=== PATIENT | female | born 1945 | race Caucasian/White ===

== ENCOUNTER 2016-10-16 10:03 | Inpatient (IN) | payer MEDICARE ==
[~2016-10-16 10:03] MED LIST: BUME1TAB PO; GLUC1000 PO; GLUCTAB PO; GLYB1TAB51 PO; K-TA10TA5 PO; LORT5TAB PO; SIMV20TA PO; SULF1TAB47 PO
[2016-10-16 10:12] VITALS: BP 187/83; PULSE 106; RESP 32; TEMP 100.8; O2SAT 100
[2016-10-16] MEDS ORDERED: cefTRIAXone INJ 2,000 MG in SODIUM CHLORIDE 0.9% INJ 100 ML IV STA (10:25)
[2016-10-16] MEDS ORDERED: AZITHROMYCIN INJ 500 MG in SODIUM CHLOR 0.9% 250 ML INJ 250 ML IV STA (10:25)
[2016-10-16] MEDS ORDERED: SODIUM CHLOR 0.9% 1000 ML INJ 1,000 ML IV ONE (10:30)
--- NOTE | 2016-10-16 10:35 | PD ---
HPI Chief Complaint: fall Time Seen by Provider: 10:25 Travel History International Travel<30 days: No Contact w/Intl Traveler<30days: No Traveled to known affect area: No History of Present Illness HPI 71-year-old female with history of diabetes, hypertension, presents to the ER today brought in by EMS after she apparently fell at home, she apparently has not been feeling well for several days, running fevers, coughing, having some shortness of breath here in the ER. She denies any chest pains, abdominal pains , nausea, vomiting, or other symptoms. She reports that she lost balance and fell. She denies any head injury or loss of consciousness. She apparently yelled for neighbors to come help her. According to EMS, she was laying in her own filth, house was fairly unkempt with lots of cats, and appears to be according situation. They are concerned that that the patient is not able to take care of herself. They have suggested that we call DCF. I have relayed this issue to embedded case manager Chelsea Ahumada for the ER. Patient apparently was not able to get herself back up off the floor after she lost balance and fell. Modifying Factors: None Associated Signs & Symptoms: Fall, fevers, coughing and shortness of breath, apparently unable to take care of self at home Risk Factors: Elderly PFSH Past Medical History Cancer: No High Cholesterol: Yes Diabetes: Yes Diminished Hearing: No Glaucoma: No Hepatitis: No Hiatal Hernia: No Hypertension: Yes Respiratory: Yes (HX BRONCHITIS, HX PLEURISY) Thyroid Disease: No Menopausal: Yes Past Surgical History Abdominal Surgery: Yes (1986 CHOLECYSTECTOMY) Cardiac Surgery: No Cholecystectomy: Yes (11/13/1986) Ear Surgery: No Endocrine Surgery: No Eye Surgery: Yes (BILATERAL EYE CATARACT SURGERY WITH IMPLANT) Genitourinary Surgery: No Gynecologic Surgery: Yes (D & C, 10/19/01) Hysterectomy: Yes (04-11-02) Neurologic Surgery: Yes (CERVICAL FUSION 2002) Oral Surgery: No Pacemaker: No Thoracic Surgery: Yes (RIGHT BREAST LUMPECTOMY) Other Surgery: Yes (2005 RIGHT SHOULDER ROTATOR CUFF SURGERY) Social History Alcohol Use: No Tobacco Use: No Substance Use: No Allergies-Medications (Allergen,Severity, Reaction): Coded Allergies: Oxycontin (Verified Allergy, Severe, ITCHING, 05/31/11) Adhesives (Verified Allergy, Mild, Blisters the skin, 05/31/11) Codeine (Verified Allergy, Mild, NAUSEA, 05/31/11) Reported Meds & Prescriptions Reported Meds & Active Scripts Active Review of Systems Except as stated in HPI: all other systems reviewed are Neg Physical Exam Narrative GENERAL: Well-developed elderly white female patient in moderate distress. She appears to covered in defecation, disheveled. Tremulous. SKIN: Focused skin assessment warm/dry. Chronic venous stasis parking of both legs. She has notable erythematous rash below both breasts and the genital area indicative of [place] infection. HEAD: Atraumatic. Normocephalic. EYES: Pupils equal and round. No scleral icterus. No injection or drainage. ENT: No nasal bleeding or discharge. Mucous membranes pink and moist. NECK: Trachea midline. No JVD. CARDIOVASCULAR: Regular rate and rhythm. No murmur appreciated. RESPIRATORY: Mild accessory muscle use. Decreased breath sounds at the bases bilaterally. Breath sounds equal bilaterally. GASTROINTESTINAL: Abdomen soft, non-tender, nondistended. Hepatic and splenic margins not palpable. MUSCULOSKELETAL: No obvious deformities. No clubbing. No cyanosis. Lower leg edema with chronic venous stasis markings. NEUROLOGICAL: Awake and alert. No obvious cranial nerve deficits. Motor grossly within normal limits. Normal speech. PSYCHIATRIC: Appropriate mood and affect; insight and judgment poor. Data Data Last Documented VS Vital Signs Date Time Temp Pulse Resp B/P Pulse Ox O2 Delivery O2 Flow Rate FiO2 10/16/16 10:47 100 Room Air 10/16/16 10:12 100.8 106 32 187/83 Orders Complete Blood Count With Diff (10/16/16 10:08) Comprehensive Metabolic Panel (10/16/16 10:08) Lactic Acid Sepsis Protocol (10/16/16 10:08) Urinalysis - C+S If Indicated (10/16/16 10:08) Blood Culture (10/16/16 10:08) Chest, Single Ap (10/16/16 10:08) Blood Glucose (10/16/16 10:08) Ecg Monitoring (10/16/16 10:08) Iv Access Insert/Monitor (10/16/16 10:08) Oximetry (10/16/16 10:08) Oxygen Administration (10/16/16 10:08) Ceftriaxone Inj (Rocephin Inj) (10/16/16 10:25) Azithromycin Inj (Zithromax Inj) (10/16/16 10:25) Sodium Chlor 0.9% 1000 Ml Inj (Ns 1000 M (10/16/16 10:30) Humerus (Min 2vws) (10/16/16 10:25) Shoulder, Complete (>2vws) (10/16/16 10:25) Urine Culture (10/16/16 10:40) Admit Order (Ed Use Only) (10/16/16 11:54) Labs Laboratory Tests Test 10/16/16 10/16/16 10/16/16 10:20 10:35 10:40 White Blood Count 17.4 TH/MM3 Red Blood Count 4.77 MIL/MM3 Hemoglobin 13.5 GM/DL Hematocrit 40.5 % Mean Corpuscular Volume 85.0 FL Mean Corpuscular Hemoglobin 28.3 PG Mean Corpuscular Hemoglobin 33.3 % Concent Red Cell Distribution Width 13.6 % Platelet Count 214 TH/MM3 Mean Platelet Volume 6.9 FL Neutrophils (%) (Auto) 93.7 % Lymphocytes (%) (Auto) 2.5 % Monocytes (%) (Auto) 3.5 % Eosinophils (%) (Auto) 0.0 % Basophils (%) (Auto) 0.3 % Neutrophils # (Auto) 16.3 TH/MM3 Lymphocytes # (Auto) 0.4 TH/MM3 Monocytes # (Auto) 0.6 TH/MM3 Eosinophils # (Auto) 0.0 TH/MM3 Basophils # (Auto) 0.1 TH/MM3 CBC Comment DIFF FINAL Differential Comment Sodium Level 136 MEQ/L Potassium Level 3.2 MEQ/L Chloride Level 103 MEQ/L Carbon Dioxide Level 22.2 MEQ/L Anion Gap 11 MEQ/L Blood Urea Nitrogen 14 MG/DL Creatinine 1.09 MG/DL Estimat Glomerular Filtration 50 ML/MIN Rate Random Glucose 238 MG/DL Calcium Level 8.6 MG/DL Total Bilirubin 2.1 MG/DL Aspartate Amino Transf 30 U/L (AST/SGOT) Alanine Aminotransferase 17 U/L (ALT/SGPT) Alkaline Phosphatase 92 U/L Total Protein 7.3 GM/DL Albumin 3.5 GM/DL Lactic Acid Level 4.1 mmol/L Urine Color YELLOW Urine Turbidity HAZY Urine pH 5.5 Urine Specific [place] 1.016 Urine Protein 30 mg/dL Urine Glucose (UA) 300 mg/dL Urine Ketones 10 mg/dL Urine Occult Blood MOD Urine Nitrite NEG Urine Bilirubin NEG Urine Urobilinogen LESS THAN 2.0 MG/DL Urine Leukocyte Esterase MOD Urine RBC 5 /hpf Urine WBC 17 /hpf Urine WBC Clumps FEW Urine Squamous Epithelial 3 /hpf Cells Urine Amorphous Sediment OCC Urine Bacteria OCC /hpf Urine Hyaline Casts 2 /lpf Urine Mucus FEW /lpf Microscopic Urinalysis Comment CATH-CULTURE IND MDM Medical Decision Making Medical Screen Exam Complete: Yes Emergency Medical Condition: Yes Medical Record Reviewed: Yes Interpretation(s) Laboratory Tests Test 10/16/16 10/16/16 10/16/16 10:20 10:35 10:40 White Blood Count 17.4 TH/MM3 (4.0-11.0) Mean Platelet Volume 6.9 FL (7.0-11.0) Neutrophils (%) (Auto) 93.7 % (16.0-70.0) Lymphocytes (%) (Auto) 2.5 % (9.0-44.0) Neutrophils # (Auto) 16.3 TH/MM3 (1.8-7.7) Lymphocytes # (Auto) 0.4 TH/MM3 (1.0-4.8) Potassium Level 3.2 MEQ/L (3.5-5.1) Creatinine 1.09 MG/DL (0.50-1.00) Estimat Glomerular Filtration 50 ML/MIN (>89) Rate Random Glucose 238 MG/DL (74-106) Total Bilirubin 2.1 MG/DL (0.2-1.0) Lactic Acid Level 4.1 mmol/L (0.4-2.0) Urine Turbidity HAZY (CLEAR) Urine Protein 30 mg/dL (NEG-TRACE) Urine Glucose (UA) 300 mg/dL (NEG) Urine Ketones 10 mg/dL (NEG) Urine Occult Blood MOD (NEG) Urine Leukocyte Esterase MOD (NEG) Urine RBC 5 /hpf (0-3) Urine WBC 17 /hpf (0-5) Urine WBC Clumps FEW (NONE) Urine Bacteria OCC /hpf (NONE) Urine Mucus FEW /lpf (OCC) Last 24 hours Impressions Shoulder X-Ray 10/16/16 1025 Signed Impressions: Service Date/Time: Sunday, October 16, 2016 11:14 - CONCLUSION: No acute disease. Small exostosis off the coracoid process. Yao Guillen MD Humerus X-Ray 10/16/16 1025 Signed Impressions: Service Date/Time: Sunday, October 16, 2016 11:10 - CONCLUSION: 1. No evidence of acute process. 2. Small calcific density adjacent to the greater tuberosity characteristic of calcific tendinitis or bursitis. Yao Guillen MD Chest X-Ray 10/16/16 1008 Signed Impressions: Service Date/Time: Sunday, October 16, 2016 11:04 - CONCLUSION: Mild perihilar infiltrate. Gm Perez MD Differential Diagnosis Sepsis versus pneumonia versus dehydration versus metabolic issues Narrative Course Lab work shows significant leukocytosis and UA shows UTI. She may have some underlying pneumonia as well since infiltrates were seen on chest x-ray. IV antibiotics were initiated after cultures were done. Case management is aware of patient's living circumstances and will contact DCFS, Chelsea Ahumada on the case. My plan would be to admit the patient for further treatment. Case is discussed with Dr. Appiah for admission. Diagnosis Primary Impression: Severe sepsis Additional Impression: UTI (urinary tract infection) Admitting Information Admitting Physician Requests: Admit Rubi Banuelos MD Oct 16, 2016 10:35
[2016-10-16 10:47] VITALS: O2SAT 100
[2016-10-16 10:56] LABS: AUTOMATED NEUTROPHIL # 16.3 TH/MM3 (1.8-7.7); BASOPHIL # 0.1 TH/MM3 (0-0.2); BASOPHIL % 0.3 % (0.0-2.0); HEMATOCRIT 40.5 % (35.0-46.0); HEMO FLAGS DIFF FINAL; LYMPH % 2.5 % (9.0-44.0); LYMPHOCYTE # 0.4 TH/MM3 (1.0-4.8); MEAN CORPUSCULAR HEMOGLOBIN 28.3 PG (27.0-34.0); MEAN CORPUSCULAR HGB CONC 33.3 % (32.0-36.0); MONO % 3.5 % (0.0-8.0); NEUT % 93.7 % (16.0-70.0); PLATELET COUNT 214 TH/MM3 (150-450); RED BLOOD COUNT 4.77 MIL/MM3 (4.00-5.30); RED CELL DISTRIBUTION WIDTH 13.6 % (11.6-17.2); WHITE BLOOD COUNT 17.4 TH/MM3 (4.0-11.0)
[2016-10-16 11:07] LABS: BACTERIA, URINE OCC /hpf; BLOOD, URINE MOD (NEG); COMMENT (UR) CATH-CULTURE IND; CULTURE IF INDICATED CATH CULTURE IND; GLUCOSE,URINE 300 mg/dL (NEG); HYALINE CAST, URINE 2 /lpf (RARE); KETONE, URINE 10 mg/dL (NEG); MUCUS URINE FEW /lpf (OCC); NITRITE,URINE NEG (NEG); PH, URINE 5.5 (5.0-8.5); SQUAMOUS EPITHELIAL CELL URINE 3 /hpf (0-5); URINE COLOR YELLOW (YELLW/STRAW)
[2016-10-16 11:21] LABS: ALT (GPT) 17 U/L (10-53); ANION GAP 11 MEQ/L (5-15); AST (GOT) 30 U/L (15-37); BICARBONATE 22.2 MEQ/L (21.0-32.0); BLOOD UREA NITROGEN 14 MG/DL (7-18); CHLORIDE 103 MEQ/L (98-107); GLOMERULAR FILTRATION RATE 50 ML/MIN (>89); POTASSIUM 3.2 MEQ/L (3.5-5.1); SODIUM (NA) 136 MEQ/L (136-145)
[2016-10-16 11:23] LABS: ALKALINE PHOSPHATASE 92 U/L (45-117); TOTAL BILIRUBIN ADULT 2.1 MG/DL (0.2-1.0)
--- NOTE | 2016-10-16 11:30 | RADRPT ---
EXAM DATE/TIME: 10/16/2016 11:10 [facility] COMPARISON: No previous studies available for comparison. INDICATIONS : Fall, complains of left upper arm pain. MEDICAL HISTORY : None. SURGICAL HISTORY : Fusion, cervical. ENCOUNTER: Initial ACUITY: 1 day PAIN SCORE: 7/10 LOCATION: Left humerus FINDINGS: Two view examination of the left humerus demonstrates no evidence of fracture or dislocation. Bony m ineralization is normal. The soft tissue structures are intact. Small calcific density is noted adjacent to the greater tuberosity. CONCLUSION: 1. No evidence of acute process. 2. Small calcific density adjacent to the greater tuberosity characteristic of calcific tendinitis or bursitis. Yao Guillen MD on October 16, 2016 at 11:28 Board Certified Radiologist. This report was verified electronically.
--- NOTE | 2016-10-16 11:31 | RADRPT ---
EXAM DATE/TIME: 10/16/2016 11:04 [facility] COMPARISON: No previous studies available for comparison. INDICATIONS : Fever. MEDICAL HISTORY : None. SURGICAL HISTORY : None. ENCOUNTER: Initial ACUITY: 1 day PAIN SCORE: 0/10 LOCATION: Bilateral chest FINDINGS: There is mild perihilar infiltrate, primarily on the right. No evidence of effusion. Cardiac contours are satisfactory. CONCLUSION: Mild perihilar infiltrate. Gm Perez MD on October 16, 2016 at 11:29 Board Certified Radiologist. This report was verified electronically.
--- NOTE | 2016-10-16 11:33 | RADRPT ---
EXAM DATE/TIME: 10/16/2016 11:14 [facility] COMPARISON: No previous studies available for comparison. INDICATIONS : Fall, complains of right shoulder pain. MEDICAL HISTORY : None. SURGICAL HISTORY : Fusion, cervical. ENCOUNTER: Initial ACUITY: 1 day PAIN SCORE: 7/10 LOCATION: Right shoulder FINDINGS: Multiple view examination of the right shoulder demonstrates no evidence of fracture or dislocation. The glenohumeral and acromioclavicular joints are maintained. Focal exostosis is seen off the coraco id process. There is normal range of motion between internal and external rotation. Bony mineralizat ion is normal. CONCLUSION: No acute disease. Small exostosis off the coracoid process. Yao Guillen MD on October 16, 2016 at 11:29 Board Certified Radiologist. This report was verified electronically.
[2016-10-16] MEDS ORDERED: AMLO10TA2 PO (12:06)
[2016-10-16] MEDS ORDERED: ERGO1CAP30 PO (12:06)
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
[2016-10-16 12:50] LABS: LACTIC ACID GHOST NOT REPORTABLE
[2016-10-16 13:00] VITALS: BP 164/79; PULSE 83; RESP 22; TEMP 100.7; O2SAT 100
[2016-10-16] MEDS ORDERED: POTASSIUM CHLORIDE 20 MEQ CONTROLLED RELEASE TAB PO ONE (13:00)
[2016-10-16] MEDS ORDERED: ONDANSETRON HCL 4 MG/2 ML VIAL IV PRN (13:00)
[2016-10-16] MEDS ORDERED: cloNIDine HCL 0.1 MG TAB PO PRN (13:30)
[2016-10-16] MEDS: PIPERACIL-TAZO 3.375 GM PREMIX 50 ML IV SCH ×2 (14:23→22:32)
[2016-10-16] MEDS: ACETAMINOPHEN 325 MG TAB PO PRN ×2 (14:23→22:38)
[2016-10-16] MEDS: ENOXAPARIN SODIUM 30 MG/0.3 ML SYRINGE SQ SCH (14:23)
[2016-10-16] MEDS: NYSTATIN 100,000 U/GM PWD 15 GM BTL TOPICAL SCH ×2 (15:30→22:32)
[2016-10-16 16:00] VITALS: BP 117/59; PULSE 79; RESP 16; TEMP 99; O2SAT 94
[2016-10-16] MEDS: INSULIN ASPART SUPPLEMENTAL SCALE SQ SCH ×2 (16:00→21:00)
[2016-10-16 20:00] VITALS: BP 120/68; PULSE 67; RESP 18; TEMP 98.1; O2SAT 94
[2016-10-17] VITALS: BP 133/70; PULSE 70; RESP 16; TEMP 98.9; O2SAT 95
[2016-10-17] MEDS: PIPERACIL-TAZO 3.375 GM PREMIX 50 ML IV SCH ×4 (01:48→22:15)
[2016-10-17] MEDS: NYSTATIN 100,000 U/GM PWD 15 GM BTL TOPICAL SCH ×3 (05:39→22:16)
[2016-10-17] MEDS: ACETAMINOPHEN 325 MG TAB PO PRN (05:47)
[2016-10-17] MEDS: INSULIN ASPART SUPPLEMENTAL SCALE SQ SCH ×4 (05:47→21:00)
[2016-10-17 07:37] LABS: BICARBONATE 28.4 MEQ/L (21.0-32.0); MAGNESIUM 2.2 MG/DL (1.5-2.5); POTASSIUM 3.4 MEQ/L (3.5-5.1)
[2016-10-17 07:43] LABS: AUTOMATED NEUTROPHIL # 6.7 TH/MM3 (1.8-7.7); BASOPHIL % 0.3 % (0.0-2.0); EOSINOPHIL # 0.1 TH/MM3 (0-0.4); EOSINOPHIL % 0.9 % (0.0-4.0); HEMATOCRIT 35.5 % (35.0-46.0); HEMO FLAGS DIFF FINAL; LYMPHOCYTE # 1.8 TH/MM3 (1.0-4.8); MEAN CELL VOLUME 84.6 FL (80.0-100.0); MEAN CORPUSCULAR HEMOGLOBIN 29.5 PG (27.0-34.0); MEAN CORPUSCULAR HGB CONC 34.9 % (32.0-36.0); MONO % 7.7 % (0.0-8.0); NEUT % 72.1 % (16.0-70.0); PLATELET COUNT 188 TH/MM3 (150-450); RED CELL DISTRIBUTION WIDTH 13.9 % (11.6-17.2); WHITE BLOOD COUNT 9.2 TH/MM3 (4.0-11.0)
[2016-10-17 08:00] VITALS: BP 142/67; PULSE 65; RESP 16; TEMP 97.4; O2SAT 96
[2016-10-17 12:00] VITALS: BP 136/65; PULSE 72; RESP 16; TEMP 98.8; O2SAT 94
[2016-10-17] MEDS: IBUPROFEN 400 MG TAB PO PRN ×2 (13:32→22:17)
[2016-10-17] MEDS: ENOXAPARIN SODIUM 30 MG/0.3 ML SYRINGE SQ SCH (13:32)
[2016-10-17] MEDS ORDERED: POTASSIUM CHLORIDE 20 MEQ CONTROLLED RELEASE TAB PO ONE (15:15)
[2016-10-17 16:00] VITALS: BP 131/65; PULSE 76; RESP 16; TEMP 98.1; O2SAT 96
[2016-10-17 20:00] VITALS: BP 125/72; PULSE 73; RESP 18; TEMP 98.8; O2SAT 96
--- NOTE | 2016-10-17 21:22 | HHI.PR ---
Subjective Remarks doing better. ambulating back from bathroom and doing well with walker. left knee better. Objective Vitals ambulating heart reg lung cta abd s/nt ext chronic lower ext stasis. woody edema/hyperkeratotic plaue areas of redness/fould odor onychomycosis mo under breast/skin folds/inguinal area Vital Signs Date Time Temp Pulse Resp B/P Pulse Ox O2 Delivery O2 Flow Rate FiO2 10/17/16 16:00 98.1 76 16 131/65 96 10/17/16 14:32 18 10/17/16 12:00 98.8 72 16 136/65 94 10/17/16 08:00 97.4 65 16 142/67 96 10/17/16 06:47 18 10/17/16 00:00 98.9 70 16 133/70 95 10/16/16 10/16/16 10/17/16 15:00 23:00 07:00 Intake Total 50 ml 290 ml Balance 50 ml 290 ml Intake Oral 240 ml IV Total 50 ml 50 ml # Voids 2 2 # Bowel Movements 0 1 Result Diagram: 10/17/16 0611 10/17/16 0611 Imaging Last Impressions Shoulder X-Ray 10/16/16 1025 Signed Impressions: Service Date/Time: Sunday, October 16, 2016 11:14 - CONCLUSION: No acute disease. Small exostosis off the coracoid process. Yao Guillen MD Humerus X-Ray 10/16/16 1025 Signed Impressions: Service Date/Time: Sunday, October 16, 2016 11:10 - CONCLUSION: 1. No evidence of acute process. 2. Small calcific density adjacent to the greater tuberosity characteristic of calcific tendinitis or bursitis. Yao Guillen MD Chest X-Ray 10/16/16 1008 Signed Impressions: Service Date/Time: Sunday, October 16, 2016 11:04 - CONCLUSION: Mild perihilar infiltrate. Gm Perez MD A/P Problem List: (1) Fever Status: Acute Plan: - Pt is a 71 y/o female with HTN, diabetes, hx of breast cancer who presented after a trip and fall at home and was unable to get up. - Upon initial evaluation pt is quite unkempt and is reportedly her home was quite filthy per the ED staff as per [facility] account. - She had a noted fever and elevated WBC - Severe yeast infection of skin under breast/abdomen/inguinal folds - UTI..gnr cx pending -Lower ext chronic lymphedema changes and probably component of cellulitis. Pt was picking off hyperkeratotic lesions PT eval. plan for snf and medical management for a few days CM consulted Shower daily Wound care consult for LE'S topical nystatin cont zosyn and f/u pending cx's dvt prophylaxis. (2) UTI (urinary tract infection) Status: Acute Plan: - See above. (3) HTN (hypertension) Status: Chronic Plan: - Home meds resumed - Clonidine PRN (4) Diabetes Status: Chronic Plan: - Pt is not on any medications or insulin at home - Check Hgb A1C - NovoLog SSI - Accu check Problem Qualifiers (1) Diabetes: Selwyn Appiah MD Oct 17, 2016 21:21
[2016-10-18] VITALS: BP 141/67; PULSE 67; RESP 18; TEMP 98.4; O2SAT 96
[2016-10-18] MEDS: PIPERACIL-TAZO 3.375 GM PREMIX 50 ML IV SCH ×4 (01:27→20:05)
[2016-10-18] MEDS: INSULIN ASPART SUPPLEMENTAL SCALE SQ SCH ×4 (05:19→20:05)
[2016-10-18] MEDS: NYSTATIN 100,000 U/GM PWD 15 GM BTL TOPICAL SCH ×2 (05:20→14:11)
[2016-10-18] MEDS: IBUPROFEN 400 MG TAB PO PRN ×2 (05:27→13:05)
[2016-10-18 08:00] VITALS: BP 157/75; PULSE 72; RESP 26; TEMP 97.5; O2SAT 97
--- NOTE | 2016-10-18 11:22 | HHI.PR ---
Subjective Remarks legs look and feel better took another shower Objective Vitals heart reg lung cta abd s/nt ext lower ext chronic lymphedema change/woody edema/hyperkeratotic lesions all better. 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 Vital Signs Date Time Temp Pulse Resp B/P Pulse Ox O2 Delivery O2 Flow Rate FiO2 10/18/16 00:00 98.4 67 18 141/67 96 10/17/16 20:00 98.8 73 18 125/72 96 10/17/16 16:00 98.1 76 16 131/65 96 10/17/16 14:32 18 10/17/16 12:00 98.8 72 16 136/65 94 10/17/16 10/17/16 10/18/16 15:00 23:00 07:00 Intake Total 400 ml Balance 400 ml Intake Oral 400 ml # Voids 3 1 # Bowel Movements 1 Result Diagram: 10/17/16 0611 10/17/16 0611 Imaging Last Impressions Shoulder X-Ray 10/16/16 1025 Signed Impressions: Service Date/Time: Sunday, October 16, 2016 11:14 - CONCLUSION: No acute disease. Small exostosis off the coracoid process. Yao Guillen MD Humerus X-Ray 10/16/16 1025 Signed Impressions: Service Date/Time: Sunday, October 16, 2016 11:10 - CONCLUSION: 1. No evidence of acute process. 2. Small calcific density adjacent to the greater tuberosity characteristic of calcific tendinitis or bursitis. Yao Guillen MD Chest X-Ray 10/16/16 1008 Signed Impressions: Service Date/Time: Sunday, October 16, 2016 11:04 - CONCLUSION: Mild perihilar infiltrate. Gm Perez MD A/P Problem List: (1) Fever Status: Acute Plan: - Pt is a 71 y/o female with HTN, diabetes, hx of breast cancer who presented after a trip and fall at home and was unable to get up. - Upon initial evaluation pt is quite unkempt and is reportedly her home was quite filthy per the ED staff as per [facility] account. - She had a noted fever and elevated WBC - Severe yeast infection of skin under breast/abdomen/inguinal folds - UTI..gnr cx pending -Lower ext chronic lymphedema changes and probably component of cellulitis. Pt was picking off hyperkeratotic lesions overall pt actually looking better. would probably benefit from short term snf..but now will refuse so will plan home with hhc/pt and ask for any social service support in next 1-2 days CM consulted Shower daily Wound care consult for LE'S topical nystatin cont zosyn and convert to po abx tomorrow. dvt prophylaxis. (2) UTI (urinary tract infection) Status: Acute Plan: - See above. (3) HTN (hypertension) Status: Chronic Plan: - Home meds resumed - Clonidine PRN (4) Diabetes Status: Chronic Plan: - Pt is not on any medications or insulin at home - Check Hgb A1C - NovoLog SSI - Accu check Problem Qualifiers (1) Diabetes: Selwyn Appiah MD Oct 18, 2016 11:22
[2016-10-18 12:00] VITALS: BP 136/70; PULSE 68; RESP 24; TEMP 97.9; O2SAT 96
[2016-10-18] MEDS: ENOXAPARIN SODIUM 30 MG/0.3 ML SYRINGE SQ SCH (14:12)
[2016-10-18 16:00] VITALS: BP 136/73; PULSE 73; RESP 24; TEMP 98.1; O2SAT 94
[2016-10-18 20:00] VITALS: BP 148/70; PULSE 79; RESP 17; TEMP 98.9; O2SAT 94
[2016-10-19] VITALS: BP 166/76; PULSE 72; RESP 17; TEMP 97.8; O2SAT 97
[2016-10-19] MEDS: IBUPROFEN 400 MG TAB PO PRN ×3 (00:59→23:27)
[2016-10-19] MEDS: PIPERACIL-TAZO 3.375 GM PREMIX 50 ML IV SCH ×2 (01:00→09:11)
[2016-10-19] MEDS: NYSTATIN 100,000 U/GM PWD 15 GM BTL TOPICAL SCH ×4 (01:01→22:00)
[2016-10-19] MEDS: INSULIN ASPART SUPPLEMENTAL SCALE SQ SCH ×4 (04:39→21:00)
[2016-10-19 08:00] VITALS: BP 168/79; PULSE 73; RESP 16; TEMP 97; O2SAT 96
[2016-10-19 12:00] VITALS: BP 138/65; PULSE 71; RESP 18; TEMP 97.6; O2SAT 93
--- NOTE | 2016-10-19 12:35 | HHI.PR ---
Subjective Remarks Pts IV infiltrated this morning and wasn't able to be replaced No specific complaints today other than venting frustration over IV site issues. Pt refuses SNF and does not want HHC/PT coming into her home. She would be willing to go to a physical therapy facility Objective Vitals Vital Signs Date Time Temp Pulse Resp B/P Pulse Ox O2 Delivery O2 Flow Rate FiO2 10/19/16 08:00 97.0 73 16 168/79 96 10/19/16 00:00 97.8 72 17 166/76 97 10/18/16 20:00 98.9 79 17 148/70 94 10/18/16 16:00 98.1 73 24 136/73 94 10/18/16 14:05 18 10/18/16 10/18/16 10/19/16 15:00 23:00 07:00 Intake Total 480 ml 240 ml 290 ml Balance 480 ml 240 ml 290 ml Intake Oral 480 ml 240 ml 240 ml IV Total 50 ml # Voids 5 2 2 # Bowel Movements 2 2 Result Diagram: 10/17/16 0611 10/17/16 0611 Imaging Last Impressions Shoulder X-Ray 10/16/16 1025 Signed Impressions: Service Date/Time: Sunday, October 16, 2016 11:14 - CONCLUSION: No acute disease. Small exostosis off the coracoid process. Yao Guillen MD Humerus X-Ray 10/16/16 1025 Signed Impressions: Service Date/Time: Sunday, October 16, 2016 11:10 - CONCLUSION: 1. No evidence of acute process. 2. Small calcific density adjacent to the greater tuberosity characteristic of calcific tendinitis or bursitis. Yao Guillen MD Chest X-Ray 10/16/16 1008 Signed Impressions: Service Date/Time: Sunday, October 16, 2016 11:04 - CONCLUSION: Mild perihilar infiltrate. Gm Perez MD Objective Remarks General: NAD, AAOx3 Chest: CTA Cardiac: Regular Abd: +BS, soft obese, ND/NT Ext: Bilateral LE chronic lymphedema skin changes with hyperkeratotic lesions better. Erythema improving A/P Problem List: (1) Fever Status: Acute Plan: - Pt is a 71 y/o female with HTN, diabetes, hx of breast cancer who presented after a trip and fall at home and was unable to get up. - Upon initial evaluation pt is quite unkempt and is reportedly her home was quite filthy per the ED staff as per [facility] account. - She had a noted fever and elevated WBC - Severe yeast infection of skin under breast/abdomen/inguinal folds - UTI with culture growing Klebsiella pneumoniae, hogan sensitive. - Lower ext chronic lymphedema changes and probably component of cellulitis. Pt was picking off hyperkeratotic lesions - Pt is overall pt actually looking better. - Pt would probably benefit from short term SNF but pt is refusing. We discussed a plan for home with hhc/PT but pt does not want any one coming into her home. - CM consulted. Anticipate discharge home tomorrow - Shower daily - Wound care consult for LE'S - Cont. topical nystatin - Pt lost IV access. Change Zosyn to po Cipro today - DVT prophylaxis. (2) UTI (urinary tract infection) Status: Acute Plan: - See above. (3) HTN (hypertension) Status: Chronic Plan: - Home meds resumed - Clonidine PRN (4) Diabetes Status: Chronic Plan: - Pt is not on any medications or insulin at home - NovoLog SSI - Accu check Assessment and Plan Patient examined. Assessment and plan formulated with Danuta Nguyen PA-C. I agree with the above. Problem Qualifiers (1) Diabetes: Danuta Nguyen Oct 19, 2016 12:35 Joseph Jacome DO Oct 20, 2016 12:25
[2016-10-19] MEDS: ENOXAPARIN SODIUM 30 MG/0.3 ML SYRINGE SQ SCH (15:03)
[2016-10-19] MEDS: CIPROFLOXACIN 500 MG TAB PO SCH ×2 (15:03→23:26)
[2016-10-19 16:00] VITALS: BP 180/79; PULSE 74; RESP 17; TEMP 98.5; O2SAT 95
[2016-10-19 20:00] VITALS: BP 133/67; PULSE 78; RESP 24; TEMP 97.9; O2SAT 95
[2016-10-20] VITALS: BP 158/72; PULSE 70; RESP 22; TEMP 97.6; O2SAT 96
[2016-10-20] MEDS: NYSTATIN 100,000 U/GM PWD 15 GM BTL TOPICAL SCH ×2 (06:00→12:47)
[2016-10-20] MEDS: INSULIN ASPART SUPPLEMENTAL SCALE SQ SCH ×2 (06:07→11:00)
[2016-10-20] MEDS: IBUPROFEN 400 MG TAB PO PRN (06:10)
[2016-10-20 08:00] VITALS: BP 139/73; PULSE 64; RESP 18; TEMP 96.9; O2SAT 94
[2016-10-20] MEDS ORDERED: CIPR-9 PO (10:23)
[2016-10-20] MEDS ORDERED: NYST10007 TOPICAL (10:23)
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
--- NOTE | 2016-10-20 12:30 | HHI.DCPOC ---
Discharge Care Plan Diagnosis: (1) Fever (2) Diabetes (3) UTI (urinary tract infection) (4) HTN (hypertension) Goals to Promote Your Health * To prevent worsening of your condition and complications * To maintain your health at the optimal level Directions to Meet Your Goals Take your medications as prescribed Follow your dietary instruction Follow activity as directed Keep your appointments as scheduled Take your immunizations and boosters as scheduled If your symptoms worsen call your PCP, if no PCP go to Urgent Care Center or Emergency Room Smoking is Dangerous to Your Health. Avoid second hand smoke Call the 24-hour hour crisis hotline for domestic abuse at Joseph Jacome DO Oct 20, 2016 12:30
[2016-10-20] MEDS: CIPROFLOXACIN 500 MG TAB PO SCH (12:48)
[2016-10-20] MEDS: ENOXAPARIN SODIUM 30 MG/0.3 ML SYRINGE SQ SCH (12:48)
--- NOTE | 2016-10-20 12:56 | HHI.FF ---
Face to Face Verification Diagnosis: (1) UTI (urinary tract infection) (2) HTN (hypertension) (3) Generalized weakness (4) Lichenification (5) Diabetes Physical Therapy Order: Evaluate and Treat, Improve ambulation, Strength and gait training Home Health Nursing Order: Medical education Signs/symptoms of disease process Diabetic education Medication education-adverse effect Wound care and dressing changes Nursing assessment with vital signs Home Health Aide Order: To Assist In: Bathing and personal care, caustic strength inspector and meal prep Automatic Folder Seamer Order: To Evaluate: Living conditions/environment, Support services Order: To Provide: Long range planning, Community services I have seen patient Merna Valadez on 10/20/16. My clinical findings support the need for the requested home health care services because: Ltd mobility - disease progression Deconditioned w/ increased weakness Med compliance is questionable Limited ability to care for self Need for psychosocial assistance Impaired cognition/judgement I certify that my clinical findings support that this patient is homebound because: Impaired cognitive ability/safety Unsafe to leave home unassisted Need for psychosocial assistance Unable to use public transportation Joseph Jacome DO Oct 20, 2016 12:56
--- NOTE | 2016-10-20 14:55 | PD.WCN.NOT ---
Wound Consult Description: BLE scattered areas of partial thickness skin loss Communicated with: RN Conchis carlos and Doctor Ayaz Recommendation: Please cleanse wound with normal saline and apply single layer Xeroform gauze dressing just over scattered areas of partial thickness skin loss cover with dry 4x4 gauze dressing secure with rolled gauze and tape change every other day or PRN if saturated or dislodged Keep BLE elevated when sitting in chair or in bed Additional Information: Patient seen on for evaluation of wound management of BLE. Patient has history of chronic lymphedema. BLE noted with with hard non pitting edema with erythema. Thickened dry scaly yellow colored skin is also noted with scattered areas of partial thickness skin loss. Small areas of partial thickness skin loss present with 100% pink tissue and dry wound beds. Wounds have no active drainage or odor. Cleansed wounds with normal saline and applied Xeroform gauze in single layer just over wound bed and cover with dry 4x4 gauze pads. Secured dressings with rolled gauze and tape. Patient is to be discharged today and will be having home health care for dressing changes. Patient will be keeping legs elevated at home and per patient will follow up with spa therapist out patient for continued treatment of BLE. [facility] Oct 20, 2016 14:55
[2016-10-20 16:00] VITALS: BP 149/74; PULSE 81; RESP 17; TEMP 96.1; O2SAT 98
== END 2016-10-20 17:07 | disposition home or self-care (01) | DRG 872 ==
LOC: NEPC 10:03 → NEDA 11:56 → N07A 15:28
PROVIDERS: ADMIT Hospitalist; ATTEND Hospitalist
DX: A41.9 Sepsis, unspecified organism (principal); E11.40 Type 2 diabetes mellitus with diabetic neuropathy, unspecified; I27.2 Other secondary pulmonary hypertension; L03.90 Cellulitis, unspecified; B37.2 Candidiasis of skin and nail; N39.0 Urinary tract infection, site not specified; I10 Essential (primary) hypertension; M25.70 Osteophyte, unspecified joint; B96.1 Klebsiella pneumoniae [K. pneumoniae] as the cause of diseases classified elsewhere; E78.5 Hyperlipidemia, unspecified; G47.33 Obstructive sleep apnea (adult) (pediatric); I89.0 Lymphedema, not elsewhere classified; K58.9 Irritable bowel syndrome, unspecified; L28.0 Lichen simplex chronicus; M65.20 Calcific tendinitis, unspecified site; W01.0XXA Fall on same level from slipping, tripping and stumbling without subsequent striking against object, initial encounter; Y92.009 Unspecified place in unspecified non-institutional (private) residence as the place of occurrence of the external cause; Z85.3 Personal history of malignant neoplasm of breast; Z96.652 Presence of left artificial knee joint
CPT/HCPCS: 71010; 73030; 73060; 80048; 80053; 81001; 82948; 83605; 83735; 85025; 87040; 87077; 87086; 87186; J0456; J0696; J1650; J1815; J2543; J7030; J7050

== ENCOUNTER 2017-02-23 19:30 | Inpatient (IN) | payer MEDICARE ==
[~2017-02-23 19:30] MED LIST changes: +AMLO10TA2 PO; -BUME1TAB PO; +CIPR-9 PO; -GLUC1000 PO; -GLUCTAB PO; -GLYB1TAB51 PO; -K-TA10TA5 PO; -LORT5TAB PO; +NYST10007 TOPICAL; -SIMV20TA PO; -SULF1TAB47 PO; +VITA500012 PO
--- NOTE | 2017-02-23 19:54 | PD ---
HPI Chief Complaint: generalized weakness Time Seen by Provider: 19:51 Travel History International Travel<30 days: No Contact w/Intl Traveler<30days: No History of Present Illness HPI The patient is a 71 year old female who presents to the [facility] emergency department with a history of reportedly not feeling well over the last week. The patient reports that she initially started to have cough, congestion, nasal discharge week ago, however this improved. On Wednesday she then developed right arm pain. She reports that the arm pain radiates from the right hand all the way up into the right shoulder. She reports having pain with any attempts at lifting her right arm. She reports that she's had difficulty caring for herself related to the right arm pain. A neighbor has been coming in to give her groceries. She reports that over the last week she has additionally had diarrhea 1-2 times per day. She reports that it is explosive. She denies having any blood in her stool or black or tarry stools. She denies having any known fevers. She reports that she has had lower extremity edema and redness to her legs. The patient on arrival by ambulance services is incontinent of stool and is covered in feces. On review of systems otherwise, the patient denies having any recent fall or trauma, neck pain, chest pain, shortness of breath, abdominal pain, vomiting, urinary symptoms, or other neurologic symptoms. [facility] Past Medical History Narrative Medical The patient's past medical history according to the record consists of diabetes mellitus, diabetic neuropathy, hypertension, hyperlipidemia, history of breast cancer status post lumpectomy and radiation therapy, irritable bowel syndrome, pulmonary hypertension, obstructive sleep apnea, vitamin D deficiency, vitamin B12 deficiency. The patient is followed by a [facility] primary care physician. Cancer: Yes (PRECANCER IN BREAST , HX OF RADIATION TREATMENT ) High Cholesterol: Yes Diabetes: Yes Diminished Hearing: No Endocrine: Yes Glaucoma: No Hepatitis: No Hiatal Hernia: No Hypertension: Yes Psychiatric: No Respiratory: Yes (HX BRONCHITIS, HX PLEURISY) Radiation Therapy: Yes Sleep Apnea: Yes (HAD A SURGERY PERFORMED TO CORRECT ) Thyroid Disease: No Menopausal: Yes Dilation and Curettage (D&C): Yes Past Surgical History Narrative Surgical The patient's past surgical history is significant for total knee replacement on the left, arthroscopy of both knees, cholecystectomy, cataract surgery, rotator cuff repair on the right shoulder, bilateral foot surgery, hysterectomy , D&C. Abdominal Surgery: Yes (GALLBLADDER SURGERY ) Cardiac Surgery: No Cholecystectomy: Yes (11/13/1986) Ear Surgery: No Endocrine Surgery: No Eye Surgery: Yes (BILATERAL CATERAX) Genitourinary Surgery: No Gynecologic Surgery: Yes (DN COMPLETE HYSTORETOMY ) Hysterectomy: Yes (04-11-02) Neurologic Surgery: Yes (CERVICAL FUSION 2002) Oral Surgery: No Pacemaker: No Thoracic Surgery: Yes (RIGHT BREAST LUMPECTOMY) Other Surgery: Yes (2005 RIGHT SHOULDER ROTATOR CUFF SURGERY) Social History Alcohol Use: No Tobacco Use: No Substance Use: No Allergies-Medications (Allergen,Severity, Reaction): Coded Allergies: oxycodone (Verified Allergy, Severe, ITCHING, 02/23/17) adhesive (Verified Allergy, Mild, Blisters the skin, 02/23/17) codeine (Verified Allergy, Mild, NAUSEA, 02/23/17) Reported Meds & Prescriptions Reported Meds & Active Scripts Active Nystop Topical (Nystatin Topical) 100,000 Unit/Gm Powd 1 Applic TOPICAL Q8HR Apply under both breasts, the groin area and under the arms Cipro (Ciprofloxacin HCl) 500 Mg Tab 500 Mg PO Q12H Reported Ergocalciferol 50,000 Unit Cap 50,000 Units PO Q7D Amlodipine (Amlodipine Besylate) 10 Mg Tab 10 Mg PO DAILY Review of Systems Except as stated in HPI: all other systems reviewed are Neg General / Constitutional: No: Fever Eyes: No: Visual changes HENT: Positive: Rhinorrhea, Congestion, No: Headaches Cardiovascular: Positive: Edema, No: Chest Pain or Discomfort Respiratory: Positive: Cough, No: Shortness of Breath Gastrointestinal: Positive: Diarrhea, Changes in Bowel Habits, No: Nausea, Vomiting, Abdominal Pain, Hematochezia, Indigestion, Loss of Appetite Genitourinary: No: Dysuria Musculoskeletal: Positive: Myalgias, Arthralgias, Limited ROM, Pain Skin: Positive Rash (red and swollen bilateral lower extremities.) Neurologic: Positive: Weakness (generalized weakness), No: Focal Abnormalities , Change in Mentation, Slurred Speech, Sensory Disturbance Psychiatric: No: Depression Endocrine: No: Polydipsia Hematologic/Lymphatic: No: Easy Bruising Physical Exam Narrative General: The patient is a well-developed well-nourished female in addition appearing on examination, covered in feces, otherwise in no acute medical distress. Head and Neck exam: Head is normocephalic atraumatic. Eyes: EOMI, pupils are equal round and reactive to light. Nose: Midline septum with pink mucous membranes Mouth: Dentition unremarkable. Moist mucus membranes. Posterior oropharynx is not erythematous. No tonsillar hypertrophy. Uvula midline. Airway patent. Neck: No palpable lymphadenopathy. No nuchal rigidity. No thyromegaly. Cardiovascular: Regular rate and rhythm without murmurs, gallops, or rubs. Lungs: Clear to auscultation bilaterally. No wheezes, rhonchi, or rales. Abdomen: Soft, without tenderness to palpation in all 4 quadrants of the abdomen. No guarding, rebound, or rigidity. Normal bowel sounds are audible. No tenderness on palpation of McBurney's point. Extremities: No clubbing or cyanosis. The patient has 1-2+ pitting edema bilateral lower extremities with erythema of bilateral lower extremities below the knee. The patient has dried stool present on both legs and feet. 2+ pulses in all 4 extremities. On examination of the area of interest, the right shoulder and arm the patient has no swelling noted. No bruising noted. The patient reports pain with attempts at flexion of her shoulder and lifting her arm above her head. She is however able to do this. The patient has no notable deformity. No crepitus. No tenderness on palpation of her hand, wrist, or elbow. No other loss of range of motion of the wrist or elbow. Back: No spinous process tenderness to palpation. No costovertebral angle tenderness to palpation. Neurologic Exam: Cranial nerves 2-12 were intact on exam. Strength is 5/5 in all 4 extremities. No sensory deficits noted. Skin Exam: Skin is warm and dry. Data Data Last Documented VS Vital Signs Date Time Temp Pulse Resp B/P (MAP) Pulse Ox O2 Delivery O2 Flow Rate FiO2 02/23/17 21:28 84 16 109/72 (84) 99 Room Air 02/23/17 20:03 97.9 Orders Orders Electrocardiogram (02/23/17 20:11) Complete Blood Count With Diff (02/23/17 20:11) Comprehensive Metabolic Panel (02/23/17 20:11) Creatine Kinase (Cpk) (02/23/17 20:11) Ckmb (Isoenzyme) Profile (02/23/17 20:11) Troponin I (02/23/17 20:11) B-Type Natriuretic Peptide (02/23/17 20:11) Prothrombin Time / Inr (Pt) (02/23/17 20:11) Act Partial Throm Time (Ptt) (02/23/17 20:11) Blood Culture (02/23/17 20:11) C-Reactive Protein (Crp) (02/23/17 20:11) Lipase (02/23/17 20:11) Urinalysis - C+S If Indicated (02/23/17 20:11) Magnesium (Mg) (02/23/17 20:11) Beta Hydroxybutyrate (Acetone) (02/23/17 20:11) Chest, Single Ap (02/23/17 20:11) Ct Brain W/O Iv Contrast(Rout) (02/23/17 20:11) Iv Access Insert/Monitor (02/23/17 20:11) Ecg Monitoring (02/23/17 20:11) Oximetry (02/23/17 20:11) Lactic Acid Sepsis Protocol (02/23/17 20:11) Ct Cerv Spine W/O Contrast (02/23/17 20:11) Shoulder, Complete (>2vws) (02/23/17 20:11) Sodium Chlor 0.9% 1000 Ml Inj (Ns 1000 M (02/23/17 20:15) Ceftriaxone Inj (Rocephin Inj) (02/23/17 21:45) Azithromycin Inj (Zithromax Inj) (02/23/17 21:45) Sodium Chlor 0.9% 1000 Ml Inj (Ns 1000 M (02/23/17 22:12) Sodium Chlor 0.9% 1000 Ml Inj (Ns 1000 M (02/23/17 22:12) Admit Order (Ed Use Only) (02/23/17 22:19) Potassium Chloride Eff (K-Lyte Cl Eff) (02/23/17 22:30) CKMB (02/23/17 21:20) CKMB% (02/23/17 21:20) Labs Laboratory Tests Test 02/23/17 21:20 White Blood Count 16.6 TH/MM3 Red Blood Count 4.42 MIL/MM3 Hemoglobin 12.9 GM/DL Hematocrit 38.0 % Mean Corpuscular Volume 86.1 FL Mean Corpuscular Hemoglobin 29.2 PG Mean Corpuscular Hemoglobin Concent 33.9 % Red Cell Distribution Width 13.9 % Platelet Count 209 TH/MM3 Mean Platelet Volume 7.2 FL Neutrophils (%) (Auto) 86.2 % Lymphocytes (%) (Auto) 6.7 % Monocytes (%) (Auto) 6.9 % Eosinophils (%) (Auto) 0.1 % Basophils (%) (Auto) 0.1 % Neutrophils # (Auto) 14.3 TH/MM3 Lymphocytes # (Auto) 1.1 TH/MM3 Monocytes # (Auto) 1.1 TH/MM3 Eosinophils # (Auto) 0.0 TH/MM3 Basophils # (Auto) 0.0 TH/MM3 CBC Comment AUTO DIFF Differential Total Cells Counted 100 Neutrophils % (Manual) 75 % Band Neutrophils % 8 % Lymphocytes % 8 % Monocytes % 9 % Neutrophils # (Manual) 13.8 TH/MM3 Differential Comment FINAL DIFF MANUAL Toxic Vacuolation PRESENT Platelet Estimate NORMAL Platelet Morphology Comment NORMAL Prothrombin Time 12.0 SEC Prothromb Time International Ratio 1.2 RATIO Activated Partial Thromboplast Time 21.7 SEC Blood Urea Nitrogen 50 MG/DL Creatinine 2.27 MG/DL Random Glucose 157 MG/DL Total Protein 6.4 GM/DL Albumin 2.9 GM/DL Calcium Level 8.7 MG/DL Magnesium Level 1.9 MG/DL Alkaline Phosphatase 76 U/L Aspartate Amino Transf (AST/SGOT) 73 U/L Alanine Aminotransferase (ALT/SGPT) 48 U/L Total Bilirubin 1.0 MG/DL Sodium Level 138 MEQ/L Potassium Level 3.0 MEQ/L Chloride Level 104 MEQ/L Carbon Dioxide Level 20.2 MEQ/L Anion Gap 14 MEQ/L Estimat Glomerular Filtration Rate 21 ML/MIN Lactic Acid Level 4.6 mmol/L Total Creatine Kinase 1646 U/L Creatine Kinase MB 26.8 NG/ML Creatine Kinase MB % 1.6 % Troponin I 0.17 NG/ML C-Reactive Protein 11.00 MG/DL B-Type Natriuretic Peptide 138 PG/ML Lipase 170 U/L B-Hydroxybutyrate 0.07 MMOL/L MDM Medical Decision Making Medical Screen Exam Complete: Yes Emergency Medical Condition: Yes Medical Record Reviewed: Yes Differential Diagnosis Intracranial hemorrhage, versus ischemic stroke, versus cervical radiculopathy, versus right shoulder dislocation, versus right shoulder fracture, versus rotator cuff injury, versus frozen shoulder, versus pneumonia, versus UTI, versus cellulitis Narrative Course During the course of the patients emergency department visit, the patients history, examination, and differential diagnosis were reviewed with the patient. The patient was placed on a athletic monitor with oximetry and frequent blood pressure monitoring. The patient had IV access obtained and blood work sent for analysis. Blood cultures 2 were sent for analysis, lactic acid was sent for analysis. The patient was initially provided normal saline 1 L IV fluid bolus which was increased to a 30 mL per KG IV fluid bolus when her lactic acid came back at 4.6. The patients laboratory studies were reviewed and remarkable for a CMP is otherwise remarkable for potassium 3.0 which was supplemented orally, CO2 20.2, BUNs 50, creatinine 2.27 and patient according to the record the had normal kidney function previously, AST 73, BNP is 138, albumin 2.9, lipase 17, PT 12, PTT 21.7, CBC remarkable for a white count of 16.6, neutrophils 75, bands 8, beta hydroxybutyrate 0.07. CPK is elevated at 1646 with a normal MB percent consistent with rhabdomyolysis, troponin I is 0.17 likely related to the patient 's acute renal failure, however this will be trended while she is in the hospital. The patient will be given aspirin 3 and 24 mg by mouth 1, nitroglycerin 1/2 inch to the chest wall. Radiology studies were reviewed and remarkable for a chest x-ray that shows patchy nonconsolidated infiltrates in the upper right and middle right lobe of the lung. CT scan of the brain shows old areas of infarct, no acute abnormality. Right shoulder x-ray reveals calcific tendinosis and osteoarthritis, no other acute abnormality. CT scan of the C-spine shows no acute fracture or spondylolisthesis, prior fusion noted. The patients results were discussed with the patient, including the plan of care. I explained that further testing and/ or monitoring is indicated based on the patients history, examination, and/ or laboratory findings. Therefore, I recommended admission for additional evaluation. The patient expressed understanding and was agreeable with this plan. The patient was admitted to the hospital in guarded condition and [facility] Physician Communication Physician Communication The patient's case including history, pertinent physical examination findings, and laboratory studies were discussed with Dr. Nikolas Klein. It was agreed that the [facility] Diagnosis Primary Impression: Pneumonia Qualified Codes: J18.9 - Pneumonia, unspecified organism Additional Impressions: Acute renal failure Qualified Codes: N17.9 - Acute kidney failure, unspecified Dehydration Cellulitis Qualified Codes: L03.119 - Cellulitis of unspecified part of limb Admitting Information Admitting Physician Requests: it Sarah Lopez MD Feb 23, 2017 19:54
[2017-02-23 20:03] VITALS: BP 106/65; PULSE 83; RESP 20; TEMP 97.9; O2SAT 99
[2017-02-23] MEDS ORDERED: SODIUM CHLOR 0.9% 1000 ML INJ 1,000 ML IV ONE ×2 (20:15→22:12)
[2017-02-23 21:00] VITALS: BP 109/72; PULSE 79; RESP 16; O2SAT 99
--- NOTE | 2017-02-23 21:08 | RADRPT ---
EXAM DATE/TIME: 02/23/2017 20:41 [facility] COMPARISON: CHEST SINGLE AP, October 16, 2016, 11:04. INDICATIONS : Cough. Bilateral lower leg pain MEDICAL HISTORY : Hypertension. Diabetes mellitus type II. SURGICAL HISTORY : Right rotator cuff repair. ENCOUNTER: Initial ACUITY: 2 months PAIN SCORE: 0/10 LOCATION: Bilateral chest FINDINGS: Moderate patient rotation towards the right. Patchy areas of opacity in the upper and mid right lung suggest non-consolidative infiltrates. The left lung is clear. The heart is normal in size. Moder ate degenerative changes in the thoracic spine. CONCLUSION: Findings suggest patchy non-consolidative infiltrates in the right mid and upper lung. Avila Arzate MD on February 23, 2017 at 21:05 Board Certified Radiologist. This report was verified electronically.
--- NOTE | 2017-02-23 21:16 | RADRPT ---
EXAM DATE/TIME: 02/23/2017 20:42 [facility] COMPARISON: SHOULDER RIGHT COMPLETE (>2VWS), October 16, 2016, 11:14. INDICATIONS : Right shoulder pain, no trauma. MEDICAL HISTORY : Hypertension. Diabetes mellitus type II. SURGICAL HISTORY : Right rotator cuff repair. ENCOUNTER: Initial ACUITY: 2 months PAIN SCORE: 10/10 LOCATION: Right posterior humerus. FINDINGS: Moderate severity is let us of the a.c. joint with maintenance of alignment. Normal range of motion between internal and external rotation of the glenohumeral joint. Transscapular Y-view is caudally a ngled and no anterior or posterior displacement is seen. The visualized ribs are intact. Multiple o ssification adjacent to the greater tuberosity measures 8 mm suggesting calcific tendinosis. CONCLUSION: 1. No evidence of fracture. 2. Probable calcific tendinosis adjacent to the greater tuberosity. 3. Moderate severity a.c. joint arthritis, similar to prior. Avila Arzate MD on February 23, 2017 at 21:11 Board Certified Radiologist. This report was verified electronically.
--- NOTE | 2017-02-23 21:17 | RADRPT ---
EXAM DATE/TIME: 02/23/2017 20:50 [facility] COMPARISON: No previous studies available for comparison. INDICATIONS : Trauma; fall. RADIATION DOSE: 56.35 CTDIvol (mGy) MEDICAL HISTORY : Hypertension. Carcinoma, breast. SURGICAL HISTORY : Hysterectomy. Cholecystectomy. ENCOUNTER: Initial ACUITY: 1 day PAIN SCALE: 5/10 LOCATION: cranial TECHNIQUE: Multiple contiguous axial images were obtained of the head. Using automated exposure control and adj ustment of the mA and/or kV according to patient size, radiation dose was kept as low as reasonably a chievable to obtain optimal diagnostic quality images. DICOM format image data is available electro nically for review and comparison. FINDINGS: CEREBRUM: The ventricles are normal for age. Focal area of encephalomalacia in the medial right occipital mid convexity and oval area of hypodensity in the left thalamus measuring 7 mm suggesting prior infarctio ns. No evidence of acute blood products. No midline shift. There is good dent-white matter differe ntiation. No extra-axial fluid or blood. POSTERIOR FOSSA: The cerebellum and brainstem are intact. The 4th ventricle is midline. The cerebellopontine angle i s unremarkable. EXTRACRANIAL: The visualized portion of the orbits is intact. SKULL: The calvaria is intact. No evidence of skull fracture. CONCLUSION: 1. No acute findings in the brain. 2. 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 Avila Arzate MD on February 23, 2017 at 21:13 Board Certified Radiologist. This report was verified electronically.
--- NOTE | 2017-02-23 21:20 | RADRPT ---
EXAM DATE/TIME: 02/23/2017 20:52 [facility] COMPARISON: No previous studies available for comparison. INDICATIONS : Trauma; fall. RADIATION DOSE: 28.45 CTDIvol (mGy) MEDICAL HISTORY : Hypertension. Carcinoma, breast. SURGICAL HISTORY : Fusion, cervical. Hysterectomy.Cholecystectomy. ENCOUNTER: Initial ACUITY: 1 day PAIN SCALE: 5/10 LOCATION: Bilateral neck TECHNIQUE: Volumetric scanning of the cervical spine was performed. Multiplanar reconstructions in the sagittal, coronal and oblique axial planes were performed. Using automated exposure control and adjustment o f the mA and/or kV according to patient size, radiation dose was kept as low as reasonably achievable to obtain optimal diagnostic quality images. DICOM format image data is available electronically f or review and comparison. FINDINGS: There is normal alignment of the vertebral bodies of the cervical spine. Anterior cervical plate at C5-6 with incorporated interspace bone plug. The posterior elements are in normal alignment without evidence of locked or perched facets. Prominent heterotopic ossification in the soft tissues superfi cial to the 3rd and 4th spinous processes. Atlantoaxial articulation is intact. Goiter with scatter ed calcifications in the right lobe. C2-C3: No fracture seen. The bony neural foramina are patent. C3-C4: No fracture seen. The bony neural foramina are patent. C4-C5: No fracture seen. The bony neural foramina are patent. C5-C6: No fracture seen. The bony neural foramina are patent. C6-C7: No fracture seen. The bony neural foramina are patent. C7-T1: No fracture seen. The bony neural foramina are patent. CONCLUSION: 1. No evidence of fracture or spondylolisthesis. 2. Intact anterior cervical plate at C5-6. Avila Arzate MD on February 23, 2017 at 21:15 Board Certified Radiologist. This report was verified electronically.
[2017-02-23 21:28] VITALS: BP 109/72; PULSE 84; RESP 16; O2SAT 99
[2017-02-23] MEDS ORDERED: AZITHROMYCIN INJ 500 MG in SODIUM CHLOR 0.9% 250 ML INJ 250 ML IV ONE (21:45)
[2017-02-23] MEDS ORDERED: cefTRIAXone INJ 1,000 MG in SODIUM CHLORIDE 0.9% INJ 100 ML IV ONE (21:45)
[2017-02-23 21:49] LABS: AUTOMATED NEUTROPHIL # 14.3 TH/MM3 (1.8-7.7); BASOPHIL % 0.1 % (0.0-2.0); EOSINOPHIL % 0.1 % (0.0-4.0); LYMPH % 6.7 % (9.0-44.0); LYMPHOCYTE # 1.1 TH/MM3 (1.0-4.8); MEAN CELL VOLUME 86.1 FL (80.0-100.0); MEAN CORPUSCULAR HEMOGLOBIN 29.2 PG (27.0-34.0); MEAN CORPUSCULAR HGB CONC 33.9 % (32.0-36.0); MONO % 6.9 % (0.0-8.0); NEUT % 86.2 % (16.0-70.0); PLATELET COUNT 209 TH/MM3 (150-450); RED BLOOD COUNT 4.42 MIL/MM3 (4.00-5.30); RED CELL DISTRIBUTION WIDTH 13.9 % (11.6-17.2); WHITE BLOOD COUNT 16.6 TH/MM3 (4.0-11.0)
[2017-02-23 22:01] LABS: APTT (PATIENT) 21.7 SEC (24.3-30.1); INTERNATIONAL NORMALIZED RATIO 1.2 RATIO
[2017-02-23] MEDS ORDERED: SODIUM CHLOR 0.9% 1000 ML INJ 800 ML IV ONE (22:12)
[2017-02-23 22:13] LABS: ANION GAP 14 MEQ/L (5-15); AST (GOT) 73 U/L (15-37); BICARBONATE 20.2 MEQ/L (21.0-32.0); BLOOD UREA NITROGEN 50 MG/DL (7-18); CHLORIDE 104 MEQ/L (98-107); GLOMERULAR FILTRATION RATE 21 ML/MIN (>89); MAGNESIUM 1.9 MG/DL (1.5-2.5); SODIUM (NA) 138 MEQ/L (136-145)
[2017-02-23 22:14] LABS: ALT (GPT) 48 U/L (10-53)
[2017-02-23 22:28] LABS: ALKALINE PHOSPHATASE 76 U/L (45-117); BETA-HYDROXYBUTYRATE 0.07 MMOL/L (0.00-0.39); CREATINE KINASE 1646 U/L (26-192)
[2017-02-23] MEDS ORDERED: POTASSIUM CHLORIDE 25 MEQ EFFERVESCENT TAB PO ONE (22:30)
[2017-02-23 22:40] LABS: CKMB 26.8 NG/ML (0.5-3.6)
[2017-02-23 22:41] LABS: HEMO FLAGS AUTO DIFF
[2017-02-23 22:45] LABS: BANDS 8 % (0-6); NEUTROPHIL # MANUAL DIFF 13.8 TH/MM3 (1.8-7.7); POLYS (SEG NEUTROPHILS) 75 % (16-70); WBC DIFF SAMPLE 100
[2017-02-23 22:46] LABS: PLATELET ESTIMATE SMEAR NORMAL (NORMAL); PLATELET MORPHOLOGY NORMAL (NORMAL); SCAN/DIFF FINAL DIFF MANUAL; TOXIC VACUOLATION PRESENT (NONE SEEN)
[2017-02-23] MEDS ORDERED: SODIUM CHLOR 0.9% 1000 ML INJ 1,000 ML IV SCH (23:00)
[2017-02-23 23:37] LABS: LACTIC ACID GHOST NOT REPORTABLE
[2017-02-24] VITALS (11 sets, daily range): BP systolic 104–134; BP diastolic 51–76; PULSE 60–93; RESP 16–18; TEMP 97.6–98.9; O2SAT 93–100
[2017-02-24] MEDS ORDERED: ASPIRIN 81 MG CHEW TAB CHEW ONE (00:15)
[2017-02-24] MEDS ORDERED: NITROGLYCERIN 2% OINT 1 GM PACKET TOPICAL ONE (00:15)
[2017-02-24] MEDS: HEPARIN SODIUM - SQ 10,000 UNITS/ML VIAL SQ SCH ×3 (00:36→23:00)
[2017-02-24 01:16] LABS: C. DIFF EPI 027 PRESUMPTIVE NEGATIVE (NEGATIVE)
[2017-02-24] MEDS ORDERED: metroNIDAZOLE 500 MG INJ 100 ML IV ONE (01:45)
[2017-02-24 07:44] LABS: BASOPHIL # 0.1 TH/MM3 (0-0.2); BASOPHIL % 0.4 % (0.0-2.0); EOSINOPHIL # 0.1 TH/MM3 (0-0.4); EOSINOPHIL % 0.5 % (0.0-4.0); HEMATOCRIT 32.6 % (35.0-46.0); HEMO FLAGS DIFF FINAL; LYMPH % 11.8 % (9.0-44.0); LYMPHOCYTE # 1.5 TH/MM3 (1.0-4.8); MEAN CELL VOLUME 86.6 FL (80.0-100.0); MEAN CORPUSCULAR HEMOGLOBIN 28.9 PG (27.0-34.0); MEAN CORPUSCULAR HGB CONC 33.4 % (32.0-36.0); MONO % 6.7 % (0.0-8.0); NEUT % 80.6 % (16.0-70.0); PLATELET COUNT 161 TH/MM3 (150-450); RED BLOOD COUNT 3.77 MIL/MM3 (4.00-5.30); RED CELL DISTRIBUTION WIDTH 13.7 % (11.6-17.2); WHITE BLOOD COUNT 12.4 TH/MM3 (4.0-11.0)
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
[2017-02-24 08:24] LABS: BICARBONATE 22.7 MEQ/L (21.0-32.0)
[2017-02-24 08:40] LABS: POTASSIUM 2.7 MEQ/L (3.5-5.1)
--- NOTE | 2017-02-24 08:58 | EKG ---
Date Performed: 02/23/2017 Time Performed: 21:20:32 PTAGE: 71 years EKG: Baseline artifact present Sinus rhythm NONSPECIFIC T-WAVE ABNORMALITY BORDERLINE ECG No significant change from prior electrocardiogram. PREVIOUS TRACING : 02/20/2008 22.07 DOCTOR: Martín James Interpretating Date/Time 02/24/2017 08:57:25
[2017-02-24] MEDS: POTASSIUM CHLORIDE 20 MEQ CONTROLLED RELEASE TAB PO SCH ×3 (10:26→20:45)
[2017-02-24] MEDS: metroNIDAZOLE 500 MG TAB PO SCH ×2 (10:26→16:24)
[2017-02-24] MEDS: 1/2 NS + KCL 20 MEQ INJ 1,000 ML IV SCH ×2 (11:26→20:44)
--- NOTE | 2017-02-24 11:36 | RADRPT ---
EXAM DATE/TIME: 02/24/2017 10:23 [facility] COMPARISON: No previous studies available for comparison. INDICATIONS : Right hand pain. No known injury. MEDICAL HISTORY : Hypertension. Carcinoma, breast. SURGICAL HISTORY : Hysterectomy. Cholecystectomy. ENCOUNTER: Initial ACUITY: 1 week PAIN SCORE: 10/10 LOCATION: Right Hand. FINDINGS: Three view examination of the right hand demonstrates no soft tissue swelling, dislocation, or fractu re. The carpal bones appear intact. The interphalangeal and metacarpophalangeal joints are intact. Bony mineralization is normal. CONCLUSION: IV dorsum of hand otherwise negative. Chris Banks MD FACR on February 24, 2017 at 11:33 Board Certified Radiologist. This report was verified electronically.
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
[2017-02-24] MEDS ORDERED: AZITHROMYCIN INJ 500 MG in SODIUM CHLOR 0.9% 250 ML INJ 250 ML IV SCH (22:00)
[2017-02-24] MEDS ORDERED: cefTRIAXone INJ 1,000 MG in SODIUM CHLORIDE 0.9% INJ 100 ML IV SCH (22:00)
[2017-02-25] VITALS (10 sets, daily range): BP systolic 125–143; BP diastolic 59–72; PULSE 64–81; RESP 18–20; TEMP 97.1–98.9; O2SAT 95–99
[2017-02-25] MEDS: metroNIDAZOLE 500 MG TAB PO SCH ×3 (02:30→18:00)
[2017-02-25] MEDS ORDERED: ACETAMINOPHEN/HYDROcodone 325 MG/5 MG TAB PO ONE (08:00)
[2017-02-25 09:36] LABS: HEMATOCRIT 33.1 % (35.0-46.0); MEAN CELL VOLUME 85.8 FL (80.0-100.0); MEAN CORPUSCULAR HEMOGLOBIN 29.2 PG (27.0-34.0); PLATELET COUNT 184 TH/MM3 (150-450); RED BLOOD COUNT 3.86 MIL/MM3 (4.00-5.30); RED CELL DISTRIBUTION WIDTH 13.8 % (11.6-17.2); REVIEW FLAG FINAL; WHITE BLOOD COUNT 13.5 TH/MM3 (4.0-11.0)
[2017-02-25] MEDS ORDERED: INFLUENZA VIRUS VACCINE (QUADRIVALENT) 0.5 ML SYR IM ONE (10:00)
[2017-02-25 10:11] LABS: BICARBONATE 20.4 MEQ/L (21.0-32.0); MAGNESIUM 1.5 MG/DL (1.5-2.5); POTASSIUM 4.3 MEQ/L (3.5-5.1)
[2017-02-25] MEDS: HEPARIN SODIUM - SQ 10,000 UNITS/ML VIAL SQ SCH ×2 (10:34→23:20)
--- NOTE | 2017-02-25 12:29 | HHI.PR ---
Subjective Remarks Patient reports feeling better today continues to have frequent loose BM- four in the past 24 hours Objective Vitals Vital Signs Date Time Temp Pulse Resp B/P (MAP) Pulse Ox O2 Delivery O2 Flow Rate FiO2 02/25/17 08:00 98.2 75 18 125/72 (89) 96 02/25/17 07:54 Room Air 02/25/17 04:00 98.9 74 20 139/65 (89) 97 02/25/17 04:00 Room Air 02/25/17 03:45 64 02/25/17 00:00 97.1 71 18 133/59 (83) 97 02/25/17 00:00 Room Air 02/25/17 00:00 66 02/24/17 20:43 75 02/24/17 20:00 Room Air 02/24/17 20:00 97.7 93 18 134/76 (95) 93 02/24/17 16:12 98.9 84 18 127/67 (87) 98 Result Diagram: 02/25/17 0914 02/25/17 0914 Other Results Laboratory Tests Test 02/23/17 21:20 02/23/17 23:40 02/24/17 00:10 02/24/17 07:31 White Blood Count 16.6 TH/MM3 12.4 TH/MM3 Red Blood Count 4.42 MIL/MM3 3.77 MIL/MM3 Hemoglobin 12.9 GM/DL 10.9 GM/DL Hematocrit 38.0 % 32.6 % Mean Corpuscular Volume 86.1 FL 86.6 FL Mean Corpuscular Hemoglobin 29.2 PG 28.9 PG Mean Corpuscular Hemoglobin Concent 33.9 % 33.4 % Red Cell Distribution Width 13.9 % 13.7 % Platelet Count 209 TH/MM3 161 TH/MM3 Mean Platelet Volume 7.2 FL 7.0 FL Neutrophils (%) (Auto) 86.2 % 80.6 % Lymphocytes (%) (Auto) 6.7 % 11.8 % Monocytes (%) (Auto) 6.9 % 6.7 % Eosinophils (%) (Auto) 0.1 % 0.5 % Basophils (%) (Auto) 0.1 % 0.4 % Neutrophils # (Auto) 14.3 TH/MM3 10.0 TH/MM3 Lymphocytes # (Auto) 1.1 TH/MM3 1.5 TH/MM3 Monocytes # (Auto) 1.1 TH/MM3 0.8 TH/MM3 Eosinophils # (Auto) 0.0 TH/MM3 0.1 TH/MM3 Basophils # (Auto) 0.0 TH/MM3 0.1 TH/MM3 CBC Comment AUTO DIFF DIFF FINAL Differential Total Cells Counted 100 Neutrophils % (Manual) 75 % Band Neutrophils % 8 % Lymphocytes % 8 % Monocytes % 9 % Neutrophils # (Manual) 13.8 TH/MM3 Differential Comment FINAL DIFF MANUAL Toxic Vacuolation PRESENT Platelet Estimate NORMAL Platelet Morphology Comment NORMAL Prothrombin Time 12.0 SEC Prothromb Time International Ratio 1.2 RATIO Activated Partial Thromboplast Time 21.7 SEC Blood Urea Nitrogen 50 MG/DL 41 MG/DL Creatinine 2.27 MG/DL 1.40 MG/DL Random Glucose 157 MG/DL 136 MG/DL Total Protein 6.4 GM/DL Albumin 2.9 GM/DL Calcium Level 8.7 MG/DL 7.9 MG/DL Magnesium Level 1.9 MG/DL Alkaline Phosphatase 76 U/L Aspartate Amino Transf (AST/SGOT) 73 U/L Alanine Aminotransferase (ALT/SGPT) 48 U/L Total Bilirubin 1.0 MG/DL Sodium Level 138 MEQ/L 144 MEQ/L Potassium Level 3.0 MEQ/L 2.7 MEQ/L Chloride Level 104 MEQ/L 112 MEQ/L Carbon Dioxide Level 20.2 MEQ/L 22.7 MEQ/L Anion Gap 14 MEQ/L 9 MEQ/L Estimat Glomerular Filtration Rate 21 ML/MIN 37 ML/MIN Lactic Acid Level 4.6 mmol/L 3.1 mmol/L Total Creatine Kinase 1646 U/L Creatine Kinase MB 26.8 NG/ML Creatine Kinase MB % 1.6 % Troponin I 0.17 NG/ML C-Reactive Protein 11.00 MG/DL B-Type Natriuretic Peptide 138 PG/ML Lipase 170 U/L B-Hydroxybutyrate 0.07 MMOL/L Stool C. difficile Toxin (PCR) POSITIVE Stl C. difficile Toxin Epiderm 027 PRESUMPTIVE NEGATIVE Test 02/24/17 07:32 02/25/17 09:14 Lactic Acid Level 1.8 mmol/L White Blood Count 13.5 TH/MM3 Red Blood Count 3.86 MIL/MM3 Hemoglobin 11.3 GM/DL Hematocrit 33.1 % Mean Corpuscular Volume 85.8 FL Mean Corpuscular Hemoglobin 29.2 PG Mean Corpuscular Hemoglobin Concent 34.0 % Red Cell Distribution Width 13.8 % Platelet Count 184 TH/MM3 Mean Platelet Volume 7.1 FL Blood Urea Nitrogen 23 MG/DL Creatinine 0.97 MG/DL Random Glucose 102 MG/DL Calcium Level 7.9 MG/DL Magnesium Level 1.5 MG/DL Sodium Level 140 MEQ/L Potassium Level 4.3 MEQ/L Chloride Level 112 MEQ/L Carbon Dioxide Level 20.4 MEQ/L Anion Gap 8 MEQ/L Estimat Glomerular Filtration Rate 57 ML/MIN Imaging Last Impressions Shoulder X-Ray 02/23/172010 Signed Impressions: Service Date/Time: Thursday, February 23, 2017 20:42 - CONCLUSION: 1. No evidence of fracture. 2. Probable calcific tendinosis adjacent to the greater tuberosity. 3. Moderate severity a.c. joint arthritis, similar to prior. Avila Arzate MD Head CT 02/23/172010 Signed Impressions: Service Date/Time: Thursday, February 23, 2017 20:50 - CONCLUSION: 1. No acute findings in the brain. 2. 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 Avila Arzate MD Chest X-Ray 02/23/172010 Signed Impressions: Service Date/Time: Thursday, February 23, 2017 20:41 - CONCLUSION: Findings suggest patchy non-consolidative infiltrates in the right mid and upper lung. Avila Arzate MD Cervical Spine CT 02/23/172010 Signed Impressions: Service Date/Time: Thursday, February 23, 2017 20:52 - CONCLUSION: 1. No evidence of fracture or spondylolisthesis. 2. Intact anterior cervical plate at C5-6. Avila Arzate MD Objective Remarks GENERAL: This is an elderly 71 year old female patient unkempt in appearance, in no apparent distress. SKIN: callus between right great and second toe CARDIOVASCULAR: Regular rate and rhythm RESPIRATORY: clear through out GASTROINTESTINAL: Abdomen soft, non-tender, nondistended. MUSCULOSKELETAL: Extremities without clubbing, cyanosis, or edema. No joint tenderness, effusion, or edema noted. No calf tenderness. Negative Homans sign bilaterally. NEUROLOGICAL: Awake and alert. No focal deficits appreciated. Motor and sensory grossly within normal limits. 4-5 out of 5 muscle strength in all muscle groups. Normal speech. A/P Problem List: (1) PNA (pneumonia) ICD Codes: J18.9 - Pneumonia, unspecified organism Plan: CXR reviewed and reveals: patchy nonconsolidated infiltrates in the upper right and middle right lobe of the lung. Patient started on Ceftriaxone, azithromycin and metronidazole in the ER Patient no longer having cough or congestion and lungs clear, will stop abx and monitor leucocytosis likely related to C diff will start PO Flagyl DVT prophylaxis with Heparin SQ DISCHARGE PLANNING - 2D echocardiogram ordered 02/24 pending - Anticipate discharge tomorrow recommending SNF patient unsure regarding SNF will think about it overnight - Plan to DC Home tomorrow with [facility] vs SNF - Patient also with C diff will need to complete a 14 days coarse of PO Flagyl (2) C. difficile diarrhea ICD Codes: A04.72 - Enterocolitis due to Clostridium difficile, not specified as recurrent Plan: Patient reports diarrhea is improving. stool are more firm stool positive for C diff continue PO Flagyl (3) Dehydration ICD Codes: E86.0 - Dehydration Plan: Patient with poor PO intake and diarrhea BUN 50 Creatinine 2.27 on admission 02/25 creatinine 0.97 stool studies revealed C Diff stop IV hydration encourage PO fluid intake (4) PAULINO (acute kidney injury) ICD Codes: N17.9 - Acute kidney failure, unspecified Plan: BUN 50 Creatinine 2.27 -> improved with IV hydration likely related to poor PO intake and diarrhea will stop IV hydration encourage PO hydration (5) Right arm pain ICD Codes: M79.601 - Pain in right arm Plan: Right shoulder x-ray reveals calcific tendinosis and osteoarthritis, no other acute abnormality. CT scan of the C-spine shows no acute fracture or spondylolisthesis, prior fusion noted. PT consulted to eval and treat Now complaining more of right hand pain worse when she tries to use the hand X ray right hand reviewed and reveals: No soft tissue swelling, dislocation or fracture In further reviewed of outpatient records patient has bilateral hand pain dating back to 2016 has had outpatient work up including EMG and was referred to hand surgery, but did not go to see hand surgery no further work up at this time recommend patient follow up with hand surgery Dr. Milligan after DC (6) Hypokalemia ICD Codes: E87.6 - Hypokalemia Plan: Potassium 3.0 upon arrival to the ER was replaced in ER recheck BMP reveals potassium 2.7 replaced 02/24 02/25 potassium 4.3 Magnesium 1.5, will supplement given that patient continues to have frequent loose stools (7) Murmur, cardiac ICD Codes: R01.1 - Cardiac murmur, unspecified Plan: Patient unaware of previous murmur 2D echocardiogram ordered and pending (8) Self neglect ICD Codes: R46.89 - Other symptoms and signs involving appearance and behavior Plan: Will consult psych for evaluation and assistance- evaluated patient no further recommendations (9) Diabetes ICD Codes: E11.9 - Type 2 diabetes mellitus without complications Status: Chronic Plan: renal function has improved will resume home metformin 500 mg per day outpatient HA1c 6.2% 12/27/16 accuchecks ACHS with SSI Assessment and Plan Patient examined. Assessment and plan formulated with Princess Mitchell PA-C. I agree with the above. Princess Mitchell Feb 25, 2017 12:29 Joseph Jacome DO Feb 26, 2017 14:12
[2017-02-25] MEDS ORDERED: METF500T PO (15:35)
[2017-02-25] MEDS ORDERED: METR-1 PO (15:42)
[2017-02-25] MEDS ORDERED: DEXTROSE 50% IN WATER 50 ML VIAL(D50) IV PUSH PRN (15:45)
[2017-02-25] MEDS ORDERED: GLUCAGON 1 MG/ML VIAL OTHER PRN (15:45)
[2017-02-25] MEDS: INSULIN ASPART SUPPLEMENTAL SCALE SQ SCH ×2 (17:00→21:00)
[2017-02-25] MEDS: metFORMIN HCL 500 MG TAB PO SCH (18:00)
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
--- NOTE | 2017-02-25 18:28 | HHI.FF ---
Face to Face Verification Diagnosis: (1) C. difficile diarrhea (2) Murmur, cardiac (3) Self neglect (4) Diabetes (5) Right arm pain (6) Generalized weakness Physical Therapy Order: Evaluate and Treat, Strength and gait training Occupational Therapy Order: Evaluate and Treat, Fine motor coordination Home Health Nursing Order: Medical education Signs/symptoms of disease process Medication education-adverse effect Nursing assessment with vital signs Joint Setter Order: To Evaluate: Living conditions/environment, Support services Order: To Provide: Long range planning, Community services I have seen patient Merna Valadez on 02/25/17. My clinical findings support the need for the requested home health care services because: Limited ability to care for self High risk of falls I certify that my clinical findings support that this patient is homebound because: Unsteady gait/balance Need for psychosocial assistance Princess Mitchell Feb 25, 2017 18:27
[2017-02-25] MEDS: ACETAMINOPHEN/HYDROcodone 325 MG/5 MG TAB PO PRN (23:20)
[2017-02-26] VITALS (7 sets, daily range): BP systolic 134–151; BP diastolic 63–70; PULSE 66–82; RESP 18–20; TEMP 97.3–98.5; O2SAT 93–99
[2017-02-26] MEDS: metroNIDAZOLE 500 MG TAB PO SCH ×3 (02:00→18:21)
[2017-02-26] MEDS: ACETAMINOPHEN/HYDROcodone 325 MG/5 MG TAB PO PRN ×4 (04:15→20:41)
--- NOTE | 2017-02-26 07:59 | ECHRPT ---
Indication: MURMUR CONCLUSIONS Normal left ventricular size. Wall thickness is normal. No regional wall motion abnormalities are present. The left ventricular systolic function is normal with an estimated ejection fraction in the range of 60-65%. Moderate thickening of the aortic valve leaflets. Mild aortic valve stenosis. Aortic valve area is 1.3 cm. Aortic valve meangradient is 22.5 mmHg. There is mild tricuspid valve regurgitation. The estimated pulmonary arterial pressure is 65.1 mmHg. The inferior vena cava was not well visualized. BP: 133 / 69 HR: 60 Rhythm: Sinus MEASUREMENTS (Male / Female) Normal Values Technical Quality:Fair 2D ECHO LV Diastolic Diameter PLAX 4.3 cm 4.2 - 5.9 / 3.9 - 5.3 cm LV Systolic Diameter PLAX 2.8 cm IVS Diastolic Thickness 1.1 cm 0.6 - 1.0 / 0.6 - 0.9 cm LVPW Diastolic Thickness 1.1 cm 0.6 - 1.0 / 0.6 - 0.9 cm LV Relative Wall Thickness 0.5 RV Internal Dim ED PLAX 2.3 cm LVOT Diameter 2.0 cm LA Systolic Diameter LX 3.1 cm 3.0 - 4.0 / 2.7 - 3.8 cm M-MODE Aortic Root Diameter MM 2.5 cm AV Cusp Separation MM 1.3 cm DOPPLER AV Peak Velocity 324.5 cm/s AV Peak Gradient 42.1 mmHg AV Mean Gradient 22.5 mmHg AV Velocity Time Integral 61.9 cm LVOT Peak Velocity 132.0 cm/s LVOT Peak Gradient 7.0 mmHg LVOT Velocity Time Integral 25.8 cm LVOT Cardiac Index 2643.0 cm/minm AV Area Cont Eq vti 1.3 cm AV Area Cont Eq pk 1.3 cm MV Area PHT 3.4 cm Mitral E Point Velocity 63.2 cm/s Mitral A Point Velocity 81.4 cm/s Mitral E to A Ratio 0.8 LV E' Lateral Velocity 13.6 cm/s Mitral E to LV E' Lateral Ratio 4.6 LV E' Septal Velocity 9.9 cm/s Mitral E to LV E' Septal Ratio 6.4 TR Peak Velocity 371.0 cm/s TR Peak Gradient 55.1 mmHg Right Atrial Pressure 10.0 mmHg Pulmonary Artery Systolic Pressu 65.1 mmHg Right Ventricular Systolic Press 65.1 mmHg PV Peak Velocity 130.0 cm/s PV Peak Gradient 6.8 mmHg FINDINGS LEFT VENTRICLE The left ventricular systolic function is normal with an estimated ejection fraction in the range of 60-65%. Normal left ventricular size. Wall thickness is normal. No regional wall motion abnormalities are present. Doppler parameters are consistent with impaired left ventricular relaxtion (grade 1 diastolic dysfun ction). RIGHT VENTRICLE Normal right ventricular size and systolic function. LEFT ATRIUM The left atrial size is normal. RIGHT ATRIUM The right atrial size is normal. ATRIAL SEPTUM Normal atrial septal thickness without atrial level shunting by limited color doppler interrogation. AORTA The aortic root and proximal ascending aorta are normal in size on limited imaging. MITRAL VALVE Structurally normal mitral valve. No mitral valve stenosis or regurgitation. AORTIC VALVE Trileaflet aortic valve. Moderate thickening of the aortic valve leaflets. Mild aortic valve stenosis. Aortic valve area is 1.3 cm. Aortic valve mean gradient is 22.5 mmHg. TRICUSPID VALVE Structurally normal tricuspid valve. There is mild tricuspid valve regurgitation. The estimated pulmonary arterial pressure is 65.1 mmHg. PULMONARY VALVE No pulmonary valve regurgitation or stenosis. VESSELS The inferior vena cava was not well visualized. PERICARDIUM No pericardial effusion. Bulmaro Cartagena MD (Electronically Signed) Final Date:26 February 2017 07:58
[2017-02-26] MEDS: INSULIN ASPART SUPPLEMENTAL SCALE SQ SCH ×4 (08:00→20:19)
[2017-02-26] MEDS: metFORMIN HCL 500 MG TAB PO SCH ×2 (09:40→18:21)
[2017-02-26] MEDS: HEPARIN SODIUM - SQ 10,000 UNITS/ML VIAL SQ SCH ×2 (13:18→20:41)
--- NOTE | 2017-02-26 13:56 | HHI.PR ---
Subjective Remarks only 2 stools today. More formed. Pt denies abdominal pain. Pt denies fever or chills. Objective Vitals Vital Signs Date Time Temp Pulse Resp B/P (MAP) Pulse Ox O2 Delivery O2 Flow Rate FiO2 02/26/17 10:30 18 02/26/17 08:00 97.3 73 18 151/69 (96) 97 02/26/17 08:00 Room Air 02/26/17 05:43 98.0 82 20 134/63 (86) 97 02/26/17 03:46 66 02/26/17 00:50 Room Air 02/26/17 00:50 97.8 74 20 137/64 (88) 93 02/25/17 23:44 74 02/25/17 20:00 98.2 72 20 130/63 (85) 97 02/25/17 20:00 Room Air 02/25/17 19:41 72 02/25/17 16:00 98.4 81 18 129/61 (83) 95 02/25/17 14:31 69 Result Diagram: 02/25/1714 02/25/1714 Imaging Last Impressions Shoulder X-Ray 02/23/172010 Signed Impressions: Service Date/Time: Thursday, February 23, 2017 20:42 - CONCLUSION: 1. No evidence of fracture. 2. Probable calcific tendinosis adjacent to the greater tuberosity. 3. Moderate severity a.c. joint arthritis, similar to prior. Avila Arzate MD Head CT 02/23/172010 Signed Impressions: Service Date/Time: Thursday, February 23, 2017 20:50 - CONCLUSION: 1. No acute findings in the brain. 2. 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 Avila Arzate MD Chest X-Ray 02/23/172010 Signed Impressions: Service Date/Time: Thursday, February 23, 2017 20:41 - CONCLUSION: Findings suggest patchy non-consolidative infiltrates in the right mid and upper lung. Avila Arzate MD Cervical Spine CT 02/23/172010 Signed Impressions: Service Date/Time: Thursday, February 23, 2017 20:52 - CONCLUSION: 1. No evidence of fracture or spondylolisthesis. 2. Intact anterior cervical plate at C5-6. Avila Arzate MD Objective Remarks GENERAL: This is an elderly 71 year old female patient unkempt in appearance, in no apparent distress. SKIN: callus between right great and second toe CARDIOVASCULAR: Regular rate and rhythm RESPIRATORY: clear through out GASTROINTESTINAL: Abdomen soft, non-tender, nondistended. MUSCULOSKELETAL: Extremities without clubbing, cyanosis, or edema. No joint tenderness, effusion, or edema noted. No calf tenderness. Negative Homans sign bilaterally. NEUROLOGICAL: Awake and alert. No focal deficits appreciated. Motor and sensory grossly within normal limits. 4-5 out of 5 muscle strength in all muscle groups. Normal speech. Procedures none A/P Problem List: (1) PNA (pneumonia) ICD Codes: J18.9 - Pneumonia, unspecified organism Plan: CXR reviewed and reveals: patchy nonconsolidated infiltrates in the upper right and middle right lobe of the lung. Patient started on Ceftriaxone, azithromycin and metronidazole in the ER Patient no longer having cough or congestion and lungs clear, will stop abx and monitor leucocytosis likely related to C diff & started on C. Dif x 14d course - Echocardiogram (02/23) --> thickened aortic valves, normal EF - blood cultures obtain in ER (02/23/17) - Staphylococcus Epidermidis in 2 bottles - Gram positive cocci in 1 bottle, final ID NOT yet available - given lack of symptoms, Doubt bacteremia - appreciate input from ID, Dr. Underwood - Repeat Blood cultures ordered, await results - anticipate d/c to home with SNF 02/28 or 03/01 DVT prophylaxis with Heparin SQ DISCHARGE PLANNING - awaiting results of repeat cultures to exclude bacteremia, suspect contaminant - anticipate d/c to SNF with [facility] 02/28 or 03/01 (2) C. difficile diarrhea ICD Codes: A04.72 - Enterocolitis due to Clostridium difficile, not specified as recurrent Plan: Patient reports diarrhea is improving. stool are more firm stool positive for C diff continue PO Flagyl (3) Dehydration ICD Codes: E86.0 - Dehydration Plan: - RESOLVED Patient with poor PO intake and diarrhea BUN 50 Creatinine 2.27 on admission 02/25 creatinine 0.97 stool studies revealed C Diff - IV hydration completed. encourage PO fluid intake (4) PAULINO (acute kidney injury) ICD Codes: N17.9 - Acute kidney failure, unspecified Plan: - resolved BUN 50 Creatinine 2.27 -> improved with IV hydration likely related to poor PO intake and diarrhea will stop IV hydration encourage PO hydration (5) Right arm pain ICD Codes: M79.601 - Pain in right arm Plan: Right shoulder x-ray reveals calcific tendinosis and osteoarthritis, no other acute abnormality. CT scan of the C-spine shows no acute fracture or spondylolisthesis, prior fusion noted. PT consulted to eval and treat Now complaining more of right hand pain worse when she tries to use the hand X ray right hand reviewed and reveals: No soft tissue swelling, dislocation or fracture In further reviewed of outpatient records patient has bilateral hand pain dating back to 2015 has had outpatient work up including EMG and was referred to hand surgery, but did not go to see hand surgery no further work up at this time recommend patient follow up with hand surgery Dr. Milligan after DC (6) Hypokalemia ICD Codes: E87.6 - Hypokalemia Plan: - improved Potassium 3.0 upon arrival to the ER was replaced in ER recheck BMP reveals potassium 2.7 replaced 02/24 02/25 potassium 4.3 - Magnesium also repleted (7) Murmur, cardiac ICD Codes: R01.1 - Cardiac murmur, unspecified Plan: Patient unaware of previous murmur 2D echocardiogram ordered and pending (8) Self neglect ICD Codes: R46.89 - Other symptoms and signs involving appearance and behavior Plan: - appreciate input from Psychiatry - d/c to SNF at end of hospitalization (9) Diabetes ICD Codes: E11.9 - Type 2 diabetes mellitus without complications Status: Chronic Plan: renal function has improved will resume home metformin 500 mg per day outpatient HA1c 6.2% 12/27/16 accuchecks ACHS with SSI Problem Qualifiers (1) Diabetes: Qualified Codes: E11.8 - Type 2 diabetes mellitus with unspecified complications; Z79.4 - care home (current) use of insulin Joseph Jacome DO Feb 26, 2017 13:56
--- NOTE | 2017-02-26 16:56 | MB ---
cc: RUKHSANA LARKIN MD DATE OF CONSULTATION 02/26/[address] Jacome REASON FOR CONSULTATION Positive blood cultures. HISTORY OF PRESENT ILLNESS This is a 71-year-old white female who was admitted to the hospital with generalized weakness on 02/23. The patient reportedly had symptoms of cough with congestion a week prior. She also was noted to have developed right arm pain radiating to the right shoulder. She was also noted to have diarrhea. The patient was admitted to the hospital. The C-difficile toxin came back positive. Blood cultures were also taken on admission and three bottles have gram-positive cocci with one set, two bottles, identified as staph epidermidis. The third bottle has not yet been identified. The patient is afebrile. The white blood cell count was elevated at 16.6 on admission. The patient is reported to have diarrhea. She reportedly had two bowel movements today. She is currently sitting up in a chair. She is a poor historian. Information is obtained from the medical record. She tells me that she gets hot and cold off and on. The patient's last hospitalization here was in October 2016. At that time, she was treated for UTI due to Klebsiella. She was also noted to have bilateral lower extremity areas of partial thickness skin loss. She tells me that she had problems with weeping of the skin of the lower extremities while at home and she was covering it with plastic. PAST MEDICAL HISTORY 1. Diabetes mellitus, 2. Hypertension, 3. Hyperlipidemia. 4. Irritable bowel syndrome 5. Pulmonary hypertension, 6. Osteoarthritis, 7. History of breast cancer in 2010 treated with lumpectomy and radiation 8. Total left knee replacement arthroscopy, 9. Cholecystectomy, 10. Cataract surgery, 11. Hysterectomy. ALLERGIES CODEINE OXYCODONE MEDICATIONS 1. Norvasc. 2. Glucophage. 3. Insulin 4. Metronidazole p.o. SOCIAL HISTORY No tobacco, alcohol or illicit drugs. FAMILY HISTORY Noncontributory. REVIEW OF SYSTEMS The patient complains of pain in her tail bone. Otherwise negative. PHYSICAL EXAMINATION GENERAL: This is a well-developed female who is in no acute distress. She appears to have sweats and is wiping her forehead repeatedly and the forehead looks to have perspiration. Otherwise, she is in no acute distress. VITAL SIGNS: Temperature 97.3, BP 151/69, respirations 18, heart rate 73. HEENT: Head is atraumatic. Extraocular movements grossly intact, pupils reactive to light without icterus. Oropharynx moist mucosa without lesions. NECK: Supple. No adenopathy. LUNGS: Clear breath sounds bilateral. HEART: Regular S1 and S2. No murmurs, rubs or gallops audible. ABDOMEN: Bowel sounds present, mildly distended, soft, no tenderness appreciated. RECTAL: Not performed. EXTREMITIES: Both legs have erythema at the distal tibias, but it is mild and there is no weeping or drainage from the skin of the lower extremities. The skin otherwise has no diffuse rash. NEUROLOGIC: Nonfocal PSYCHIATRIC: The patient is calm and cooperative. LABORATORY DATA WBC 13.5, platelet count 184, creatinine 0.97, BUN 23, estimated GFR 57, sodium 140. IMPRESSION Positive blood culture with three bottles showing gram-positive cocci and two identified as staph epidermidis. The third blood culture is not available yet. I spoke to microbiology and they reported to me that the third bottle came up after the initial two and therefore identification was not possible and it may take another 48 hours to get the identification of the gram-positive cocci on that third bottle. The patient had elevated white blood cell count which could be explained by the C-difficile. She does look somewhat chronically ill. The blood cultures very well could be contamination. However, if the third bottle has staph epidermidis she definitely should have repeat blood culture to make sure that it is not a real infection which would warrant aggressive treatment. The patient also is being treated for C-difficile with Flagyl. I recommend repeating the blood cultures today and also following up on the third bottle. Once these cultures become available, it will present a clearer picture to determine whether this is contamination. Because of the three positive blood culture bottles and her white count being elevated despite her having C-difficile, we would definitely need to make sure that this is not a true infection which would warrant treatment. Thank you for this consultation. I will follow the patient once the blood culture becomes available. If the repeated blood cultures comes back negative, I think she can be safely discharged with treatment for the C diff. Rukhsana Larkin MD FD/ /12:21 PM /4:18 PM
[2017-02-27] VITALS: BP 156/78; PULSE 75; RESP 20; TEMP 98; O2SAT 98
[2017-02-27] MEDS: metroNIDAZOLE 500 MG TAB PO SCH ×3 (03:47→17:09)
[2017-02-27 04:00] VITALS: BP 142/66; PULSE 79; RESP 20; TEMP 98.5; O2SAT 94
[2017-02-27] MEDS: ACETAMINOPHEN/HYDROcodone 325 MG/5 MG TAB PO PRN ×3 (05:50→23:39)
[2017-02-27] MEDS: INSULIN ASPART SUPPLEMENTAL SCALE SQ SCH ×4 (08:00→20:12)
[2017-02-27 08:05] VITALS: BP 139/64; PULSE 65; RESP 18; TEMP 98; O2SAT 97
[2017-02-27] MEDS: HEPARIN SODIUM - SQ 10,000 UNITS/ML VIAL SQ SCH ×2 (08:23→23:39)
[2017-02-27] MEDS: metFORMIN HCL 500 MG TAB PO SCH ×2 (08:24→17:09)
[2017-02-27 10:33] LABS: AUTOMATED NEUTROPHIL # 8.8 TH/MM3 (1.8-7.7); BASOPHIL % 0.4 % (0.0-2.0); EOSINOPHIL # 0.3 TH/MM3 (0-0.4); EOSINOPHIL % 2.5 % (0.0-4.0); HEMATOCRIT 36.6 % (35.0-46.0); HEMO FLAGS DIFF FINAL; LYMPH % 16.4 % (9.0-44.0); LYMPHOCYTE # 1.9 TH/MM3 (1.0-4.8); MEAN CELL VOLUME 87.2 FL (80.0-100.0); MEAN CORPUSCULAR HEMOGLOBIN 28.6 PG (27.0-34.0); MEAN CORPUSCULAR HGB CONC 32.8 % (32.0-36.0); MONO % 4.2 % (0.0-8.0); NEUT % 76.5 % (16.0-70.0); PLATELET COUNT 187 TH/MM3 (150-450); RED CELL DISTRIBUTION WIDTH 14.3 % (11.6-17.2); WHITE BLOOD COUNT 11.5 TH/MM3 (4.0-11.0)
--- NOTE | 2017-02-27 10:50 | HHI.PR ---
Subjective Remarks Patient offers no new complaints Bowel movements continue to be soft no longer liquid Objective Vitals Vital Signs Date Time Temp Pulse Resp B/P (MAP) Pulse Ox O2 Delivery O2 Flow Rate FiO2 02/27/17 08:05 98.0 65 18 139/64 (89) 97 02/27/17 08:00 Room Air 02/27/17 04:00 98.5 79 20 142/66 (91) 94 02/27/17 00:00 98.0 75 20 156/78 (104) 98 02/27/17 00:00 Room Air 02/26/17 20:00 98.0 78 20 145/70 (95) 99 02/26/17 20:00 Room Air 02/26/17 16:00 75 02/26/17 16:00 98.3 72 18 135/65 (88) 98 02/26/17 14:19 18 02/26/17 12:00 98.5 76 18 149/67 (94) 99 Result Diagram: 02/27/17 1000 02/25/17 0914 Other Results Laboratory Tests Test 02/25/17 09:14 02/27/17 10:00 White Blood Count 13.5 TH/MM3 11.5 TH/MM3 Red Blood Count 3.86 MIL/MM3 4.20 MIL/MM3 Hemoglobin 11.3 GM/DL 12.0 GM/DL Hematocrit 33.1 % 36.6 % Mean Corpuscular Volume 85.8 FL 87.2 FL Mean Corpuscular Hemoglobin 29.2 PG 28.6 PG Mean Corpuscular Hemoglobin Concent 34.0 % 32.8 % Red Cell Distribution Width 13.8 % 14.3 % Platelet Count 184 TH/MM3 187 TH/MM3 Mean Platelet Volume 7.1 FL 7.1 FL Blood Urea Nitrogen 23 MG/DL Creatinine 0.97 MG/DL Random Glucose 102 MG/DL Calcium Level 7.9 MG/DL Magnesium Level 1.5 MG/DL Sodium Level 140 MEQ/L Potassium Level 4.3 MEQ/L Chloride Level 112 MEQ/L Carbon Dioxide Level 20.4 MEQ/L Anion Gap 8 MEQ/L Estimat Glomerular Filtration Rate 57 ML/MIN Neutrophils (%) (Auto) 76.5 % Lymphocytes (%) (Auto) 16.4 % Monocytes (%) (Auto) 4.2 % Eosinophils (%) (Auto) 2.5 % Basophils (%) (Auto) 0.4 % Neutrophils # (Auto) 8.8 TH/MM3 Lymphocytes # (Auto) 1.9 TH/MM3 Monocytes # (Auto) 0.5 TH/MM3 Eosinophils # (Auto) 0.3 TH/MM3 Basophils # (Auto) 0.0 TH/MM3 CBC Comment DIFF FINAL Differential Comment Imaging Last Impressions Shoulder X-Ray 02/23/172010 Signed Impressions: Service Date/Time: Thursday, February 23, 2017 20:42 - CONCLUSION: 1. No evidence of fracture. 2. Probable calcific tendinosis adjacent to the greater tuberosity. 3. Moderate severity a.c. joint arthritis, similar to prior. Avila Arzate MD Head CT 02/23/172010 Signed Impressions: Service Date/Time: Thursday, February 23, 2017 20:50 - CONCLUSION: 1. No acute findings in the brain. 2. 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 Avila Arzate MD Chest X-Ray 02/23/172010 Signed Impressions: Service Date/Time: Thursday, February 23, 2017 20:41 - CONCLUSION: Findings suggest patchy non-consolidative infiltrates in the right mid and upper lung. Avila Arzate MD Cervical Spine CT 02/23/172010 Signed Impressions: Service Date/Time: Thursday, February 23, 2017 20:52 - CONCLUSION: 1. No evidence of fracture or spondylolisthesis. 2. Intact anterior cervical plate at C5-6. Avila Arzate MD Objective Remarks GENERAL: This is an elderly 71 year old female patient unkempt in appearance, in no apparent distress. SKIN: callus between right great and second toe CARDIOVASCULAR: Regular rate and rhythm RESPIRATORY: clear through out GASTROINTESTINAL: Abdomen soft, non-tender, nondistended. MUSCULOSKELETAL: Extremities without clubbing, cyanosis, or edema. No joint tenderness, effusion, or edema noted. No calf tenderness. Negative Homans sign bilaterally. NEUROLOGICAL: Awake and alert. No focal deficits appreciated. Motor and sensory grossly within normal limits. 4-5 out of 5 muscle strength in all muscle groups. Normal speech. Procedures none A/P Problem List: (1) PNA (pneumonia) ICD Codes: J18.9 - Pneumonia, unspecified organism Plan: CXR reviewed and reveals: patchy nonconsolidated infiltrates in the upper right and middle right lobe of the lung. Patient started on Ceftriaxone, azithromycin and metronidazole in the ER Patient no longer having cough or congestion and lungs clear, will stop abx and monitor leucocytosis likely related to C diff & started on C. Dif x 14d course - Echocardiogram (02/23) --> thickened aortic valves, normal EF - blood cultures obtain in ER (02/23/17) - Staphylococcus Epidermidis in 2 bottles - Gram positive cocci in 1 bottle staph species coagulase negative - given lack of symptoms, Doubt bacteremia - appreciate input from ID, Dr. Underwood - Repeat Blood cultures obtained 02/26/17, will follow cultures - anticipate d/c to home with SNF 02/28 or 03/01 DVT prophylaxis with Heparin SQ DISCHARGE PLANNING - awaiting results of repeat cultures to exclude bacteremia, suspect contaminant - anticipate d/c to SNF 02/28 or 03/01 (2) C. difficile diarrhea ICD Codes: A04.72 - Enterocolitis due to Clostridium difficile, not specified as recurrent Plan: Patient reports diarrhea is improving. stool are more firm stool positive for C diff continue PO Flagyl (3) Dehydration ICD Codes: E86.0 - Dehydration Plan: - RESOLVED Patient with poor PO intake and diarrhea BUN 50 Creatinine 2.27 on admission 02/25 creatinine 0.97 stool studies revealed C Diff - IV hydration completed. encourage PO fluid intake (4) PAULINO (acute kidney injury) ICD Codes: N17.9 - Acute kidney failure, unspecified Plan: - resolved BUN 50 Creatinine 2.27 -> improved with IV hydration likely related to poor PO intake and diarrhea will stop IV hydration encourage PO hydration (5) Right arm pain ICD Codes: M79.601 - Pain in right arm Plan: Right shoulder x-ray reveals calcific tendinosis and osteoarthritis, no other acute abnormality. CT scan of the C-spine shows no acute fracture or spondylolisthesis, prior fusion noted. PT consulted to eval and treat Now complaining more of right hand pain worse when she tries to use the hand X ray right hand reviewed and reveals: No soft tissue swelling, dislocation or fracture In further reviewed of outpatient records patient has bilateral hand pain dating back to 2016 has had outpatient work up including EMG and was referred to hand surgery, but did not go to see hand surgery no further work up at this time recommend patient follow up with hand surgery Dr. Milligan after DC (6) Hypokalemia ICD Codes: E87.6 - Hypokalemia Plan: - improved Potassium 3.0 upon arrival to the ER was replaced in ER recheck BMP reveals potassium 2.7 replaced 02/24 02/25 potassium 4.3 - Magnesium also repleted BMP for today pending (7) Murmur, cardiac ICD Codes: R01.1 - Cardiac murmur, unspecified Plan: Patient unaware of previous murmur 2D echocardiogram completed: Normal left ventricular size Wall thickness is normal No regional wall motion abnormalities are present The left ventricular systolic function is normal with an ejection fraction of 60-65% Moderate thickening of the aortic valve leaflets Mild aortic valve stenosis Aortic valve area 1.3 cm Aortic valve mean gradient is 22.5 mmHg There is mild tricuspid valve regurgitation The estimated pulmonary pressure is 65.1 mmHg Inferior vena cava not well visualized (8) Self neglect ICD Codes: R46.89 - Other symptoms and signs involving appearance and behavior Plan: - appreciate input from Psychiatry - d/c to SNF at end of hospitalization (9) Diabetes ICD Codes: E11.9 - Type 2 diabetes mellitus without complications Status: Chronic Plan: renal function has improved will resume home metformin 500 mg per day outpatient HA1c 6.2% 12/27/16 accuchecks ACHS with SSI Assessment and Plan Patient examined. Assessment and plan formulated with Princses Mitchell PA-C. I agree with the above. Problem Qualifiers (1) Diabetes: Qualified Codes: E11.8 - Type 2 diabetes mellitus with unspecified complications; Z79.4 - alf (current) use of insulin Princess Mitchell Feb 27, 2017 10:50 Joseph Jacome DO Mar 01, 2017 13:57
[2017-02-27 10:55] LABS: BICARBONATE 25.9 MEQ/L (21.0-32.0); POTASSIUM 4.1 MEQ/L (3.5-5.1)
[2017-02-27 12:05] VITALS: BP 128/65; PULSE 78; RESP 18; TEMP 97.8; O2SAT 100
[2017-02-27 16:18] VITALS: BP 135/68; PULSE 74; RESP 18; TEMP 98.9; O2SAT 98
[2017-02-27 20:00] VITALS: BP 126/62; PULSE 73; RESP 20; TEMP 98.3; O2SAT 98
[2017-02-28] VITALS: BP 160/76; PULSE 77; RESP 21; TEMP 98.3; O2SAT 95
[2017-02-28] MEDS: metroNIDAZOLE 500 MG TAB PO SCH ×2 (01:30→08:38)
[2017-02-28 04:00] VITALS: BP 128/70; PULSE 72; RESP 20; TEMP 97.7; O2SAT 94
[2017-02-28 08:00] VITALS: BP 130/64; PULSE 74; RESP 18; TEMP 98.5; O2SAT 99
[2017-02-28] MEDS: INSULIN ASPART SUPPLEMENTAL SCALE SQ SCH ×2 (08:00→12:00)
[2017-02-28] MEDS: metFORMIN HCL 500 MG TAB PO SCH (08:38)
[2017-02-28] MEDS: ACETAMINOPHEN/HYDROcodone 325 MG/5 MG TAB PO PRN ×2 (08:45→14:55)
[2017-02-28] MEDS ORDERED: METR-1 PO (10:10)
[2017-02-28 11:49] VITALS: BP 125/63; PULSE 76; RESP 18; TEMP 98; O2SAT 100
[2017-02-28] MEDS ORDERED: HYDR-3516 PO (12:55)
[2017-02-28] MEDS: HEPARIN SODIUM - SQ 10,000 UNITS/ML VIAL SQ SCH (14:09)
== END 2017-02-28 15:18 | DRG 194 ==
LOC: NEPE 19:30 → NEDA 22:21 → HCIS 02-24 02:15 → N04A 02-24 19:15
PROVIDERS: ADMIT Hospitalist; ATTEND Hospitalist
DX: J18.9 Pneumonia, unspecified organism (principal); A04.72 Enterocolitis due to Clostridium difficile, not specified as recurrent; N17.9 Acute kidney failure, unspecified; M62.82 Rhabdomyolysis; E11.40 Type 2 diabetes mellitus with diabetic neuropathy, unspecified; I27.20 Pulmonary hypertension, unspecified; E86.0 Dehydration; R15.9 Full incontinence of feces; F43.21 Adjustment disorder with depressed mood; M75.31 Calcific tendinitis of right shoulder; E87.6 Hypokalemia; M79.641 Pain in right hand; E78.5 Hyperlipidemia, unspecified; G47.33 Obstructive sleep apnea (adult) (pediatric); I10 Essential (primary) hypertension; K58.9 Irritable bowel syndrome, unspecified; Z96.652 Presence of left artificial knee joint; M19.90 Unspecified osteoarthritis, unspecified site; Z85.3 Personal history of malignant neoplasm of breast; Z92.3 Personal history of irradiation; Z79.84 Long term (current) use of oral hypoglycemic drugs; Z23 Encounter for immunization
CPT/HCPCS: 70450; 71010; 72125; 73030; 73130; 80048; 80053; 82010; 82550; 82552; 82948; 83605; 83690; 83735; 83880; 84484; 85007; 85025; 85027; 85610; 85730; 86140; 86403; 87040; 87077; 87186; 87205; 87493; 87506; 90686; 93005; 93306; 96365; J0456; J0696; J1644; J7030; J7050; Q2038

== ENCOUNTER 2017-04-11 12:53 | Observation (INO) | payer MEDICARE ==
[~2017-04-11] VITALS: Ht 165.1 cm; Wt 66.0 kg
[~2017-04-11 12:53] MED LIST changes: -CIPR-9 PO; +HYDR-3516 PO; +METF500T PO; +METR-1 PO; -NYST10007 TOPICAL; -VITA500012 PO
[2017-04-11 13:25] VITALS: BP 140/64; PULSE 89; RESP 22; TEMP 97.8; O2SAT 96
--- NOTE | 2017-04-11 13:30 | PD ---
HPI Chief Complaint: Abdominal Pain Time Seen by Provider: 13:08 Travel History International Travel<30 days: No Contact w/Intl Traveler<30days: No Traveled to known affect area: No History of Present Illness HPI 72-year-old female presents via EMS for evaluation of abdominal pain, diarrhea. She reports over the past 3 days she has had pain in her lower abdomen and she points at her suprapubic region as the origin of her pain. She reports that it is a sharp constant pain associated with several episodes of nonbloody diarrhea a day. She reports some fecal incontinence. She denies any obvious fevers, chills, myalgias, flank pain. She is a poor historian so additional history was obtained from chart review. The patient was admitted on February for pneumonia, acute renal failure, workup reviewed C. difficile diarrhea. She was eventually [facility] to a [facility] where she stayed for several weeks. Currently living by herself at home. 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 , HX OF RADIATION TREATMENT ) Cardiovascular Problems: Yes High Cholesterol: Yes Diabetes: Yes Diminished Hearing: No Endocrine: Yes Glaucoma: No Genitourinary: No Hepatitis: No Hiatal Hernia: No Hypertension: Yes Musculoskeletal: Yes Neurologic: No Psychiatric: No Reproductive: No Respiratory: Yes (HX BRONCHITIS, HX PLEURISY) Immunizations Current: Yes Radiation Therapy: Yes Sleep Apnea: Yes (HAD A SURGERY PERFORMED TO CORRECT ) Thyroid Disease: No Menopausal: Yes Dilation and Curettage (D&C): Yes Past Surgical History Abdominal Surgery: Yes (GALLBLADDER SURGERY ) Cardiac Surgery: No Cholecystectomy: Yes (11/13/1986) Ear Surgery: No Endocrine Surgery: No Eye Surgery: Yes (BILATERAL CATARACTS) Genitourinary Surgery: No Gynecologic Surgery: Yes (DNC COMPLETE HYSTORETOMY ) Hysterectomy: Yes (04-11-02) Neurologic Surgery: Yes (CERVICAL FUSION 2002) Oral Surgery: No Pacemaker: No Thoracic Surgery: Yes (RIGHT BREAST LUMPECTOMY) Other Surgery: Yes (2005 RIGHT SHOULDER ROTATOR CUFF SURGERY) Social History Alcohol Use: No Tobacco Use: No Substance Use: No Allergies-Medications (Allergen,Severity, Reaction): Coded Allergies: oxycodone (Verified Allergy, Severe, ITCHING, 02/23/17) adhesive (Verified Allergy, Mild, Blisters the skin, 02/23/17) codeine (Verified Allergy, Mild, NAUSEA, 02/23/17) Reported Meds & Prescriptions Reported Meds & Active Scripts Active Hydrocodone-Acetamin 5-325 mg (Hydrocodone/Acetaminophen) 5 Mg-325 Mg Tablet 1 Tab PO Q6H PRN Reported Lisinopril 10 Mg Tab 10 Mg PO DAILY Metformin (Metformin HCl) 500 Mg Tab 1,000 Mg PO DAILY With evening meal Metformin (Metformin HCl) 500 Mg Tab 500 Mg PO BIDPC With breakfast and lunch Amlodipine (Amlodipine Besylate) 10 Mg Tab 10 Mg PO DAILY Review of Systems Except as stated in HPI: all other systems reviewed are Neg Physical Exam Narrative GENERAL: Disheveled female in no acute distress. SKIN: Warm and dry. HEAD: Atraumatic. Normocephalic. EYES: Pupils equal and round. No scleral icterus. No injection or drainage. ENT: No nasal bleeding or discharge. Mucous membranes pink and moist. NECK: Trachea midline. No JVD. CARDIOVASCULAR: Regular rate and rhythm. No murmur appreciated. RESPIRATORY: No accessory muscle use. Clear to auscultation. Breath sounds equal bilaterally. GASTROINTESTINAL: Abdomen soft, mild tenderness to palpation in the lower quadrants. Fecal incontinence is noted, brown diarrhea. MUSCULOSKELETAL: No obvious deformities. No lower extremity edema. NEUROLOGICAL: Awake and alert. No obvious cranial nerve deficits. Motor grossly within normal limits. Normal speech. Data Data Last Documented VS Vital Signs Date Time Temp Pulse Resp B/P (MAP) Pulse Ox O2 Delivery O2 Flow Rate FiO2 04/11/17 13:25 97.8 89 22 140/64 (89) 96 Room Air Orders Orders Complete Blood Count With Diff (04/11/17 13:11) Comprehensive Metabolic Panel (04/11/17 13:11) Lipase (04/11/17 13:11) Urinalysis - C+S If Indicated (04/11/17 13:11) Ct Abd/Pel W Iv Contrast(Rout) (04/11/17 13:11) Iv Access Insert/Monitor (04/11/17 13:11) Cath For Specimen (04/11/17 13:11) C Diff Toxin Pcr (04/11/17 13:15) Urine Culture (04/11/17 13:43) Sodium Chlor 0.9% 1000 Ml Inj (Ns 1000 M (04/11/17 14:38) Lactic Acid (04/11/17 14:38) Blood Culture (04/11/17 14:38) Potassium Chloride (Kcl) (04/11/17 15:15) Electrocardiogram (04/11/17 ) Morphine Inj (Morphine Inj) (04/11/17 16:15) Iohexol 350 Inj (Omnipaque 350 Inj) (04/11/17 16:36) Admit Order (Ed Use Only) (04/11/17 16:54) Place In Observation (04/11/17 ) Code Status (04/11/17 16:50) Vital Signs (Adult) Q4H (04/11/17 16:50) Activity Oob With Assistance (04/11/17 16:50) Photographic Editor / Telemetry .CONTINUOUS (04/11/17 16:50) Diet 1800 Ada Cons Carb (04/11/17 Dinner) Sodium Chloride 0.9% Flush (Ns Flush) (04/11/17 17:00) Sodium Chloride 0.9% Flush (Ns Flush) (04/11/17 21:00) Acetaminophen (Tylenol) (04/11/17 17:00) Ondansetron Inj (Zofran Inj) (04/11/17 17:00) Comprehensive Metabolic Panel (04/12/17 06:00) Complete Blood Count With Diff (04/12/17 06:00) Chest, Single Ap (04/11/17 16:50) Electrocardiogram (04/11/17 16:50) Pt Request For Service (04/11/17 16:50) Scd Bilateral/Knee High MADELINE.BID (04/11/17 16:50) Naloxone Inj (Narcan Inj) (04/11/17 17:00) Labs Laboratory Tests Test 04/11/17 13:43 04/11/17 16:25 White Blood Count 15.9 TH/MM3 Red Blood Count 5.19 MIL/MM3 Hemoglobin 15.5 GM/DL Hematocrit 44.7 % Mean Corpuscular Volume 86.1 FL Mean Corpuscular Hemoglobin 29.9 PG Mean Corpuscular Hemoglobin Concent 34.8 % Red Cell Distribution Width 14.0 % Platelet Count 327 TH/MM3 Mean Platelet Volume 7.6 FL Neutrophils (%) (Auto) 82.4 % Lymphocytes (%) (Auto) 8.9 % Monocytes (%) (Auto) 8.2 % Eosinophils (%) (Auto) 0.3 % Basophils (%) (Auto) 0.2 % Neutrophils # (Auto) 13.1 TH/MM3 Lymphocytes # (Auto) 1.4 TH/MM3 Monocytes # (Auto) 1.3 TH/MM3 Eosinophils # (Auto) 0.0 TH/MM3 Basophils # (Auto) 0.0 TH/MM3 CBC Comment DIFF FINAL Differential Comment Urine Color YELLOW Urine Turbidity HAZY Urine pH 5.5 Urine Specific [place] 1.020 Urine Protein 30 mg/dL Urine Glucose (UA) NEG mg/dL Urine Ketones NEG mg/dL Urine Occult Blood NEG Urine Nitrite NEG Urine Bilirubin NEG Urine Urobilinogen LESS THAN 2.0 MG/DL Urine Leukocyte Esterase TRACE Urine RBC 1 /hpf Urine WBC 2 /hpf Urine Squamous Epithelial Cells 2 /hpf Urine Transitional Epithelial Cells 1 /hpf Urine Amorphous Sediment OCC Urine Bacteria OCC /hpf Urine Hyaline Casts 4 /lpf Urine Mucus FEW /lpf Microscopic Urinalysis Comment CATH-CULTURE IND Blood Urea Nitrogen 43 MG/DL Creatinine 1.22 MG/DL Random Glucose 121 MG/DL Total Protein 8.1 GM/DL Albumin 3.7 GM/DL Calcium Level 9.2 MG/DL Alkaline Phosphatase 98 U/L Aspartate Amino Transf (AST/SGOT) 69 U/L Alanine Aminotransferase (ALT/SGPT) 65 U/L Total Bilirubin 1.0 MG/DL Sodium Level 130 MEQ/L Potassium Level 2.8 MEQ/L Chloride Level 85 MEQ/L Carbon Dioxide Level 35.3 MEQ/L Anion Gap 10 MEQ/L Estimat Glomerular Filtration Rate 43 ML/MIN Lipase 96 U/L [facility] Medical Decision Making Medical Screen Exam Complete: Yes Emergency Medical Condition: Yes Medical Record Reviewed: Yes Differential Diagnosis Recurrent C. difficile, diarrhea, electrolyte abnormality, colitis, cystitis Narrative Course Lab work, CT imaging, a catheterized urine specimen were collected. Leukocytosis, hyponatremia, hypokalemia noted. C. difficile is currently pending, discussed with Dr. Jacome is agreeable with admission for observation. Oral potassium chloride was administered here as well as IV fluids. Diagnosis Primary Impression: Hypokalemia Additional Impressions: Hyponatremia Diarrhea Leukocytosis Admitting Information Admitting Physician Requests: Observation Saulo Milligan Apr 11, 2017 13:30
[2017-04-11] MEDS ORDERED: METF500T PO (14:10)
[2017-04-11] MEDS ORDERED: LISI10TA3 PO (14:10)
[2017-04-11 14:13] LABS: AUTOMATED NEUTROPHIL # 13.1 TH/MM3 (1.8-7.7); BASOPHIL % 0.2 % (0.0-2.0); EOSINOPHIL % 0.3 % (0.0-4.0); HEMATOCRIT 44.7 % (35.0-46.0); HEMOGLOBIN 15.5 GM/DL (11.6-15.3); LYMPH % 8.9 % (9.0-44.0); LYMPHOCYTE # 1.4 TH/MM3 (1.0-4.8); MEAN CELL VOLUME 86.1 FL (80.0-100.0); MEAN CORPUSCULAR HEMOGLOBIN 29.9 PG (27.0-34.0); MEAN CORPUSCULAR HGB CONC 34.8 % (32.0-36.0); MEAN PLATELET VOLUME 7.6 FL (7.0-11.0); MONO % 8.2 % (0.0-8.0); MONOCYTE # 1.3 TH/MM3 (0-0.9); NEUT % 82.4 % (16.0-70.0); PLATELET COUNT 327 TH/MM3 (150-450); RED BLOOD COUNT 5.19 MIL/MM3 (4.00-5.30); WHITE BLOOD COUNT 15.9 TH/MM3 (4.0-11.0)
[2017-04-11 14:22] LABS: AMORPHOUS SEDIMENT, URINE OCC; BACTERIA, URINE OCC /hpf; BILIRUBIN, URINE NEG (NEG); BLOOD, URINE NEG (NEG); GLUCOSE,URINE NEG (NEG); HYALINE CAST, URINE 4 /lpf (RARE); KETONE, URINE NEG (NEG); MUCUS URINE FEW /lpf (OCC); NITRITE,URINE NEG (NEG); PH, URINE 5.5 (5.0-8.5); SQUAMOUS EPITHELIAL CELL URINE 2 /hpf (0-5); TRANSITIONAL EPI CELLS, URINE 1 /hpf; URINE COLOR YELLOW (YELLW/STRAW); URINE LEUKOCYTE ESTERASE TRACE (NEG)
[2017-04-11] MEDS ORDERED: SODIUM CHLOR 0.9% 1000 ML INJ 1,000 ML IV SCH (14:38)
[2017-04-11 14:43] LABS: ALBUMIN 3.7 GM/DL (3.4-5.0); ALKALINE PHOSPHATASE 98 U/L (45-117); ALT (GPT) 65 U/L (10-53); AST (GOT) 69 U/L (15-37); BICARBONATE 35.3 MEQ/L (21.0-32.0); BLOOD UREA NITROGEN 43 MG/DL (7-18); CALCIUM 9.2 MG/DL (8.5-10.1); CHLORIDE 85 MEQ/L (98-107); CREATININE 1.22 MG/DL (0.50-1.00); GLOMERULAR FILTRATION RATE 43 ML/MIN (>89); GLUCOSE,RANDOM 121 MG/DL (74-106); SODIUM (NA) 130 MEQ/L (136-145); TOTAL PROTEIN 8.1 GM/DL (6.4-8.2)
[2017-04-11] MEDS ORDERED: POTASSIUM CHLORIDE 20 MEQ CONTROLLED RELEASE TAB PO ONE (15:15)
[2017-04-11] MEDS ORDERED: MORPHINE SULFATE 2 MG/ML INJ IV PUSH ONE (16:15)
[2017-04-11] MEDS ORDERED: IOHEXOL 350 MG/ML 10 ML VIAL (for RAD DIAG) IVCONTRAST ONE (16:36)
--- NOTE | 2017-04-11 16:45 | RADRPT ---
EXAM DATE/TIME: 04/11/2017 16:19 [facility] COMPARISON: No previous studies available for comparison. INDICATIONS : Abdominal pain. IV CONTRAST: 70 cc Omnipaque 350 (iohexol) IV ORAL CONTRAST: No oral contrast ingested. RADIATION DOSE: 15.87 CTDIvol (mGy) MEDICAL HISTORY : Cardiovascular disease. Hypertension. Diabetes, pre cancer breast, Radiation SURGICAL HISTORY : Cholecystectomy. Hysterectomy. ENCOUNTER: Initial ACUITY: 1 day PAIN SCALE: 5/10 LOCATION: Bilateral lower back TECHNIQUE: Volumetric scanning of the abdomen and pelvis was performed. Using automated exposure control and adjustment of the mA and/or kV according to patient size, radiation dose was kept as low as reasonably achievable to obtain optimal diagnostic quality images. DICOM format image data is av ailable electronically for review and comparison. FINDINGS: CT Abdomen: The spleen, pancreas, kidneys, adrenals are unremarkable. Approximate 5.3 cm simple cyst is present in segment 6 of the liver. There is no evidence for any appreciable pathological adenopath y, free fluid, or bowel obstruction. CT pelvis: There is no evidence for mass, abscess formation, or any significant adenopathy within the pelvis. The colon is not adequately characterized with areas of fluid and stool within it. There is projection of bowel anteriorly over the symphysis pubis probably due to patulous anterior abdominal w all without definite hernia. CONCLUSION: Hepatic cyst, otherwise essentially unremarkable study. Carter Salgado MD on April 11, 2017 at 16:39 Board Certified Radiologist. This report was verified electronically.
[2017-04-11] MEDS ORDERED: ACETAMINOPHEN 325 MG TAB PO PRN (17:00)
[2017-04-11] MEDS ORDERED: SODIUM CHLORIDE 0.9% FLUSH 10 ML FLUSH IV FLUSH PRN (17:00)
[2017-04-11] MEDS ORDERED: NALOXONE HCL 0.4 MG/ML AMP IV PUSH PRN (17:00)
[2017-04-11] MEDS ORDERED: ONDANSETRON HCL 4 MG/2 ML VIAL IVP PRN (17:00)
--- NOTE | 2017-04-11 17:07 | PD ---
Physical Exam Narrative GENERAL: 72 y/o female in no apparent distress HEAD: Atraumatic. EYES: No injection or drainage. ENT: No nasal bleeding or discharge. NECK: Trachea midline. No JVD. CARDIOVASCULAR: Regular rate and rhythm NEUROLOGICAL: Moves all extremities, awake PSYCHIATRIC: Appropriate mood and affect; insight and judgment normal. Data Data Last Documented VS Vital Signs Date Time Temp Pulse Resp B/P (MAP) Pulse Ox O2 Delivery O2 Flow Rate FiO2 04/11/17 13:25 97.8 89 22 140/64 (89) 96 Room Air Orders Orders Complete Blood Count With Diff (04/11/17 13:11) Comprehensive Metabolic Panel (04/11/17 13:11) Lipase (04/11/17 13:11) Urinalysis - C+S If Indicated (04/11/17 13:11) Ct Abd/Pel W Iv Contrast(Rout) (04/11/17 13:11) Iv Access Insert/Monitor (04/11/17 13:11) Cath For Specimen (04/11/17 13:11) C Diff Toxin Pcr (04/11/17 13:15) Urine Culture (04/11/17 13:43) Sodium Chlor 0.9% 1000 Ml Inj (Ns 1000 M (04/11/17 14:38) Lactic Acid (04/11/17 14:38) Blood Culture (04/11/17 14:38) Potassium Chloride (Kcl) (04/11/17 15:15) Electrocardiogram (04/11/17 ) Morphine Inj (Morphine Inj) (04/11/17 16:15) Iohexol 350 Inj (Omnipaque 350 Inj) (04/11/17 16:36) Admit Order (Ed Use Only) (04/11/17 16:54) Place In Observation (04/11/17 ) Code Status (04/11/17 16:50) Vital Signs (Adult) Q4H (04/11/17 16:50) Activity Oob With Assistance (04/11/17 16:50) Blocker And Polisher / Telemetry .CONTINUOUS (04/11/17 16:50) Diet 1800 Ada Cons Carb (04/11/17 Dinner) Sodium Chloride 0.9% Flush (Ns Flush) (04/11/17 17:00) Sodium Chloride 0.9% Flush (Ns Flush) (04/11/17 21:00) Acetaminophen (Tylenol) (04/11/17 17:00) Ondansetron Inj (Zofran Inj) (04/11/17 17:00) Comprehensive Metabolic Panel (04/12/17 06:00) Complete Blood Count With Diff (04/12/17 06:00) Chest, Single Ap (04/11/17 16:50) Electrocardiogram (04/11/17 16:50) Pt Request For Service (04/11/17 16:50) Scd Bilateral/Knee High MADELINE.BID (04/11/17 16:50) Naloxone Inj (Narcan Inj) (04/11/17 17:00) Labs Laboratory Tests Test 04/11/17 13:43 04/11/17 16:25 White Blood Count 15.9 TH/MM3 Red Blood Count 5.19 MIL/MM3 Hemoglobin 15.5 GM/DL Hematocrit 44.7 % Mean Corpuscular Volume 86.1 FL Mean Corpuscular Hemoglobin 29.9 PG Mean Corpuscular Hemoglobin Concent 34.8 % Red Cell Distribution Width 14.0 % Platelet Count 327 TH/MM3 Mean Platelet Volume 7.6 FL Neutrophils (%) (Auto) 82.4 % Lymphocytes (%) (Auto) 8.9 % Monocytes (%) (Auto) 8.2 % Eosinophils (%) (Auto) 0.3 % Basophils (%) (Auto) 0.2 % Neutrophils # (Auto) 13.1 TH/MM3 Lymphocytes # (Auto) 1.4 TH/MM3 Monocytes # (Auto) 1.3 TH/MM3 Eosinophils # (Auto) 0.0 TH/MM3 Basophils # (Auto) 0.0 TH/MM3 CBC Comment DIFF FINAL Differential Comment Urine Color YELLOW Urine Turbidity HAZY Urine pH 5.5 Urine Specific [place] 1.020 Urine Protein 30 mg/dL Urine Glucose (UA) NEG mg/dL Urine Ketones NEG mg/dL Urine Occult Blood NEG Urine Nitrite NEG Urine Bilirubin NEG Urine Urobilinogen LESS THAN 2.0 MG/DL Urine Leukocyte Esterase TRACE Urine RBC 1 /hpf Urine WBC 2 /hpf Urine Squamous Epithelial Cells 2 /hpf Urine Transitional Epithelial Cells 1 /hpf Urine Amorphous Sediment OCC Urine Bacteria OCC /hpf Urine Hyaline Casts 4 /lpf Urine Mucus FEW /lpf Microscopic Urinalysis Comment CATH-CULTURE IND Blood Urea Nitrogen 43 MG/DL Creatinine 1.22 MG/DL Random Glucose 121 MG/DL Total Protein 8.1 GM/DL Albumin 3.7 GM/DL Calcium Level 9.2 MG/DL Alkaline Phosphatase 98 U/L Aspartate Amino Transf (AST/SGOT) 69 U/L Alanine Aminotransferase (ALT/SGPT) 65 U/L Total Bilirubin 1.0 MG/DL Sodium Level 130 MEQ/L Potassium Level 2.8 MEQ/L Chloride Level 85 MEQ/L Carbon Dioxide Level 35.3 MEQ/L Anion Gap 10 MEQ/L Estimat Glomerular Filtration Rate 43 ML/MIN Lipase 96 U/L MDM Supervised Visit with JUAN: Yes Interpretation(s) CBC & BMP Diagram 04/11/17 13:43 Total Protein 8.1, Albumin 3.7, Calcium Level 9.2, Alkaline Phosphatase 98, Aspartate Amino Transf (AST/SGOT) 69 H, Alanine Aminotransferase (ALT/SGPT) 65 H , Total Bilirubin 1.0 Last 24 hours Impressions Abdomen/Pelvis CT 04/11/17 1311 Signed Impressions: Service Date/Time: Tuesday, April 11, 2017 16:19 - CONCLUSION: Hepatic cyst, otherwise essentially unremarkable study. Carter Salgado MD Narrative Course I, Dr. de la cruz, have reviewed the advance practice practitioner's documentation and am in agreement, met with the patient face to face, made the diagnosis, and the medical decision making was done by me. *My assessment and Findings: 72-year-old female who presents with diarrhea and abdominal pain. Patient has renal insufficiency and hypokalemia. C. difficile is pending. Will admit to the hospital for further care Diagnosis Primary Impression: Hypokalemia Additional Impressions: Abdominal pain Qualified Codes: R10.9 - Unspecified abdominal pain Renal insufficiency Leukocytosis Qualified Codes: D72.829 - Elevated white blood cell count, unspecified Lily De La Cruz MD Apr 11, 2017 17:07
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
--- NOTE | 2017-04-11 17:16 | RADRPT ---
EXAM DATE/TIME: 04/11/2017 16:59 [facility] COMPARISON: CHEST SINGLE AP, February 23, 2017, 20:41. INDICATIONS : Cough. MEDICAL HISTORY : Cardiovascular disease. Hypertension Diabetes SURGICAL HISTORY : Cholecystectomy. Hysterectomy. ENCOUNTER: Initial ACUITY: 1 day PAIN SCORE: 0/10 LOCATION: Bilateral chest FINDINGS: The lungs are clear without infiltrate, nodule, or mass. There is no appreciable pleural effusion fo r technique. Heart and mediastinum are unremarkable. CONCLUSION: No acute cardiopulmonary disease. Carter Salgado MD on April 11, 2017 at 17:13 Board Certified Radiologist. This report was verified electronically.
[2017-04-11] MEDS ORDERED: metFORMIN HCL 500 MG TAB PO SCH (18:00)
[2017-04-11] MEDS: NS + KCL 40 MEQ INJ 1,000 ML IV SCH (18:31)
[2017-04-11] MEDS: metroNIDAZOLE 500 MG TAB PO SCH (18:32)
[2017-04-11] MEDS: CLOTRIMAZOLE 1% VAG CREAM 45 GM TUBE VAGINAL SCH (19:52)
[2017-04-11] MEDS: SODIUM CHLORIDE 0.9% FLUSH 10 ML FLUSH IV FLUSH SCH (19:53)
[2017-04-11] MEDS: INSULIN ASPART SUPPLEMENTAL SCALE SQ SCH (19:53)
[2017-04-11 20:23] VITALS: BP 131/70; PULSE 93; RESP 17; TEMP 99.3; O2SAT 99
[2017-04-11] MEDS: ACETAMINOPHEN/HYDROcodone 325 MG/5 MG TAB PO PRN (22:00)
[2017-04-12] MEDS: metroNIDAZOLE 500 MG TAB PO SCH ×2 (00:27→06:13)
[2017-04-12 00:54] VITALS: BP 131/61; PULSE 91; RESP 16; TEMP 98.8; O2SAT 99
[2017-04-12 03:49] VITALS: BP 115/55; PULSE 89; RESP 17; TEMP 98.5; O2SAT 95
[2017-04-12] MEDS: NS + KCL 40 MEQ INJ 1,000 ML IV SCH ×2 (06:13→17:50)
[2017-04-12 06:31] LABS: AUTOMATED NEUTROPHIL # 14.8 TH/MM3 (1.8-7.7); BASOPHIL % 0.2 % (0.0-2.0); EOSINOPHIL # 0.1 TH/MM3 (0-0.4); EOSINOPHIL % 0.4 % (0.0-4.0); HEMATOCRIT 41.2 % (35.0-46.0); HEMOGLOBIN 14.3 GM/DL (11.6-15.3); LYMPH % 6.9 % (9.0-44.0); LYMPHOCYTE # 1.2 TH/MM3 (1.0-4.8); MEAN CELL VOLUME 85.9 FL (80.0-100.0); MEAN CORPUSCULAR HEMOGLOBIN 29.8 PG (27.0-34.0); MEAN CORPUSCULAR HGB CONC 34.7 % (32.0-36.0); MEAN PLATELET VOLUME 7.3 FL (7.0-11.0); MONO % 4.9 % (0.0-8.0); MONOCYTE # 0.8 TH/MM3 (0-0.9); NEUT % 87.6 % (16.0-70.0); PLATELET COUNT 305 TH/MM3 (150-450); RED BLOOD COUNT 4.79 MIL/MM3 (4.00-5.30); RED CELL DISTRIBUTION WIDTH 13.9 % (11.6-17.2); WHITE BLOOD COUNT 16.9 TH/MM3 (4.0-11.0)
[2017-04-12 07:05] LABS: ALBUMIN 3.1 GM/DL (3.4-5.0); ALT (GPT) 86 U/L (10-53); AST (GOT) 71 U/L (15-37); BLOOD UREA NITROGEN 32 MG/DL (7-18); CALCIUM 8.3 MG/DL (8.5-10.1); CHLORIDE 92 MEQ/L (98-107); CREATININE 0.99 MG/DL (0.50-1.00); GLOMERULAR FILTRATION RATE 55 ML/MIN (>89); GLUCOSE,RANDOM 166 MG/DL (74-106); MAGNESIUM 1.9 MG/DL (1.5-2.5); SODIUM (NA) 131 MEQ/L (136-145)
[2017-04-12 07:06] LABS: ALKALINE PHOSPHATASE 77 U/L (45-117); TOTAL BILIRUBIN ADULT 0.8 MG/DL (0.2-1.0); TOTAL PROTEIN 6.7 GM/DL (6.4-8.2)
[2017-04-12 07:15] VITALS: BP 134/62; PULSE 82; RESP 20; TEMP 97.6; O2SAT 95
[2017-04-12] MEDS ORDERED: POTASSIUM CHLORIDE 20 MEQ CONTROLLED RELEASE TAB PO ONE (08:00)
--- NOTE | 2017-04-12 08:38 | HHI.PR ---
Subjective Remarks Patient resting in bed able to awake to voice then c/o chronic pain lower spine report two incontinent episodes of liquid stool Offers no other complaints Objective Vitals Vital Signs Date Time Temp Pulse Resp B/P (MAP) Pulse Ox O2 Delivery O2 Flow Rate FiO2 04/12/17 07:15 97.6 82 20 134/62 (86) 95 04/12/17 03:49 98.5 89 17 115/55 (75) 95 04/12/17 00:54 98.8 91 16 131/61 (84) 99 04/11/17 23:00 16 04/11/17 20:23 99.3 93 17 131/70 (90) 99 04/11/17 13:25 97.8 89 22 140/64 (89) 96 Room Air Result Diagram: 04/12/17 0617 04/12/17 0617 Other Results Laboratory Tests Test 04/11/17 13:43 04/12/17 00:33 04/12/17 04:15 04/12/17 06:17 White Blood Count 15.9 TH/MM3 16.9 TH/MM3 Red Blood Count 5.19 MIL/MM3 4.79 MIL/MM3 Hemoglobin 15.5 GM/DL 14.3 GM/DL Hematocrit 44.7 % 41.2 % Mean Corpuscular Volume 86.1 FL 85.9 FL Mean Corpuscular Hemoglobin 29.9 PG 29.8 PG Mean Corpuscular Hemoglobin Concent 34.8 % 34.7 % Red Cell Distribution Width 14.0 % 13.9 % Platelet Count 327 TH/MM3 305 TH/MM3 Mean Platelet Volume 7.6 FL 7.3 FL Neutrophils (%) (Auto) 82.4 % 87.6 % Lymphocytes (%) (Auto) 8.9 % 6.9 % Monocytes (%) (Auto) 8.2 % 4.9 % Eosinophils (%) (Auto) 0.3 % 0.4 % Basophils (%) (Auto) 0.2 % 0.2 % Neutrophils # (Auto) 13.1 TH/MM3 14.8 TH/MM3 Lymphocytes # (Auto) 1.4 TH/MM3 1.2 TH/MM3 Monocytes # (Auto) 1.3 TH/MM3 0.8 TH/MM3 Eosinophils # (Auto) 0.0 TH/MM3 0.1 TH/MM3 Basophils # (Auto) 0.0 TH/MM3 0.0 TH/MM3 CBC Comment DIFF FINAL AUTO DIFF Differential Comment Urine Color YELLOW Urine Turbidity HAZY Urine pH 5.5 Urine Specific [place] 1.020 Urine Protein 30 mg/dL Urine Glucose (UA) NEG mg/dL Urine Ketones NEG mg/dL Urine Occult Blood NEG Urine Nitrite NEG Urine Bilirubin NEG Urine Urobilinogen LESS THAN 2.0 MG/DL Urine Leukocyte Esterase TRACE Urine RBC 1 /hpf Urine WBC 2 /hpf Urine Squamous Epithelial Cells 2 /hpf Urine Transitional Epithelial Cells 1 /hpf Urine Amorphous Sediment OCC Urine Bacteria OCC /hpf Urine Hyaline Casts 4 /lpf Urine Mucus FEW /lpf Microscopic Urinalysis Comment CATH-CULTURE IND Blood Urea Nitrogen 43 MG/DL 32 MG/DL Creatinine 1.22 MG/DL 0.99 MG/DL Random Glucose 121 MG/DL 166 MG/DL Total Protein 8.1 GM/DL 6.7 GM/DL Albumin 3.7 GM/DL 3.1 GM/DL Calcium Level 9.2 MG/DL 8.3 MG/DL Alkaline Phosphatase 98 U/L 77 U/L Aspartate Amino Transf (AST/SGOT) 69 U/L 71 U/L Alanine Aminotransferase (ALT/SGPT) 65 U/L 86 U/L Total Bilirubin 1.0 MG/DL 0.8 MG/DL Sodium Level 130 MEQ/L 131 MEQ/L Potassium Level 2.8 MEQ/L 3.0 MEQ/L Chloride Level 85 MEQ/L 92 MEQ/L Carbon Dioxide Level 35.3 MEQ/L 33.0 MEQ/L Anion Gap 10 MEQ/L 6 MEQ/L Estimat Glomerular Filtration Rate 43 ML/MIN 55 ML/MIN Magnesium Level 1.8 MG/DL 1.9 MG/DL Lipase 96 U/L Lactic Acid Level 1.1 mmol/L Imaging Last Impressions Abdomen/Pelvis CT 04/11/17 1311 Signed Impressions: Service Date/Time: Tuesday, April 11, 2017 16:19 - CONCLUSION: Hepatic cyst, otherwise essentially unremarkable study. Carter Salgado MD Objective Remarks GENERAL: This is an elderly 72 year old female patient unkempt in appearance, in no apparent distress. SKIN: buttock area reddened with 2 erythematous areas buttock area- healing pressure ulcer CARDIOVASCULAR: Regular rate and rhythm RESPIRATORY: diminished GASTROINTESTINAL: Abdomen soft, non-tender, nondistended. MUSCULOSKELETAL: Extremities without clubbing, cyanosis, or edema. No joint tenderness, effusion, or edema noted. No calf tenderness. Negative Homans sign bilaterally. NEUROLOGICAL: Awake and alert. No focal deficits appreciated. Motor and sensory grossly within normal limits. 4-5 out of 5 muscle strength in all muscle groups. Normal speech. A/P Problem List: (1) Diarrhea ICD Codes: R19.7 - Diarrhea, unspecified Plan: Diarrhea - WBC 15.9 on admission -> 16.9 (04/12) - High suspicion for C Diff, patient has had C diff recently in 2016 - C diff pending - Start Flagyl 500mg PO daily - consider adding oral Vancomycin if no improvement - CT abd/pelvis reviewed: hepatic cyst no acute findings - IV fluids for hydration - PT eval requested SCDs for DVT prophylaxis Hypokalemia - K 2.8 on admission -> 3.0 (04/12) - Mag 1.8 - Patient give 40 meq x and 20 meq IV - recheck BMP in AM Diabetes - continue home metformin - acu checks ACHS with SSI coverage - pt requesting reg diet may need to change to diabetic diet if blood sugar elevated Hyponatremia - Na 130 on admission -> 131 (04/12) - IV fluids for hydration - recheck BMP in AM Dehydration - IV fluids for hydration - recheck BMP in AM Murmur, cardiac Normal left ventricular size. Wall thickness is normal. No regional wall motion abnormalities are present. The left ventricular systolic function is normal with an estimated ejection fraction in the range of 60-65%. Moderate thickening of the aortic valve leaflets. Mild aortic valve stenosis. Aortic valve area is 1.3 cm. Aortic valve mean gradient is 22.5 mmHg. There is mild tricuspid valve regurgitation. The estimated pulmonary arterial pressure is 65.1 mmHg. The inferior vena cava was not well visualized. Elevated LFTs total bilirubin 1.0 -> 0.8 (2/5) AST 69 -> 71 (2/5) ALT 65 -> 86 (2/5) Alk Phos 98 -> 77 (2/5) hepatitis panel pending (2) Hypokalemia ICD Codes: E87.6 - Hypokalemia (3) Diabetes ICD Codes: E11.9 - Type 2 diabetes mellitus without complications Status: Chronic (4) Hyponatremia ICD Codes: E87.1 - Hypo-osmolality and hyponatremia (5) Dehydration ICD Codes: E86.0 - Dehydration (6) Murmur, cardiac ICD Codes: R01.1 - Cardiac murmur, unspecified (7) Elevated LFTs ICD Codes: R79.89 - Other specified abnormal findings of blood chemistry Assessment and Plan Patient examined. Assessment and plan formulated with Princess Mitchell PA-C. I agree with the above. c.diff colitis. dehydration with hyponatremia/hypokalemia ivf with kcl. vanco po. PT. Princess Mitchell Apr 12, 2017 08:38 Selwyn Appiah MD Apr 12, 2017 12:21
[2017-04-12 08:52] LABS: BANDS 32 % (0-6); LYMPHOCYTES 3 % (9-44); MONOCYTES 8 % (0-8); POLYS (SEG NEUTROPHILS) 57 % (16-70)
[2017-04-12] MEDS ORDERED: POTASSIUM CHLOR 20 MEQ PREMIX 100 ML IV ONE (09:00)
[2017-04-12] MEDS: SODIUM CHLORIDE 0.9% FLUSH 10 ML FLUSH IV FLUSH SCH ×2 (09:00→21:00)
[2017-04-12] MEDS: LISINOPRIL 10 MG TAB PO SCH (09:00)
[2017-04-12] MEDS ORDERED: metFORMIN HCL 500 MG TAB PO SCH ×3 (09:00→16:00)
[2017-04-12] MEDS: ACETAMINOPHEN/HYDROcodone 325 MG/5 MG TAB PO PRN ×2 (09:42→23:57)
[2017-04-12] MEDS: INSULIN ASPART SUPPLEMENTAL SCALE SQ SCH ×4 (10:12→21:00)
[2017-04-12 11:21] VITALS: BP 109/55; PULSE 79; RESP 16; TEMP 97.6; O2SAT 97
[2017-04-12 12:03] LABS: HEPATITIS A AB IGM NEGATIVE (NEGATIVE); HEPATITIS B CORE AB IGM NEGATIVE (NEGATIVE); HEPATITIS B SURFACE ANTIGEN NEGATIVE (NEGATIVE); HEPATITIS C AB IgG NEGATIVE (NEGATIVE)
[2017-04-12] MEDS: VANCOMYCIN 500 MG VIAL (FOR ORAL USE ONLY) PO SCH ×3 (13:56→21:56)
[2017-04-12 16:09] VITALS: BP 108/58; PULSE 72; RESP 16; TEMP 98; O2SAT 96
[2017-04-12] MEDS: CLOTRIMAZOLE 1% VAG CREAM 45 GM TUBE VAGINAL SCH (21:58)
[2017-04-12 23:47] VITALS: BP 121/74; PULSE 74; RESP 18; TEMP 97.9; O2SAT 96
[2017-04-13] MEDS: NS + KCL 40 MEQ INJ 1,000 ML IV SCH ×2 (01:15→18:11)
[2017-04-13] MEDS ORDERED: metFORMIN HCL 500 MG TAB PO SCH (07:00)
[2017-04-13 07:29] VITALS: BP 112/62; PULSE 79; RESP 18; TEMP 97.6; O2SAT 98
[2017-04-13] MEDS: INSULIN ASPART SUPPLEMENTAL SCALE SQ SCH ×4 (08:00→21:00)
[2017-04-13] MEDS: ACETAMINOPHEN/HYDROcodone 325 MG/5 MG TAB PO PRN ×3 (08:26→22:10)
[2017-04-13] MEDS: LISINOPRIL 10 MG TAB PO SCH (08:27)
[2017-04-13] MEDS: VANCOMYCIN 500 MG VIAL (FOR ORAL USE ONLY) PO SCH ×4 (08:28→22:09)
--- NOTE | 2017-04-13 08:41 | HHI.PR ---
Subjective Remarks Patient reports that her diarrhea, "has dried up." last BM was last night and described as a pudding consistency Objective Vitals Vital Signs Date Time Temp Pulse Resp B/P (MAP) Pulse Ox O2 Delivery O2 Flow Rate FiO2 04/13/17 07:29 97.6 79 18 112/62 (79) 98 04/12/17 23:47 97.9 74 18 121/74 (90) 96 04/12/17 16:09 98.0 72 16 108/58 (75) 96 04/12/17 11:21 97.6 79 16 109/55 (73) 97 04/12/17 10:42 20 04/13/17 04/13/17 04/14/17 15:00 23:00 07:00 Intake Total 720 ml Balance 720 ml Intake Oral 720 ml # Voids 3 # Bowel Movements 1 Result Diagram: 04/12/17 0617 04/12/17616 Other Results Laboratory Tests Test 04/11/17 13:43 04/12/17 00:33 04/12/17 04:15 04/12/17 06:17 White Blood Count 15.9 TH/MM3 16.9 TH/MM3 Red Blood Count 5.19 MIL/MM3 4.79 MIL/MM3 Hemoglobin 15.5 GM/DL 14.3 GM/DL Hematocrit 44.7 % 41.2 % Mean Corpuscular Volume 86.1 FL 85.9 FL Mean Corpuscular Hemoglobin 29.9 PG 29.8 PG Mean Corpuscular Hemoglobin Concent 34.8 % 34.7 % Red Cell Distribution Width 14.0 % 13.9 % Platelet Count 327 TH/MM3 305 TH/MM3 Mean Platelet Volume 7.6 FL 7.3 FL Neutrophils (%) (Auto) 82.4 % 87.6 % Lymphocytes (%) (Auto) 8.9 % 6.9 % Monocytes (%) (Auto) 8.2 % 4.9 % Eosinophils (%) (Auto) 0.3 % 0.4 % Basophils (%) (Auto) 0.2 % 0.2 % Neutrophils # (Auto) 13.1 TH/MM3 14.8 TH/MM3 Lymphocytes # (Auto) 1.4 TH/MM3 1.2 TH/MM3 Monocytes # (Auto) 1.3 TH/MM3 0.8 TH/MM3 Eosinophils # (Auto) 0.0 TH/MM3 0.1 TH/MM3 Basophils # (Auto) 0.0 TH/MM3 0.0 TH/MM3 CBC Comment DIFF FINAL AUTO DIFF Differential Comment FINAL DIFF MANUAL Urine Color YELLOW Urine Turbidity HAZY Urine pH 5.5 Urine Specific [place] 1.020 Urine Protein 30 mg/dL Urine Glucose (UA) NEG mg/dL Urine Ketones NEG mg/dL Urine Occult Blood NEG Urine Nitrite NEG Urine Bilirubin NEG Urine Urobilinogen LESS THAN 2.0 MG/DL Urine Leukocyte Esterase TRACE Urine RBC 1 /hpf Urine WBC 2 /hpf Urine Squamous Epithelial Cells 2 /hpf Urine Transitional Epithelial Cells 1 /hpf Urine Amorphous Sediment OCC Urine Bacteria OCC /hpf Urine Hyaline Casts 4 /lpf Urine Mucus FEW /lpf Microscopic Urinalysis Comment CATH-CULTURE IND Blood Urea Nitrogen 43 MG/DL 32 MG/DL Creatinine 1.22 MG/DL 0.99 MG/DL Random Glucose 121 MG/DL 166 MG/DL Total Protein 8.1 GM/DL 6.7 GM/DL Albumin 3.7 GM/DL 3.1 GM/DL Calcium Level 9.2 MG/DL 8.3 MG/DL Alkaline Phosphatase 98 U/L 77 U/L Aspartate Amino Transf (AST/SGOT) 69 U/L 71 U/L Alanine Aminotransferase (ALT/SGPT) 65 U/L 86 U/L Total Bilirubin 1.0 MG/DL 0.8 MG/DL Sodium Level 130 MEQ/L 131 MEQ/L Potassium Level 2.8 MEQ/L 3.0 MEQ/L Chloride Level 85 MEQ/L 92 MEQ/L Carbon Dioxide Level 35.3 MEQ/L 33.0 MEQ/L Anion Gap 10 MEQ/L 6 MEQ/L Estimat Glomerular Filtration Rate 43 ML/MIN 55 ML/MIN Magnesium Level 1.8 MG/DL 1.9 MG/DL Lipase 96 U/L Lactic Acid Level 1.1 mmol/L Stool C. difficile Toxin (PCR) POSITIVE Stl C. difficile Toxin Epiderm 027 PRESUMPTIVE POSITIVE Differential Total Cells Counted 100 Neutrophils % (Manual) 57 % Band Neutrophils % 32 % Lymphocytes % 3 % Monocytes % 8 % Neutrophils # (Manual) 15.0 TH/MM3 Platelet Estimate NORMAL Platelet Morphology Comment NORMAL Red Cell Morphology Comment NORMAL Hepatitis A IgM Antibody NEGATIVE Hepatitis B Surface Antigen NEGATIVE Hepatitis B Core IgM Antibody NEGATIVE Hepatitis C Antibody NEGATIVE Imaging Last Impressions Abdomen/Pelvis CT 04/11/17 1311 Signed Impressions: Service Date/Time: Tuesday, April 11, 2017 16:19 - CONCLUSION: Hepatic cyst, otherwise essentially unremarkable study. Carter Salgado MD Objective Remarks GENERAL: This is an elderly 72 year old female patient unkempt in appearance, in no apparent distress. SKIN: buttock area reddened with 2 erythematous areas buttock area- healing pressure ulcer CARDIOVASCULAR: Regular rate and rhythm RESPIRATORY: clear GASTROINTESTINAL: Abdomen soft, mild generalized tenderness, nondistended. MUSCULOSKELETAL: Extremities without clubbing, cyanosis, or edema. No joint tenderness, effusion, or edema noted. No calf tenderness. Negative Homans sign bilaterally. NEUROLOGICAL: Awake and alert. No focal deficits appreciated. Motor and sensory grossly within normal limits. 4-5 out of 5 muscle strength in all muscle groups. Normal speech. A/P Problem List: (1) Diarrhea ICD Codes: R19.7 - Diarrhea, unspecified Plan: Diarrhea - WBC 15.9 on admission -> 16.9 (2/) repeat CBC pending for today - High suspicion for C Diff, patient has had C diff recently in 2016 - C diff pending - Start Flagyl 500mg PO daily - consider adding oral Vancomycin if no improvement - CT abd/pelvis reviewed: hepatic cyst no acute findings - IV fluids for hydration - PT eval requested SCDs for DVT prophylaxis Hypokalemia - K 2.8 on admission -> 3.0 (2/) repeat pending for today - Mag 1.8 - Patient give 40 meq x and 20 meq IV Diabetes - continue home metformin - acu checks ACHS with SSI coverage - pt requesting reg diet may need to change to diabetic diet if blood sugar elevated Hyponatremia - Na 130 on admission -> 131 (2/) repeat pending for today - IV fluids for hydration Dehydration - IV fluids for hydration - recheck BMP pending Murmur, cardiac Normal left ventricular size. Wall thickness is normal. No regional wall motion abnormalities are present. The left ventricular systolic function is normal with an estimated ejection fraction in the range of 60-65%. Moderate thickening of the aortic valve leaflets. Mild aortic valve stenosis. Aortic valve area is 1.3 cm. Aortic valve mean gradient is 22.5 mmHg. There is mild tricuspid valve regurgitation. The estimated pulmonary arterial pressure is 65.1 mmHg. The inferior vena cava was not well visualized. Elevated LFTs total bilirubin 1.0 -> 0.8 (2/5) AST 69 -> 71 (2/5) ALT 65 -> 86 (2/5) Alk Phos 98 -> 77 (2/5) hepatitis panel neg Patient has improved quite a bit await lab results. Plan to DC home with HHC PT tomorrow (2) Hypokalemia ICD Codes: E87.6 - Hypokalemia (3) Diabetes ICD Codes: E11.9 - Type 2 diabetes mellitus without complications Status: Chronic (4) Hyponatremia ICD Codes: E87.1 - Hypo-osmolality and hyponatremia (5) Dehydration ICD Codes: E86.0 - Dehydration (6) Murmur, cardiac ICD Codes: R01.1 - Cardiac murmur, unspecified (7) Elevated LFTs ICD Codes: R79.89 - Other specified abnormal findings of blood chemistry Assessment and Plan Patient examined. Assessment and plan formulated with Princess Mitchell PA-C. I agree with the above. c.diff colitis. dehydration with hyponatremia/hypokalemia improved. ivf with kcl. vanco po. PT. plan for d/c home with hhc/pt tomorrow. Princess Mitchell Apr 13, 2017 08:41 Selwyn Appiah MD Apr 13, 2017 12:02
[2017-04-13 08:43] LABS: AUTOMATED NEUTROPHIL # 15.7 TH/MM3 (1.8-7.7); BASOPHIL # 0.1 TH/MM3 (0-0.2); BASOPHIL % 0.4 % (0.0-2.0); EOSINOPHIL # 0.4 TH/MM3 (0-0.4); HEMOGLOBIN 13.2 GM/DL (11.6-15.3); LYMPH % 9.8 % (9.0-44.0); LYMPHOCYTE # 1.8 TH/MM3 (1.0-4.8); MEAN CELL VOLUME 88.1 FL (80.0-100.0); MEAN CORPUSCULAR HEMOGLOBIN 29.8 PG (27.0-34.0); MEAN CORPUSCULAR HGB CONC 33.9 % (32.0-36.0); MEAN PLATELET VOLUME 7.2 FL (7.0-11.0); MONO % 3.4 % (0.0-8.0); MONOCYTE # 0.6 TH/MM3 (0-0.9); NEUT % 84.4 % (16.0-70.0); PLATELET COUNT 268 TH/MM3 (150-450); RED BLOOD COUNT 4.43 MIL/MM3 (4.00-5.30); RED CELL DISTRIBUTION WIDTH 13.9 % (11.6-17.2); WHITE BLOOD COUNT 18.6 TH/MM3 (4.0-11.0)
[2017-04-13] MEDS: SODIUM CHLORIDE 0.9% FLUSH 10 ML FLUSH IV FLUSH SCH ×2 (09:00→21:00)
[2017-04-13 09:15] LABS: ALBUMIN 2.5 GM/DL (3.4-5.0); AST (GOT) 22 U/L (15-37); BICARBONATE 31.5 MEQ/L (21.0-32.0); BLOOD UREA NITROGEN 16 MG/DL (7-18); CALCIUM 8.1 MG/DL (8.5-10.1); CHLORIDE 100 MEQ/L (98-107); CREATININE 0.84 MG/DL (0.50-1.00); GLOMERULAR FILTRATION RATE 67 ML/MIN (>89); GLUCOSE,RANDOM 140 MG/DL (74-106); SODIUM (NA) 134 MEQ/L (136-145)
[2017-04-13 09:16] LABS: ALT (GPT) 58 U/L (10-53)
[2017-04-13 09:21] LABS: ALKALINE PHOSPHATASE 67 U/L (45-117); TOTAL BILIRUBIN ADULT 0.4 MG/DL (0.2-1.0); TOTAL PROTEIN 5.8 GM/DL (6.4-8.2)
[2017-04-13 12:34] VITALS: BP 94/51; PULSE 70; RESP 18; TEMP 97.3; O2SAT 98
[2017-04-13 15:10] VITALS: BP 114/56; PULSE 76; RESP 20; TEMP 98; O2SAT 100
[2017-04-13] MEDS: LACTOBACILLUS ACIDOPHILUS TAB PO SCH (18:15)
[2017-04-13 20:05] VITALS: BP 113/59; PULSE 74; RESP 18; TEMP 97.8; O2SAT 99
[2017-04-13] MEDS: CHOLESTYRAMINE 4 GM PACKET PO SCH (22:09)
[2017-04-13] MEDS: CLOTRIMAZOLE 1% VAG CREAM 45 GM TUBE VAGINAL SCH (22:11)
[2017-04-14 03:15] VITALS: BP 136/65; PULSE 79; RESP 18; TEMP 98; O2SAT 100
[2017-04-14] MEDS: ACETAMINOPHEN/HYDROcodone 325 MG/5 MG TAB PO PRN ×3 (05:28→21:27)
[2017-04-14] MEDS: NS + KCL 40 MEQ INJ 1,000 ML IV SCH (05:33)
[2017-04-14 05:53] LABS: AUTOMATED NEUTROPHIL # 13.4 TH/MM3 (1.8-7.7); BASOPHIL # 0.1 TH/MM3 (0-0.2); BASOPHIL % 0.5 % (0.0-2.0); EOSINOPHIL # 0.3 TH/MM3 (0-0.4); EOSINOPHIL % 1.8 % (0.0-4.0); HEMATOCRIT 38.7 % (35.0-46.0); LYMPH % 11.1 % (9.0-44.0); LYMPHOCYTE # 1.8 TH/MM3 (1.0-4.8); MEAN CELL VOLUME 88.2 FL (80.0-100.0); MEAN CORPUSCULAR HEMOGLOBIN 29.6 PG (27.0-34.0); MEAN CORPUSCULAR HGB CONC 33.6 % (32.0-36.0); MEAN PLATELET VOLUME 7.4 FL (7.0-11.0); MONO % 3.7 % (0.0-8.0); MONOCYTE # 0.6 TH/MM3 (0-0.9); NEUT % 82.9 % (16.0-70.0); PLATELET COUNT 257 TH/MM3 (150-450); RED BLOOD COUNT 4.39 MIL/MM3 (4.00-5.30); RED CELL DISTRIBUTION WIDTH 13.9 % (11.6-17.2); WHITE BLOOD COUNT 16.1 TH/MM3 (4.0-11.0)
[2017-04-14 07:52] VITALS: BP 109/56; PULSE 75; RESP 20; TEMP 97.7; O2SAT 100
[2017-04-14] MEDS: INSULIN ASPART SUPPLEMENTAL SCALE SQ SCH ×4 (08:00→21:00)
[2017-04-14] MEDS: SODIUM CHLORIDE 0.9% FLUSH 10 ML FLUSH IV FLUSH SCH ×2 (08:07→21:00)
[2017-04-14] MEDS: LISINOPRIL 10 MG TAB PO SCH (08:09)
[2017-04-14] MEDS: LACTOBACILLUS ACIDOPHILUS TAB PO SCH ×3 (08:09→17:52)
[2017-04-14] MEDS: CHOLESTYRAMINE 4 GM PACKET PO SCH ×2 (08:09→21:25)
[2017-04-14] MEDS: VANCOMYCIN 500 MG VIAL (FOR ORAL USE ONLY) PO SCH ×4 (08:09→21:24)
--- NOTE | 2017-04-14 10:17 | HHI.PR ---
Subjective Remarks Pt reports that she had three loose/watery stools yesterday She complains of some abdominal cramping Afebrile Pt tolerating oral intake Objective Vitals Vital Signs Date Time Temp Pulse Resp B/P (MAP) Pulse Ox O2 Delivery O2 Flow Rate FiO2 04/14/17 07:52 97.7 75 20 109/56 (73) 100 04/14/17 03:15 98.0 79 18 136/65 (88) 100 04/13/17 20:05 97.8 74 18 113/59 (77) 99 04/13/17 15:41 20 04/13/17 15:10 98.0 76 20 114/56 (75) 100 04/13/17 12:34 97.3 70 18 94/51 (65) 98 Result Diagram: 04/14/17 0536 04/13/17 0838 Other Results Laboratory Tests Test 04/13/17 08:38 04/14/17 05:36 White Blood Count 18.6 TH/MM3 16.1 TH/MM3 Red Blood Count 4.43 MIL/MM3 4.39 MIL/MM3 Hemoglobin 13.2 GM/DL 13.0 GM/DL Hematocrit 39.0 % 38.7 % Mean Corpuscular Volume 88.1 FL 88.2 FL Mean Corpuscular Hemoglobin 29.8 PG 29.6 PG Mean Corpuscular Hemoglobin Concent 33.9 % 33.6 % Red Cell Distribution Width 13.9 % 13.9 % Platelet Count 268 TH/MM3 257 TH/MM3 Mean Platelet Volume 7.2 FL 7.4 FL Neutrophils (%) (Auto) 84.4 % 82.9 % Lymphocytes (%) (Auto) 9.8 % 11.1 % Monocytes (%) (Auto) 3.4 % 3.7 % Eosinophils (%) (Auto) 2.0 % 1.8 % Basophils (%) (Auto) 0.4 % 0.5 % Neutrophils # (Auto) 15.7 TH/MM3 13.4 TH/MM3 Lymphocytes # (Auto) 1.8 TH/MM3 1.8 TH/MM3 Monocytes # (Auto) 0.6 TH/MM3 0.6 TH/MM3 Eosinophils # (Auto) 0.4 TH/MM3 0.3 TH/MM3 Basophils # (Auto) 0.1 TH/MM3 0.1 TH/MM3 CBC Comment DIFF FINAL DIFF FINAL Differential Comment Blood Urea Nitrogen 16 MG/DL Creatinine 0.84 MG/DL Random Glucose 140 MG/DL Total Protein 5.8 GM/DL Albumin 2.5 GM/DL Calcium Level 8.1 MG/DL Alkaline Phosphatase 67 U/L Aspartate Amino Transf (AST/SGOT) 22 U/L Alanine Aminotransferase (ALT/SGPT) 58 U/L Total Bilirubin 0.4 MG/DL Sodium Level 134 MEQ/L Potassium Level 3.6 MEQ/L Chloride Level 100 MEQ/L Carbon Dioxide Level 31.5 MEQ/L Anion Gap 3 MEQ/L Estimat Glomerular Filtration Rate 67 ML/MIN Imaging Last Impressions Abdomen/Pelvis CT 04/11/17 1311 Signed Impressions: Service Date/Time: Tuesday, April 11, 2017 16:19 - CONCLUSION: Hepatic cyst, otherwise essentially unremarkable study. Carter Salgado MD Objective Remarks GENERAL: This is an elderly 72 year old female patient unkempt in appearance, in no apparent distress. SKIN: buttock area reddened with 2 erythematous areas buttock area- healing pressure ulcer CARDIO: Regular RESP: CTA ABD: +BS, soft, mild generalized tenderness, nondistended. EXT: No edema. A/P Problem List: (1) Diarrhea ICD Codes: R19.7 - Diarrhea, unspecified Plan: Diarrhea - WBC 15.9 on admission -> 16.1 (04/14) - Stools are positive for C Diff, patient had C diff recently in 2016 - Pt was started on Flagyl 500mg PO daily at admission. This was changed to oral Vancomycin on 04/13 - CT abd/pelvis reviewed: hepatic cyst no acute findings - Stop IVF as pt is eating and drinking well - PT evaluated and recommended home with HHC/PT but pt does not feel at this time that she is comfortable being able to take care of herself at home as she is still having liquids stools with some incontinence. - Offered her to go to rehab but its not clear if the pt still has any rehab days left. SCDs for DVT prophylaxis Hypokalemia - K 2.8 on admission -> 3.6 (2) - Mag 1.9 Diabetes - continue home metformin - accu checks ACHS with SSI coverage - pt requesting reg diet may need to change to diabetic diet if blood sugar elevated Hyponatremia - Na 130 on admission -> 134 (2/6) Dehydration - Improved with IVF Murmur, cardiac - Previous 2D echo --> Estimated ejection fraction in the range of 60-65%, moderate thickening of the aortic valve leaflets, mild aortic valve stenosis, Aortic valve area is 1.3 cm, mild tricuspid valve regurgitation, estimated pulmonary arterial pressure is 65.1 mmHg. The inferior vena cava was not well visualized. Elevated LFTs - labs at admission with total bilirubin 1.0 -> 0.4 (2/6), AST 69 -> 22 (2/6), ALT 65 -> 58 (2/6), Alk Phos 98 -> 67 (2/6) - Hepatitis panel neg (2) Hypokalemia ICD Codes: E87.6 - Hypokalemia (3) Diabetes ICD Codes: E11.9 - Type 2 diabetes mellitus without complications Status: Chronic (4) Hyponatremia ICD Codes: E87.1 - Hypo-osmolality and hyponatremia (5) Dehydration ICD Codes: E86.0 - Dehydration (6) Murmur, cardiac ICD Codes: R01.1 - Cardiac murmur, unspecified (7) Elevated LFTs ICD Codes: R79.89 - Other specified abnormal findings of blood chemistry Assessment and Plan Patient examined. Assessment and plan formulated with Princess Mitchell PA-C. I agree with the above. c.diff colitis. dehydration with hyponatremia/hypokalemia improved. ivf with kcl. vanco po. PT. today pt refusing to go home...says her diarrhea worse from yesterday. continue to observe in hospital. Danuta Nguyen Apr 14, 2017 10:17 Selwyn Appiah MD Apr 14, 2017 10:27
[2017-04-14 11:41] VITALS: BP 132/62; PULSE 87; RESP 21; TEMP 98.4; O2SAT 100
[2017-04-14 19:59] VITALS: BP 124/60; PULSE 78; RESP 18; TEMP 98.1; O2SAT 100
[2017-04-15 07:59] VITALS: BP 142/67; PULSE 86; RESP 16; TEMP 98.1; O2SAT 99
[2017-04-15] MEDS: INSULIN ASPART SUPPLEMENTAL SCALE SQ SCH ×4 (08:00→21:00)
--- NOTE | 2017-04-15 09:29 | HHI.PR ---
Subjective Remarks Pt reports that she did not have any BMs overnight. This morning she had a watery stool and was unable to make it to the bedside commode. Afebrile Objective Vitals Vital Signs Date Time Temp Pulse Resp B/P (MAP) Pulse Ox O2 Delivery O2 Flow Rate FiO2 04/15/17 07:59 98.1 86 16 142/67 (92) 99 04/14/17 22:27 18 04/14/17 19:59 98.1 78 18 124/60 (81) 100 04/14/17 11:41 98.4 87 21 132/62 (85) 100 Result Diagram: 04/14/17 0536 04/13/17 0838 Other Results Laboratory Tests Test 04/14/17 05:36 White Blood Count 16.1 TH/MM3 Red Blood Count 4.39 MIL/MM3 Hemoglobin 13.0 GM/DL Hematocrit 38.7 % Mean Corpuscular Volume 88.2 FL Mean Corpuscular Hemoglobin 29.6 PG Mean Corpuscular Hemoglobin Concent 33.6 % Red Cell Distribution Width 13.9 % Platelet Count 257 TH/MM3 Mean Platelet Volume 7.4 FL Neutrophils (%) (Auto) 82.9 % Lymphocytes (%) (Auto) 11.1 % Monocytes (%) (Auto) 3.7 % Eosinophils (%) (Auto) 1.8 % Basophils (%) (Auto) 0.5 % Neutrophils # (Auto) 13.4 TH/MM3 Lymphocytes # (Auto) 1.8 TH/MM3 Monocytes # (Auto) 0.6 TH/MM3 Eosinophils # (Auto) 0.3 TH/MM3 Basophils # (Auto) 0.1 TH/MM3 CBC Comment DIFF FINAL Differential Comment Imaging Last Impressions Abdomen/Pelvis CT 04/11/17 1311 Signed Impressions: Service Date/Time: Tuesday, April 11, 2017 16:19 - CONCLUSION: Hepatic cyst, otherwise essentially unremarkable study. Carter Salgado MD Objective Remarks GENERAL: This is an elderly 72 year old female patient unkempt in appearance, in no apparent distress. SKIN: buttock area reddened with 2 erythematous areas buttock area- healing pressure ulcer CARDIO: Regular RESP: CTA ABD: +BS, soft, mild generalized tenderness, nondistended. EXT: No edema. A/P Problem List: (1) Diarrhea ICD Codes: R19.7 - Diarrhea, unspecified Plan: C. diff infection Diarrhea - WBC 15.9 on admission -> 16.1 (04/14), labs for today are pending - Stools are positive for C Diff, patient had C diff recently in 2016 - Pt was started on Flagyl 500mg PO daily at admission. This was changed to oral Vancomycin on 04/13 - CT abd/pelvis reviewed: hepatic cyst no acute findings - IVF stopped on 04/14/17 as pt is eating and drinking well - Pt still having liquid stools and some incontinence today - Questran was added on 04/13. - PT evaluated and recommended home with HHC/PT but pt does not feel at this time that she is comfortable being able to take care of herself at home as she is still having liquids stools with some incontinence. - Offered her to go to rehab but its not clear if the pt still has any rehab days left. SCDs for DVT prophylaxis Hypokalemia - K 2.8 on admission -> 3.6 (04/13), labs for today are pending. - Mag 1.9 Diabetes - continue home metformin - accu checks ACHS with SSI coverage - pt requesting reg diet may need to change to diabetic diet if blood sugar elevated Hyponatremia - Na 130 on admission -> 134 (04/13) Dehydration - Improved with IVF Murmur, cardiac - Previous 2D echo --> Estimated ejection fraction in the range of 60-65%, moderate thickening of the aortic valve leaflets, mild aortic valve stenosis, Aortic valve area is 1.3 cm, mild tricuspid valve regurgitation, estimated pulmonary arterial pressure is 65.1 mmHg. The inferior vena cava was not well visualized. Elevated LFTs - labs improving from admission with total bilirubin 1.0 -> 0.4 (2/), AST 69 - > 22 (2/), ALT 65 -> 58 (2/), Alk Phos 98 -> 67 (2/) - Hepatitis panel neg (2) Hypokalemia ICD Codes: E87.6 - Hypokalemia (3) Diabetes ICD Codes: E11.9 - Type 2 diabetes mellitus without complications Status: Chronic (4) Hyponatremia ICD Codes: E87.1 - Hypo-osmolality and hyponatremia (5) Dehydration ICD Codes: E86.0 - Dehydration (6) Murmur, cardiac ICD Codes: R01.1 - Cardiac murmur, unspecified (7) Elevated LFTs ICD Codes: R79.89 - Other specified abnormal findings of blood chemistry Assessment and Plan Patient examined. Assessment and plan formulated with Princess Mitchell PA-C. I agree with the above. c.diff colitis. dehydration with hyponatremia/hypokalemia improved. pt feels unable to care for herself at home. out of snf days. CM to see if a snf will work on payment plan cont rx. kub and labs pending. Danuta Nguyen Apr 15, 2017 09:29 Selwyn Appiah MD Apr 15, 2017 11:47
[2017-04-15] MEDS: LISINOPRIL 10 MG TAB PO SCH (11:14)
[2017-04-15] MEDS: LACTOBACILLUS ACIDOPHILUS TAB PO SCH ×3 (11:14→18:32)
[2017-04-15] MEDS: SODIUM CHLORIDE 0.9% FLUSH 10 ML FLUSH IV FLUSH SCH ×2 (11:15→21:00)
[2017-04-15] MEDS: VANCOMYCIN 500 MG VIAL (FOR ORAL USE ONLY) PO SCH ×4 (11:15→21:00)
[2017-04-15 11:54] LABS: AUTOMATED NEUTROPHIL # 9.9 TH/MM3 (1.8-7.7); BASOPHIL % 0.4 % (0.0-2.0); EOSINOPHIL # 0.2 TH/MM3 (0-0.4); EOSINOPHIL % 1.4 % (0.0-4.0); HEMATOCRIT 41.3 % (35.0-46.0); HEMOGLOBIN 13.9 GM/DL (11.6-15.3); LYMPH % 14.8 % (9.0-44.0); LYMPHOCYTE # 1.9 TH/MM3 (1.0-4.8); MEAN CELL VOLUME 87.6 FL (80.0-100.0); MEAN CORPUSCULAR HEMOGLOBIN 29.5 PG (27.0-34.0); MEAN CORPUSCULAR HGB CONC 33.7 % (32.0-36.0); MEAN PLATELET VOLUME 7.2 FL (7.0-11.0); MONO % 4.9 % (0.0-8.0); MONOCYTE # 0.6 TH/MM3 (0-0.9); NEUT % 78.5 % (16.0-70.0); PLATELET COUNT 328 TH/MM3 (150-450); RED BLOOD COUNT 4.71 MIL/MM3 (4.00-5.30); RED CELL DISTRIBUTION WIDTH 14.4 % (11.6-17.2); WHITE BLOOD COUNT 12.6 TH/MM3 (4.0-11.0)
[2017-04-15 12:08] VITALS: BP 121/65; PULSE 84; RESP 16; TEMP 97.8; O2SAT 100
[2017-04-15 12:24] LABS: BICARBONATE 27.9 MEQ/L (21.0-32.0); CALCIUM 8.7 MG/DL (8.5-10.1); CREATININE 0.84 MG/DL (0.50-1.00)
[2017-04-15] MEDS ORDERED: POTASSIUM CHLORIDE 20 MEQ CONTROLLED RELEASE TAB PO ONE (13:15)
[2017-04-15 16:15] VITALS: BP 138/68; PULSE 84; RESP 18; TEMP 98; O2SAT 98
--- NOTE | 2017-04-15 17:04 | RADRPT ---
EXAM DATE/TIME: 04/15/2017 16:13 [facility] COMPARISON: CT ABDOMEN & PELVIS W CONTRAST, April 11, 2017, 16:19. INDICATIONS : Abdomen pain MEDICAL HISTORY : Cardiovascular disease. Hypertension c-diff, diabetes SURGICAL HISTORY : Cholecystectomy. Hysterectomy. ENCOUNTER: Initial ACUITY: 4 - 6 days PAIN SCORE: Non-responsive. LOCATION: Bilateral abdomen FINDINGS: Supine view of the abdomen was performed. There is some air identified in nondilated bowel loops. Tato gical clips in the right upper abdominal quadrant are characteristic of prior cholecystectomy. Rounde d densities projecting over the left psoas muscle are only seen on the second image and therefore, ma y be on the skin surface. Degenerative changes in the lumbar spine. CONCLUSION: 1. Radiographically benign abdomen without obvious obstruction or pneumoperitoneum. 2. Radiopaque densities to the left of L4 are only seen on the second image and therefore, these may be artifact or on the skin surface. Patient is status post cholecystectomy Avi Lee MD on April 15, 2017 at 16:57 Board Certified Radiologist. This report was verified electronically.
[2017-04-15 20:05] VITALS: BP 147/78; PULSE 68; RESP 18; TEMP 98.1; O2SAT 97
[2017-04-16 02:13] VITALS: BP 123/72; PULSE 78; RESP 18; TEMP 98; O2SAT 98
[2017-04-16 03:59] VITALS: BP 110/58; PULSE 68; RESP 18; TEMP 98; O2SAT 95
[2017-04-16] MEDS: INSULIN ASPART SUPPLEMENTAL SCALE SQ SCH ×4 (08:00→21:00)
[2017-04-16] MEDS: LACTOBACILLUS ACIDOPHILUS TAB PO SCH ×3 (08:44→17:39)
[2017-04-16] MEDS: LISINOPRIL 10 MG TAB PO SCH (08:44)
[2017-04-16] MEDS: VANCOMYCIN 500 MG VIAL (FOR ORAL USE ONLY) PO SCH ×3 (08:44→17:39)
[2017-04-16] MEDS: SODIUM CHLORIDE 0.9% FLUSH 10 ML FLUSH IV FLUSH SCH (08:45)
[2017-04-16] MEDS ORDERED: LACT PO (08:48)
--- NOTE | 2017-04-16 08:49 | HHI.DCPOC ---
Discharge Care Plan Diagnosis: (1) C. difficile diarrhea (2) Diarrhea (3) Diabetes (4) Hypokalemia (5) Hyponatremia (6) Dehydration (7) Abdominal pain (8) Generalized weakness Goals to Promote Your Health * To prevent worsening of your condition and complications * To maintain your health at the optimal level Directions to Meet Your Goals Take your medications as prescribed Follow your dietary instruction Follow activity as directed Keep your appointments as scheduled Take your immunizations and boosters as scheduled If your symptoms worsen call your PCP, if no PCP go to Urgent Care Center or Emergency Room Smoking is Dangerous to Your Health. Avoid second hand smoke Call the 24-hour hour crisis hotline for domestic abuse at Danuta Nguyen Apr 16, 2017 08:49
--- NOTE | 2017-04-16 08:52 | HHI.PR ---
Subjective Remarks Pt only had 2 BMs in the last 24 hours, still loose Less abd pain Objective Vitals Vital Signs Date Time Temp Pulse Resp B/P (MAP) Pulse Ox O2 Delivery O2 Flow Rate FiO2 04/16/17 03:59 98.0 68 18 110/58 (75) 95 04/16/17 02:13 98.0 78 18 123/72 (89) 98 04/15/17 20:05 98.1 68 18 147/78 (101) 97 04/15/17 16:15 98.0 84 18 138/68 (91) 98 04/15/17 12:08 97.8 84 16 121/65 (83) 100 Result Diagram: 04/15/17 1129 04/15/17 1129 Other Results Laboratory Tests Test 04/15/17 11:29 White Blood Count 12.6 TH/MM3 Red Blood Count 4.71 MIL/MM3 Hemoglobin 13.9 GM/DL Hematocrit 41.3 % Mean Corpuscular Volume 87.6 FL Mean Corpuscular Hemoglobin 29.5 PG Mean Corpuscular Hemoglobin Concent 33.7 % Red Cell Distribution Width 14.4 % Platelet Count 328 TH/MM3 Mean Platelet Volume 7.2 FL Neutrophils (%) (Auto) 78.5 % Lymphocytes (%) (Auto) 14.8 % Monocytes (%) (Auto) 4.9 % Eosinophils (%) (Auto) 1.4 % Basophils (%) (Auto) 0.4 % Neutrophils # (Auto) 9.9 TH/MM3 Lymphocytes # (Auto) 1.9 TH/MM3 Monocytes # (Auto) 0.6 TH/MM3 Eosinophils # (Auto) 0.2 TH/MM3 Basophils # (Auto) 0.0 TH/MM3 CBC Comment DIFF FINAL Differential Comment Blood Urea Nitrogen 10 MG/DL Creatinine 0.84 MG/DL Random Glucose 105 MG/DL Calcium Level 8.7 MG/DL Sodium Level 137 MEQ/L Potassium Level 3.3 MEQ/L Chloride Level 103 MEQ/L Carbon Dioxide Level 27.9 MEQ/L Anion Gap 6 MEQ/L Estimat Glomerular Filtration Rate 67 ML/MIN Imaging Last Impressions Abdomen/Pelvis CT 04/11/17 1311 Signed Impressions: Service Date/Time: Tuesday, April 11, 2017 16:19 - CONCLUSION: Hepatic cyst, otherwise essentially unremarkable study. KCarito Salgado MD Objective Remarks GENERAL: This is an elderly 72 year old female patient unkempt in appearance, in no apparent distress. SKIN: buttock area reddened with 2 erythematous areas buttock area- healing pressure ulcer CARDIO: Regular RESP: CTA ABD: +BS, soft, mild generalized tenderness, nondistended. EXT: No edema. A/P Problem List: (1) Diarrhea ICD Codes: R19.7 - Diarrhea, unspecified Plan: C. diff infection Diarrhea - WBC 15.9 on admission -> 16.1 (04/14), labs for today are pending - Stools are positive for C Diff, patient had C diff recently in 2016 - Pt was started on Flagyl 500mg PO daily at admission. This was changed to oral Vancomycin on 04/13 - CT abd/pelvis reviewed: hepatic cyst no acute findings - IVF stopped on 04/14/17 as pt is eating and drinking well - Pt still having liquid stools and some incontinence today - Questran was added on 04/13. - PT evaluated and recommended home with HHC/PT but pt does not feel at this time that she is comfortable being able to take care of herself at home as she is still having liquids stools with some incontinence. - Pt is planned for discharge today. Requests rehab placement. She has $160/day copay for SNF as she is out of SNF days and is willing to work out a payment plan with the rehabs. Discussed with CM and they are working on placement for today. SCDs for DVT prophylaxis Hypokalemia - K 2.8 on admission -> 3.3 (04/15), replaced Diabetes - continue home metformin - accu checks ACHS with SSI coverage - pt requesting reg diet may need to change to diabetic diet if blood sugar elevated Hyponatremia - Na 130 on admission -> 134 (04/13) Dehydration - Improved with IVF Murmur, cardiac - Previous 2D echo --> Estimated ejection fraction in the range of 60-65%, moderate thickening of the aortic valve leaflets, mild aortic valve stenosis, Aortic valve area is 1.3 cm, mild tricuspid valve regurgitation, estimated pulmonary arterial pressure is 65.1 mmHg. The inferior vena cava was not well visualized. Elevated LFTs - labs improving from admission with total bilirubin 1.0 -> 0.4 (04/13), AST 69 - > 22 (04/13), ALT 65 -> 58 (2/6), Alk Phos 98 -> 67 (2/6) - Hepatitis panel neg (2) Hypokalemia ICD Codes: E87.6 - Hypokalemia (3) Diabetes ICD Codes: E11.9 - Type 2 diabetes mellitus without complications Status: Chronic (4) Hyponatremia ICD Codes: E87.1 - Hypo-osmolality and hyponatremia (5) Dehydration ICD Codes: E86.0 - Dehydration (6) Murmur, cardiac ICD Codes: R01.1 - Cardiac murmur, unspecified (7) Elevated LFTs ICD Codes: R79.89 - Other specified abnormal findings of blood chemistry Assessment and Plan Patient examined. Assessment and plan formulated with Princess Mitchell PA-C. I agree with the above. c.diff colitis. dehydration with hyponatremia/hypokalemia improved. pt feels unable to care for herself at home. out of snf days. CM to see if a snf will work on payment plan cont rx. ok to dc to snf once arranged. Danuta Nguyen Apr 16, 2017 08:52 Selwyn Appiah MD Apr 16, 2017 11:41
[2017-04-16] MEDS ORDERED: HYDR-3516 PO (10:37)
[2017-04-16 17:28] VITALS: BP 116/62; PULSE 70; RESP 20; TEMP 98.9; O2SAT 97
[2017-04-17] MEDS: SODIUM CHLORIDE 0.9% FLUSH 10 ML FLUSH IV FLUSH SCH ×3 (00:52→22:13)
[2017-04-17] MEDS: VANCOMYCIN 25 MG/ML SUSP 100 ML BOTTLE PO SCH ×5 (00:52→22:13)
[2017-04-17] MEDS: INSULIN ASPART SUPPLEMENTAL SCALE SQ SCH ×4 (08:00→22:13)
[2017-04-17 08:30] VITALS: BP 137/69; PULSE 85; RESP 16; TEMP 97.8; O2SAT 96
[2017-04-17] MEDS: LACTOBACILLUS ACIDOPHILUS TAB PO SCH ×3 (09:30→18:07)
[2017-04-17] MEDS: LISINOPRIL 10 MG TAB PO SCH (09:31)
[2017-04-17] MEDS: ACETAMINOPHEN/HYDROcodone 325 MG/5 MG TAB PO PRN ×2 (09:32→18:07)
--- NOTE | 2017-04-17 09:37 | HHI.PR ---
Subjective Remarks Pt was discharged on 04/16 but has not been able to be placed at rehab due to monies owed to [facility]. Pt was seen by PT on 04/16 and recommended rehab placement. Pt had two loose stools overnight. Objective Vitals Vital Signs Date Time Temp Pulse Resp B/P (MAP) Pulse Ox O2 Delivery O2 Flow Rate FiO2 04/17/17 08:30 97.8 85 16 137/69 (91) 96 04/16/17 17:28 98.9 70 20 116/62 (80) 97 Result Diagram: 04/15/17 1129 04/15/17 1129 Other Results Laboratory Tests Test 04/15/17 11:29 White Blood Count 12.6 TH/MM3 Red Blood Count 4.71 MIL/MM3 Hemoglobin 13.9 GM/DL Hematocrit 41.3 % Mean Corpuscular Volume 87.6 FL Mean Corpuscular Hemoglobin 29.5 PG Mean Corpuscular Hemoglobin Concent 33.7 % Red Cell Distribution Width 14.4 % Platelet Count 328 TH/MM3 Mean Platelet Volume 7.2 FL Neutrophils (%) (Auto) 78.5 % Lymphocytes (%) (Auto) 14.8 % Monocytes (%) (Auto) 4.9 % Eosinophils (%) (Auto) 1.4 % Basophils (%) (Auto) 0.4 % Neutrophils # (Auto) 9.9 TH/MM3 Lymphocytes # (Auto) 1.9 TH/MM3 Monocytes # (Auto) 0.6 TH/MM3 Eosinophils # (Auto) 0.2 TH/MM3 Basophils # (Auto) 0.0 TH/MM3 CBC Comment DIFF FINAL Differential Comment Blood Urea Nitrogen 10 MG/DL Creatinine 0.84 MG/DL Random Glucose 105 MG/DL Calcium Level 8.7 MG/DL Sodium Level 137 MEQ/L Potassium Level 3.3 MEQ/L Chloride Level 103 MEQ/L Carbon Dioxide Level 27.9 MEQ/L Anion Gap 6 MEQ/L Estimat Glomerular Filtration Rate 67 ML/MIN Imaging Last Impressions Abdomen/Pelvis CT 04/11/17 1311 Signed Impressions: Service Date/Time: Tuesday, April 11, 2017 16:19 - CONCLUSION: Hepatic cyst, otherwise essentially unremarkable study. Carter Salgado MD Objective Remarks GENERAL: This is an elderly 72 year old female patient unkempt in appearance, in no apparent distress. SKIN: buttock area reddened with 2 erythematous areas buttock area- healing pressure ulcer CARDIO: Regular RESP: CTA ABD: +BS, soft, nontender, nondistended. EXT: Bilateral LE edema. Callouses on the bottoms of bilateral feet, no open wounds A/P Problem List: (1) Diarrhea ICD Codes: R19.7 - Diarrhea, unspecified Plan: C. diff infection Diarrhea - WBC 15.9 on admission -> 16.1 (04/14), labs for today are pending - Stools are positive for C Diff, patient had C diff recently in 2016 - Pt was started on Flagyl 500mg PO daily at admission. This was changed to oral Vancomycin on 04/13 - CT abd/pelvis reviewed: hepatic cyst no acute findings - IVF stopped on 04/14/17 as pt is eating and drinking well - Pt still having liquid stools - Questran was added on 04/13, stopped on 04/15. - PT evaluated and recommended home with HHC/PT but pt does not feel at this time that she is comfortable being able to take care of herself at home as she is still having liquids stools with some incontinence. - Pt was discharged on 04/16 and was recommended rehab placement by PT. She has not been able to be placed yet due to monies owed at [facility]. CM is working on possible residential placement options at [facility]. SCDs for DVT prophylaxis LE edema - Pt with some noted dependent edema as she has not been able to elevate her legs due to back pain. She has been sitting in chairs with her feet dangling. - Request that the pt be bathed today and her feet cleaned and then pt to have her legs wrapped with JOAQUÍN bandages from the feet to the knees. Hypokalemia - K 2.8 on admission -> 3.3 (04/15), replaced Diabetes - continue home metformin - accu checks ACHS with SSI coverage - pt requesting reg diet may need to change to diabetic diet if blood sugar elevated Hyponatremia - Na 130 on admission -> 134 (04/13) Dehydration - Improved with IVF Murmur, cardiac - Previous 2D echo --> Estimated ejection fraction in the range of 60-65%, moderate thickening of the aortic valve leaflets, mild aortic valve stenosis, Aortic valve area is 1.3 cm, mild tricuspid valve regurgitation, estimated pulmonary arterial pressure is 65.1 mmHg. The inferior vena cava was not well visualized. Elevated LFTs - labs improving from admission with total bilirubin 1.0 -> 0.4 (2/6), AST 69 - > 22 (2/6), ALT 65 -> 58 (2/6), Alk Phos 98 -> 67 (2/6) - Hepatitis panel neg (2) Hypokalemia ICD Codes: E87.6 - Hypokalemia (3) Diabetes ICD Codes: E11.9 - Type 2 diabetes mellitus without complications Status: Chronic (4) Hyponatremia ICD Codes: E87.1 - Hypo-osmolality and hyponatremia (5) Dehydration ICD Codes: E86.0 - Dehydration (6) Murmur, cardiac ICD Codes: R01.1 - Cardiac murmur, unspecified (7) Elevated LFTs ICD Codes: R79.89 - Other specified abnormal findings of blood chemistry Assessment and Plan Patient examined. Assessment and plan formulated with Princess Mitchell PA-C. I agree with the above. c.diff colitis. dehydration with hyponatremia/hypokalemia improved. pt feels unable to care for herself at home. out of snf days. PT now says she is unsafe balance castelan to go home. Will try to ask fhcp if she can get a few more approved days at snf in order to safely transition her out of the hospital. Danuta Nguyen Apr 17, 2017 09:37 Selwyn Appiah MD Apr 17, 2017 17:12
[2017-04-17 12:00] VITALS: BP 135/72; PULSE 78; RESP 18; TEMP 97.9; O2SAT 98
[2017-04-17 16:20] VITALS: BP 136/72; PULSE 76; RESP 16; TEMP 97.8; O2SAT 96
[2017-04-18 00:14] VITALS: BP 142/70; PULSE 85; RESP 17; TEMP 97.9; O2SAT 97
[2017-04-18 05:12] VITALS: BP 138/70; PULSE 78; RESP 18; TEMP 98; O2SAT 95
[2017-04-18] MEDS: INSULIN ASPART SUPPLEMENTAL SCALE SQ SCH ×4 (08:00→22:56)
[2017-04-18 08:03] VITALS: BP 141/77; PULSE 85; RESP 18; TEMP 97.3; O2SAT 100
[2017-04-18] MEDS: LISINOPRIL 10 MG TAB PO SCH (08:18)
[2017-04-18] MEDS: VANCOMYCIN 25 MG/ML SUSP 100 ML BOTTLE PO SCH ×4 (08:19→22:55)
[2017-04-18] MEDS: LACTOBACILLUS ACIDOPHILUS TAB PO SCH ×3 (08:19→17:40)
[2017-04-18] MEDS: SODIUM CHLORIDE 0.9% FLUSH 10 ML FLUSH IV FLUSH SCH ×2 (08:19→22:55)
--- NOTE | 2017-04-18 10:24 | HHI.PR ---
Subjective Remarks Pt had one liquid BM last night. She complains of continued pain in her feet with the swelling. She has been unable to keep her feet elevated due to her back pain. She has been spending most of the day sitting in the chair with her feet dangling. Objective Vitals Vital Signs Date Time Temp Pulse Resp B/P (MAP) Pulse Ox O2 Delivery O2 Flow Rate FiO2 04/18/17 08:03 97.3 85 18 141/77 (98) 100 04/18/17 05:12 98.0 78 18 138/70 (92) 95 04/18/17 00:14 97.9 85 17 142/70 (94) 97 04/17/17 16:20 97.8 76 16 136/72 (93) 96 04/17/17 12:00 97.9 78 18 135/72 (93) 98 Result Diagram: 04/15/17 1129 04/15/17 1129 Imaging Last Impressions Abdomen/Pelvis CT 04/11/17 1311 Signed Impressions: Service Date/Time: Tuesday, April 11, 2017 16:19 - CONCLUSION: Hepatic cyst, otherwise essentially unremarkable study. Carter Salgado MD Objective Remarks GENERAL: This is an elderly 72 year old female patient unkempt in appearance, in no apparent distress. SKIN: buttock area reddened with 2 erythematous areas buttock area- healing pressure ulcer CARDIO: Regular RESP: CTA ABD: +BS, soft, nontender, nondistended. EXT:Bilateral LE edema A/P Problem List: (1) Diarrhea ICD Codes: R19.7 - Diarrhea, unspecified Plan: C. diff infection Diarrhea - WBC 15.9 on admission -> 16.1 (04/14), labs for today are pending - Stools are positive for C Diff, patient had C diff recently in 2016 - Pt was started on Flagyl 500mg PO daily at admission. This was changed to oral Vancomycin on 04/13 - CT abd/pelvis reviewed: hepatic cyst no acute findings - IVF stopped on 04/14/17 as pt is eating and drinking well - Pt still having liquid stools but they are decreasing in frequency, no incontinence today - Questran was added on 04/13, stopped on 04/15. - PT evaluated and recommended home with HHC/PT but pt does not feel at this time that she is comfortable being able to take care of herself at home as she is still having liquids stools with some incontinence. - Pt was discharged on 04/16 and was recommended rehab placement by PT. She has not been able to be placed yet due to monies owed at [facility]. 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 We may need to speak with [facility] on Wednesday to see if we may be able to get the pt a few more rehab days to help her get back on her feet to be able to be successful at home. SCDs for DVT prophylaxis LE edema - She has been unable to keep her feet elevated due to her back pain. She has been spending most of the day sitting in the chair with her feet dangling. - We requested that her LE be wrapped yesterday but they weren't wrapped very well this morning. Requested the charge nurse rewrap her feet today from the feet all the way to the knees. Hypokalemia - K 2.8 on admission -> 3.3 (04/15), replaced Diabetes - continue home metformin - accu checks ACHS with SSI coverage - pt requesting reg diet may need to change to diabetic diet if blood sugar elevated Hyponatremia - Na 130 on admission -> 134 (2/) Dehydration - Improved with IVF Murmur, cardiac - Previous 2D echo --> Estimated ejection fraction in the range of 60-65%, moderate thickening of the aortic valve leaflets, mild aortic valve stenosis, Aortic valve area is 1.3 cm, mild tricuspid valve regurgitation, estimated pulmonary arterial pressure is 65.1 mmHg. The inferior vena cava was not well visualized. Elevated LFTs - labs improving from admission with total bilirubin 1.0 -> 0.4 (2/6), AST 69 - > 22 (2/6), ALT 65 -> 58 (2/6), Alk Phos 98 -> 67 (2/6) - Hepatitis panel neg (2) Hypokalemia ICD Codes: E87.6 - Hypokalemia (3) Diabetes ICD Codes: E11.9 - Type 2 diabetes mellitus without complications Status: Chronic (4) Hyponatremia ICD Codes: E87.1 - Hypo-osmolality and hyponatremia (5) Dehydration ICD Codes: E86.0 - Dehydration (6) Murmur, cardiac ICD Codes: R01.1 - Cardiac murmur, unspecified (7) Elevated LFTs ICD Codes: R79.89 - Other specified abnormal findings of blood chemistry Assessment and Plan Patient examined. Assessment and plan formulated with Princess Mitchell PA-C. I agree with the above. c.diff colitis. dehydration with hyponatremia/hypokalemia improved. pt feels unable to care for herself at home. out of snf days. PT now says she is unsafe balance castelan to go home. Will try to ask fhcp if she can get a few more approved days at snf in order to safely transition her out of the hospital. lower ext wraps ordered for swelling and pain. Danuta Nguyen Apr 18, 2017 10:24 Selwyn Appiah MD Apr 18, 2017 14:01
[2017-04-18 11:59] VITALS: BP 132/71; PULSE 82; RESP 18; TEMP 98; O2SAT 98
[2017-04-18] MEDS: ACETAMINOPHEN/HYDROcodone 325 MG/5 MG TAB PO PRN ×2 (12:08→22:57)
[2017-04-18 17:02] VITALS: BP 142/74; PULSE 146; RESP 18; TEMP 98.6; O2SAT 94
[2017-04-18 20:10] VITALS: BP 149/71; PULSE 98; RESP 20; TEMP 98.8; O2SAT 98
[2017-04-19 00:09] VITALS: BP 138/70; PULSE 99; RESP 20; TEMP 98.6; O2SAT 98
[2017-04-19 03:59] VITALS: BP 135/70; PULSE 98; RESP 20; TEMP 98.6; O2SAT 97
[2017-04-19 08:00] VITALS: BP 133/69; PULSE 85; RESP 18; TEMP 96.1; O2SAT 98
[2017-04-19] MEDS: INSULIN ASPART SUPPLEMENTAL SCALE SQ SCH ×4 (08:10→21:00)
[2017-04-19] MEDS: VANCOMYCIN 25 MG/ML SUSP 100 ML BOTTLE PO SCH ×4 (09:28→22:28)
[2017-04-19] MEDS: LACTOBACILLUS ACIDOPHILUS TAB PO SCH ×3 (09:28→18:01)
[2017-04-19] MEDS: LISINOPRIL 10 MG TAB PO SCH (09:28)
[2017-04-19] MEDS: SODIUM CHLORIDE 0.9% FLUSH 10 ML FLUSH IV FLUSH SCH ×2 (09:28→22:28)
[2017-04-19] MEDS: ACETAMINOPHEN/HYDROcodone 325 MG/5 MG TAB PO PRN ×2 (09:37→23:34)
[2017-04-19 12:00] VITALS: BP 137/67; PULSE 85; RESP 18; TEMP 95.7; O2SAT 99
[2017-04-19 12:23] LABS: AUTOMATED NEUTROPHIL # 5.7 TH/MM3 (1.8-7.7); BASOPHIL % 0.5 % (0.0-2.0); EOSINOPHIL # 0.2 TH/MM3 (0-0.4); EOSINOPHIL % 2.4 % (0.0-4.0); HEMATOCRIT 37.8 % (35.0-46.0); HEMOGLOBIN 12.7 GM/DL (11.6-15.3); LYMPH % 25.9 % (9.0-44.0); LYMPHOCYTE # 2.2 TH/MM3 (1.0-4.8); MEAN CELL VOLUME 88.5 FL (80.0-100.0); MEAN CORPUSCULAR HEMOGLOBIN 29.9 PG (27.0-34.0); MEAN CORPUSCULAR HGB CONC 33.7 % (32.0-36.0); MEAN PLATELET VOLUME 6.9 FL (7.0-11.0); MONO % 5.4 % (0.0-8.0); MONOCYTE # 0.5 TH/MM3 (0-0.9); NEUT % 65.8 % (16.0-70.0); PLATELET COUNT 360 TH/MM3 (150-450); RED BLOOD COUNT 4.27 MIL/MM3 (4.00-5.30); RED CELL DISTRIBUTION WIDTH 14.2 % (11.6-17.2); WHITE BLOOD COUNT 8.6 TH/MM3 (4.0-11.0)
[2017-04-19 12:52] LABS: BICARBONATE 29.4 MEQ/L (21.0-32.0); CALCIUM 8.8 MG/DL (8.5-10.1); CREATININE 0.76 MG/DL (0.50-1.00); MAGNESIUM 1.7 MG/DL (1.5-2.5)
--- NOTE | 2017-04-19 13:50 | HHI.PR ---
Subjective Remarks No new complaints. No c/o abdominal pain or diarrhea. Objective Vitals Vital Signs Date Time Temp Pulse Resp B/P (MAP) Pulse Ox O2 Delivery O2 Flow Rate FiO2 04/19/17 12:00 95.7 85 18 137/67 (90) 99 04/19/17 08:00 96.1 85 18 133/69 (90) 98 04/19/17 03:59 98.6 98 20 135/70 (91) 97 04/19/17 00:09 98.6 99 20 138/70 (92) 98 04/18/17 20:10 98.8 98 20 149/71 (97) 98 04/18/17 17:02 98.6 146 18 142/74 (96) 94 Result Diagram: 04/19/17 1012 04/19/17 1012 Imaging Last Impressions Abdomen/Pelvis CT 04/11/17 1311 Signed Impressions: Service Date/Time: Tuesday, April 11, 2017 16:19 - CONCLUSION: Hepatic cyst, otherwise essentially unremarkable study. Carter Salgado MD Objective Remarks GENERAL: This is an elderly 72 year old female patient unkempt in appearance, in no apparent distress. SKIN: buttock area reddened with 2 erythematous areas buttock area- healing pressure ulcer CARDIO: Regular RESP: CTA ABD: +BS, soft, nontender, nondistended. EXT: Bilateral LE edema. Callouses on the bottoms of bilateral feet, no open wounds A/P Problem List: (1) Diarrhea ICD Codes: R19.7 - Diarrhea, unspecified Plan: C. diff infection Diarrhea - WBC 15.9 on admission -> 16.1 (04/14), labs for today are pending - Stools are positive for C Diff, patient had C diff recently in 2016 - Pt was started on Flagyl 500mg PO daily at admission. This was changed to oral Vancomycin on 04/13 - CT abd/pelvis reviewed: hepatic cyst no acute findings - IVF stopped on 04/14/17 as pt is eating and drinking well - Pt still having liquid stools - Questran was added on 04/13, stopped on 04/15. - PT evaluated and recommended home with HHC/PT but pt does not feel at this time that she is comfortable being able to take care of herself at home as she is still having liquids stools with some incontinence. - Pt was discharged on 04/16 and was recommended rehab placement by PT. She has not been able to be placed yet due to monies owed at [facility]. CM is working on possible buttermaker continuous churn placement options at [place]. 04/19/17 - Discharged orders written (04/16) - NO new clinical issues - Pt remains unsafe for discharge to home - Await safe discharge arrangements - Case d/w [facility] (04/19) SCDs for DVT prophylaxis LE edema - Pt with some noted dependent edema as she has not been able to elevate her legs due to back pain. She has been sitting in chairs with her feet dangling. - Request that the pt be bathed today and her feet cleaned and then pt to have her legs wrapped with JOAQUÍN bandages from the feet to the knees. Hypokalemia - K 2.8 on admission -> 3.3 (04/15), replaced Diabetes - continue home metformin - accu checks ACHS with SSI coverage - pt requesting reg diet may need to change to diabetic diet if blood sugar elevated Hyponatremia - Na 130 on admission -> 134 (04/13) Dehydration - Improved with IVF Murmur, cardiac - Previous 2D echo --> Estimated ejection fraction in the range of 60-65%, moderate thickening of the aortic valve leaflets, mild aortic valve stenosis, Aortic valve area is 1.3 cm, mild tricuspid valve regurgitation, estimated pulmonary arterial pressure is 65.1 mmHg. The inferior vena cava was not well visualized. Elevated LFTs - labs improving from admission with total bilirubin 1.0 -> 0.4 (2/), AST 69 - > 22 (2/6), ALT 65 -> 58 (2/6), Alk Phos 98 -> 67 (2/6) - Hepatitis panel neg (2) Hypokalemia ICD Codes: E87.6 - Hypokalemia (3) Diabetes ICD Codes: E11.9 - Type 2 diabetes mellitus without complications Status: Chronic (4) Hyponatremia ICD Codes: E87.1 - Hypo-osmolality and hyponatremia (5) Dehydration ICD Codes: E86.0 - Dehydration (6) Murmur, cardiac ICD Codes: R01.1 - Cardiac murmur, unspecified (7) Elevated LFTs ICD Codes: R79.89 - Other specified abnormal findings of blood chemistry Assessment and Plan Patient examined. Assessment and plan formulated with Princess Mitchell PA-C. I agree with the above. c.diff colitis. dehydration with hyponatremia/hypokalemia improved. pt feels unable to care for herself at home. out of snf days. PT now says she is unsafe balance castelan to go home. Will try to ask fhcp if she can get a few more approved days at snf in order to safely transition her out of the hospital. lower ext wraps ordered for swelling and pain. Joseph Jacome DO Apr 19, 2017 13:50
--- NOTE | 2017-04-19 15:31 | HHI.FF ---
Face to Face Verification Diagnosis: (1) C. difficile diarrhea (2) Generalized weakness (3) Leukocytosis Physical Therapy Order: Evaluate and Treat, Improve ambulation, Strength and gait training Home Health Nursing Order: Medical education Signs/symptoms of disease process Medication education-adverse effect Nursing assessment with vital signs Instructions: pt needs to be evaluated by home clinical social work therapist. Home Health Aide Order: To Assist In: Bathing and personal care, family educator and meal prep Ditching Machine Operating Engineer Order: To Evaluate: Living conditions/environment, Support services Order: To Provide: Long range planning, Community services I have seen patient Merna Valadez on 04/19/17. My clinical findings support the need for the requested home health care services because: Ltd mobility - disease progression Deconditioned w/ increased weakness Med compliance is questionable Limited ability to care for self Need for psychosocial assistance Impaired cognition/judgement I certify that my clinical findings support that this patient is homebound because: Impaired cognitive ability/safety Unsafe to leave home unassisted Need for psychosocial assistance Unable to use public transportation Joseph Jacome DO Apr 19, 2017 15:31
[2017-04-19 16:00] VITALS: BP 161/83; PULSE 92; RESP 18; TEMP 96.7; O2SAT 96
--- NOTE | 2017-04-19 16:41 | HHI.FF ---
Face to Face Verification Diagnosis: (1) C. difficile diarrhea (2) Generalized weakness Physical Therapy Order: Evaluate and Treat, Improve ambulation, Strength and gait training Home Health Nursing Order: Medical education Signs/symptoms of disease process Medication education-adverse effect Nursing assessment with vital signs Home Health Aide Order: To Assist In: Bathing and personal care, apns and meal prep [employer] Worker Order: To Evaluate: Living conditions/environment, Support services Order: To Provide: Long range planning, Community services I have seen patient Merna Valadez on 04/19/17. My clinical findings support the need for the requested home health care services because: Ltd mobility - disease progression Deconditioned w/ increased weakness Med compliance is questionable Limited ability to care for self Need for psychosocial assistance Impaired cognition/judgement I certify that my clinical findings support that this patient is homebound because: Impaired cognitive ability/safety Unsafe to leave home unassisted Need for psychosocial assistance Unable to use public transportation Joseph Jacome DO Apr 19, 2017 16:41
[2017-04-19 19:31] VITALS: BP 142/67; PULSE 100; RESP 20; TEMP 98.1; O2SAT 99
[2017-04-20 01:08] VITALS: BP 131/85; PULSE 95; RESP 18; TEMP 97.8; O2SAT 95
[2017-04-20 04:27] VITALS: BP 134/68; PULSE 68; RESP 18; TEMP 98.5; O2SAT 98
[2017-04-20 07:40] VITALS: BP 136/71; PULSE 82; RESP 18; TEMP 98.2; O2SAT 100
[2017-04-20] MEDS: VANCOMYCIN 25 MG/ML SUSP 100 ML BOTTLE PO SCH ×2 (08:53→13:24)
[2017-04-20] MEDS: LACTOBACILLUS ACIDOPHILUS TAB PO SCH ×2 (08:53→13:24)
[2017-04-20] MEDS: SODIUM CHLORIDE 0.9% FLUSH 10 ML FLUSH IV FLUSH SCH (08:53)
[2017-04-20] MEDS: LISINOPRIL 10 MG TAB PO SCH (08:53)
[2017-04-20] MEDS: INSULIN ASPART SUPPLEMENTAL SCALE SQ SCH ×2 (09:03→12:59)
[2017-04-20] MEDS ORDERED: VANC500I3 PO (11:30)
--- NOTE | 2017-04-20 11:37 | HHI.PR ---
Subjective Remarks Patient reports feeling much stronger today was able to walk with PT Patient also reports BMs are much better no longer having incontinent liquid stool Objective Vitals Vital Signs Date Time Temp Pulse Resp B/P (MAP) Pulse Ox O2 Delivery O2 Flow Rate FiO2 04/20/17 07:40 98.2 82 18 136/71 (92) 100 04/20/17 04:27 98.5 68 18 134/68 (90) 98 04/20/17 01:08 97.8 95 18 131/85 (100) 95 04/19/17 19:31 98.1 100 20 142/67 (92) 99 04/19/17 16:00 96.7 92 18 161/83 (109) 96 04/19/17 12:00 95.7 85 18 137/67 (90) 99 Result Diagram: 04/19/17 1012 04/19/17 1012 Other Results Laboratory Tests Test 04/19/17 10:12 White Blood Count 8.6 TH/MM3 Red Blood Count 4.27 MIL/MM3 Hemoglobin 12.7 GM/DL Hematocrit 37.8 % Mean Corpuscular Volume 88.5 FL Mean Corpuscular Hemoglobin 29.9 PG Mean Corpuscular Hemoglobin Concent 33.7 % Red Cell Distribution Width 14.2 % Platelet Count 360 TH/MM3 Mean Platelet Volume 6.9 FL Neutrophils (%) (Auto) 65.8 % Lymphocytes (%) (Auto) 25.9 % Monocytes (%) (Auto) 5.4 % Eosinophils (%) (Auto) 2.4 % Basophils (%) (Auto) 0.5 % Neutrophils # (Auto) 5.7 TH/MM3 Lymphocytes # (Auto) 2.2 TH/MM3 Monocytes # (Auto) 0.5 TH/MM3 Eosinophils # (Auto) 0.2 TH/MM3 Basophils # (Auto) 0.0 TH/MM3 CBC Comment DIFF FINAL Differential Comment Blood Urea Nitrogen 13 MG/DL Creatinine 0.76 MG/DL Random Glucose 124 MG/DL Calcium Level 8.8 MG/DL Magnesium Level 1.7 MG/DL Sodium Level 139 MEQ/L Potassium Level 4.0 MEQ/L Chloride Level 102 MEQ/L Carbon Dioxide Level 29.4 MEQ/L Anion Gap 8 MEQ/L Estimat Glomerular Filtration Rate 75 ML/MIN Imaging Last Impressions Abdomen/Pelvis CT 04/11/17 1311 Signed Impressions: Service Date/Time: Tuesday, April 11, 2017 16:19 - CONCLUSION: Hepatic cyst, otherwise essentially unremarkable study. Carter Salgado MD Objective Remarks GENERAL: This is an elderly 72 year old female patient unkempt in appearance, in no apparent distress. SKIN: buttock area reddened with 2 erythematous areas buttock area- healing pressure ulcer CARDIO: Regular RESP: CTA ABD: +BS, soft, nontender, nondistended. EXT: Bilateral LE edema. Callouses on the bottoms of bilateral feet, no open wounds A/P Problem List: (1) Diarrhea ICD Codes: R19.7 - Diarrhea, unspecified Plan: C. diff infection Diarrhea - WBC 15.9 on admission -> 16.1 (04/14) -> 8.6 (04/19) - Stools are positive for C Diff, patient had C diff recently in 2016 - Pt was started on Flagyl 500mg PO daily at admission. This was changed to oral Vancomycin on 04/13 - CT abd/pelvis reviewed: hepatic cyst no acute findings - IVF stopped on 04/14/17 as pt is eating and drinking well - Questran was added on 04/13, stopped on 04/15. - Pt was discharged on 04/16 and was recommended rehab placement by PT. She has not been able to be placed yet due to monies owed at [facility]. CM is working on possible assisted placement options at [place]. 04/19/17 - Discharged orders written (04/16) - NO new clinical issues - Pt remains unsafe for discharge to home - Await safe discharge arrangements - Case d/w [facility] (04/19) 04/20/17 - - PT evaluated and recommended home with HHCinitally then later recommended SNF placement. DC planning was discussed with patient she does not want shelter SNF placement at this time. Patient would like to return home is willing to accept HHC/PT at time of DC. Patient feels stronger today and feels as that she can manage at home with the help of her neighbor. SCDs for DVT prophylaxis LE edema - Pt with some noted dependent edema as she has not been able to elevate her legs due to back pain. She has been sitting in chairs with her feet dangling. - Request that the pt be bathed today and her feet cleaned and then pt to have her legs wrapped with JOAQUÍN bandages from the feet to the knees. Hypokalemia - K 2.8 on admission -> 3.3 (28) -> 4.0 (2/12) Diabetes - continue home metformin - accu checks ACHS with SSI coverage - pt requesting reg diet may need to change to diabetic diet if blood sugar elevated Hyponatremia - Na 130 on admission -> 134 (2/6) -> 139 (2/12) Dehydration - Improved with IVF - now tolerating PO intake Murmur, cardiac - Previous 2D echo --> Estimated ejection fraction in the range of 60-65%, moderate thickening of the aortic valve leaflets, mild aortic valve stenosis, Aortic valve area is 1.3 cm, mild tricuspid valve regurgitation, estimated pulmonary arterial pressure is 65.1 mmHg. The inferior vena cava was not well visualized. Elevated LFTs - labs improving from admission with total bilirubin 1.0 -> 0.4 (2/6), AST 69 - > 22 (2/6), ALT 65 -> 58 (2/6), Alk Phos 98 -> 67 (2/6) - Hepatitis panel neg (2) Hypokalemia ICD Codes: E87.6 - Hypokalemia (3) Diabetes ICD Codes: E11.9 - Type 2 diabetes mellitus without complications Status: Chronic (4) Hyponatremia ICD Codes: E87.1 - Hypo-osmolality and hyponatremia (5) Dehydration ICD Codes: E86.0 - Dehydration (6) Murmur, cardiac ICD Codes: R01.1 - Cardiac murmur, unspecified (7) Elevated LFTs ICD Codes: R79.89 - Other specified abnormal findings of blood chemistry Assessment and Plan Patient examined. Assessment and plan formulated with Princess Mitchell PA-C. I agree with the above. c.diff colitis. dehydration with hyponatremia/hypokalemia improved. pt feels unable to care for herself at home. out of snf days. PT now says she is unsafe balance castelan to go home. Will try to ask fhcp if she can get a few more approved days at snf in order to safely transition her out of the hospital. lower ext wraps ordered for swelling and pain. Princess Mitchell Apr 20, 2017 11:37 Joseph Jacome DO Apr 26, 2017 00:26
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
[2017-04-20 13:33] VITALS: BP 154/72; PULSE 107; RESP 18; TEMP 97.9; O2SAT 99
== END 2017-04-20 14:14 | disposition home or self-care (01) ==
LOC: NEPC 12:53 → NEDA 16:55 → NEPFCDU 17:51
PROVIDERS: ADMIT Hospitalist; ATTEND Hospitalist
DX: A04.71 Enterocolitis due to Clostridium difficile, recurrent (principal); E87.6 Hypokalemia; K76.89 Other specified diseases of liver; E87.1 Hypo-osmolality and hyponatremia; E86.0 Dehydration; R01.1 Cardiac murmur, unspecified; I35.0 Nonrheumatic aortic (valve) stenosis; I07.1 Rheumatic tricuspid insufficiency; R79.89 Other specified abnormal findings of blood chemistry; I10 Essential (primary) hypertension; E78.5 Hyperlipidemia, unspecified; E11.40 Type 2 diabetes mellitus with diabetic neuropathy, unspecified; G47.33 Obstructive sleep apnea (adult) (pediatric); K58.9 Irritable bowel syndrome, unspecified; I27.20 Pulmonary hypertension, unspecified; N28.9 Disorder of kidney and ureter, unspecified; E78.00 Pure hypercholesterolemia, unspecified; R05 Cough; M54.5 Low back pain; L89.309 Pressure ulcer of unspecified buttock, unspecified stage; R60.0 Localized edema; G89.29 Other chronic pain; Z85.3 Personal history of malignant neoplasm of breast; Z96.652 Presence of left artificial knee joint; Z79.899 Other long term (current) drug therapy; Z79.84 Long term (current) use of oral hypoglycemic drugs
CPT/HCPCS: 71045; 74018; 74177; 76937; 80048; 80053; 80074; 81001; 82272; 82948; 83605; 83690; 83735; 85007; 85025; 85027; 87040; 87086; 87205; 87207; 87328; 87329; 87493; 87506; 96360; 96361; 96365; 96366; 96372; 96375; 97110; 97116; 97162; 97530; 99285; G0378; G8987; G8988; J1815; J2270; J3480; J7030; P9612; Q9967

== ENCOUNTER 2017-04-25 20:39 | Inpatient (IN) | payer MEDICARE ==
[~2017-04-25] VITALS: Ht 160 cm; Wt 71.5 kg
[~2017-04-25 20:39] MED LIST changes: +LACT PO; +LISI10TA3 PO; -METR-1 PO; +VANC500I3 PO
[2017-04-25 20:54] VITALS: BP 100/54; PULSE 87; RESP 16; TEMP 98.1; O2SAT 100
[2017-04-25] MEDS ORDERED: SODIUM CHLORIDE 0.9% FLUSH 10 ML FLUSH IV FLUSH PRN (22:15)
[2017-04-25 22:29] VITALS: BP 98/53; PULSE 76; RESP 18; O2SAT 100; O2SAT 99
[2017-04-25 22:57] LABS: AUTOMATED NEUTROPHIL # 11.3 TH/MM3 (1.8-7.7); BASOPHIL % 0.3 % (0.0-2.0); EOSINOPHIL # 0.1 TH/MM3 (0-0.4); HEMATOCRIT 38.9 % (35.0-46.0); HEMOGLOBIN 13.1 GM/DL (11.6-15.3); LYMPH % 11.7 % (9.0-44.0); LYMPHOCYTE # 1.6 TH/MM3 (1.0-4.8); MEAN CORPUSCULAR HEMOGLOBIN 29.3 PG (27.0-34.0); MEAN CORPUSCULAR HGB CONC 33.7 % (32.0-36.0); MEAN PLATELET VOLUME 6.8 FL (7.0-11.0); MONO % 5.2 % (0.0-8.0); MONOCYTE # 0.7 TH/MM3 (0-0.9); NEUT % 81.8 % (16.0-70.0); PLATELET COUNT 319 TH/MM3 (150-450); RED BLOOD COUNT 4.47 MIL/MM3 (4.00-5.30); RED CELL DISTRIBUTION WIDTH 14.6 % (11.6-17.2); WHITE BLOOD COUNT 13.8 TH/MM3 (4.0-11.0)
[2017-04-25 22:59] LABS: AMORPHOUS SEDIMENT, URINE RARE; BLOOD, URINE SMALL (NEG); GLUCOSE,URINE NEG (NEG); KETONE, URINE NEG (NEG); MUCUS URINE FEW /lpf (OCC); NITRITE,URINE NEG (NEG); SQUAMOUS EPITHELIAL CELL URINE 1 /hpf (0-5); URINE COLOR YELLOW (YELLW/STRAW); URINE LEUKOCYTE ESTERASE SMALL (NEG)
[2017-04-25 23:00] LABS: BILIRUBIN, URINE NEG (NEG)
--- NOTE | 2017-04-25 23:09 | PD ---
HPI . Diarrhea Chief Complaint: GI Complaint Time Seen by Provider: 22:01 Travel History International Travel<30 days: No Contact w/Intl Traveler<30days: No History of Present Illness HPI This patient presents to us with chief complaint of diarrhea. Onset was yesterday. Because 8-9 episodes today associated with fecal incontinence. She is complaining with some lower abdominal discomfort as well. No fever. No vomiting. The context of this is that she was hospitalized here from 04/11-04/20 for diarrhea which was secondary to C. difficile. She had associated electrolyte abnormalities. It was recommended that she go to a group home facility but she refused and went home. Prior to that admission, she was admitted here on 02/24. She was discharged to [facility] for rehabilitation. After she was discharged from [facility], she was home for one day before she bounced back to the hospital. In addition, she has erythema of her lower extremities. She states that this is been an ongoing problem for months. She does not seem too concerned about her legs. 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 , HX OF RADIATION TREATMENT ) Cardiovascular Problems: Yes High Cholesterol: Yes Diabetes: Yes Patient Takes Glucophage: Yes (metformin) Diminished Hearing: No Endocrine: Yes Gastrointestinal Disorders: Yes (CDIFF) Glaucoma: No Genitourinary: No Hepatitis: No Hiatal Hernia: No Hypertension: Yes Medical other: Yes Musculoskeletal: Yes Neurologic: No Psychiatric: No Reproductive: No Respiratory: Yes (HX BRONCHITIS, HX PLEURISY) Immunizations Current: Yes Radiation Therapy: Yes Sleep Apnea: Yes (HAD A SURGERY PERFORMED TO CORRECT ) Thyroid Disease: No Tetanus Vaccination: Unknown Influenza Vaccination: Yes Menopausal: Yes Dilation and Curettage (D&C): Yes Past Surgical History Abdominal Surgery: Yes (GALLBLADDER SURGERY ) Cardiac Surgery: No Cholecystectomy: Yes (11/13/1986) Ear Surgery: No Endocrine Surgery: No Eye Surgery: Yes (BILATERAL CATARACTS) Genitourinary Surgery: No Gynecologic Surgery: Yes (DNC COMPLETE HYSTORETOMY ) Hysterectomy: Yes (04-11-02) Neurologic Surgery: Yes (CERVICAL FUSION 2002) Oral Surgery: No Pacemaker: No Thoracic Surgery: Yes (RIGHT BREAST LUMPECTOMY) Other Surgery: Yes (2005 RIGHT SHOULDER ROTATOR CUFF SURGERY) Social History Alcohol Use: No Tobacco Use: No Substance Use: No Allergies-Medications (Allergen,Severity, Reaction): Coded Allergies: oxycodone (Verified Allergy, Severe, ITCHING, 02/23/17) adhesive (Verified Allergy, Mild, Blisters the skin, 02/23/17) codeine (Verified Allergy, Mild, NAUSEA, 02/23/17) Reported Meds & Prescriptions Reported Meds & Active Scripts Active Vancomycin Inj (Vancomycin HCl) 500 Mg Inj 125 Mg PO QID 7 Days Hydrocodone-Acetamin 5-325 mg (Hydrocodone/Acetaminophen) 5 Mg-325 Mg Tablet 1 Tab PO Q6H PRN Acidophilus/l-Sporogenes (Lactobacillus Acidophilus) 35 Million Cell-25 Million Cell Tab 1 Tab PO TID Reported Lisinopril 10 Mg Tab 10 Mg PO DAILY Metformin (Metformin HCl) 500 Mg Tab 1,000 Mg PO DAILY With evening meal Metformin (Metformin HCl) 500 Mg Tab 500 Mg PO BIDPC With breakfast and lunch Amlodipine (Amlodipine Besylate) 10 Mg Tab 10 Mg PO DAILY Physical Exam Narrative GENERAL: Lucid. Very disheveled. Dirt on the bottom of her feet. SKIN: warm/dry. HEAD: Normocephalic. Atraumatic. EYES: Pupils equal and round. No scleral icterus. No injection or drainage. ENT: No nasal bleeding or discharge. Mucous membranes pink and moist. NECK: Trachea midline. Full range of motion without pain.. CARDIOVASCULAR: Regular rate and rhythm. Heart sounds normal. RESPIRATORY: No accessory muscle use. Clear to auscultation. Breath sounds equal bilaterally. GASTROINTESTINAL: Abdomen soft. Mild suprapubic tenderness with no guarding or rebound. Bowel sounds present. Nondistended. She was wearing an adult diaper with dried diarrheal stool. MUSCULOSKELETAL: No obvious deformities. NEUROLOGICAL: Awake and alert. No obvious cranial nerve deficits. Motor grossly within normal limits. Normal speech. PSYCHIATRIC: Appropriate mood and affect; insight and judgment normal. Data Data Last Documented VS Vital Signs Date Time Temp Pulse Resp B/P (MAP) Pulse Ox O2 Delivery O2 Flow Rate FiO2 04/25/17 23:10 77 18 94/55 (68) 98 Room Air 04/25/17 20:54 98.1 Orders Orders Basic Metabolic Panel (Bmp) (04/25/17 22:02) Complete Blood Count With Diff (04/25/17 22:02) Urinalysis - C+S If Indicated (04/25/17 22:02) Iv Access Insert/Monitor (04/25/17 22:02) Ecg Monitoring (04/25/17 22:02) Oximetry (04/25/17 22:02) Sodium Chloride 0.9% Flush (Ns Flush) (04/25/17 22:15) C Diff Toxin Pcr (04/25/17 22:48) Enteric Path (Stool) (04/25/17 22:48) Labs Laboratory Tests Test 04/25/17 22:45 White Blood Count 13.8 TH/MM3 Red Blood Count 4.47 MIL/MM3 Hemoglobin 13.1 GM/DL Hematocrit 38.9 % Mean Corpuscular Volume 87.0 FL Mean Corpuscular Hemoglobin 29.3 PG Mean Corpuscular Hemoglobin Concent 33.7 % Red Cell Distribution Width 14.6 % Platelet Count 319 TH/MM3 Mean Platelet Volume 6.8 FL Neutrophils (%) (Auto) 81.8 % Lymphocytes (%) (Auto) 11.7 % Monocytes (%) (Auto) 5.2 % Eosinophils (%) (Auto) 1.0 % Basophils (%) (Auto) 0.3 % Neutrophils # (Auto) 11.3 TH/MM3 Lymphocytes # (Auto) 1.6 TH/MM3 Monocytes # (Auto) 0.7 TH/MM3 Eosinophils # (Auto) 0.1 TH/MM3 Basophils # (Auto) 0.0 TH/MM3 CBC Comment AUTO DIFF Differential Total Cells Counted 100 Neutrophils % (Manual) 60 % Band Neutrophils % 17 % Lymphocytes % 15 % Monocytes % 5 % Eosinophils % 2 % Neutrophils # (Manual) 10.8 TH/MM3 Metamyelocytes 1 % Differential Comment FINAL DIFF MANUAL Atypical Lymphocytes % Toxic Vacuolation PRESENT Platelet Estimate NORMAL Platelet Morphology Comment NORMAL [place] Cells 1+ Urine Color YELLOW Urine Turbidity CLOUDY Urine pH 5.0 Urine Specific [place] 1.019 Urine Protein 30 mg/dL Urine Glucose (UA) NEG mg/dL Urine Ketones NEG mg/dL Urine Occult Blood SMALL Urine Nitrite NEG Urine Bilirubin NEG Urine Urobilinogen LESS THAN 2.0 MG/DL Urine Leukocyte Esterase SMALL Urine RBC 2 /hpf Urine WBC 6 /hpf Urine Squamous Epithelial Cells 1 /hpf Urine Amorphous Sediment RARE Urine Mucus FEW /lpf Microscopic Urinalysis Comment CULT NOT INDICATED Blood Urea Nitrogen 48 MG/DL Creatinine 3.09 MG/DL Random Glucose 96 MG/DL Calcium Level 8.5 MG/DL Sodium Level 137 MEQ/L Potassium Level 3.4 MEQ/L Chloride Level 104 MEQ/L Carbon Dioxide Level 19.5 MEQ/L Anion Gap 14 MEQ/L Estimat Glomerular Filtration Rate 15 ML/MIN MDM Medical Decision Making Medical Screen Exam Complete: Yes Emergency Medical Condition: Yes Differential Diagnosis Differential diagnosis of diarrhea includes but is not limited to early enteritis, bacterial enteritis, antibiotic induced diarrhea, irritable bowel syndrome Narrative Course This patient presents with recurrent diarrhea. She was discharged from here on 04/20 hospitalized for over a week for diarrhea secondary to C. difficile. CBC & BMP Diagram 04/25/17 22:45 Calcium Level 8.5 Her creatinine on 04/19 was 0.76. Her UA is not infected. Physician Communication Physician Communication Dr. Steel Diagnosis Primary Impression: PAULINO (acute kidney injury) Additional Impression: Diarrhea Qualified Codes: R19.7 - Diarrhea, unspecified Admitting Information Admitting Physician Requests: Admit Condition: Stable Gilda Gutierrez MD Apr 25, 2017 23:09
[2017-04-25 23:10] VITALS: BP 94/55; PULSE 77; RESP 18; O2SAT 98
[2017-04-25 23:16] LABS: BICARBONATE 19.5 MEQ/L (21.0-32.0); CALCIUM 8.5 MG/DL (8.5-10.1); CREATININE 3.09 MG/DL (0.50-1.00)
[2017-04-25 23:39] LABS: BANDS 17 % (0-6); LYMPHOCYTES 15 % (9-44); METAMYELOCYTES 1 % (0-1); MONOCYTES 5 % (0-8); NEUTROPHIL # MANUAL DIFF 10.8 TH/MM3 (1.8-7.7); POLYS (SEG NEUTROPHILS) 60 % (16-70); TOXIC VACUOLATION PRESENT (NONE SEEN)
[2017-04-25 23:40] LABS: BURR CELLS 1+ (NORMAL)
[2017-04-26 00:45] VITALS: BP 113/52; PULSE 73; RESP 12; TEMP 97.4; O2SAT 100
[2017-04-26] MEDS: NS + KCL 20 MEQ INJ 1,000 ML IV SCH ×3 (00:56→18:45)
[2017-04-26 02:58] VITALS: BP 92/46; PULSE 74; RESP 18; TEMP 97.6; O2SAT 99
[2017-04-26 05:11] LABS: AUTOMATED NEUTROPHIL # 5.9 TH/MM3 (1.8-7.7); BASOPHIL % 0.6 % (0.0-2.0); EOSINOPHIL # 0.2 TH/MM3 (0-0.4); EOSINOPHIL % 2.5 % (0.0-4.0); HEMATOCRIT 34.6 % (35.0-46.0); HEMOGLOBIN 11.5 GM/DL (11.6-15.3); LYMPHOCYTE # 1.3 TH/MM3 (1.0-4.8); MEAN CORPUSCULAR HGB CONC 33.3 % (32.0-36.0); MONO % 6.7 % (0.0-8.0); MONOCYTE # 0.5 TH/MM3 (0-0.9); NEUT % 74.2 % (16.0-70.0); PLATELET COUNT 298 TH/MM3 (150-450); RED BLOOD COUNT 3.98 MIL/MM3 (4.00-5.30); RED CELL DISTRIBUTION WIDTH 14.4 % (11.6-17.2)
[2017-04-26 05:48] LABS: ALBUMIN 2.5 GM/DL (3.4-5.0); ALKALINE PHOSPHATASE 58 U/L (45-117); ALT (GPT) 21 U/L (10-53); AST (GOT) 27 U/L (15-37); BLOOD UREA NITROGEN 51 MG/DL (7-18); CALCIUM 7.8 MG/DL (8.5-10.1); CHLORIDE 105 MEQ/L (98-107); CREATININE 3.03 MG/DL (0.50-1.00); GLOMERULAR FILTRATION RATE 15 ML/MIN (>89); GLUCOSE,RANDOM 79 MG/DL (74-106); SODIUM (NA) 140 MEQ/L (136-145); TOTAL BILIRUBIN ADULT 0.5 MG/DL (0.2-1.0); TOTAL PROTEIN 5.7 GM/DL (6.4-8.2)
[2017-04-26] MEDS ORDERED: POTASSIUM CHLORIDE 20 MEQ CONTROLLED RELEASE TAB PO ONE (07:00)
[2017-04-26 08:00] VITALS: BP 142/60; PULSE 86; RESP 18; TEMP 97.4; O2SAT 92
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
[2017-04-26] MEDS ORDERED: DEXTROSE 50% IN WATER 50 ML VIAL(D50) IV PUSH PRN (09:00)
[2017-04-26] MEDS ORDERED: CHOLESTYRAMINE 4 GM PACKET PO SCH (09:00)
[2017-04-26] MEDS ORDERED: VANCOMYCIN 500 MG VIAL (FOR ORAL USE ONLY) PO SCH (09:00)
[2017-04-26] MEDS ORDERED: GLUCAGON 1 MG/ML VIAL OTHER PRN (09:00)
[2017-04-26] MEDS: ACETAMINOPHEN/HYDROcodone 325 MG/5 MG TAB PO PRN ×2 (09:24→18:42)
[2017-04-26 12:00] VITALS: BP 92/51; PULSE 77; RESP 20; TEMP 97.3; O2SAT 99
[2017-04-26] MEDS: INSULIN ASPART SUPPLEMENTAL SCALE SQ SCH ×3 (12:00→21:00)
[2017-04-26] MEDS: LACTOBACILLUS ACIDOPHILUS TAB PO SCH ×2 (13:00→18:44)
[2017-04-26] MEDS: POTASSIUM CHLORIDE 20 MEQ CONTROLLED RELEASE TAB PO SCH ×2 (16:00→18:42)
[2017-04-26 16:14] VITALS: BP 123/59; PULSE 85; RESP 20; TEMP 97.3; O2SAT 99
[2017-04-26 17:36] LABS: HEMOGLOBIN A1C 5.9 % (4.3-6.0)
[2017-04-26] MEDS ORDERED: SODIUM CHLOR 0.9% 1000 ML INJ 1,000 ML IV ONE (18:00)
[2017-04-26] MEDS: VANCOMYCIN 25 MG/ML SOLN 100 ML BOTTLE PO SCH ×2 (19:14→21:00)
[2017-04-26 20:00] VITALS: BP 107/51; PULSE 73; RESP 15; TEMP 98.9; O2SAT 100
[2017-04-27] VITALS: BP 96/60; PULSE 66; RESP 18; TEMP 98.7; O2SAT 100
[2017-04-27] MEDS: ACETAMINOPHEN/HYDROcodone 325 MG/5 MG TAB PO PRN ×4 (01:51→23:14)
[2017-04-27 04:00] VITALS: BP 96/53; PULSE 64; RESP 14; TEMP 97.6; O2SAT 97
[2017-04-27] MEDS: NS + KCL 20 MEQ INJ 1,000 ML IV SCH (04:00)
--- NOTE | 2017-04-27 05:26 | RADRPT ---
EXAM DATE/TIME: 04/27/2017 04:02 [place] COMPARISON: CHEST SINGLE AP, April 11, 2017, 16:59. INDICATIONS : Short of breath. MEDICAL HISTORY : Cardiovascular disease. Hypertension Diabetes SURGICAL HISTORY : Cholecystectomy. Hysterectomy. ENCOUNTER: Subsequent ACUITY: 2 weeks PAIN SCORE: Non-responsive. LOCATION: Bilateral chest FINDINGS: A single view of the chest demonstrates the lungs to be symmetrically aerated without evidence of mas s, infiltrate or effusion. The heart size is mildly prominent with no pulmonary edema. Osseous struc tures are intact. CONCLUSION: No acute disease. Mak Bullock MD on April 27, 2017 at 5:24 Board Certified Radiologist. This report was verified electronically.
[2017-04-27 06:27] LABS: BICARBONATE 25.1 MEQ/L (21.0-32.0); CALCIUM 7.7 MG/DL (8.5-10.1); CREATININE 1.02 MG/DL (0.50-1.00)
[2017-04-27 08:00] VITALS: BP 126/64; PULSE 82; RESP 23; TEMP 97.5; O2SAT 97
[2017-04-27] MEDS: INSULIN ASPART SUPPLEMENTAL SCALE SQ SCH ×4 (08:00→21:00)
--- NOTE | 2017-04-27 08:13 | HHI.PR ---
Subjective Remarks diarrhea x 1 this AM asking for gatorade Objective Vitals heart reg lung cta abd s/nt ext no pitting Vital Signs Date Time Temp Pulse Resp B/P (MAP) Pulse Ox O2 Delivery O2 Flow Rate FiO2 04/27/17 04:00 97.6 64 14 96/53 (67) 97 04/27/17 00:00 98.7 66 18 96/60 (72) 100 04/26/17 20:00 98.9 73 15 107/51 (69) 100 04/26/17 16:14 97.3 85 20 123/59 (80) 99 04/26/17 12:00 97.3 77 20 92/51 (65) 99 Result Diagram: 04/26/17 0422 04/27/17 0518 A/P Problem List: (1) C. difficile diarrhea ICD Codes: A04.72 - Enterocolitis due to Clostridium difficile, not specified as recurrent Status: Acute Plan: recurrent c.diff colitis celine dehydration hypokalemia general weakness. dm2 cont NS with kcl replace kcl aggressively today cont po vanco hold oha. ssi PT eval dvt prophylaxis transfer to med/surg if stable. pt has been difficult to disposition due to inability to care for self at home and she has no further snf days available. (2) Dehydration ICD Codes: E86.0 - Dehydration Status: Acute Plan: above (3) Hypokalemia ICD Codes: E87.6 - Hypokalemia Status: Acute Plan: above (4) Diabetes ICD Codes: E11.9 - Type 2 diabetes mellitus without complications Status: Chronic Plan: above (5) Murmur, cardiac ICD Codes: R01.1 - Cardiac murmur, unspecified Status: Chronic Plan: Echocardiogram (03/22/17) Normal left ventricular size. Wall thickness is normal. No regional wall motion abnormalities are present. The left ventricular systolic function is normal with an estimated ejection fraction in the range of 60-65%. Moderate thickening of the aortic valve leaflets. Mild aortic valve stenosis. Aortic valve area is 1.3 cm. Aortic valve meangradient is 22.5 mmHg. There is mild tricuspid valve regurgitation. The estimated pulmonary arterial pressure is 65.1 mmHg. The inferior vena cava was not well visualized. Selwyn Appiah MD Apr 27, 2017 08:13
[2017-04-27] MEDS: LACTOBACILLUS ACIDOPHILUS TAB PO SCH ×3 (08:44→16:47)
[2017-04-27] MEDS: VANCOMYCIN 25 MG/ML SOLN 100 ML BOTTLE PO SCH ×4 (08:46→20:39)
[2017-04-27] MEDS: POTASSIUM CHLORIDE 20 MEQ CONTROLLED RELEASE TAB PO SCH ×3 (08:55→16:46)
[2017-04-27] MEDS: NS + KCL 40 MEQ INJ 1,000 ML IV SCH ×2 (08:58→20:39)
[2017-04-27] MEDS ORDERED: VANCOMYCIN 25 MG/ML SOLN 100 ML BOTTLE PO SCH (09:00)
[2017-04-27 12:00] VITALS: BP 117/59; PULSE 73; RESP 17; TEMP 97.7; O2SAT 99
[2017-04-27 16:00] VITALS: BP 121/56; PULSE 81; RESP 13; TEMP 97.6; O2SAT 100
[2017-04-27 20:00] VITALS: BP 125/59; PULSE 80; RESP 20; TEMP 97.5; O2SAT 100
[2017-04-28] VITALS (8 sets, daily range): BP systolic 135–167; BP diastolic 61–83; PULSE 76–113; RESP 18–25; TEMP 97.8–98.5; O2SAT 97–100
[2017-04-28] MEDS: NS + KCL 40 MEQ INJ 1,000 ML IV SCH (01:00)
[2017-04-28] MEDS: ACETAMINOPHEN/HYDROcodone 325 MG/5 MG TAB PO PRN ×2 (04:57→18:54)
[2017-04-28 06:03] LABS: AUTOMATED NEUTROPHIL # 1.3 TH/MM3 (1.8-7.7); BASOPHIL % 0.7 % (0.0-2.0); EOSINOPHIL # 0.3 TH/MM3 (0-0.4); EOSINOPHIL % 7.7 % (0.0-4.0); HEMATOCRIT 35.5 % (35.0-46.0); HEMOGLOBIN 12.1 GM/DL (11.6-15.3); LYMPHOCYTE # 1.7 TH/MM3 (1.0-4.8); MEAN CELL VOLUME 86.8 FL (80.0-100.0); MEAN CORPUSCULAR HEMOGLOBIN 29.5 PG (27.0-34.0); MEAN PLATELET VOLUME 6.8 FL (7.0-11.0); MONO % 14.6 % (0.0-8.0); MONOCYTE # 0.6 TH/MM3 (0-0.9); PLATELET COUNT 220 TH/MM3 (150-450); RED BLOOD COUNT 4.09 MIL/MM3 (4.00-5.30); RED CELL DISTRIBUTION WIDTH 14.4 % (11.6-17.2); WHITE BLOOD COUNT 3.9 TH/MM3 (4.0-11.0)
[2017-04-28 06:29] LABS: BICARBONATE 26.5 MEQ/L (21.0-32.0); CALCIUM 7.9 MG/DL (8.5-10.1); CREATININE 0.74 MG/DL (0.50-1.00); MAGNESIUM 1.8 MG/DL (1.5-2.5)
[2017-04-28] MEDS: INSULIN ASPART SUPPLEMENTAL SCALE SQ SCH ×4 (08:00→21:00)
--- NOTE | 2017-04-28 08:22 | HHI.PR ---
Subjective Remarks tired/weak. Objective Vitals heart reg lung cta abd s/nt ext no pitting Vital Signs Date Time Temp Pulse Resp B/P (MAP) Pulse Ox O2 Delivery O2 Flow Rate FiO2 04/28/17 04:36 86 04/28/17 04:00 98.0 79 20 140/65 (90) 100 04/28/17 00:00 98.5 76 20 137/63 (87) 100 04/27/17 20:00 97.5 80 20 125/59 (81) 100 04/27/17 16:00 97.6 81 13 121/56 (77) 100 04/27/17 12:00 97.7 73 17 117/59 (78) 99 Result Diagram: 04/28/17 0533 04/28/17 0533 A/P Problem List: (1) C. difficile diarrhea ICD Codes: A04.72 - Enterocolitis due to Clostridium difficile, not specified as recurrent Status: Acute Plan: recurrent c.diff colitis. pt failed to complete prior vanco course after d/c with recurrent diarrhea. celine dehydration hypokalemia general weakness. dm2 stop ivf tolerating po diet cont po vanco. repeat cdiff pcr neg ..if no improvement will consider infectious ibd hold oha. ssi PT eval dvt prophylaxis pt has been difficult to disposition due to inability to care for self at home and she has no further snf days available. (2) Dehydration ICD Codes: E86.0 - Dehydration Status: Acute Plan: above (3) Hypokalemia ICD Codes: E87.6 - Hypokalemia Status: Acute Plan: above (4) Diabetes ICD Codes: E11.9 - Type 2 diabetes mellitus without complications Status: Chronic Plan: above (5) Murmur, cardiac ICD Codes: R01.1 - Cardiac murmur, unspecified Status: Chronic Plan: Echocardiogram (03/22/17) Normal left ventricular size. Wall thickness is normal. No regional wall motion abnormalities are present. The left ventricular systolic function is normal with an estimated ejection fraction in the range of 60-65%. Moderate thickening of the aortic valve leaflets. Mild aortic valve stenosis. Aortic valve area is 1.3 cm. Aortic valve meangradient is 22.5 mmHg. There is mild tricuspid valve regurgitation. The estimated pulmonary arterial pressure is 65.1 mmHg. The inferior vena cava was not well visualized. Selwyn Appiah MD Apr 28, 2017 08:22
[2017-04-28] MEDS: LACTOBACILLUS ACIDOPHILUS TAB PO SCH ×3 (09:16→18:06)
[2017-04-28] MEDS: VANCOMYCIN 25 MG/ML SOLN 100 ML BOTTLE PO SCH ×4 (09:35→23:42)
[2017-04-29 00:30] VITALS: BP 154/70; PULSE 77; RESP 16; TEMP 98.6; O2SAT 99
[2017-04-29 04:30] VITALS: BP 160/77; PULSE 99; RESP 20; TEMP 98.7; O2SAT 99
[2017-04-29] MEDS: ACETAMINOPHEN/HYDROcodone 325 MG/5 MG TAB PO PRN ×3 (05:38→21:54)
[2017-04-29 06:00] LABS: BICARBONATE 28.9 MEQ/L (21.0-32.0); CALCIUM 8.2 MG/DL (8.5-10.1); CREATININE 0.68 MG/DL (0.50-1.00)
[2017-04-29 08:00] VITALS: BP 151/63; PULSE 69; RESP 23; TEMP 97.7; O2SAT 99
[2017-04-29] MEDS: INSULIN ASPART SUPPLEMENTAL SCALE SQ SCH ×4 (08:00→21:00)
[2017-04-29] MEDS: POTASSIUM CHLORIDE 20 MEQ CONTROLLED RELEASE TAB PO SCH ×2 (08:34→21:47)
[2017-04-29] MEDS: LACTOBACILLUS ACIDOPHILUS TAB PO SCH ×3 (08:34→17:35)
[2017-04-29] MEDS: VANCOMYCIN 25 MG/ML SOLN 100 ML BOTTLE PO SCH ×4 (08:34→22:21)
--- NOTE | 2017-04-29 09:38 | HHI.PR ---
Subjective Remarks was oob yesterday. in chair pt admits to less diarrhea. Objective Vitals heart reg lung cta abd s/nt ext no edema Vital Signs Date Time Temp Pulse Resp B/P (MAP) Pulse Ox O2 Delivery O2 Flow Rate FiO2 04/29/17 08:00 97.7 69 23 151/63 (92) 99 04/29/17 04:30 98.7 99 20 160/77 (104) 99 04/29/17 00:30 98.6 77 16 154/70 (98) 99 04/28/17 20:00 98.4 79 18 140/83 (102) 97 04/28/17 16:00 98.4 81 25 135/61 (85) 100 04/28/17 12:00 97.8 113 20 167/75 (105) 99 Result Diagram: 04/28/17 0533 04/29/17 0503 A/P Problem List: (1) C. difficile diarrhea ICD Codes: A04.72 - Enterocolitis due to Clostridium difficile, not specified as recurrent Status: Acute Plan: recurrent c.diff colitis. pt failed to complete( says the bottle was childproof) . prior vanco course after d/c with recurrent diarrhea. celine dehydration hypokalemia general weakness. dm2 tolerating po diet cont po vanco. repeat cdiff pcr neg ..if no improvement will consider infectious ibd hold oha. ssi PT eval dvt prophylaxis pt has been difficult to disposition due to inability to care for self at home and she has no further snf days available. request daily oob/ambulation here with PT in effort to dc home. will call the pharmacy to assure a package that she can open. (2) Dehydration ICD Codes: E86.0 - Dehydration Status: Acute Plan: above (3) Hypokalemia ICD Codes: E87.6 - Hypokalemia Status: Acute Plan: above (4) Diabetes ICD Codes: E11.9 - Type 2 diabetes mellitus without complications Status: Chronic Plan: above (5) Murmur, cardiac ICD Codes: R01.1 - Cardiac murmur, unspecified Status: Chronic Plan: Echocardiogram (03/22/17) Normal left ventricular size. Wall thickness is normal. No regional wall motion abnormalities are present. The left ventricular systolic function is normal with an estimated ejection fraction in the range of 60-65%. Moderate thickening of the aortic valve leaflets. Mild aortic valve stenosis. Aortic valve area is 1.3 cm. Aortic valve meangradient is 22.5 mmHg. There is mild tricuspid valve regurgitation. The estimated pulmonary arterial pressure is 65.1 mmHg. The inferior vena cava was not well visualized. Selwyn Appiah MD Apr 29, 2017 09:37
[2017-04-29 12:00] VITALS: BP 160/76; PULSE 81; RESP 19; TEMP 96.7; O2SAT 95
[2017-04-29 16:00] VITALS: BP 132/71; PULSE 81; RESP 23; TEMP 98.4; O2SAT 99
[2017-04-29 20:00] VITALS: BP 156/74; PULSE 80; PULSE 88; RESP 30; TEMP 98.5; O2SAT 94
[2017-04-30] VITALS (8 sets, daily range): BP systolic 143–168; BP diastolic 67–111; PULSE 65–115; RESP 15–24; TEMP 97.6–98.6; O2SAT 92–100
[2017-04-30] MEDS: ACETAMINOPHEN/HYDROcodone 325 MG/5 MG TAB PO PRN ×3 (04:15→18:15)
[2017-04-30] MEDS: INSULIN ASPART SUPPLEMENTAL SCALE SQ SCH ×4 (08:00→21:00)
[2017-04-30] MEDS: LACTOBACILLUS ACIDOPHILUS TAB PO SCH ×3 (08:02→18:15)
[2017-04-30] MEDS: POTASSIUM CHLORIDE 20 MEQ CONTROLLED RELEASE TAB PO SCH ×2 (08:03→21:16)
[2017-04-30] MEDS: VANCOMYCIN 25 MG/ML SOLN 100 ML BOTTLE PO SCH ×4 (08:03→21:16)
--- NOTE | 2017-04-30 09:33 | HHI.PR ---
Subjective Remarks 5 bm's yesterday Objective Vitals heart reg lung cta abd s/nt ext no edema Vital Signs Date Time Temp Pulse Resp B/P (MAP) Pulse Ox O2 Delivery O2 Flow Rate FiO2 04/30/17 08:00 97.9 73 20 152/71 (98) 100 04/30/17 07:28 65 04/30/17 05:15 20 04/30/17 04:00 98.1 115 15 168/78 (108) 92 04/30/17 00:00 98.2 85 17 148/78 (101) 93 04/29/17 20:00 80 04/29/17 20:00 98.5 88 30 156/74 (101) 94 04/29/17 16:00 98.4 81 23 132/71 (91) 99 04/29/17 12:00 96.7 81 19 160/76 (104) 95 Result Diagram: 04/28/17 0533 04/29/17 0503 A/P Problem List: (1) C. difficile diarrhea ICD Codes: A04.72 - Enterocolitis due to Clostridium difficile, not specified as recurrent Status: Acute Plan: recurrent c.diff colitis. pt failed to complete( says the bottle was childproof) . prior vanco course after d/c with recurrent diarrhea. celine dehydration hypokalemia general weakness. dm2 tolerating po diet cont po vanco. repeat cdiff pcr neg ..if no improvement will consider infectious ibd hold oha. ssi dvt prophylaxis pt has been difficult to disposition due to inability to care for self at home and she has no further snf days available. request daily oob/ambulation here with PT in effort to dc home. will call the pharmacy to assure a package that she can open. (2) Dehydration ICD Codes: E86.0 - Dehydration Status: Acute Plan: above (3) Hypokalemia ICD Codes: E87.6 - Hypokalemia Status: Acute Plan: above (4) Diabetes ICD Codes: E11.9 - Type 2 diabetes mellitus without complications Status: Chronic Plan: above (5) Murmur, cardiac ICD Codes: R01.1 - Cardiac murmur, unspecified Status: Chronic Plan: Echocardiogram (03/22/17) Normal left ventricular size. Wall thickness is normal. No regional wall motion abnormalities are present. The left ventricular systolic function is normal with an estimated ejection fraction in the range of 60-65%. Moderate thickening of the aortic valve leaflets. Mild aortic valve stenosis. Aortic valve area is 1.3 cm. Aortic valve meangradient is 22.5 mmHg. There is mild tricuspid valve regurgitation. The estimated pulmonary arterial pressure is 65.1 mmHg. The inferior vena cava was not well visualized. Selwyn Appiah MD Apr 30, 2017 09:33
[2017-04-30] MEDS ORDERED: CHOLESTYRAMINE 4 GM PACKET PO ONE (09:45)
[2017-04-30] MEDS: CHOLESTYRAMINE 4 GM PACKET PO SCH (21:16)
[2017-05-01] VITALS (8 sets, daily range): BP systolic 120–173; BP diastolic 64–87; PULSE 78–140; RESP 16–18; TEMP 97.4–98.6; O2SAT 92–100
[2017-05-01] MEDS: ACETAMINOPHEN/HYDROcodone 325 MG/5 MG TAB PO PRN ×2 (04:59→22:18)
[2017-05-01] MEDS: INSULIN ASPART SUPPLEMENTAL SCALE SQ SCH ×4 (08:00→21:00)
[2017-05-01] MEDS: CHOLESTYRAMINE 4 GM PACKET PO SCH ×3 (08:30→22:15)
[2017-05-01] MEDS: LACTOBACILLUS ACIDOPHILUS TAB PO SCH ×3 (08:30→17:00)
[2017-05-01] MEDS: VANCOMYCIN 25 MG/ML SOLN 100 ML BOTTLE PO SCH ×4 (08:30→22:10)
[2017-05-01] MEDS: POTASSIUM CHLORIDE 20 MEQ CONTROLLED RELEASE TAB PO SCH ×2 (08:30→22:09)
--- NOTE | 2017-05-01 09:02 | HHI.PR ---
Subjective Remarks on bedside commode liquid stool.....seems less volume eating well Objective Vitals heart reg lung cta abd s/nt ext no edema Vital Signs Date Time Temp Pulse Resp B/P (MAP) Pulse Ox O2 Delivery O2 Flow Rate FiO2 05/01/17 08:00 98.5 78 16 146/67 (93) 95 05/01/17 07:07 Room Air 05/01/17 04:31 Room Air 05/01/17 04:00 145/72 (96) 05/01/17 03:20 98.3 88 16 173/83 (113) 98 05/01/17 00:28 98.6 80 16 159/87 (111) 100 05/01/17 00:00 Room Air 04/30/17 20:00 Room Air 04/30/17 19:53 97.6 95 18 161/86 (111) 99 04/30/17 17:45 98.6 83 22 148/111 (123) 100 04/30/17 16:00 97.6 77 24 143/67 (92) 100 04/30/17 12:00 97.7 80 24 151/70 (97) 100 Result Diagram: 04/28/17 0533 04/29/17 0503 A/P Problem List: (1) C. difficile diarrhea ICD Codes: A04.72 - Enterocolitis due to Clostridium difficile, not specified as recurrent Status: Acute Plan: recurrent c.diff colitis. pt failed to complete( says the bottle was childproof) . prior vanco course after d/c with recurrent diarrhea. celine dehydration hypokalemia general weakness. dm2 htn tolerating po diet cont po vanco. repeat cdiff pcr neg ..if no improvement will consider infectious ibd hold oha. ssi resume lisinipril pt asking for "regular diet" and not diabetic diet dvt prophylaxis pt has been difficult to disposition due to inability to care for self at home and she has no further snf days available. request daily oob/ambulation here with PT in effort to dc home. will call the pharmacy to assure a package that she can open. (2) Dehydration ICD Codes: E86.0 - Dehydration Status: Acute Plan: above (3) Hypokalemia ICD Codes: E87.6 - Hypokalemia Status: Acute Plan: above (4) Diabetes ICD Codes: E11.9 - Type 2 diabetes mellitus without complications Status: Chronic Plan: above (5) Murmur, cardiac ICD Codes: R01.1 - Cardiac murmur, unspecified Status: Chronic Plan: Echocardiogram (03/22/17) Normal left ventricular size. Wall thickness is normal. No regional wall motion abnormalities are present. The left ventricular systolic function is normal with an estimated ejection fraction in the range of 60-65%. Moderate thickening of the aortic valve leaflets. Mild aortic valve stenosis. Aortic valve area is 1.3 cm. Aortic valve meangradient is 22.5 mmHg. There is mild tricuspid valve regurgitation. The estimated pulmonary arterial pressure is 65.1 mmHg. The inferior vena cava was not well visualized. Selwyn Appiah MD May 01, 2017 09:02
[2017-05-01 09:15] LABS: BICARBONATE 29.2 MEQ/L (21.0-32.0); CALCIUM 8.3 MG/DL (8.5-10.1); CREATININE 0.73 MG/DL (0.50-1.00)
[2017-05-01] MEDS: LISINOPRIL 10 MG TAB PO SCH (09:29)
[2017-05-01] MEDS: NITROGLYCERIN 0.4 MG SL 25 TABS/BTL SL PRN ×3 (18:41→18:58)
[2017-05-01] MEDS ORDERED: MORPHINE SULFATE 2 MG/ML INJ IV PRN (18:45)
--- NOTE | 2017-05-01 19:44 | RADRPT ---
EXAM DATE/TIME: 05/01/2017 19:15 [facility] COMPARISON: CHEST SINGLE AP, April 27, 2017, 4:02. INDICATIONS : Shortness of breath. MEDICAL HISTORY : Cardiovascular disease. Hypertension Diabetes SURGICAL HISTORY : Cholecystectomy. Hysterectomy. ENCOUNTER: Subsequent ACUITY: 3 days PAIN SCORE: 0/10 LOCATION: chest FINDINGS: Rotated and underinflated AP view of the chest demonstrates a normal-sized cardiac silhouette. There is atelectasis at the lung bases. No effusion or pneumothorax is visualized. The bones and soft tissu es demonstrate no acute finding. There are degenerative changes of the thoracic spine. Cervical spine hardware is present. CONCLUSION: Marked underinflation with atelectasis at the lung bases. Otherwise, no acute finding is identified g iven the technique. Gm Winston MD on May 01, 2017 at 19:42 Board Certified Radiologist. This report was verified electronically.
[2017-05-01 20:44] LABS: TROPONIN I 0.05 NG/ML (0.02-0.05)
--- NOTE | 2017-05-01 21:43 | HHI.PR ---
Subjective Remarks Called to see patient with chest pain ,patient with extensive history and currently in hospital for recurrent c diff infection who states she has had several episodes of chest pain which is by history atypical starts mid lower chest and radiates to left upper quadrant ,burning in nature no radiation to jaw or arm no diaphoresis ,patient had EKG done showed no acute changes and chest xray consistent with atelectasis no acute findings and had negative troponin level ,patient was given total 3 NTG with minimal results did get releif after getting morphine. Objective Vitals GENERAL: SKIN: Warm and dry. HEAD: Atraumatic. Normocephalic. EYES: Pupils equal and round. No scleral icterus. No injection or drainage. ENT: No nasal bleeding or discharge. Mucous membranes pink and moist. NECK: Trachea midline. No JVD. CARDIOVASCULAR: Regular rate and rhythm. RESPIRATORY: No accessory muscle use. Clear to auscultation. Breath sounds equal bilaterally. GASTROINTESTINAL: Abdomen soft, non-tender, nondistended. Hepatic and splenic margins not palpable. MUSCULOSKELETAL: Extremities without clubbing, cyanosis, or edema. No obvious deformities. NEUROLOGICAL: Awake and alert. No obvious cranial nerve deficits. Motor grossly within normal limits. Five out of 5 muscle strength in the arms and legs. Normal speech. PSYCHIATRIC: Appropriate mood and affect; insight and judgment normal. Vital Signs Date Time Temp Pulse Resp B/P (MAP) Pulse Ox O2 Delivery O2 Flow Rate FiO2 05/01/17 16:00 98.0 140 16 138/64 (88) 92 05/01/17 12:00 97.4 98 18 151/83 (105) 99 05/01/17 08:00 98.5 78 16 146/67 (93) 95 05/01/17 07:07 Room Air 05/01/17 04:31 Room Air 05/01/17 04:00 145/72 (96) 05/01/17 03:20 98.3 88 16 173/83 (113) 98 05/01/17 00:28 98.6 80 16 159/87 (111) 100 05/01/17 00:00 Room Air 05/01/17 05/01/17 05/02/17 15:00 23:00 07:00 Intake Total 700 ml Balance 700 ml Intake Oral 700 ml # Voids 4 # Bowel Movements 2 Result Diagram: 04/28/17 0533 05/01/17 0605 A/P Problem List: (1) C. difficile diarrhea ICD Codes: A04.72 - Enterocolitis due to Clostridium difficile, not specified as recurrent Status: Acute Plan: recurrent c.diff colitis. pt failed to complete( says the bottle was childproof) . prior vanco course after d/c with recurrent diarrhea. celine dehydration hypokalemia general weakness. dm2 htn tolerating po diet cont po vanco. repeat cdiff pcr neg ..if no improvement will consider infectious ibd hold oha. ssi resume lisinipril pt asking for "regular diet" and not diabetic diet dvt prophylaxis pt has been difficult to disposition due to inability to care for self at home and she has no further snf days available. request daily oob/ambulation here with PT in effort to dc home. will call the pharmacy to assure a package that she can open. (2) Dehydration ICD Codes: E86.0 - Dehydration Status: Acute Plan: above (3) Hypokalemia ICD Codes: E87.6 - Hypokalemia Status: Acute Plan: above (4) Diabetes ICD Codes: E11.9 - Type 2 diabetes mellitus without complications Status: Chronic Plan: above (5) Murmur, cardiac ICD Codes: R01.1 - Cardiac murmur, unspecified Status: Chronic Plan: Echocardiogram (03/22/17) Normal left ventricular size. Wall thickness is normal. No regional wall motion abnormalities are present. The left ventricular systolic function is normal with an estimated ejection fraction in the range of 60-65%. Moderate thickening of the aortic valve leaflets. Mild aortic valve stenosis. Aortic valve area is 1.3 cm. Aortic valve meangradient is 22.5 mmHg. There is mild tricuspid valve regurgitation. The estimated pulmonary arterial pressure is 65.1 mmHg. The inferior vena cava was not well visualized. (6) Atypical chest pain ICD Codes: R07.89 - Other chest pain Status: Acute Plan: is more GI related but patient does have complicated history will check if on any zantac recheck enzymes and ekg in am and consider abd ultrasound ,as did get relief with morphine will use prn . Marvin Davidson MD May 01, 2017 21:43
[2017-05-01] MEDS ORDERED: PANTOPRAZOLE SODIUM 40 MG VIAL IV PUSH ONE (21:45)
[2017-05-01] MEDS ORDERED: MORPHINE SULFATE 2 MG/ML INJ IV PUSH PRN (21:45)
[2017-05-02] VITALS (11 sets, daily range): BP systolic 135–169; BP diastolic 65–82; PULSE 77–110; RESP 18; TEMP 98–98.6; O2SAT 97–100
[2017-05-02] MEDS: INSULIN ASPART SUPPLEMENTAL SCALE SQ SCH ×4 (08:00→22:03)
--- NOTE | 2017-05-02 09:13 | EKG ---
Date Performed: 05/02/2017 Time Performed: 06:50:06 PTAGE: 72 years EKG: Sinus rhythm Septal T wave changes are nonspecific Borderline ECG PREVIOUS TRACING : 05/01/2017 18.13 No significant change from previous tracing noted. DOCTOR: Tyson Tamayo Interpretating Date/Time 05/02/2017 09:12:07
[2017-05-02] MEDS: CHOLESTYRAMINE 4 GM PACKET PO SCH ×2 (09:15→21:46)
[2017-05-02] MEDS: LISINOPRIL 10 MG TAB PO SCH (09:16)
[2017-05-02] MEDS: POTASSIUM CHLORIDE 20 MEQ CONTROLLED RELEASE TAB PO SCH ×2 (09:16→21:47)
[2017-05-02] MEDS: LACTOBACILLUS ACIDOPHILUS TAB PO SCH ×3 (09:16→17:50)
[2017-05-02] MEDS: VANCOMYCIN 25 MG/ML SOLN 100 ML BOTTLE PO SCH ×4 (09:16→21:50)
--- NOTE | 2017-05-02 09:20 | EKG ---
Date Performed: 05/01/2017 Time Performed: 18:13:54 PTAGE: 72 years EKG: Sinus rhythm . Lead(s) unsuitable for analysis: V2 Normal ECG based on available leads PREVIOUS TRACING : 02/23/2017 21.20 No significant change from previous tracing noted. DOCTOR: Tyson Tamayo Interpretating Date/Time 05/02/2017 09:19:18
--- NOTE | 2017-05-02 09:25 | HHI.PR ---
Subjective Remarks had cp last night with no ischemia on ekg and ce neg. cxr atelectasis. relieved with morphine but not ntg. no cp now. diarrhea better Objective Vitals heart reg lung cta abd s/nt ext no edema Vital Signs Date Time Temp Pulse Resp B/P (MAP) Pulse Ox O2 Delivery O2 Flow Rate FiO2 05/02/17 09:01 98.2 78 18 144/79 (100) 99 05/02/17 07:59 Room Air 05/02/17 04:00 98.2 81 18 159/77 (104) 97 05/02/17 03:41 83 05/02/17 00:00 98.5 85 18 166/77 (106) 97 05/01/17 20:18 81 05/01/17 20:00 98.0 87 16 120/65 (83) 99 05/01/17 20:00 Room Air 05/01/17 16:00 98.0 140 16 138/64 (88) 92 05/01/17 12:00 97.4 98 18 151/83 (105) 99 Result Diagram: 04/28/17 0533 05/01/17 0605 A/P Problem List: (1) C. difficile diarrhea ICD Codes: A04.72 - Enterocolitis due to Clostridium difficile, not specified as recurrent Status: Acute Plan: recurrent c.diff colitis. pt failed to complete( says the bottle was childproof) . prior vanco course after d/c with recurrent diarrhea. celine dehydration hypokalemia general weakness. dm2 htn tolerating po diet cont po vanco. repeat cdiff pcr neg ..if no improvement will consider infectious ibd hold oha. ssi resumed lisinipril pt asking for "regular diet" and not diabetic diet dvt prophylaxis pt has been difficult to disposition due to inability to care for self at home and she has no further snf days available. request daily oob/ambulation here with PT in effort to dc home. will call the pharmacy to assure a package that she can open. pt had some cp last night relieved with morphine x 1 but not ntg ekg and ce unremarkable. atelectasis on cxr. ppi and prn maalox ordered. inc spirometer. (2) Dehydration ICD Codes: E86.0 - Dehydration Status: Acute Plan: above (3) Hypokalemia ICD Codes: E87.6 - Hypokalemia Status: Acute Plan: above (4) Diabetes ICD Codes: E11.9 - Type 2 diabetes mellitus without complications Status: Chronic Plan: above (5) Murmur, cardiac ICD Codes: R01.1 - Cardiac murmur, unspecified Status: Chronic Plan: Echocardiogram (03/22/17) Normal left ventricular size. Wall thickness is normal. No regional wall motion abnormalities are present. The left ventricular systolic function is normal with an estimated ejection fraction in the range of 60-65%. Moderate thickening of the aortic valve leaflets. Mild aortic valve stenosis. Aortic valve area is 1.3 cm. Aortic valve meangradient is 22.5 mmHg. There is mild tricuspid valve regurgitation. The estimated pulmonary arterial pressure is 65.1 mmHg. The inferior vena cava was not well visualized. (6) Atypical chest pain ICD Codes: R07.89 - Other chest pain Status: Acute Plan: is more GI related but patient does have complicated history will check if on any zantac recheck enzymes and ekg in am and consider abd ultrasound ,as did get relief with morphine will use prn . Selwyn Appiah MD May 02, 2017 09:25
[2017-05-02] MEDS ORDERED: PANTOPRAZOLE SOD 40 MG DELAYED RELEASE TAB PO ONE (09:30)
[2017-05-02] MEDS ORDERED: ALUMINUM/MAGNESIUM/SIMETH 30 ML CUP PO PRN (09:30)
[2017-05-02] MEDS: ACETAMINOPHEN/HYDROcodone 325 MG/5 MG TAB PO PRN ×2 (10:03→21:58)
[2017-05-02] MEDS ORDERED: FAMOTIDINE 20 MG TAB PO SCH (21:00)
[2017-05-02] MEDS: PANTOPRAZOLE SOD 40 MG DELAYED RELEASE TAB PO SCH (21:47)
[2017-05-03] VITALS (9 sets, daily range): BP systolic 131–146; BP diastolic 63–80; PULSE 72–95; RESP 17–20; TEMP 97.5–98.3; O2SAT 95–100
[2017-05-03 06:56] LABS: AUTOMATED NEUTROPHIL # 5.2 TH/MM3 (1.8-7.7); BASOPHIL % 0.5 % (0.0-2.0); EOSINOPHIL # 0.4 TH/MM3 (0-0.4); HEMATOCRIT 37.2 % (35.0-46.0); HEMOGLOBIN 12.6 GM/DL (11.6-15.3); LYMPHOCYTE # 2.4 TH/MM3 (1.0-4.8); MEAN CELL VOLUME 87.1 FL (80.0-100.0); MEAN CORPUSCULAR HEMOGLOBIN 29.5 PG (27.0-34.0); MEAN CORPUSCULAR HGB CONC 33.8 % (32.0-36.0); MEAN PLATELET VOLUME 6.6 FL (7.0-11.0); MONO % 6.4 % (0.0-8.0); MONOCYTE # 0.6 TH/MM3 (0-0.9); NEUT % 60.1 % (16.0-70.0); PLATELET COUNT 256 TH/MM3 (150-450); RED BLOOD COUNT 4.28 MIL/MM3 (4.00-5.30); RED CELL DISTRIBUTION WIDTH 14.8 % (11.6-17.2); WHITE BLOOD COUNT 8.7 TH/MM3 (4.0-11.0)
[2017-05-03 07:19] LABS: BICARBONATE 32.6 MEQ/L (21.0-32.0); CREATININE 0.89 MG/DL (0.50-1.00)
[2017-05-03] MEDS: INSULIN ASPART SUPPLEMENTAL SCALE SQ SCH ×4 (08:00→21:00)
[2017-05-03] MEDS: VANCOMYCIN 25 MG/ML SOLN 100 ML BOTTLE PO SCH ×4 (09:00→23:14)
[2017-05-03] MEDS: LISINOPRIL 10 MG TAB PO SCH (09:15)
[2017-05-03] MEDS: LACTOBACILLUS ACIDOPHILUS TAB PO SCH ×3 (09:15→17:53)
[2017-05-03] MEDS: CHOLESTYRAMINE 4 GM PACKET PO SCH ×2 (09:15→23:13)
[2017-05-03] MEDS: POTASSIUM CHLORIDE 20 MEQ CONTROLLED RELEASE TAB PO SCH ×2 (09:15→23:14)
[2017-05-03] MEDS: PANTOPRAZOLE SOD 40 MG DELAYED RELEASE TAB PO SCH ×2 (09:15→23:14)
[2017-05-03] MEDS: ACETAMINOPHEN/HYDROcodone 325 MG/5 MG TAB PO PRN ×2 (10:02→18:39)
--- NOTE | 2017-05-03 15:08 | HHI.PR ---
Subjective Remarks Pt remains weak. I discussed pt's case today with PT. Pt remains quite weak. Pt needs help with transfers and ADLs. Pt denies diarrhea. Objective Vitals Vital Signs Date Time Temp Pulse Resp B/P (MAP) Pulse Ox O2 Delivery O2 Flow Rate FiO2 05/03/17 12:00 98.2 87 20 144/63 (90) 100 05/03/17 08:00 97.5 72 20 146/72 (96) 98 05/03/17 07:29 98 Nasal Cannula 2.00 05/03/17 04:07 81 05/03/17 04:00 98.3 82 20 133/63 (86) 98 05/03/17 00:00 Room Air 05/03/17 00:00 97.7 80 17 135/80 (98) 100 05/02/17 23:45 77 05/02/17 20:00 Room Air 05/02/17 20:00 98.0 86 18 140/82 (101) 100 05/02/17 19:42 110 05/02/17 16:00 92 05/02/17 16:00 98.3 95 18 169/81 (110) 100 05/03/17 05/03/17 05/04/17 15:00 23:00 07:00 # Voids 2 Result Diagram: 05/03/17 0608 05/03/17 0608 Imaging Last Impressions Chest X-Ray 05/01/17 0000 Signed Impressions: Service Date/Time: Monday, May 01, 2017 19:15 - CONCLUSION: Marked underinflation with atelectasis at the lung bases. Otherwise, no acute finding is identified given the technique. Gm Winston MD Objective Remarks GENERAL: This is a well-nourished, well-developed patient, in no apparent distress. CARDIOVASCULAR: Regular rate and rhythm without murmurs, gallops, or rubs. RESPIRATORY: Clear to auscultation. Breath sounds equal bilaterally. No wheezes , rales, or rhonchi. GASTROINTESTINAL: Abdomen soft, non-tender, nondistended. Normal active bowel sounds MUSCULOSKELETAL: Extremities without clubbing, cyanosis, or edema. NEURO: Alert & Oriented 3, NAD A/P Problem List: (1) C. difficile diarrhea ICD Codes: A04.72 - Enterocolitis due to Clostridium difficile, not specified as recurrent Status: Acute Plan: - recurrent c.diff colitis. pt failed to complete( says the bottle was childproof). - prior vanco course after d/c with recurrent diarrhea. - Pt readmitted to [facility] with celine, dehydration, hypokalemia, and generalized weakness - Pt now tolerating regular diet - PO vancomycin x 14 days - repeat Cdiff negative - pt has been difficult to disposition due to inability to care for self at home and she has no further snf days available. request daily oob/ambulation here with PT in effort to dc home. will call the pharmacy to assure a package that she can open. - I suspect pt has underlying psychiatric disorder eg. depression or perhaps some dementia - Case d/w Psychiatry, Dr. Pope. He will consult. - Pt continues to need help with all ADLs. - PT does NOT feel pt can be discharged to home at this time. - DVT prophylaxis. (2) Dehydration ICD Codes: E86.0 - Dehydration Status: Acute Plan: above (3) Hypokalemia ICD Codes: E87.6 - Hypokalemia Status: Acute Plan: above (4) Diabetes ICD Codes: E11.9 - Type 2 diabetes mellitus without complications Status: Resolved Plan: above (5) Murmur, cardiac ICD Codes: R01.1 - Cardiac murmur, unspecified Status: Chronic Plan: Echocardiogram (03/22/17) Normal left ventricular size. Wall thickness is normal. No regional wall motion abnormalities are present. The left ventricular systolic function is normal with an estimated ejection fraction in the range of 60-65%. Moderate thickening of the aortic valve leaflets. Mild aortic valve stenosis. Aortic valve area is 1.3 cm. Aortic valve meangradient is 22.5 mmHg. There is mild tricuspid valve regurgitation. The estimated pulmonary arterial pressure is 65.1 mmHg. The inferior vena cava was not well visualized. (6) Atypical chest pain ICD Codes: R07.89 - Other chest pain Status: Resolved Plan: - cardiac enzymes negative - no further c/o chest pain. Problem Qualifiers (1) Diabetes: Qualified Codes: E11.8 - Type 2 diabetes mellitus with unspecified complications Joseph Jacome DO May 03, 2017 15:08
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
[2017-05-04] VITALS (8 sets, daily range): BP systolic 124–155; BP diastolic 62–85; PULSE 70–97; RESP 16–20; TEMP 97.2–98.8; O2SAT 90–100
[2017-05-04] MEDS: ACETAMINOPHEN/HYDROcodone 325 MG/5 MG TAB PO PRN ×3 (01:01→23:12)
[2017-05-04] MEDS: INSULIN ASPART SUPPLEMENTAL SCALE SQ SCH ×4 (08:00→21:00)
[2017-05-04] MEDS: LACTOBACILLUS ACIDOPHILUS TAB PO SCH ×3 (09:26→17:04)
[2017-05-04] MEDS: PANTOPRAZOLE SOD 40 MG DELAYED RELEASE TAB PO SCH ×2 (09:27→23:12)
[2017-05-04] MEDS: POTASSIUM CHLORIDE 20 MEQ CONTROLLED RELEASE TAB PO SCH ×2 (09:27→23:11)
[2017-05-04] MEDS: LISINOPRIL 10 MG TAB PO SCH (09:27)
[2017-05-04] MEDS: CHOLESTYRAMINE 4 GM PACKET PO SCH ×2 (09:27→23:11)
[2017-05-04] MEDS: VANCOMYCIN 25 MG/ML SOLN 100 ML BOTTLE PO SCH ×4 (12:57→23:13)
--- NOTE | 2017-05-04 15:02 | HHI.PR ---
Subjective Remarks No new complaints. Objective Vitals Vital Signs Date Time Temp Pulse Resp B/P (MAP) Pulse Ox O2 Delivery O2 Flow Rate FiO2 05/04/17 13:44 Room Air 05/04/17 11:51 97.8 95 20 126/62 (83) 100 05/04/17 08:00 97.7 79 20 134/63 (86) 90 05/04/17 04:00 98.8 74 16 124/71 (88) 98 05/04/17 04:00 Room Air 05/04/17 04:00 73 05/04/17 00:00 70 05/04/17 00:00 Room Air 05/04/17 00:00 97.6 75 16 155/71 (99) 99 05/03/17 20:00 95 05/03/17 20:00 97.5 92 18 145/76 (99) 95 05/03/17 20:00 Room Air 05/03/17 16:00 98.0 85 20 131/73 (92) 100 05/03/17 15:45 91 05/04/17 05/04/17 05/05/17 15:00 23:00 07:00 Intake Total 480 ml Balance 480 ml Intake Oral 480 ml # Voids 3 # Bowel Movements 0 Result Diagram: 05/03/17 0608 05/03/17 0608 Imaging Last Impressions Chest X-Ray 05/01/17 0000 Signed Impressions: Service Date/Time: Monday, May 01, 2017 19:15 - CONCLUSION: Marked underinflation with atelectasis at the lung bases. Otherwise, no acute finding is identified given the technique. Gm Winston MD Objective Remarks GENERAL: This is a well-nourished, well-developed patient, in no apparent distress. CARDIOVASCULAR: Regular rate and rhythm without murmurs, gallops, or rubs. RESPIRATORY: Clear to auscultation. Breath sounds equal bilaterally. No wheezes , rales, or rhonchi. GASTROINTESTINAL: Abdomen soft, non-tender, nondistended. Normal active bowel sounds MUSCULOSKELETAL: Extremities without clubbing, cyanosis, or edema. NEURO: Alert & Oriented 3 but confused at times. MARTIN A/P Problem List: (1) C. difficile diarrhea ICD Codes: A04.72 - Enterocolitis due to Clostridium difficile, not specified as recurrent Status: Acute Plan: - recurrent c.diff colitis. pt failed to complete( says the bottle was childproof). - prior vanco course after d/c with recurrent diarrhea. - Pt readmitted to [place] with celine, dehydration, hypokalemia, and generalized weakness - Pt now tolerating regular diet - PO vancomycin x 14 days - repeat Cdiff negative - pt has been difficult to disposition due to inability to care for self at home and she has no further snf days available. request daily oob/ambulation here with PT in effort to dc home. will call the pharmacy to assure a package that she can open. - Appreciate input from Psychiatry, Dr. Pope. Pt NOT competent at this time. - Pt continues to need help with all ADLs, and can NOT be discharged to home - await input from Neuropsychiatry - request assistance from [facility] for safe discharge. - PT does NOT feel pt can be discharged to home at this time. - DVT prophylaxis. (2) Dehydration ICD Codes: E86.0 - Dehydration Status: Acute Plan: above (3) Hypokalemia ICD Codes: E87.6 - Hypokalemia Status: Acute Plan: above (4) Diabetes ICD Codes: E11.9 - Type 2 diabetes mellitus without complications Status: Resolved Plan: above (5) Murmur, cardiac ICD Codes: R01.1 - Cardiac murmur, unspecified Status: Chronic Plan: Echocardiogram (03/22/17) Normal left ventricular size. Wall thickness is normal. No regional wall motion abnormalities are present. The left ventricular systolic function is normal with an estimated ejection fraction in the range of 60-65%. Moderate thickening of the aortic valve leaflets. Mild aortic valve stenosis. Aortic valve area is 1.3 cm. Aortic valve meangradient is 22.5 mmHg. There is mild tricuspid valve regurgitation. The estimated pulmonary arterial pressure is 65.1 mmHg. The inferior vena cava was not well visualized. (6) Atypical chest pain ICD Codes: R07.89 - Other chest pain Status: Resolved Plan: - cardiac enzymes negative - no further c/o chest pain. Problem Qualifiers (1) Diabetes: Qualified Codes: E11.8 - Type 2 diabetes mellitus with unspecified complications Joseph Jacome DO May 04, 2017 15:02
[2017-05-04] MEDS: DOCUSATE SODIUM 100 MG CAP PO SCH (21:00)
[2017-05-05] VITALS: BP 153/83; PULSE 85; RESP 18; TEMP 98.2; O2SAT 97
[2017-05-05 04:00] VITALS: BP 141/94; PULSE 79; RESP 18; TEMP 98.1; O2SAT 98
[2017-05-05 08:00] VITALS: BP 142/86; PULSE 84; RESP 18; TEMP 97.7; O2SAT 96
[2017-05-05] MEDS: INSULIN ASPART SUPPLEMENTAL SCALE SQ SCH ×4 (08:00→21:00)
[2017-05-05] MEDS: LACTOBACILLUS ACIDOPHILUS TAB PO SCH ×3 (08:39→19:29)
[2017-05-05] MEDS: POTASSIUM CHLORIDE 20 MEQ CONTROLLED RELEASE TAB PO SCH ×2 (08:39→21:19)
[2017-05-05] MEDS: PANTOPRAZOLE SOD 40 MG DELAYED RELEASE TAB PO SCH ×2 (08:39→21:19)
[2017-05-05] MEDS: CHOLESTYRAMINE 4 GM PACKET PO SCH ×2 (08:40→21:19)
[2017-05-05] MEDS: ACETAMINOPHEN/HYDROcodone 325 MG/5 MG TAB PO PRN ×2 (08:40→22:40)
[2017-05-05] MEDS: DOCUSATE SODIUM 100 MG CAP PO SCH ×2 (08:40→21:00)
[2017-05-05] MEDS: LISINOPRIL 20 MG TAB PO SCH (09:00)
[2017-05-05] MEDS: VANCOMYCIN 25 MG/ML SOLN 100 ML BOTTLE PO SCH ×4 (11:51→21:17)
[2017-05-05 12:00] VITALS: BP 142/82; PULSE 69; RESP 18; TEMP 97.7; O2SAT 96
--- NOTE | 2017-05-05 15:23 | PD.HHIRCNE ---
Disclaimer Patient was given an explanation of the nature and purpose of the evaluation. Patient agreed to proceed with the evaluation and treatment plan. History Reason for Referral The patient is a 72 year old right handed female who was recently admitted to [facility] on 04/25/2017 with complaints of diarrhea and abdominal discomfort. She had prior admits for falls in 2017 at which time her home was described to be in a filthy state, with contributing issues of non-compliance with medical directives. Historically, this patient is born and raised in [place]. Her mother and father were business owners in the area. She graduated from high school earning average grades and no reports of learning difficulties, grade repetitions or behavioral difficulties. She attended technical school but not college. She worked for the [employer] until she was forced to retire. She is single, never , and has no children. She reported that she devoted her entire life to caring for her mother. She has been living alone for several years. Dr. Pope from psychiatry evaluated the patient yesterday and opined that this patient appeared to have an underlying neurocognitive disorder, supported by a MOCA of 02/04. She is referred for baseline neuropsychological evaluation to assess cognitive, behavioral and emotional aspects of her medical challenges and to provide treatment recommendations. Additional Psychosocial Hx Smoking Status: Never Smoker Hx Caffeine Use: Yes (iced tea, mountain dew) Hx Substance Use: No Level of Education: Vocational/Technical Prior Living Setting: Home Dominant Hand: Right Past Surgical/Medical History Past Surgery: Yes (2005 RIGHT SHOULDER ROTATOR CUFF SURGERY) Major surgery in last 100 days: Unknown Hx Anesthesia Reactions: No Hx Orthopedic Surgery: Yes (BILAT FOOT, LT KNEE REPLACEMENT, RT ROATATOR CF NECK FUSION WITH TITANIUM ) Hx Cardiac Surgery: No Hx Chest Surgery: Yes (RIGHT BREAST LUMPECTOMY) Hx Abdominal Surgery: Yes (GALLBLADDER SURGERY ) Hx Genitourinary Surgery: No Hx Gynecologic Surgery: Yes (DNC COMPLETE HYSTORETOMY ) Hx Endocrine Surgery: No Hx Eye Surgery: Yes (BILATERAL CATARACTS) Hx Ear Surgery: No Hx Oral Surgery: No Hx of Neuro Prob: No Hx Falls: No Hx of Musculoskeletal Pro: Yes Hx Neck Problems: Yes (NECK FUSION 5 AND 6) Hx Back Problem: Yes (NERVE ROOT PROBLEMS IN BACK ) Hx of Cardiovascular Prob: Yes Hypertension (High Blood Press: Yes Hx of Respiratory Problem: Yes (HX BRONCHITIS, HX PLEURISY) Hx Sleep Apnea: Yes (HAD A SURGERY PERFORMED TO CORRECT ) Hx of GI Problems: Yes (CDIFF) Hx Hiatal Hernia: No Hx Gallbladder Disease: Yes (PREVOIUS SURGERY, UNABLE TO REMEMBER WHEN ) Hx of Problems: No Hx Renal Disease: No Hx of Endocrine Problems: Yes Hx Thyroid Disease: No Hx Diabetes: Yes Does Patient Currently Take Gl: Yes (metformin) Hx of Eye Probl: Yes (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, AND CATARACT SURGERY/ IMPLANT IN R EYE) Hx of Hearing or Ear Problems: No Hx Dental Problems: Yes Dental Problems: Chipped Teeth Hx Psychiatric Problems: No Hx of MDRO: No Hx of MRSA: No Hx of VRE: No Hx of CDIFF: No Hx of Tuberculosis: No Hx Chicken Pox: No Hx Measles: Yes Hx Pacemaker: No Blood Transfusion History Will receive Blood /Blood prod: Yes Hx Blood Transfusions: No Medication Active Medications Docusate Sodium (Colace) 100 mg BID PO; Start 05/04/17 at 21:00 Lisinopril (Prinivil) 20 mg DAILY PO Last administered on 05/05/17at 09:00; Admin Dose 20 MG; Start 05/05/17 at 09:00 Mental Status Assessment Orientation: oriented to Self, oriented to Place, oriented to Time, oriented to Situation Mental Status: WFL: Language/Interactions, Impaired: Thought processing, Attention, Learning/Memory, Problem-Solving Adjustment/Coping Assessment Adjustment/Coping: None: Depression, Anxiety, Severe: Awareness, Insight Affect: Full Range Observation In terms of emotional functioning, the patient demonstrated challenges in terms of insight, awareness and judgment. This patient demonstrated no signs of agitation, impulsivity or disinhibition, nor was there remarkable evidence of a formal thought disorder or psychosis. There was no evidence of depression or anxiety. The Geriatric Depression Scale-Short Form was administered given the ease to which it is administered to persons with known neurological pathology, and the patient endorsed 0 of 15 symptoms, which falls within the non depressed range. Thought content was free from suicidal, homicidal or paranoid ideation, and thought processes were somewhat perseverative and concrete. The patients mood was euthymic, and her affect was stable and appropriate. The patient appears to possess poor insight and awareness into their situation and within the limits of this brief evaluation, poor judgment. LTG Status: Deferred STG Status: Deferred Team Members: Neuropsychologist Effort Assessment Effort: Average Cognition Assessment Rating: WFL: Language, Impaired: Attention/Processing, Immediate & Delayed Memor, Executive, Awareness-Insight Adjustm Observation The patient was alert and oriented to person, place, time and circumstances surrounding the recent hospitalization. The Mini-Mental State Exam was administered, and the patient obtained a score of 18 out of 27 points, which falls in the impaired range. Please note that several of the items were not administered because she reported that she was unable to use her right hand due to weakness. However and in spite of this limitation, on further evaluation, specific deficits were identified. In terms of attention skills, the patient exhibited challenges. The patient was able to remain on task and remember basic and most complex verbal instructions. She had significant difficulty with mental flexibility including her ability to encode and maintain lists of words or spelling various words backward. In terms of memory functioning, the patient exhibited mild challenges. The patients initial registration of verbal information was variable, and the patient was unable to improve their memory with repetition. After a period of delay, the patient was unable to recall an appropriate amount of this information from memory. More specifically, on the Luria Memory Words Test-Short Form, the patients trial one performance was 5 of 7 words, trial five performance was 5 of 7 words, the patients Total Learning score was 25 (at cut-off), and the patients Delayed recall score was 3 of 7 words (below cut-off). In terms of speech and language skills, the patient demonstrated challenges. The patients initiated spontaneous conversation throughout the assessment. Speech was characterized by adequate prosody, grammar, articulation, volume and rate. No remarkable dysnomic or paraphasic errors were noted either during conversational speech or on confrontation naming tasks. Reading recognition skills were adequate, but writing skills were not assessed. Her reading recognition abilities fell at a standard score of 92 (percentile rank of 30) which is consistent with baseline estimates of her neurocognitive abilities. The patients comprehension for basic one- and two-stage commands fluctuated with task complexity. In terms of problem-solving skills, the patient exhibited moderate challenges, consistent with executive dysfunction. The patients ability to understand abstraction reasoning was abnormal and perseverative, as reflected in her inability to abstract essential shared characteristics of objects and concepts. Mathematical reasoning skills were also abnormal. Speed of information processing, as evaluated by both the Letter and Category Fluency Tests was abnormal. Summary/Diagnosis Summary Neuropsychological evaluation results are inconsistent with the normal aging process or the singular effects of emotional distress on cognition. The pattern of impairment that this patient demonstrated shows greater impairment of executive functioning, with milder impairment of memory and attention, with relative sparing of speech and language skills. Her estimated baseline intellectual functioning falls at the low end of the average range (around the 30th percentile). Coincident to this pattern of neurocognitive impairment, this patient demonstrated obvious deficits of insight, awareness and judgment. She denies any sort of depressive or anxious affect. The overall constellation of findings is consistent with a major neurocognitive disorder, and more specifically, these findings in concert with her deteriorating self-skills infer a frontotemporal lobe origin of her neurocognitive disorder. 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 Diagnosis: (1) Dementia of frontal lobe type Recommendations Recommendations Recommendations In my clinical opinion, this patient does not have the requisite neurocognitive abilities to make decisions of a legal, financial or medical nature. In other words, she lacks decision making capacity due to her neurocognitive impairments. She demonstrates the impaired ability to appreciate a situation and its likely consequences, and she demonstrates the impaired ability to manipulate information rationally. She does not appear able to be able to manage her own finances. The issue is that while she may talk a good game, she is unable to appropriately put words into appropriate action due to her executive dysfunction, hence why her self-cares have deteriorated and she has been unable to be compliant with medical directives. Continued medical evaluation to rule out reversible causes for her neurocognitive disorder is recommended, which could include MRI or PET/SPECT to look for correlations with these evaluation results. However as Dr. Pope noted, head imaging was obtained in February and so does not need to be repeated. In terms of her living arrangements once medically stable, it would be my opinion that this patient will require placement in a facility with increased structure, such as an PENITENTIARY at least, and more likely ECF or NH. If she were to return to an independent living situation, she will most certainly return to the hospital within weeks if not days of her discharge. Session Attendance Variance 60 minutes [id number] Dragan Willoughby PhD May 05, 2017 3:23 pm
--- NOTE | 2017-05-05 15:33 | HHI.PYPN ---
Subjective Remarks Patient seen and examined. Chart reviewed. Neuropsychological evaluation noted ; input appreciated. Case discussed with nursing staff. No behavioral issues noted by nursing. On my examination today, patient is oriented to person and location but gives the day of the week is Wednesday. Patient denies issues with mood but does describe a good deal of shame associated with loss of control of bodily functions, particularly of her bowels. Support provided. She denies SI/ HI. Denies AVH. No acute physical complaints. Review of Systems ROS Limitations: Poor Historian Except as stated in HPI: all other systems reviewed are Neg Mental Status Examination Appearance: Disheveled Consciousness: Alert Orientation: Person, Place Motor Activity: Other (No motor abnormalities noted) Speech: Hesitant Language: Other (language fairly unremarkable today) Fund of Knowledge: Inadequate Attention and Concentration: Inadequate Memory: Impaired Mood: Other (Denies issues with mood) Affect: Flat Thought Process & Associations: Other (slowed) Thought Content: Other (some poverty of thought) Hallucination Type: None Delusion Type: None Suicidal Ideation: No Suicidal Plan: No Suicidal Intention: No Homicidal Ideation: No Homicidal Plan: No Homicidal Intention: No Insight: Poor Judgment: Poor Results Labs Date/Time Source Procedure Growth Status 04/27/17 11:50 Stool Stool - Final NO ENTERIC PATHOGENS DETECTED BY PCR... Complete Item Value Date Time Vitamin B12 Level 827 PG/ML 05/03/17 0608 Rapid Plasma Reagin NON-REACTIVE 05/04/17 0705 HIV (1&2) Antibody NEGATIVE 05/04/17 0920 Labs reviewed. Thiamine and folate pending. Vitals/IOs Vital Signs Date Time Temp Pulse Resp B/P (MAP) Pulse Ox O2 Delivery O2 Flow Rate FiO2 05/05/17 12:00 97.7 69 18 142/82 (102) 96 05/04/17 20:00 Room Air 05/03/17 07:29 2.00 Intake and Output 05/05/17 05/05/17 05/06/17 08:00 16:00 00:00 Output Total 900 ml Balance -900 ml Assessment & Plan Problem List: (1) Dementia of frontal lobe type ICD Codes: G31.09 - Other frontotemporal dementia; F02.80 - Dementia in other diseases classified elsewhere without behavioral disturbance Assessment & Plan Neuropsychological testing supportive of FTD. No behavioral disturbance in the setting of probable neurocognitive disorder. Evidence for use of cholinesterase inhibitors and Namenda in FTD is at best mixed, and other agents (SSRIs and antipsychotics, for example) are primarily utilized to control disruptive behaviors in setting of FTD, which patient is not presently exhibiting. I would limit use of medications known to worsen mental status, such as opiates, anticholinergics, antihistamines, and benzos. Follow up outstanding labs. I continue to suspect patient lacks capacity to make medical/ disposition decisions; recommend utilizing HCS. I will plan to follow up as needed, please call or page. Justification for Cont. Inpt. Risk for decompensation in less restrictive environment. Per primary team. David Pope MD May 05, 2017 15:33
[2017-05-05 16:00] VITALS: BP 142/79; PULSE 83; RESP 22; TEMP 97.8; O2SAT 99
--- NOTE | 2017-05-05 18:46 | HHI.PR ---
Subjective Remarks No new complaints. Objective Vitals Vital Signs Date Time Temp Pulse Resp B/P (MAP) Pulse Ox O2 Delivery O2 Flow Rate FiO2 05/05/17 16:00 97.8 83 22 142/79 (100) 99 05/05/17 12:00 97.7 69 18 142/82 (102) 96 05/05/17 08:00 97.7 84 18 142/86 (104) 96 05/05/17 04:00 98.1 79 18 141/94 (110) 98 05/05/17 00:00 98.2 85 18 153/83 (106) 97 05/04/17 20:45 97.2 82 18 142/80 (100) 98 146/85 (105) 05/04/17 20:00 Room Air 05/04/17 20:00 98.3 90 16 150/75 (100) 97 05/05/17 05/05/17 05/06/17 15:00 23:00 07:00 Intake Total 460 ml Balance 460 ml Intake Oral 460 ml # Voids 2 Result Diagram: 05/03/17 0608 05/03/17 0608 Imaging Last Impressions Chest X-Ray 05/01/17 0000 Signed Impressions: Service Date/Time: Monday, May 01, 2017 19:15 - CONCLUSION: Marked underinflation with atelectasis at the lung bases. Otherwise, no acute finding is identified given the technique. Gm Winston MD Objective Remarks GENERAL: This is a well-nourished, well-developed patient, in no apparent distress. CARDIOVASCULAR: Regular rate and rhythm without murmurs, gallops, or rubs. RESPIRATORY: Clear to auscultation. Breath sounds equal bilaterally. No wheezes , rales, or rhonchi. GASTROINTESTINAL: Abdomen soft, non-tender, nondistended. Normal active bowel sounds MUSCULOSKELETAL: Extremities without clubbing, cyanosis, or edema. NEURO: Alert & Oriented 3 but confused at times. MARTIN A/P Problem List: (1) C. difficile diarrhea ICD Codes: A04.72 - Enterocolitis due to Clostridium difficile, not specified as recurrent Status: Acute Plan: - recurrent c.diff colitis. pt failed to complete( says the bottle was childproof). - prior vanco course after d/c with recurrent diarrhea. - Pt readmitted to [place] with celine, dehydration, hypokalemia, and generalized weakness - Pt now tolerating regular diet - PO vancomycin x 14 days - repeat Cdiff negative - pt has been difficult to disposition due to inability to care for self at home and she has no further snf days available. request daily oob/ambulation here with PT in effort to dc home. will call the pharmacy to assure a package that she can open. - Appreciate input from Psychiatry, Dr. Pope. Pt NOT competent at this time. - Pt continues to need help with all ADLs, and can NOT be discharged to home - await input from Neuropsychiatry - request assistance from [facility] for safe discharge. - PT does NOT feel pt can be discharged to home at this time. - DVT prophylaxis. 05/06/17 - still awaiting safe placement arrangements. (2) Dehydration ICD Codes: E86.0 - Dehydration Status: Acute Plan: above (3) Hypokalemia ICD Codes: E87.6 - Hypokalemia Status: Acute Plan: above (4) Diabetes ICD Codes: E11.9 - Type 2 diabetes mellitus without complications Status: Resolved Plan: above (5) Murmur, cardiac ICD Codes: R01.1 - Cardiac murmur, unspecified Status: Chronic Plan: Echocardiogram (03/22/17) Normal left ventricular size. Wall thickness is normal. No regional wall motion abnormalities are present. The left ventricular systolic function is normal with an estimated ejection fraction in the range of 60-65%. Moderate thickening of the aortic valve leaflets. Mild aortic valve stenosis. Aortic valve area is 1.3 cm. Aortic valve meangradient is 22.5 mmHg. There is mild tricuspid valve regurgitation. The estimated pulmonary arterial pressure is 65.1 mmHg. The inferior vena cava was not well visualized. (6) Atypical chest pain ICD Codes: R07.89 - Other chest pain Status: Resolved Plan: - cardiac enzymes negative - no further c/o chest pain. Problem Qualifiers (1) Diabetes: Qualified Codes: E11.8 - Type 2 diabetes mellitus with unspecified complications Joseph Jacome DO May 05, 2017 18:46
[2017-05-05 20:15] VITALS: BP_SYST 129; BP_SYST 138; BP_DIAS 70; BP_DIAS 80; PULSE 86; RESP 17; TEMP 96.6; O2SAT 98
[2017-05-06] VITALS: BP 134/67; PULSE 86; RESP 20; TEMP 96.8; O2SAT 98
[2017-05-06 04:00] VITALS: BP 128/79; PULSE 82; RESP 20; TEMP 97.1; O2SAT 99
[2017-05-06 08:00] VITALS: BP 133/77; PULSE 87; RESP 18; TEMP 97.4; O2SAT 98
[2017-05-06] MEDS: INSULIN ASPART SUPPLEMENTAL SCALE SQ SCH ×4 (08:00→20:46)
[2017-05-06] MEDS: DOCUSATE SODIUM 100 MG CAP PO SCH ×2 (09:00→20:44)
[2017-05-06] MEDS: POTASSIUM CHLORIDE 20 MEQ CONTROLLED RELEASE TAB PO SCH ×2 (09:37→20:46)
[2017-05-06] MEDS: LACTOBACILLUS ACIDOPHILUS TAB PO SCH ×3 (09:37→18:23)
[2017-05-06] MEDS: LISINOPRIL 20 MG TAB PO SCH (09:38)
[2017-05-06] MEDS: PANTOPRAZOLE SOD 40 MG DELAYED RELEASE TAB PO SCH ×2 (09:38→20:46)
[2017-05-06] MEDS: VANCOMYCIN 25 MG/ML SOLN 100 ML BOTTLE PO SCH ×4 (09:39→20:45)
[2017-05-06] MEDS: CHOLESTYRAMINE 4 GM PACKET PO SCH ×2 (09:39→20:46)
[2017-05-06 12:00] VITALS: BP 137/85; PULSE 88; RESP 18; TEMP 97.7; O2SAT 99
[2017-05-06 16:00] VITALS: BP 121/71; PULSE 88; RESP 18; TEMP 97.8; O2SAT 99
--- NOTE | 2017-05-06 16:28 | HHI.PR ---
Subjective Remarks No new complaints. Objective Vitals Vital Signs Date Time Temp Pulse Resp B/P (MAP) Pulse Ox O2 Delivery O2 Flow Rate FiO2 05/06/17 16:00 Room Air 05/06/17 12:00 Room Air 05/06/17 08:00 97.4 87 18 133/77 (95) 98 05/06/17 08:00 Room Air 05/06/17 04:00 97.1 82 20 128/79 (95) 99 05/06/17 00:00 96.8 86 20 134/67 (89) 98 Manual Cuff/Auscultation Automatic Cuff 05/05/17 20:15 96.6 86 17 129/70 (89) 98 138/80 (99) 05/05/17 19:00 Room Air Result Diagram: 05/03/17 0608 05/03/17 0608 Imaging Last Impressions Chest X-Ray 05/01/17 0000 Signed Impressions: Service Date/Time: Monday, May 01, 2017 19:15 - CONCLUSION: Marked underinflation with atelectasis at the lung bases. Otherwise, no acute finding is identified given the technique. Gm Winston MD Objective Remarks GENERAL: This is a well-nourished, well-developed patient, in no apparent distress. CARDIOVASCULAR: Regular rate and rhythm without murmurs, gallops, or rubs. RESPIRATORY: Clear to auscultation. Breath sounds equal bilaterally. No wheezes , rales, or rhonchi. GASTROINTESTINAL: Abdomen soft, non-tender, nondistended. Normal active bowel sounds MUSCULOSKELETAL: Extremities without clubbing, cyanosis, or edema. NEURO: Alert & Oriented 3 but confused at times. MARTIN A/P Problem List: (1) C. difficile diarrhea ICD Codes: A04.72 - Enterocolitis due to Clostridium difficile, not specified as recurrent Status: Acute Plan: - recurrent c.diff colitis. pt failed to complete( says the bottle was childproof). - prior vanco course after d/c with recurrent diarrhea. - Pt readmitted to [place] with celine, dehydration, hypokalemia, and generalized weakness - Pt now tolerating regular diet - PO vancomycin x 14 days - repeat Cdiff negative - pt has been difficult to disposition due to inability to care for self at home and she has no further snf days available. request daily oob/ambulation here with PT in effort to dc home. will call the pharmacy to assure a package that she can open. - Appreciate input from Psychiatry, Dr. Pope. Pt NOT competent at this time. - Pt continues to need help with all ADLs, and can NOT be discharged to home - await input from Neuropsychiatry - request assistance from [facility] for safe discharge. - PT does NOT feel pt can be discharged to home at this time. - DVT prophylaxis. 05/06/17 - still awaiting safe placement arrangements. (2) Dehydration ICD Codes: E86.0 - Dehydration Status: Acute Plan: above (3) Hypokalemia ICD Codes: E87.6 - Hypokalemia Status: Acute Plan: above (4) Diabetes ICD Codes: E11.9 - Type 2 diabetes mellitus without complications Status: Resolved Plan: above (5) Murmur, cardiac ICD Codes: R01.1 - Cardiac murmur, unspecified Status: Chronic Plan: Echocardiogram (03/22/17) Normal left ventricular size. Wall thickness is normal. No regional wall motion abnormalities are present. The left ventricular systolic function is normal with an estimated ejection fraction in the range of 60-65%. Moderate thickening of the aortic valve leaflets. Mild aortic valve stenosis. Aortic valve area is 1.3 cm. Aortic valve meangradient is 22.5 mmHg. There is mild tricuspid valve regurgitation. The estimated pulmonary arterial pressure is 65.1 mmHg. The inferior vena cava was not well visualized. (6) Atypical chest pain ICD Codes: R07.89 - Other chest pain Status: Resolved Plan: - cardiac enzymes negative - no further c/o chest pain. Problem Qualifiers (1) Diabetes: Qualified Codes: E11.8 - Type 2 diabetes mellitus with unspecified complications Joseph Jacome DO May 06, 2017 16:28
[2017-05-06] MEDS: ACETAMINOPHEN/HYDROcodone 325 MG/5 MG TAB PO PRN (18:24)
[2017-05-06 20:00] VITALS: BP 140/73; PULSE 92; RESP 18; TEMP 97.5; O2SAT 98
[2017-05-07] VITALS: BP 127/75; PULSE 78; RESP 20; TEMP 97.7; O2SAT 100
[2017-05-07 04:00] VITALS: BP 137/74; PULSE 76; RESP 20; TEMP 97.5; O2SAT 100
[2017-05-07 08:00] VITALS: BP 127/64; PULSE 93; RESP 18; TEMP 97.6; O2SAT 100
[2017-05-07] MEDS: INSULIN ASPART SUPPLEMENTAL SCALE SQ SCH ×4 (08:00→21:00)
--- NOTE | 2017-05-07 08:24 | HHI.PR ---
Neuropsych Cognitive Cognitive: Mild: Attention/Concentration, Moderate: Cognitive, Memory, Severe: Insight/Awareness, Judgement/Problem-Solving Psychosocial Psychosocial: Intact: Self-Esteem/Confidence, Severe: Psychosocial, Family/ Other Adjustment, Realistic Expectation Progress Notes/Response to Tx Contents of Sessions: Adjustment, Level of Consciousness Time with Patient: 15 minutes Premorbid psychological status See neuropsychological evaluation. Maximizing acute care outcome See neuropsychological evaluation. Anticipated Problems See neuropsychological evaluation. Treatment Plan See neuropsychological evaluation. Diagnosis: (1) Dementia of frontal lobe type Progress Note Narrative Note to Psychiatry and Hospitalist that neuropsychological evaluation was completed on 05/05/2017, but because of [employer] only presents in the section "Other Reports," not under "Notes," in spite of my best efforts to have that corrected. Thank you for the consult. Dragan Willoughby PhD May 07, 2017 8:24 am
[2017-05-07] MEDS: DOCUSATE SODIUM 100 MG CAP PO SCH ×2 (08:31→21:00)
[2017-05-07] MEDS: LISINOPRIL 20 MG TAB PO SCH (08:32)
[2017-05-07] MEDS: POTASSIUM CHLORIDE 20 MEQ CONTROLLED RELEASE TAB PO SCH ×2 (08:32→23:05)
[2017-05-07] MEDS: LACTOBACILLUS ACIDOPHILUS TAB PO SCH ×3 (08:32→17:30)
[2017-05-07] MEDS: PANTOPRAZOLE SOD 40 MG DELAYED RELEASE TAB PO SCH ×2 (08:32→23:04)
[2017-05-07] MEDS: VANCOMYCIN 25 MG/ML SOLN 100 ML BOTTLE PO SCH ×4 (08:33→23:06)
[2017-05-07] MEDS: CHOLESTYRAMINE 4 GM PACKET PO SCH ×2 (08:33→21:00)
[2017-05-07] MEDS: ACETAMINOPHEN/HYDROcodone 325 MG/5 MG TAB PO PRN ×2 (08:40→23:05)
[2017-05-07 12:00] VITALS: BP 129/60; PULSE 78; RESP 18; TEMP 97.9; O2SAT 99
--- NOTE | 2017-05-07 15:41 | HHI.PR ---
Subjective Remarks No complaints at this time Awaiting safe DC Objective Vitals Vital Signs Date Time Temp Pulse Resp B/P (MAP) Pulse Ox O2 Delivery O2 Flow Rate FiO2 05/07/17 08:00 97.6 93 18 127/64 (85) 100 05/07/17 04:00 97.5 76 20 137/74 (95) 100 05/07/17 00:00 97.7 78 20 127/75 (92) 100 05/06/17 20:00 97.5 92 18 140/73 (95) 98 05/06/17 19:00 Room Air 05/06/17 16:00 Room Air 05/06/17 16:00 97.8 88 18 121/71 (88) 99 05/07/17 05/07/17 05/08/17 15:00 23:00 07:00 Intake Total 380 ml Output Total 500 ml Balance -120 ml Intake Oral 380 ml Output Urine Total 500 ml # Bowel Movements 0 Result Diagram: 05/03/17 0608 05/03/17 0608 Imaging Last Impressions Chest X-Ray 05/01/17 0000 Signed Impressions: Service Date/Time: Monday, May 01, 2017 19:15 - CONCLUSION: Marked underinflation with atelectasis at the lung bases. Otherwise, no acute finding is identified given the technique. Gm Winston MD Objective Remarks GENERAL: This is an elderly 72 year old female, in no apparent distress. CARDIOVASCULAR: Regular rate and rhythm with murmur present RESPIRATORY: Clear to auscultation. Breath sounds equal bilaterally. GASTROINTESTINAL: Abdomen soft, non-tender, nondistended. Normal active bowel sounds MUSCULOSKELETAL: Extremities without clubbing, cyanosis, or edema. NEURO: awake and alert A/P Problem List: (1) C. difficile diarrhea ICD Codes: A04.72 - Enterocolitis due to Clostridium difficile, not specified as recurrent Status: Acute Plan: - recurrent c.diff colitis. pt failed to complete( says the bottle was childproof). - prior vanco course after d/c with recurrent diarrhea. - Pt readmitted to [place] with celine, dehydration, hypokalemia, and generalized weakness - Pt now tolerating regular diet - PO vancomycin x 14 days (stop date 05/10/17) - repeat Cdiff negative - pt has been difficult to disposition due to inability to care for self at home and she has no further snf days available. request daily oob/ambulation here with PT in effort to dc home. will call the pharmacy to assure a package that she can open. - Appreciate input from Psychiatry, Dr. Pope. Pt NOT competent at this time. - Pt continues to need help with all ADLs, and can NOT be discharged to home - await input from Neuropsychiatry - request assistance from [facility] for safe discharge. - PT does NOT feel pt can be discharged to home at this time. - Patient evaluated by Dr. Willoughby who is recommending a MRI to evaluation for reversible causes for her neurocognitive disorder - MRI brain requested and pending - DVT prophylaxis. 05/07/17 - still awaiting safe placement arrangements. (2) Dehydration ICD Codes: E86.0 - Dehydration Status: Acute Plan: above (3) Hypokalemia ICD Codes: E87.6 - Hypokalemia Status: Acute Plan: above (4) Diabetes ICD Codes: E11.9 - Type 2 diabetes mellitus without complications Status: Resolved Plan: above (5) Murmur, cardiac ICD Codes: R01.1 - Cardiac murmur, unspecified Status: Chronic Plan: Echocardiogram (03/22/17) Normal left ventricular size. Wall thickness is normal. No regional wall motion abnormalities are present. The left ventricular systolic function is normal with an estimated ejection fraction in the range of 60-65%. Moderate thickening of the aortic valve leaflets. Mild aortic valve stenosis. Aortic valve area is 1.3 cm. Aortic valve meangradient is 22.5 mmHg. There is mild tricuspid valve regurgitation. The estimated pulmonary arterial pressure is 65.1 mmHg. The inferior vena cava was not well visualized. (6) Atypical chest pain ICD Codes: R07.89 - Other chest pain Status: Resolved Plan: - cardiac enzymes negative - no further c/o chest pain. Problem Qualifiers (1) Diabetes: Qualified Codes: E11.8 - Type 2 diabetes mellitus with unspecified complications Princess Mitchell May 07, 2017 15:41
[2017-05-07 16:00] VITALS: BP 120/63; PULSE 95; RESP 18; TEMP 97.6; O2SAT 97
--- NOTE | 2017-05-07 17:23 | HHI.PR ---
Subjective Remarks Patient offers no complaints at this time awaiting safe DC Objective Vitals Vital Signs Date Time Temp Pulse Resp B/P (MAP) Pulse Ox O2 Delivery O2 Flow Rate FiO2 05/07/17 08:00 97.6 93 18 127/64 (85) 100 05/07/17 04:00 97.5 76 20 137/74 (95) 100 05/07/17 00:00 97.7 78 20 127/75 (92) 100 05/06/17 20:00 97.5 92 18 140/73 (95) 98 05/06/17 19:00 Room Air 05/06/17 16:00 Room Air 05/06/17 16:00 97.8 88 18 121/71 (88) 99 05/07/17 05/07/17 05/08/17 15:00 23:00 07:00 Intake Total 380 ml Output Total 500 ml Balance -120 ml Intake Oral 380 ml Output Urine Total 500 ml # Bowel Movements 0 Result Diagram: 05/03/17 0608 05/03/17 0608 Imaging Last Impressions Chest X-Ray 05/01/17 0000 Signed Impressions: Service Date/Time: Monday, May 01, 2017 19:15 - CONCLUSION: Marked underinflation with atelectasis at the lung bases. Otherwise, no acute finding is identified given the technique. Gm Winston MD Objective Remarks GENERAL: This is an elderly 72 year old female, in no apparent distress. CARDIOVASCULAR: Regular rate and rhythm with murmur present RESPIRATORY: Clear to auscultation. Breath sounds equal bilaterally. GASTROINTESTINAL: Abdomen soft, non-tender, nondistended. Normal active bowel sounds MUSCULOSKELETAL: Extremities without clubbing, cyanosis, or edema. NEURO: Awake and alert. Moves all ext x4 A/P Problem List: (1) C. difficile diarrhea ICD Codes: A04.72 - Enterocolitis due to Clostridium difficile, not specified as recurrent Status: Acute Plan: - recurrent c.diff colitis. pt failed to complete( says the bottle was childproof). - prior vanco course after d/c with recurrent diarrhea. - Pt readmitted to [place] with celine, dehydration, hypokalemia, and generalized weakness - Pt now tolerating regular diet - PO vancomycin x 14 days (stop date 05/20/17) - repeat Cdiff negative - pt has been difficult to disposition due to inability to care for self at home and she has no further snf days available. request daily oob/ambulation here with PT in effort to dc home. - Appreciate input from Psychiatry, Dr. Pope. Pt NOT competent at this time. - Pt continues to need help with all ADLs, and can NOT be discharged to home - await input from Neuropsychiatry - request assistance from [facility] for safe discharge. - PT does NOT feel pt can be discharged to home at this time. - DVT prophylaxis. 05/07/17 - still awaiting safe placement arrangements. Patient seen with friend at bedside. Patient and friend very upset that patient has been deemed NOT competent and requesting a new doctor. Discussed with [facility] nurse patient will be assigned to Dr. Alejandro in AM. Dr. Jacome will discuss with Dr. Alejandro in AM. (2) Dehydration ICD Codes: E86.0 - Dehydration Status: Acute Plan: above (3) Hypokalemia ICD Codes: E87.6 - Hypokalemia Status: Acute Plan: above (4) Diabetes ICD Codes: E11.9 - Type 2 diabetes mellitus without complications Status: Resolved Plan: above (5) Murmur, cardiac ICD Codes: R01.1 - Cardiac murmur, unspecified Status: Chronic Plan: Echocardiogram (03/22/17) Normal left ventricular size. Wall thickness is normal. No regional wall motion abnormalities are present. The left ventricular systolic function is normal with an estimated ejection fraction in the range of 60-65%. Moderate thickening of the aortic valve leaflets. Mild aortic valve stenosis. Aortic valve area is 1.3 cm. Aortic valve meangradient is 22.5 mmHg. There is mild tricuspid valve regurgitation. The estimated pulmonary arterial pressure is 65.1 mmHg. The inferior vena cava was not well visualized. (6) Atypical chest pain ICD Codes: R07.89 - Other chest pain Status: Resolved Plan: - cardiac enzymes negative - no further c/o chest pain. Assessment and Plan Patient examined. Assessment and plan formulated with Princess Mitchell PA-C. I agree with the above. Problem Qualifiers (1) Diabetes: Qualified Codes: E11.8 - Type 2 diabetes mellitus with unspecified complications Princess Mitchell May 07, 2017 16:23 Joseph Jacome DO May 10, 2017 11:42
--- NOTE | 2017-05-07 19:59 | RADRPT ---
EXAM DATE/TIME: 05/07/2017 19:21 [place] COMPARISON: No previous studies available for comparison. INDICATIONS : Altered mental status. MEDICAL HISTORY : Hypertension. Diabetes mellitus type 2. Cardiovascular disease. SURGICAL HISTORY : Hysterectomy. Fusion, cervical. Cholecystectomy. ENCOUNTER: Initial ACUITY: 1 day PAIN SCORE: 0/10 LOCATION: cranial TECHNIQUE: Multiplanar, multisequence MRI of the brain was performed without contrast. FINDINGS: There is a faint area of hyperintensity on the diffusion weighted images within the right posterior h igh parietal cortex suggestive of possible very small subacute cortical infarct. Clinical correlation is recommended. Mild periventricular and subcortical white matter small vessel ischemic changes are noted bilaterally. There is a focal area of encephalomalacia involving the right occipital lobe consi stent with old infarct. No midline shift or acute hemorrhage is noted. No extra-axial fluid collectio ns are noted. There is an old lacunar infarct within the left thalamus. CONCLUSION: 1. Faint area of hyperintensity on the diffusion weighted images within the right posterior high abdoulaye etal cortex suggestive of possible very small subacute cortical infarct. Clinical correlation is beth mmended. 2. Mild periventricular and subcortical white matter small vessel ischemic changes bilaterally. 3. 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 4. Old right occipital infarct. 5. No acute hemorrhage, midline shift or extra-axial fluid collections. Bashir Cordova MD on May 07, 2017 at 19:51 Board Certified Radiologist. This report was verified electronically.
[2017-05-07 20:00] VITALS: BP 133/65; PULSE 86; RESP 18; TEMP 98.6; O2SAT 98
[2017-05-08 00:30] VITALS: BP 133/68; PULSE 75; RESP 18; TEMP 97.3; O2SAT 100
[2017-05-08 04:00] VITALS: BP 128/79; PULSE 75; RESP 20; TEMP 97.7; O2SAT 97
[2017-05-08 08:00] VITALS: BP 134/61; PULSE 78; RESP 22; TEMP 98.2; O2SAT 100
[2017-05-08] MEDS: INSULIN ASPART SUPPLEMENTAL SCALE SQ SCH ×4 (08:00→20:44)
[2017-05-08 08:49] LABS: AUTOMATED NEUTROPHIL # 2.6 TH/MM3 (1.8-7.7); BASOPHIL # 0.1 TH/MM3 (0-0.2); BASOPHIL % 1.3 % (0.0-2.0); EOSINOPHIL # 0.2 TH/MM3 (0-0.4); EOSINOPHIL % 4.3 % (0.0-4.0); HEMATOCRIT 37.6 % (35.0-46.0); HEMOGLOBIN 12.6 GM/DL (11.6-15.3); LYMPHOCYTE # 2.4 TH/MM3 (1.0-4.8); MEAN CELL VOLUME 86.8 FL (80.0-100.0); MEAN CORPUSCULAR HEMOGLOBIN 29.1 PG (27.0-34.0); MEAN CORPUSCULAR HGB CONC 33.5 % (32.0-36.0); MEAN PLATELET VOLUME 6.9 FL (7.0-11.0); MONO % 8.3 % (0.0-8.0); MONOCYTE # 0.5 TH/MM3 (0-0.9); NEUT % 45.1 % (16.0-70.0); PLATELET COUNT 289 TH/MM3 (150-450); RED BLOOD COUNT 4.33 MIL/MM3 (4.00-5.30); RED CELL DISTRIBUTION WIDTH 15.2 % (11.6-17.2); WHITE BLOOD COUNT 5.8 TH/MM3 (4.0-11.0)
[2017-05-08] MEDS: CHOLESTYRAMINE 4 GM PACKET PO SCH ×2 (09:00→20:45)
[2017-05-08] MEDS: DOCUSATE SODIUM 100 MG CAP PO SCH ×2 (09:00→20:43)
[2017-05-08] MEDS: VANCOMYCIN 25 MG/ML SOLN 100 ML BOTTLE PO SCH ×4 (09:00→20:44)
[2017-05-08] MEDS: LISINOPRIL 20 MG TAB PO SCH (09:02)
[2017-05-08] MEDS: LACTOBACILLUS ACIDOPHILUS TAB PO SCH ×3 (09:02→18:10)
[2017-05-08] MEDS: PANTOPRAZOLE SOD 40 MG DELAYED RELEASE TAB PO SCH ×2 (09:02→20:43)
[2017-05-08 09:05] LABS: BICARBONATE 28.4 MEQ/L (21.0-32.0); CREATININE 0.86 MG/DL (0.50-1.00)
[2017-05-08] MEDS: ACETAMINOPHEN/HYDROcodone 325 MG/5 MG TAB PO PRN (10:12)
[2017-05-08 12:00] VITALS: BP 140/92; PULSE 90; RESP 22; TEMP 98.2; O2SAT 97
--- NOTE | 2017-05-08 14:12 | HHI.PR ---
Subjective Remarks Follow up for C. Diff colitis, PAULINO, Diabetes. Patient is currently doing well. Sitting in her chair. Friend is at bedside. No fever, chills. Her diarrhea is improving. She has soft stool but not diarrhea. Objective Vitals Vital Signs Date Time Temp Pulse Resp B/P (MAP) Pulse Ox O2 Delivery O2 Flow Rate FiO2 05/08/17 12:00 98.2 90 22 140/92 (108) 97 05/08/17 08:00 98.2 78 22 134/61 (85) 100 05/08/17 04:00 97.7 75 20 128/79 (95) 97 05/08/17 00:30 97.3 75 18 133/68 (89) 100 05/08/17 00:00 Room Air 05/07/17 20:00 Room Air 05/07/17 20:00 98.6 86 18 133/65 (87) 98 05/07/17 16:00 97.6 95 18 120/63 (82) 97 I/O 05/07/17 05/07/17 05/07/17 05/08/17 05/08/17 05/08/17 07:00 15:00 23:00 07:00 15:00 23:00 Intake Total 380 ml 600 ml 240 ml Output Total 500 ml Balance -120 ml 600 ml 240 ml Intake Oral 380 ml 600 ml 240 ml Output Urine Total 500 ml # Voids 2 1 # Bowel Movements 0 1 Result Diagram: 05/08/17 0820 05/08/17 0820 Imaging Last Impressions Brain MRI 05/07/17 0000 Signed Impressions: Service Date/Time: Sunday, May 07, 2017 19:21 - CONCLUSION: 1. Faint area of hyperintensity on the diffusion weighted images within the right posterior high parietal cortex suggestive of possible very small subacute cortical infarct. Clinical correlation is recommended. 2. Mild periventricular and subcortical white matter small vessel ischemic changes bilaterally. 3. 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 4. Old right occipital infarct. 5. No acute hemorrhage, midline shift or extra-axial fluid collections. Bashir Cordova MD Chest X-Ray 05/01/17 0000 Signed Impressions: Service Date/Time: Monday, May 01, 2017 19:15 - CONCLUSION: Marked underinflation with atelectasis at the lung bases. Otherwise, no acute finding is identified given the technique. Gm Winston MD Objective Remarks GENERAL: Alert, oriented 3, NAD. Knows the name of the current [place] president, Nikolas Amezquita. SKIN: Warm and dry. HEAD: Normocephalic. EYES: No scleral icterus. No injection or drainage. NECK: Supple, trachea midline. No JVD or lymphadenopathy. CARDIOVASCULAR: Regular rate and rhythm without murmurs, gallops, or rubs. RESPIRATORY: Breath sounds equal bilaterally. No accessory muscle use. GASTROINTESTINAL: Abdomen soft, non-tender, nondistended. MUSCULOSKELETAL: No cyanosis, or edema. BACK: Nontender without obvious deformity. No CVA tenderness. Procedures None A/P Problem List: (1) C. difficile diarrhea ICD Code: A04.72 - Enterocolitis due to Clostridium difficile, not specified as recurrent Status: Acute (2) Dehydration ICD Code: E86.0 - Dehydration Status: Acute (3) Hypokalemia ICD Code: E87.6 - Hypokalemia Status: Acute (4) Diabetes ICD Code: E11.9 - Type 2 diabetes mellitus without complications Status: Resolved (5) Murmur, cardiac ICD Code: R01.1 - Cardiac murmur, unspecified Status: Chronic (6) Atypical chest pain ICD Code: R07.89 - Other chest pain Status: Resolved Assessment and Plan Ms. Valadez is a 72-year-old female with a history of hypertension, diabetes mellitus, hyperlipidemia and previous episodes of C. difficile colitis who was brought to the emergency department on 04/25/2017 due to multiple episodes of diarrhea. She complained of lower abdominal pain as well. On the day of admission her WBC count was 13.8 K, BUN 48 creatinine 3.09 with estimated GFR 15. Patient was being taken care [facility] by [facility]. We are requested to follow this patient from 05/08/2017. 05/08/2017: I had a long conversation with patient and her friend. It appears that before she had C. difficile colitis in February 2017, patient was very functional. She was doing her own groceries, driving, paying bills etc. Since she has had C. difficile colitis, it has never really resolved. This has significantly affected her quality of life. At no point I thought that the patient is confused or has any problem making coherent speech. Patient runs a normal conversation and reasonable. At this point, I DO believe that the patient has capacity to make medical decisions. Her friend informed me that patient's place has been cleaned up. Patient has a friend who helps her at home. However given her hospitalization and current C. difficile colitis, patient would like to go to rehab if arranged. Again I do not see a single evidence of incapacity to make medical decision. -Recurrent C. difficile colitis -Patient is currently on vancomycin 125 mg 4 times daily, started 04/26/2017. -Given patient's initial presentation with leukocytosis and AK I as well as recurrent C. difficile colitis, will provide tapered course of vancomycin. -I also advised patient to follow-up with infectious disease doctor in the outpatient setting in a week or 2 during the course of this treatment. -Patient is currently if symptomatic, AK I resolved, diarrhea improved. Will continue vancomycin. Vancomycin taper will be as follows: -Vancomycin 125 mg p.o. 4 times daily for 2 more days to make it 14 days then -125 mg p.o. twice daily for 7 days then daily for 7 days then q. other day for 7 days then every 3 days for 14 days. -Continue Lactinex during the final week of Vancomycin and continue two weeks after Vancomycin is done. -Diabetes mellitus -Hypertension -Continue lisinopril 20 mg daily, sliding scale insulin. Blood glucose is within reasonable range. Goal blood work was 140-180 while in hospital -Now that patient's creatinine is improved, we could consider metformin although it may cause GI symptoms. -Patient was on metformin 500 mg twice daily. We can restart that upon discharge. - Acute kidney injury -Creatinine on presentation 3.09 on 04/25/2017. Improved to 0.86 on 05/08/2017. -Avoid nephrotoxic medications. Full code. SCDs. Problem Qualifiers (1) Diabetes: Qualified Codes: E11.8 - Type 2 diabetes mellitus with unspecified complications Tim Alejandro DO May 08, 2017 14:12
[2017-05-08] MEDS ORDERED: LACTCHW3 CHEW (14:24)
[2017-05-08] MEDS ORDERED: LISI-515 PO (14:24)
[2017-05-08] MEDS ORDERED: HYDR-3516 PO (14:24)
[2017-05-08] MEDS ORDERED: VANC125C3 PO (14:24)
--- NOTE | 2017-05-08 14:26 | HHI.DS ---
Discharge Summary Admission Date Apr 26, 2017 at 09:04 Discharge Date: May 08, 2017 Admitting Diagnosis PAULINO, diarrhea (1) C. difficile diarrhea ICD Code: A04.72 - Enterocolitis due to Clostridium difficile, not specified as recurrent Status: Acute (2) Dehydration ICD Code: E86.0 - Dehydration Status: Acute (3) Hypokalemia ICD Code: E87.6 - Hypokalemia Status: Acute (4) Diabetes ICD Code: E11.9 - Type 2 diabetes mellitus without complications Status: Resolved (5) Murmur, cardiac ICD Code: R01.1 - Cardiac murmur, unspecified Status: Chronic (6) Atypical chest pain ICD Code: R07.89 - Other chest pain Status: Resolved Procedures None CBC/BMP: 05/08/17 0820 05/08/17 0820 Significant Findings Laboratory Tests Test 05/08/17 08:20 Mean Platelet Volume 6.9 FL (7.0-11.0) Monocytes (%) (Auto) 8.3 % (0.0-8.0) Eosinophils (%) (Auto) 4.3 % (0.0-4.0) Blood Urea Nitrogen 24 MG/DL (7-18) Estimat Glomerular Filtration Rate 65 ML/MIN (>89) PE at Discharge GENERAL: Alert, oriented 3, NAD. Knows the name of the current [place] president, Nikolas Amezquita. SKIN: Warm and dry. HEAD: Normocephalic. EYES: No scleral icterus. No injection or drainage. NECK: Supple, trachea midline. No JVD or lymphadenopathy. CARDIOVASCULAR: Regular rate and rhythm without murmurs, gallops, or rubs. RESPIRATORY: Breath sounds equal bilaterally. No accessory muscle use. GASTROINTESTINAL: Abdomen soft, non-tender, nondistended. MUSCULOSKELETAL: No cyanosis, or edema. BACK: Nontender without obvious deformity. No CVA tenderness. Pt update on day of discharge Follow up for C. Diff colitis, PAULINO, Diabetes. Patient is currently doing well. Sitting in her chair. Friend is at bedside. No fever, chills. Her diarrhea is improving. She has soft stool but not diarrhea. Hospital Course Ms. Valadez is a 72-year-old female with a history of hypertension, diabetes mellitus, hyperlipidemia and previous episodes of C. difficile colitis who was brought to the emergency department on 04/25/2017 due to multiple episodes of diarrhea. She complained of lower abdominal pain as well. On the day of admission her WBC count was 13.8 K, BUN 48 creatinine 3.09 with estimated GFR 15. [facility]. We are requested to follow this patient from 05/08/2017. 05/08/2017: I had a long conversation with patient and her friend. It appears that before she had C. difficile colitis in February 2017, patient was very functional. She was doing her own groceries, driving, paying bills etc. Since she has had C. difficile colitis, it has never really resolved. This has significantly affected her quality of life. At no point I thought that the patient is confused or has any problem making coherent speech. Patient runs a normal conversation and reasonable. At this point, I DO believe that the patient has capacity to make medical decisions. Her friend informed me that patient's place has been cleaned up. Patient has a friend who helps her at home. However given her hospitalization and current C. difficile colitis, patient would like to go to rehab if arranged. Again I do not see a single evidence of incapacity to make medical decision. -Recurrent C. difficile colitis -Patient is currently on vancomycin 125 mg 4 times daily, started 04/26/2017. -Given patient's initial presentation with leukocytosis and AK I as well as recurrent C. difficile colitis, will provide tapered course of vancomycin. -I also advised patient to follow-up with infectious disease doctor in the outpatient setting in a week or 2 during the course of this treatment. -Patient is currently if symptomatic, AK I resolved, diarrhea improved. Will continue vancomycin. Vancomycin taper will be as follows: -Vancomycin 125 mg p.o. 4 times daily for 2 more days to make it 14 days then -125 mg p.o. twice daily for 7 days then daily for 7 days then q. other day for 7 days then every 3 days for 14 days. -Continue Lactinex during the final week of Vancomycin and continue two weeks after Vancomycin is done. -Diabetes mellitus -Hypertension -Continue lisinopril 20 mg daily, sliding scale insulin. Blood glucose is within reasonable range. Goal blood work was 140-180 while in hospital -Now that patient's creatinine is improved, we could consider metformin although it may cause GI symptoms. -Patient was on metformin 500 mg twice daily. We can restart that upon discharge. - Acute kidney injury -Creatinine on presentation 3.09 on 04/25/2017. Improved to 0.86 on 05/08/2017. -Avoid nephrotoxic medications. Full code. SCDs. Pt Condition on Discharge: Good Discharge Disposition: Discharge to SNF Discharge Time: > 30 minutes Discharge Instructions DIET: Follow Instructions for: As Tolerated, No Restrictions Activities you can perform: Regular-No Restrictions Follow up Referrals: Infectious Disease - 3 Weeks with Roseanne Oneal MD New Medications: Lactobacillus Acidophilus (Lactinex) 1 Chew 1 TAB CHEW TID for Nutritional Supplement, #62 TAB 0 Refills START during the last week of Vancomycin and Continue for two additional weeks. Vancomycin (Vancomycin) 125 Mg Cap 125 MG PO QID for Infection, #40 CAP 0 Refills Vancomycin 125mg QID X 2 days = 8 doses THEN 125mg BID X 7 days = 14 doses THEN 125mg QDAY X 7 days = 7 doses THEN 125mg every other day for 7 days = 4 doses THEN 125mg Every 3 days for 14 days = 5 doses THEN STOP. Lisinopril (Lisinopril) 20 Mg Tab 20 MG PO DAILY for Blood Pressure Management, #90 TAB Continued Medications: Hydrocodone/Acetaminophen (Hydrocodone-Acetamin 5-325 mg) 5 Mg-325 Mg Tablet 1 TAB PO Q6H PRN for pain, #20 TAB 0 Refills (This prescription has been renewed ) Metformin (Metformin) 500 Mg Tab 500 MG PO BIDPC for Blood Sugar Management, #60 TAB 0 Refills With breakfast and lunch Discontinued Medications: Amlodipine (Amlodipine) 10 Mg Tab 10 MG PO DAILY for Blood Pressure Management, #30 TAB 0 Refills Lactobacillus Acidophilus (Acidophilus/l-Sporogenes) 35 Million Cell-25 Million Cell Tab 1 TAB PO TID for infection, #30 TAB Lisinopril (Lisinopril) 10 Mg Tab 10 MG PO DAILY, #30 TAB 0 Refills Metformin (Metformin) 500 Mg Tab 1000 MG PO DAILY for Blood Sugar Management, #30 TAB 0 Refills With evening meal Vancomycin Inj (Vancomycin Inj) 500 Mg Inj 125 MG PO QID for antibiotic, C Diff for 7 Days, INJECTION 0 Refills Tim Alejandro DO May 08, 2017 14:26
[2017-05-08 16:00] VITALS: BP 116/58; PULSE 90; RESP 22; TEMP 98.3; O2SAT 99
[2017-05-08 20:00] VITALS: BP 134/62; PULSE 81; RESP 18; TEMP 98.1; O2SAT 95
[2017-05-09] VITALS: BP 125/58; PULSE 81; RESP 19; TEMP 98; O2SAT 98
[2017-05-09] MEDS: ACETAMINOPHEN/HYDROcodone 325 MG/5 MG TAB PO PRN ×2 (03:37→20:33)
[2017-05-09 04:00] VITALS: BP 141/70; PULSE 74; RESP 20; TEMP 97.6; O2SAT 94
[2017-05-09 08:00] VITALS: BP 125/71; PULSE 78; RESP 22; TEMP 97.2; O2SAT 98
[2017-05-09] MEDS: INSULIN ASPART SUPPLEMENTAL SCALE SQ SCH ×4 (08:00→21:00)
[2017-05-09] MEDS: PANTOPRAZOLE SOD 40 MG DELAYED RELEASE TAB PO SCH ×2 (09:00→20:33)
[2017-05-09] MEDS: LACTOBACILLUS ACIDOPHILUS TAB PO SCH ×3 (09:00→18:00)
[2017-05-09] MEDS: CHOLESTYRAMINE 4 GM PACKET PO SCH ×2 (09:00→20:33)
[2017-05-09] MEDS: VANCOMYCIN 25 MG/ML SOLN 100 ML BOTTLE PO SCH ×4 (09:00→20:32)
[2017-05-09] MEDS: DOCUSATE SODIUM 100 MG CAP PO SCH ×2 (09:00→20:32)
[2017-05-09] MEDS: LISINOPRIL 20 MG TAB PO SCH (09:00)
[2017-05-09 12:00] VITALS: BP 128/69; PULSE 99; RESP 22; TEMP 98.5; O2SAT 98
--- NOTE | 2017-05-09 13:14 | HHI.PR ---
Subjective Remarks Follow up for C. Diff colitis, PAULINO, Diabetes. Patient is sitting in the chair. Doing well. No acute concerns. No fever or chills. Objective Vitals Vital Signs Date Time Temp Pulse Resp B/P (MAP) Pulse Ox O2 Delivery O2 Flow Rate FiO2 05/09/17 12:00 98.5 99 22 128/69 (88) 98 05/09/17 08:00 97.2 78 22 125/71 (89) 98 05/09/17 08:00 96 Room Air 05/09/17 04:00 Room Air 05/09/17 04:00 97.6 74 20 141/70 (93) 94 05/09/17 00:00 Room Air 05/09/17 00:00 98.0 81 19 125/58 (80) 98 05/08/17 20:00 Room Air 05/08/17 20:00 98.1 81 18 134/62 (86) 95 05/08/17 16:00 98.3 90 22 116/58 (77) 99 I/O 05/08/17 05/08/17 05/08/17 05/09/17 05/09/17 05/09/17 07:00 15:00 23:00 07:00 15:00 23:00 Intake Total 240 ml 720 ml 480 ml Balance 240 ml 720 ml 480 ml Intake Oral 240 ml 720 ml 480 ml # Voids 1 2 5 # Bowel Movements 1 2 Result Diagram: 05/08/17 0820 05/08/17 0820 Imaging Last Impressions Brain MRI 05/07/17 0000 Signed Impressions: Service Date/Time: Sunday, May 07, 2017 19:21 - CONCLUSION: 1. Faint area of hyperintensity on the diffusion weighted images within the right posterior high parietal cortex suggestive of possible very small subacute cortical infarct. Clinical correlation is recommended. 2. Mild periventricular and subcortical white matter small vessel ischemic changes bilaterally. 3. 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 4. Old right occipital infarct. 5. No acute hemorrhage, midline shift or extra-axial fluid collections. Bashir Cordova MD Chest X-Ray 05/01/17 0000 Signed Impressions: Service Date/Time: Monday, May 01, 2017 19:15 - CONCLUSION: Marked underinflation with atelectasis at the lung bases. Otherwise, no acute finding is identified given the technique. Gm Winston MD Objective Remarks GENERAL: Alert, oriented 3, NAD. Knows the name of the current [place] president, Nikolas Amezquita. SKIN: Warm and dry. HEAD: Normocephalic. EYES: No scleral icterus. No injection or drainage. NECK: Supple, trachea midline. No JVD or lymphadenopathy. CARDIOVASCULAR: Regular rate and rhythm without murmurs, gallops, or rubs. RESPIRATORY: Breath sounds equal bilaterally. No accessory muscle use. GASTROINTESTINAL: Abdomen soft, non-tender, nondistended. MUSCULOSKELETAL: No cyanosis, or edema. BACK: Nontender without obvious deformity. No CVA tenderness. Procedures None A/P Problem List: (1) C. difficile diarrhea ICD Code: A04.72 - Enterocolitis due to Clostridium difficile, not specified as recurrent Status: Acute (2) Dehydration ICD Code: E86.0 - Dehydration Status: Acute (3) Hypokalemia ICD Code: E87.6 - Hypokalemia Status: Acute (4) Diabetes ICD Code: E11.9 - Type 2 diabetes mellitus without complications Status: Resolved (5) Murmur, cardiac ICD Code: R01.1 - Cardiac murmur, unspecified Status: Chronic (6) Atypical chest pain ICD Code: R07.89 - Other chest pain Status: Resolved Assessment and Plan Ms. Valadez is a 72-year-old female with a history of hypertension, diabetes mellitus, hyperlipidemia and previous episodes of C. difficile colitis who was brought to the emergency department on 04/25/2017 due to multiple episodes of diarrhea. She complained of lower abdominal pain as well. On the day of admission her WBC count was 13.8 K, BUN 48 creatinine 3.09 with estimated GFR 15. [facility]. We are requested to follow this patient from 05/08/2017. 05/08/2017: I had a long conversation with patient and her friend. It appears that before she had C. difficile colitis in February 2017, patient was very functional. She was doing her own groceries, driving, paying bills etc. Since she has had C. difficile colitis, it has never really resolved. This has significantly affected her quality of life. At no point I thought that the patient is confused or has any problem making coherent speech. Patient runs a normal conversation and reasonable. At this point, I DO believe that the patient has capacity to make medical decisions. Her friend informed me that patient's place has been cleaned up. Patient has a friend who helps her at home. However given her hospitalization and current C. difficile colitis, patient would like to go to rehab if arranged. Again I do not see a single evidence of incapacity to make medical decision. 05/09/2017: Patient was scheduled to be discharged to [facility] today. However discharge was postponed due to the fact that previous physician providers as well as neuropsychologist determined that patient does not have capacity. I discussed with [facility] billing customer service representative. I restated my opinion that patient is alert, oriented, coherent in her thought process. She has capacity to make medical decisions. However with regards to have decision capability in terms of financial matters or legal matters -that is beyond scope of my is a physician. It should be noted that before February 2017 when patient started having C. difficile colitis, patient was living on her own, driving to grocery and other places. This obviously indicates that she was functioning well independently. -Recurrent C. difficile colitis -Patient is currently on vancomycin 125 mg 4 times daily, started 04/26/2017. -Given patient's initial presentation with leukocytosis and AK I as well as recurrent C. difficile colitis, will provide tapered course of vancomycin. -I also advised patient to follow-up with infectious disease doctor in the outpatient setting in a week or 2 during the course of this treatment. -Patient is currently if symptomatic, AK I resolved, diarrhea improved. Will continue vancomycin. Vancomycin taper will be as follows: -Vancomycin 125 mg p.o. 4 times daily for 2 more days to make it 14 days then -125 mg p.o. twice daily for 7 days then daily for 7 days then q. other day for 7 days then every 3 days for 14 days. -Continue Lactinex during the final week of Vancomycin and continue two weeks after Vancomycin is done. -Diabetes mellitus -Hypertension -Continue lisinopril 20 mg daily, sliding scale insulin. Blood glucose is within reasonable range. Goal blood work was 140-180 while in hospital -Now that patient's creatinine is improved, we could consider metformin although it may cause GI symptoms. -Patient was on metformin 500 mg twice daily. We can restart that upon discharge. - Acute kidney injury -Creatinine on presentation 3.09 on 04/25/2017. Improved to 0.86 on 05/08/2017. -Avoid nephrotoxic medications. -We will request a second opinion from his psychiatrist regarding patient's capacity. If necessary we will discuss with legal department. Full code. SCDs. Problem Qualifiers (1) Diabetes: Qualified Codes: E11.8 - Type 2 diabetes mellitus with unspecified complications Tim Alejandro DO May 09, 2017 1:14 pm
[2017-05-09 16:00] VITALS: BP 133/63; PULSE 86; RESP 22; TEMP 98.3; O2SAT 98
[2017-05-09 20:00] VITALS: BP 136/65; PULSE 94; RESP 16; TEMP 98.2; O2SAT 98
[2017-05-10 00:13] VITALS: BP 149/71; PULSE 87; RESP 16; TEMP 98; O2SAT 98
[2017-05-10 03:50] VITALS: BP 122/59; PULSE 70; RESP 14; TEMP 98.2; O2SAT 99
[2017-05-10] MEDS: ACETAMINOPHEN/HYDROcodone 325 MG/5 MG TAB PO PRN (06:00)
[2017-05-10] MEDS: INSULIN ASPART SUPPLEMENTAL SCALE SQ SCH ×3 (07:49→17:00)
[2017-05-10 08:00] VITALS: BP 133/64; PULSE 77; RESP 18; TEMP 97.4; O2SAT 98
[2017-05-10] MEDS: DOCUSATE SODIUM 100 MG CAP PO SCH (09:00)
--- NOTE | 2017-05-10 10:44 | HHI.PYPN ---
Subjective Remarks The patient was seen today for psychiatric reevaluation. Chart was reviewed. The patient reports good mood, she said that she is very positive about her health and her future in general. She denies depressive symptoms, she denies anhedonia, she denies hopelessness, helplessness, she denies suicidal and homicidal ideation. She describes herself as a very spiritual and Hoahaoism person. The patient is fully oriented 3, aware of the reason of her hospitalization, verbalizes a good appreciation and understanding of current medical situation, she is insightful about her medical problem, committed to continue medical treatment and recommendations. The patient doesn't seem to have any gross cognitive impairment at this moment. Mental Status Examination Appearance: Appropriate Consciousness: Alert Orientation: x4 Motor Activity: Other (No motor abnormalities noted) Speech: Unremarkable Fund of Knowledge: Adequate Attention and Concentration: Adequate Memory: Unremarkable Mood: Appropriate Affect: Appropriate Thought Process & Associations: Intact Thought Content: Appropriate Hallucination Type: None Delusion Type: None Suicidal Ideation: No Suicidal Plan: No Suicidal Intention: No Homicidal Ideation: No Homicidal Plan: No Homicidal Intention: No Insight: Fair Judgment: Impulsive Results Labs Date/Time Source Procedure Growth Status 04/27/17 11:50 Stool Stool - Final NO ENTERIC PATHOGENS DETECTED BY PCR... Complete Vitals/IOs Vital Signs Date Time Temp Pulse Resp B/P (MAP) Pulse Ox O2 Delivery O2 Flow Rate FiO2 05/10/17 08:00 97.4 77 18 133/64 (87) 98 05/10/17 04:00 Room Air Intake and Output 05/10/17 05/10/17 05/11/17 08:00 16:00 00:00 Output Total 200 ml Balance -200 ml Assessment & Plan Problem List: (1) Dementia of frontal lobe type ICD Codes: G31.09 - Other frontotemporal dementia; F02.80 - Dementia in other diseases classified elsewhere without behavioral disturbance Assessment & Plan: At this moment the patient does not present any neuropsychiatric symptoms are recorded and immediate psychiatric attention or intervention. She does not meet criteria for psychiatric hospitalization. Patient is fully oriented 3, demonstrated good insight about her medical problems, motivated to follow recommendations, aware of the nature of her medical conditions. Patient definitely has decision-making capacity to participate in discharge plan at this moment. Continue current psychotropics prescribed might collect Dr. Pope. Assessment & Plan Estimated LOS: days Justification for Cont. Inpt. No psychiatric hospitalizations indicated at this moment. Adam Noonan MD May 10, 2017 10:44
[2017-05-10] MEDS: LACTOBACILLUS ACIDOPHILUS TAB PO SCH ×3 (11:03→18:04)
[2017-05-10] MEDS: PANTOPRAZOLE SOD 40 MG DELAYED RELEASE TAB PO SCH (11:03)
[2017-05-10] MEDS: LISINOPRIL 20 MG TAB PO SCH (11:03)
[2017-05-10] MEDS: CHOLESTYRAMINE 4 GM PACKET PO SCH (11:03)
[2017-05-10] MEDS: VANCOMYCIN 25 MG/ML SOLN 100 ML BOTTLE PO SCH ×3 (11:03→18:05)
[2017-05-10 12:00] VITALS: BP 145/81; PULSE 79; RESP 18; TEMP 98.3; O2SAT 94
--- NOTE | 2017-05-10 12:52 | HHI.PR ---
Subjective Remarks Follow up for C. Diff colitis, PAULINO, Diabetes. Currently doing well. No acute concerns. She wants to go to rehab. No fever or chills. Objective Vitals Vital Signs Date Time Temp Pulse Resp B/P (MAP) Pulse Ox O2 Delivery O2 Flow Rate FiO2 05/10/17 12:00 98.3 79 18 145/81 (102) 94 05/10/17 08:00 97.4 77 18 133/64 (87) 98 05/10/17 04:00 Room Air 05/10/17 03:50 98.2 70 14 122/59 (80) 99 05/10/17 00:13 98.0 87 16 149/71 (97) 98 05/10/17 00:00 Room Air 05/09/17 20:00 98.2 94 16 136/65 (88) 98 05/09/17 20:00 Room Air 05/09/17 16:00 98.3 86 22 133/63 (86) 98 I/O 05/09/17 05/09/17 05/09/17 05/10/17 05/10/17 05/10/17 07:00 15:00 23:00 07:00 15:00 23:00 Intake Total 480 ml 720 ml Output Total 200 ml Balance 480 ml 720 ml -200 ml Intake Oral 480 ml 720 ml Output Urine Total 200 ml # Voids 5 6 3 # Bowel Movements 2 2 1 Result Diagram: 05/08/17 0820 05/08/17 0820 Imaging Last Impressions Brain MRI 05/07/17 0000 Signed Impressions: Service Date/Time: Sunday, May 07, 2017 19:21 - CONCLUSION: 1. Faint area of hyperintensity on the diffusion weighted images within the right posterior high parietal cortex suggestive of possible very small subacute cortical infarct. Clinical correlation is recommended. 2. Mild periventricular and subcortical white matter small vessel ischemic changes bilaterally. 3. 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 4. Old right occipital infarct. 5. No acute hemorrhage, midline shift or extra-axial fluid collections. Bashir Cordova MD Chest X-Ray 05/01/17 0000 Signed Impressions: Service Date/Time: Monday, May 01, 2017 19:15 - CONCLUSION: Marked underinflation with atelectasis at the lung bases. Otherwise, no acute finding is identified given the technique. Gm Winston MD Objective Remarks GENERAL: Alert, oriented 3, NAD. Knows the name of the current [place] president, Nikolas Amezquita. SKIN: Warm and dry. HEAD: Normocephalic. EYES: No scleral icterus. No injection or drainage. NECK: Supple, trachea midline. No JVD or lymphadenopathy. CARDIOVASCULAR: Regular rate and rhythm without murmurs, gallops, or rubs. RESPIRATORY: Breath sounds equal bilaterally. No accessory muscle use. GASTROINTESTINAL: Abdomen soft, non-tender, nondistended. MUSCULOSKELETAL: No cyanosis, or edema. BACK: Nontender without obvious deformity. No CVA tenderness. Procedures None A/P Problem List: (1) C. difficile diarrhea ICD Code: A04.72 - Enterocolitis due to Clostridium difficile, not specified as recurrent Status: Acute (2) Dehydration ICD Code: E86.0 - Dehydration Status: Acute (3) Hypokalemia ICD Code: E87.6 - Hypokalemia Status: Acute (4) Diabetes ICD Code: E11.9 - Type 2 diabetes mellitus without complications Status: Resolved (5) Murmur, cardiac ICD Code: R01.1 - Cardiac murmur, unspecified Status: Chronic (6) Atypical chest pain ICD Code: R07.89 - Other chest pain Status: Resolved Assessment and Plan Ms. Valadez is a 72-year-old female with a history of hypertension, diabetes mellitus, hyperlipidemia and previous episodes of C. difficile colitis who was brought to the emergency department on 04/25/2017 due to multiple episodes of diarrhea. She complained of lower abdominal pain as well. On the day of admission her WBC count was 13.8 K, BUN 48 creatinine 3.09 with estimated GFR 15. [facility]. [facility] are requested to follow this patient from 05/08/2017. 05/08/2017: I had a long conversation with patient and her friend. It appears that before she had C. difficile colitis in February 2017, patient was very functional. She was doing her own groceries, driving, paying bills etc. Since she has had C. difficile colitis, it has never really resolved. This has significantly affected her quality of life. At no point I thought that the patient is confused or has any problem making coherent speech. Patient runs a normal conversation and reasonable. At this point, I DO believe that the patient has capacity to make medical decisions. Her friend informed me that patient's place has been cleaned up. Patient has a friend who helps her at home. However given her hospitalization and current C. difficile colitis, patient would like to go to rehab if arranged. Again I do not see a single evidence of incapacity to make medical decision. 05/09/2017: Patient was scheduled to be discharged to [facility] today. However discharge was postponed due to the fact that previous physician providers as well as neuropsychologist determined that patient does not have capacity. I discussed with [facility] utility sales representative. I restated my opinion that patient is alert, oriented, coherent in her thought process. She has capacity to make medical decisions. However with regards to have decision capability in terms of financial matters or legal matters -that is beyond scope of my is a physician. It should be noted that before February 2017 when patient started having C. difficile colitis, patient was living on her own, driving to grocery and other places. This obviously indicates that she was functioning well independently. 05/10/2017: I discussed with patient again regarding her disease. She has good insight. She plans to take her medications and follow-up with infectious disease and if necessary GI as well. She certainly has capacity to make medical decisions. I also asked patient regarding basic finances. She was able to answer questions appropriately. -Recurrent C. difficile colitis -Patient is currently on vancomycin 125 mg 4 times daily, started 04/26/2017. -Given patient's initial presentation with leukocytosis and AK I as well as recurrent C. difficile colitis, will provide tapered course of vancomycin. -I also advised patient to follow-up with infectious disease doctor in the outpatient setting in a week or 2 during the course of this treatment. -Patient is currently if symptomatic, AK I resolved, diarrhea improved. Will continue vancomycin. Vancomycin taper will be as follows: -Vancomycin 125 mg p.o. 4 times daily for 2 more days to make it 14 days then -125 mg p.o. twice daily for 7 days then daily for 7 days then q. other day for 7 days then every 3 days for 14 days. -Continue Lactinex during the final week of Vancomycin and continue two weeks after Vancomycin is done. -Diabetes mellitus -Hypertension -Continue lisinopril 20 mg daily, sliding scale insulin. Blood glucose is within reasonable range. Goal blood work was 140-180 while in hospital -Now that patient's creatinine is improved, we could consider metformin although it may cause GI symptoms. -Patient was on metformin 500 mg twice daily. We can restart that upon discharge. - Acute kidney injury -Creatinine on presentation 3.09 on 04/25/2017. Improved to 0.86 on 05/08/2017. -Avoid nephrotoxic medications. -Appreciate input from psychiatrist. Psychiatrist determined that patient does have capacity. Full code. SCDs. Problem Qualifiers (1) Diabetes: Qualified Codes: E11.8 - Type 2 diabetes mellitus with unspecified complications Tim Alejandro DO May 10, 2017 12:52
[2017-05-10 16:08] VITALS: BP 139/64; PULSE 85; RESP 18; TEMP 97.6; O2SAT 97
[2017-05-10 18:30] VITALS: BP 134/73; PULSE 85; RESP 20; TEMP 97.7; O2SAT 93
== END 2017-05-10 20:00 | DRG 372 ==
LOC: NEDAMB 20:39 → NEDA 23:50 → INTOOBSV 23:50 → N03B 04-26 00:43 → OBSVTOIN 04-26 09:04 → N04A 04-30 17:34
PROVIDERS: ADMIT Family Medicine; ATTEND Family Medicine
DX: A04.71 Enterocolitis due to Clostridium difficile, recurrent (principal); N17.9 Acute kidney failure, unspecified; E11.40 Type 2 diabetes mellitus with diabetic neuropathy, unspecified; I27.20 Pulmonary hypertension, unspecified; J98.11 Atelectasis; E86.0 Dehydration; I08.2 Rheumatic disorders of both aortic and tricuspid valves; R15.9 Full incontinence of feces; F02.80 Dementia in other diseases classified elsewhere, unspecified severity, without behavioral disturbance, psychotic disturbance, mood disturbance, and anxiety; G31.09 Other frontotemporal neurocognitive disorder; I10 Essential (primary) hypertension; E78.5 Hyperlipidemia, unspecified; K58.9 Irritable bowel syndrome, unspecified; G47.33 Obstructive sleep apnea (adult) (pediatric); Z96.652 Presence of left artificial knee joint; E87.6 Hypokalemia; R07.89 Other chest pain; Z92.3 Personal history of irradiation; Z79.84 Long term (current) use of oral hypoglycemic drugs; Z85.3 Personal history of malignant neoplasm of breast; Z91.19 Patient's noncompliance with other medical treatment and regimen; Z86.73 Personal history of transient ischemic attack (TIA), and cerebral infarction without residual deficits
CPT/HCPCS: 70551; 71045; 80048; 80053; 81001; 82550; 82607; 82747; 82948; 83036; 83735; 84132; 84425; 84443; 84484; 85007; 85025; 85027; 86592; 86703; 87493; 87506; 93005; 94150; C9113; J1815; J2270; J3480; J7030; L3908

== ENCOUNTER 2017-05-25 19:16 | Emergency (ER) | payer MEDICARE ==
[~2017-05-25] VITALS: Ht 152.4 cm; Wt 75.0 kg
[~2017-05-25 19:16] MED LIST changes: -AMLO10TA2 PO; -LACT PO; +LACTCHW3 CHEW; +LISI-515 PO; -LISI10TA3 PO; +VANC125C3 PO; -VANC500I3 PO
[2017-05-25 19:49] VITALS: BP 134/72; PULSE 90; RESP 18; TEMP 98.5; O2SAT 98
[2017-05-25 21:39] VITALS: BP 142/67; PULSE 84; RESP 16; TEMP 98.2; O2SAT 96
--- NOTE | 2017-05-25 22:09 | RADRPT ---
EXAM DATE/TIME: 05/25/2017 21:22 [place] COMPARISON: CHEST SINGLE AP, May 01, 2017, 19:15. INDICATIONS : Syncope, Hypertension. MEDICAL HISTORY : Hypertension. Diabetes mellitus type II. SURGICAL HISTORY : Hysterectomy. Fusion, cervical. ENCOUNTER: Initial ACUITY: 1 day PAIN SCORE: 0/10 LOCATION: Bilateral chest FINDINGS: A single view of the chest demonstrates the lungs to be symmetrically aerated without evidence of mas s, infiltrate or effusion. The cardiomediastinal contours are unremarkable. Osseous structures are intact. CONCLUSION: No acute disease. No significant change has occurred. Basilio Benitez MD on May 25, 2017 at 22:05 Board Certified Radiologist. This report was verified electronically.
[2017-05-25 22:15] LABS: BASOPHIL # 0.1 TH/MM3 (0-0.2); BASOPHIL % 0.9 % (0.0-2.0); EOSINOPHIL # 0.2 TH/MM3 (0-0.4); EOSINOPHIL % 3.8 % (0.0-4.0); HEMATOCRIT 36.1 % (35.0-46.0); HEMOGLOBIN 11.8 GM/DL (11.6-15.3); LYMPHOCYTE # 2.5 TH/MM3 (1.0-4.8); MEAN CELL VOLUME 86.5 FL (80.0-100.0); MEAN CORPUSCULAR HEMOGLOBIN 28.4 PG (27.0-34.0); MEAN CORPUSCULAR HGB CONC 32.8 % (32.0-36.0); MEAN PLATELET VOLUME 7.2 FL (7.0-11.0); MONO % 8.9 % (0.0-8.0); MONOCYTE # 0.6 TH/MM3 (0-0.9); NEUT % 47.4 % (16.0-70.0); PLATELET COUNT 292 TH/MM3 (150-450); RED BLOOD COUNT 4.17 MIL/MM3 (4.00-5.30); RED CELL DISTRIBUTION WIDTH 14.9 % (11.6-17.2); WHITE BLOOD COUNT 6.4 TH/MM3 (4.0-11.0)
[2017-05-25] MEDS ORDERED: VANC125C3 PO ×2 (22:19)
[2017-05-25] MEDS ORDERED: LIDO1PAD52 TOPICAL (22:19)
[2017-05-25 22:32] LABS: BICARBONATE 27.3 MEQ/L (21.0-32.0); BLOOD UREA NITROGEN 22 MG/DL (7-18); CALCIUM 9.2 MG/DL (8.5-10.1); CHLORIDE 103 MEQ/L (98-107); CREATININE 0.84 MG/DL (0.50-1.00); GLOMERULAR FILTRATION RATE 67 ML/MIN (>89); GLUCOSE,RANDOM 97 MG/DL (74-106); SODIUM (NA) 138 MEQ/L (136-145)
[2017-05-25 22:36] LABS: TROPONIN I LESS THAN 0.02 NG/ML (0.02-0.05)
[2017-05-25 23:11] VITALS: BP 136/64; PULSE 88; RESP 16; O2SAT 88
[2017-05-25] MEDS ORDERED: ACETAMINOPHEN/HYDROcodone 325 MG/5 MG TAB PO ONE (23:30)
--- NOTE | 2017-05-26 00:08 | PD ---
HPI . Cardiac complaint Chief Complaint: Cardiac Complaint Time Seen by Provider: 21:51 Travel History International Travel<30 days: No Contact w/Intl Traveler<30days: No Traveled to known affect area: No History of Present Illness HPI 72-year-old female brought in from jail secondary to possible right- sided chest pain radiating down right arm, at presentation to ED, patient denies having chest pain or radiation of pain down right arm but notes worsening of her chronic low back pain for which she usually gets Tyler 5/325. Patient notes that she has got chronic nerve root compression and is under pain management treatment for same. Denies any new weakness numbness or tingling or incontinence, denies fever chills or sweats. 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 , HX OF RADIATION TREATMENT ) Cardiovascular Problems: Yes High Cholesterol: Yes Diabetes: Yes Patient Takes Glucophage: No Diminished Hearing: No Endocrine: Yes Gastrointestinal Disorders: Yes (CDIFF) Glaucoma: No Genitourinary: No Hepatitis: No Hiatal Hernia: No Hypertension: Yes Medical other: Yes Musculoskeletal: Yes Neurologic: No Psychiatric: No Reproductive: No Respiratory: Yes (HX BRONCHITIS, HX PLEURISY) Immunizations Current: Yes Radiation Therapy: Yes Sleep Apnea: Yes Thyroid Disease: No Menopausal: Yes Dilation and Curettage (D&C): Yes Past Surgical History Abdominal Surgery: Yes (GALLBLADDER SURGERY ) Cardiac Surgery: No Cholecystectomy: Yes (11/13/1986) Ear Surgery: No Endocrine Surgery: No Eye Surgery: Yes (BILATERAL CATARACTS) Genitourinary Surgery: No Gynecologic Surgery: Yes Hysterectomy: Yes Neurologic Surgery: Yes (CERVICAL FUSION 2002) Oral Surgery: No Pacemaker: No Thoracic Surgery: Yes (RIGHT BREAST LUMPECTOMY) Other Surgery: Yes (2005 RIGHT SHOULDER ROTATOR CUFF SURGERY) Social History Alcohol Use: No Tobacco Use: No Substance Use: No Allergies-Medications (Allergen,Severity, Reaction): Coded Allergies: oxycodone (Verified Allergy, Severe, ITCHING, 02/23/17) adhesive (Verified Allergy, Mild, Blisters the skin, 02/23/17) codeine (Verified Allergy, Mild, NAUSEA, 02/23/17) Reported Meds & Prescriptions Reported Meds & Active Scripts Active Lactinex (Lactobacillus Acidophilus) 1 Chew 1 Tab CHEW TID START during the last week of Vancomycin and Continue for two additional weeks. Lisinopril 20 Mg Tab 20 Mg PO DAILY Hydrocodone-Acetamin 5-325 mg (Hydrocodone/Acetaminophen) 5 Mg-325 Mg Tablet 1 Tab PO Q6H PRN Reported Lidocaine Patch 12 HR (Lidocaine) 5 % Patch 1 Patch TOPICAL DAILY Remove patch after 12 hours Vancomycin (Vancomycin HCl) 125 Mg Cap 125 Mg PO DAILY Vancomycin (Vancomycin HCl) 125 Mg Cap 125 Mg PO EVERY OTHER DAY Metformin (Metformin HCl) 500 Mg Tab 500 Mg PO BIDPC With breakfast and lunch Narrative Medication Allergies and medications reviewed Review of Systems Except as stated in HPI: all other systems reviewed are Neg General / Constitutional: No: Fever Eyes: No: Visual changes HENT: No: Headaches Cardiovascular: No: Chest Pain or Discomfort Respiratory: No: Shortness of Breath Gastrointestinal: No: Abdominal Pain Genitourinary: No: Dysuria Musculoskeletal: Positive: Pain Skin: No Rash Neurologic: No: Weakness Psychiatric: No: Depression Endocrine: No: Polydipsia Hematologic/Lymphatic: No: Easy Bruising Physical Exam Narrative GENERAL: Awake and alert oriented 3 no acute distress vital signs afebrile normal stable SKIN: Warm and dry. Color is normal diaphoresis sinus HEAD: Atraumatic. Normocephalic. EYES: Pupils equal and round. No scleral icterus. No injection or drainage. ENT: No nasal bleeding or discharge. Mucous membranes pink and moist. NECK: Trachea midline. No JVD. S1-S2 no murmurs or gallops CARDIOVASCULAR: Regular rate and rhythm. RESPIRATORY: No accessory muscle use. Clear to auscultation. Breath sounds equal bilaterally. GASTROINTESTINAL: Abdomen soft, non-tender, nondistended. Hepatic and splenic margins not palpable. MUSCULOSKELETAL: Extremities without clubbing, cyanosis, or edema. No obvious deformities. NEUROLOGICAL: Awake and alert. No new focal deficits as per patient. Patient has chronic neurological issues. PSYCHIATRIC: Appropriate mood and affect; insight and judgment normal. Data Data Last Documented VS Vital Signs Date Time Temp Pulse Resp B/P (MAP) Pulse Ox O2 Delivery O2 Flow Rate FiO2 05/25/17 23:11 88 16 136/64 (88) 88 Room Air 05/25/17 21:39 98.2 Orders Orders Electrocardiogram (05/25/17 20:38) Complete Blood Count With Diff (05/25/17 20:38) Basic Metabolic Panel (Bmp) (05/25/17 20:38) Ckmb (Isoenzyme) Profile (05/25/17 20:38) Troponin I (05/25/17 20:38) Chest, Single Ap (05/25/17 20:38) Iv Access Insert/Monitor (05/25/17 20:38) Ecg Monitoring (05/25/17 20:38) Oxygen Administration (05/25/17 20:38) Oximetry (05/25/17 20:38) Acetamin-Hydrocod 325-5 Mg (Tyler 5-325 (05/25/17 23:30) Labs Laboratory Tests Test 05/25/17 20:42 White Blood Count 6.4 TH/MM3 Red Blood Count 4.17 MIL/MM3 Hemoglobin 11.8 GM/DL Hematocrit 36.1 % Mean Corpuscular Volume 86.5 FL Mean Corpuscular Hemoglobin 28.4 PG Mean Corpuscular Hemoglobin Concent 32.8 % Red Cell Distribution Width 14.9 % Platelet Count 292 TH/MM3 Mean Platelet Volume 7.2 FL Neutrophils (%) (Auto) 47.4 % Lymphocytes (%) (Auto) 39.0 % Monocytes (%) (Auto) 8.9 % Eosinophils (%) (Auto) 3.8 % Basophils (%) (Auto) 0.9 % Neutrophils # (Auto) 3.0 TH/MM3 Lymphocytes # (Auto) 2.5 TH/MM3 Monocytes # (Auto) 0.6 TH/MM3 Eosinophils # (Auto) 0.2 TH/MM3 Basophils # (Auto) 0.1 TH/MM3 CBC Comment DIFF FINAL Differential Comment Blood Urea Nitrogen 22 MG/DL Creatinine 0.84 MG/DL Random Glucose 97 MG/DL Calcium Level 9.2 MG/DL Sodium Level 138 MEQ/L Potassium Level 4.1 MEQ/L Chloride Level 103 MEQ/L Carbon Dioxide Level 27.3 MEQ/L Anion Gap 8 MEQ/L Estimat Glomerular Filtration Rate 67 ML/MIN Total Creatine Kinase 58 U/L Troponin I LESS THAN 0.02 NG/ML [facility] Medical Decision Making Medical Screen Exam Complete: Yes Emergency Medical Condition: Yes Medical Record Reviewed: Yes Differential Diagnosis Chest pain, back pain, chronic pain Narrative Course EKG normal sinus rhythm at 83 bpm nonischemic intervals normal. Patient's laboratory examinations reviewed, troponin normal Patient requested her Tyler 5/325 and noted improvement in her pain is able to ambulate easily to the bathroom without hesitation. Diagnosis Primary Impression: Chronic back pain Qualified Codes: M54.5 - Low back pain; G89.29 - Other chronic pain Patient Instructions: Back Pain (ED), General Instructions Additional Instructions: Medications as per prescribed regimen. Follow-up with your doctor. Return for worsening Disposition: 01 DISCHARGE HOME Condition: Stable Sulaiman Ford MD May 26, 2017 00:08
[2017-05-26 02:46] VITALS: RESP 18
--- NOTE | 2017-05-26 20:36 | EKG ---
Date Performed: 05/25/2017 Time Performed: 20:24:22 PTAGE: 72 years EKG: Sinus rhythm LOW QRS VOLTAGE IN PRECORDIAL LEADS POSSIBLE ANTERIOR MYOCARDIAL INFARCTION BORDERLINE ECG INTERPRET ATION BASED ON A DEFAULT AGE OF 40 YEARS PREVIOUS TRACING : 05/02/2017 06.50 Since the previous tracing, no significant change not ed DOCTOR: Keven Benavides Interpretating Date/Time 05/26/2017 20:35:02
== END 2017-05-26 09:36 | disposition home or self-care (01) ==
LOC: NEPC 19:16 → NEDAMB 05-26 09:36
DX: M54.5 Low back pain (principal); G89.29 Other chronic pain; E11.9 Type 2 diabetes mellitus without complications; I10 Essential (primary) hypertension; Z79.84 Long term (current) use of oral hypoglycemic drugs
CPT/HCPCS: 71045; 80048; 82550; 84484; 85025; 93005; 99285

== ENCOUNTER 2017-06-25 18:24 | Emergency (ER) | payer MEDICARE ==
[~2017-06-25 18:24] MED LIST changes: +LIDO1PAD52 TOPICAL
[2017-06-25 18:29] VITALS: BP 178/102; PULSE 94; RESP 22; TEMP 98.1; O2SAT 98
[2017-06-25 20:25] VITALS: BP 187/88; PULSE 89; RESP 18; O2SAT 98
--- NOTE | 2017-06-25 20:41 | PD ---
HPI Chief Complaint: Hypertension Time Seen by Provider: 20:24 Travel History International Travel<30 days: No Contact w/Intl Traveler<30days: No Traveled to known affect area: No History of Present Illness HPI The patient is 72-year-old female who arrives with high blood pressure. Visiting nurse ultrasound to check her blood pressure and to address wounds. Blood pressure was too high to measure at home and the patient's primary care Dr. Frisa was notified who then called the patient and advised an ER visit. The patient here has no complaints. Her blood pressure here is 187/88 upon arrival. She reports compliance with lisinopril. She also reports earlier in the day she had severe pain when her blood pressure was checked however after getting pain medication and normalized and she has no pain at the time of ER evaluation. No weakness shortness of breath dizziness headache palpitation or complaint consistent with hypertensive emergency otherwise. 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 , HX OF RADIATION TREATMENT ) Cardiovascular Problems: Yes High Cholesterol: Yes Diabetes: Yes Patient Takes Glucophage: No Diminished Hearing: No Endocrine: Yes Gastrointestinal Disorders: Yes (CDIFF) Glaucoma: No Genitourinary: No Hepatitis: No Hiatal Hernia: No Hypertension: Yes Medical other: Yes Musculoskeletal: Yes Neurologic: No Psychiatric: No Reproductive: No Respiratory: Yes (HX BRONCHITIS, HX PLEURISY) Immunizations Current: Yes Radiation Therapy: Yes Sleep Apnea: Yes Thyroid Disease: No Influenza Vaccination: Yes Menopausal: Yes Dilation and Curettage (D&C): Yes Past Surgical History Abdominal Surgery: Yes (GALLBLADDER SURGERY ) Cardiac Surgery: No Cholecystectomy: Yes (11/13/1986) Ear Surgery: No Endocrine Surgery: No Eye Surgery: Yes (BILATERAL CATARACTS) Genitourinary Surgery: No Gynecologic Surgery: Yes Hysterectomy: Yes Neurologic Surgery: Yes (CERVICAL FUSION 2002) Oral Surgery: No Pacemaker: No Thoracic Surgery: Yes (RIGHT BREAST LUMPECTOMY) Other Surgery: Yes (2005 RIGHT SHOULDER ROTATOR CUFF SURGERY) Social History Alcohol Use: No Tobacco Use: No Substance Use: No Allergies-Medications (Allergen,Severity, Reaction): Coded Allergies: oxycodone (Verified Allergy, Severe, ITCHING, 06/25/17) adhesive (Verified Allergy, Mild, Blisters the skin, 06/25/17) codeine (Verified Allergy, Mild, NAUSEA, 06/25/17) Reported Meds & Prescriptions Reported Meds & Active Scripts Active Lactinex (Lactobacillus Acidophilus) 1 Chew 1 Tab CHEW TID START during the last week of Vancomycin and Continue for two additional weeks. Lisinopril 20 Mg Tab 20 Mg PO DAILY Hydrocodone-Acetamin 5-325 mg (Hydrocodone/Acetaminophen) 5 Mg-325 Mg Tablet 1 Tab PO Q6H PRN Reported Lidocaine Patch 12 HR (Lidocaine) 5 % Patch 1 Patch TOPICAL DAILY Remove patch after 12 hours Vancomycin (Vancomycin HCl) 125 Mg Cap 125 Mg PO DAILY Vancomycin (Vancomycin HCl) 125 Mg Cap 125 Mg PO EVERY OTHER DAY Metformin (Metformin HCl) 500 Mg Tab 500 Mg PO BIDPC With breakfast and lunch Review of Systems Except as stated in HPI: all other systems reviewed are Neg General / Constitutional: No: Fever Physical Exam Narrative GENERAL: 72-year-old female pleasant well-nourished well-developed Vital Signs Date Time Temp Pulse Resp B/P (MAP) Pulse Ox O2 Delivery O2 Flow Rate FiO2 06/25/17 20:25 89 18 187/88 (121) 98 Room Air 06/25/17 18:29 98.1 94 22 178/102 (127) 98 SKIN: Warm and dry. HEAD: Atraumatic. Normocephalic. EYES: Pupils equal and round. No scleral icterus. No injection or drainage. ENT: No nasal bleeding or discharge. Mucous membranes pink and moist. NECK: Trachea midline. No JVD. CARDIOVASCULAR: Regular rate and rhythm. RESPIRATORY: No accessory muscle use. Clear to auscultation. Breath sounds equal bilaterally. GASTROINTESTINAL: Abdomen soft, non-tender, nondistended. Hepatic and splenic margins not palpable. MUSCULOSKELETAL: Extremities without clubbing, cyanosis, or edema. No obvious deformities. NEUROLOGICAL: Awake and alert. No obvious cranial nerve deficits. Motor grossly within normal limits. Five out of 5 muscle strength in the arms and legs. Normal speech. PSYCHIATRIC: Appropriate mood and affect; insight and judgment normal. Data Data Last Documented VS Vital Signs Date Time Temp Pulse Resp B/P (MAP) Pulse Ox O2 Delivery O2 Flow Rate FiO2 06/25/17 20:25 89 18 187/88 (121) 98 Room Air 06/25/17 18:29 98.1 Orders Orders Ed Discharge Order (06/25/17 20:35) MDM Medical Decision Making Medical Screen Exam Complete: Yes Emergency Medical Condition: Yes Differential Diagnosis Hypertensive emergency, medication noncompliance, isolated hypertensive episode , essential hypertension Narrative Course Patient's blood pressure is 187/88. There are no symptoms consistent with hypertensive emergency and this scenario discharge home with mildly elevated isolated blood pressure is considered in keeping with the current guidelines. Diagnosis Primary Impression: Hypertension Qualified Codes: I10 - Essential (primary) hypertension Referrals: Primary Care Physician call for appointment Disposition: DISCHARGE HOME Condition: Stable Deuce Stovall MD Jun 25, 2017 20:40
== END 2017-06-25 20:49 | disposition home or self-care (01) ==
LOC: NEPD 18:24
DX: I10 Essential (primary) hypertension (principal); E11.9 Type 2 diabetes mellitus without complications; Z79.84 Long term (current) use of oral hypoglycemic drugs
CPT/HCPCS: 99281

== ENCOUNTER 2017-07-06 13:14 | Emergency (ER) | payer MEDICARE ==
[~2017-07-06] VITALS: Ht 162.6 cm; Wt 74.0 kg
[2017-07-06 13:22] VITALS: BP 181/86; PULSE 77; RESP 16; TEMP 98.3; O2SAT 97
[2017-07-06] MEDS ORDERED: SODIUM CHLORIDE 0.9% FLUSH 10 ML FLUSH IVF PRN (13:45)
[2017-07-06 14:31] LABS: AUTOMATED NEUTROPHIL # 4.2 TH/MM3 (1.8-7.7); BASOPHIL # 0.1 TH/MM3 (0-0.2); BASOPHIL % 0.7 % (0.0-2.0); EOSINOPHIL # 0.3 TH/MM3 (0-0.4); EOSINOPHIL % 3.9 % (0.0-4.0); HEMATOCRIT 40.1 % (35.0-46.0); HEMOGLOBIN 13.3 GM/DL (11.6-15.3); LYMPH % 29.4 % (9.0-44.0); LYMPHOCYTE # 2.1 TH/MM3 (1.0-4.8); MEAN CELL VOLUME 86.9 FL (80.0-100.0); MEAN CORPUSCULAR HEMOGLOBIN 28.9 PG (27.0-34.0); MEAN CORPUSCULAR HGB CONC 33.3 % (32.0-36.0); MEAN PLATELET VOLUME 7.4 FL (7.0-11.0); MONO % 5.6 % (0.0-8.0); MONOCYTE # 0.4 TH/MM3 (0-0.9); NEUT % 60.4 % (16.0-70.0); PLATELET COUNT 254 TH/MM3 (150-450); RED BLOOD COUNT 4.61 MIL/MM3 (4.00-5.30); RED CELL DISTRIBUTION WIDTH 13.9 % (11.6-17.2)
--- NOTE | 2017-07-06 14:35 | PD ---
HPI Chief Complaint: Chest Pain Time Seen by Provider: 13:30 Travel History International Travel<30 days: No Contact w/Intl Traveler<30days: No Traveled to known affect area: No History of Present Illness HPI 72-year-old woman presents to the emergency department complaining of chest pain. She states she been having intermittent chest pain for some time, camera when it started, states his associate when her pain gets really bad or when she gets really stressed. She has had it for the past several days since Wednesday , 5 days ago, it has been constant. She saw her home health nurse who sent her in today. Denies any other associated symptoms. She was at a nursing facility but is back home now. No other history of heart problems. She has some chronic leg pain and chronic back pain but no change. History Past Medical History Narrative Medical Hypertension Diabetes Hyperlipidemia Influenza Vaccination: Yes Menopausal: Yes Dilation and Curettage (D&C): Yes Social History Alcohol Use: No Tobacco Use: No Allergies-Medications (Allergen,Severity, Reaction): Coded Allergies: oxycodone (Verified Allergy, Severe, ITCHING, 07/06/17) adhesive (Verified Allergy, Mild, Blisters the skin, 07/06/17) codeine (Verified Allergy, Mild, NAUSEA, 07/06/17) Reported Meds & Prescriptions Reported Meds & Active Scripts Active Lactinex (Lactobacillus Acidophilus) 1 Chew 1 Tab CHEW TID START during the last week of Vancomycin and Continue for two additional weeks. Lisinopril 20 Mg Tab 20 Mg PO DAILY Hydrocodone-Acetamin 5-325 mg (Hydrocodone/Acetaminophen) 5 Mg-325 Mg Tablet 1 Tab PO Q6H PRN Reported Lidocaine Patch 12 HR (Lidocaine) 5 % Patch 1 Patch TOPICAL DAILY Remove patch after 12 hours Vancomycin (Vancomycin HCl) 125 Mg Cap 125 Mg PO DAILY Vancomycin (Vancomycin HCl) 125 Mg Cap 125 Mg PO EVERY OTHER DAY Metformin (Metformin HCl) 500 Mg Tab 500 Mg PO BIDPC With breakfast and lunch Review of Systems Except as stated in HPI: all other systems reviewed are Neg Physical Exam Narrative GENERAL: Disheveled 72-year-old woman, no acute distress. SKIN: Focused skin assessment warm/dry. HEAD: Atraumatic. Normocephalic. EYES: Pupils equal and round. No scleral icterus. No injection or drainage. ENT: No nasal bleeding or discharge. Mucous membranes pink and moist. NECK: Trachea midline. No JVD. CARDIOVASCULAR: Regular rate and rhythm. Fairly prominent heart murmur. RESPIRATORY: No accessory muscle use. Clear to auscultation. Breath sounds equal bilaterally. GASTROINTESTINAL: Abdomen soft, non-tender, nondistended. Hepatic and splenic margins not palpable. MUSCULOSKELETAL: No obvious deformities. Chronic edema and skin changes in the lower extremities a little bit of warmth in both legs. NEUROLOGICAL: Awake and alert. No obvious cranial nerve deficits. Motor grossly within normal limits. Normal speech. PSYCHIATRIC: Anxious. Data Data Last Documented VS Vital Signs Date Time Temp Pulse Resp B/P (MAP) Pulse Ox O2 Delivery O2 Flow Rate FiO2 07/06/17 14:55 74 16 126/83 (97) 98 Room Air 07/06/17 13:22 98.3 Orders Orders Electrocardiogram (07/06/17 13:44) Complete Blood Count With Diff (07/06/17 13:44) Comprehensive Metabolic Panel (07/06/17 13:44) Magnesium (Mg) (07/06/17 13:44) Prothrombin Time / Inr (Pt) (07/06/17 13:44) Act Partial Throm Time (Ptt) (07/06/17 13:44) Troponin I (07/06/17 13:44) Lipase (07/06/17 13:44) Chest, Single Ap (07/06/17 13:44) Ecg Monitoring (07/06/17 13:44) Iv Access Insert/Monitor (07/06/17 13:44) Oximetry (07/06/17 13:44) Oxygen Administration (07/06/17 13:44) Sodium Chloride 0.9% Flush (Ns Flush) (07/06/17 13:45) Acetamin-Hydrocod 325-5 Mg ([place] 5-325 (07/06/17 14:45) Labs Laboratory Tests Test 07/06/17 14:10 White Blood Count 7.0 TH/MM3 Red Blood Count 4.61 MIL/MM3 Hemoglobin 13.3 GM/DL Hematocrit 40.1 % Mean Corpuscular Volume 86.9 FL Mean Corpuscular Hemoglobin 28.9 PG Mean Corpuscular Hemoglobin Concent 33.3 % Red Cell Distribution Width 13.9 % Platelet Count 254 TH/MM3 Mean Platelet Volume 7.4 FL Neutrophils (%) (Auto) 60.4 % Lymphocytes (%) (Auto) 29.4 % Monocytes (%) (Auto) 5.6 % Eosinophils (%) (Auto) 3.9 % Basophils (%) (Auto) 0.7 % Neutrophils # (Auto) 4.2 TH/MM3 Lymphocytes # (Auto) 2.1 TH/MM3 Monocytes # (Auto) 0.4 TH/MM3 Eosinophils # (Auto) 0.3 TH/MM3 Basophils # (Auto) 0.1 TH/MM3 CBC Comment DIFF FINAL Differential Comment Prothrombin Time 10.7 SEC Prothromb Time International Ratio 1.1 RATIO Activated Partial Thromboplast Time 30.0 SEC Blood Urea Nitrogen 22 MG/DL Creatinine 0.80 MG/DL Random Glucose 93 MG/DL Total Protein 7.2 GM/DL Albumin 4.0 GM/DL Calcium Level 9.4 MG/DL Magnesium Level 2.2 MG/DL Alkaline Phosphatase 62 U/L Aspartate Amino Transf (AST/SGOT) 19 U/L Alanine Aminotransferase (ALT/SGPT) 22 U/L Total Bilirubin 1.1 MG/DL Sodium Level 145 MEQ/L Potassium Level 4.2 MEQ/L Chloride Level 110 MEQ/L Carbon Dioxide Level 26.9 MEQ/L Anion Gap 8 MEQ/L Estimat Glomerular Filtration Rate 71 ML/MIN Troponin I LESS THAN 0.02 NG/ML Lipase 169 U/L MDM Medical Decision Making Medical Screen Exam Complete: Yes Emergency Medical Condition: Yes Interpretation(s) My review of EKG: Normal sinus rhythm at a rate of 76, normal axis, normal intervals, no acute ischemia. LABS: CBC is unremarkable. CMP is unremarkable. Troponin negative. Lipase normal. Coags unremarkable. Chest x-ray negative. Differential Diagnosis Anxiety, ACS, chest wall pain, gastritis, hepatobiliary disease, other Narrative Course Medical decision making This 72-year-old woman with a lot of chronic pain issues who presents to the emergency department referred in by her home health for chest pain. She reports she has had it off and on for weeks, not associated with exertion, associated with her chronic pain. She overall looks well. She is a lot of chronic comorbidities and seems to be preoccupied with her chronic pain more than her acute chest pain. Will check labs EKG chest x-ray likely discharge if negative workup. Diagnosis Primary Impression: Atypical chest pain Additional Instructions: Follow-up with her primary doctor as scheduled. Return to the emergency department for any exertional chest pain, any worsening chest pain, any shortness of breath, or any other new or worsening symptoms. Disposition: 01 DISCHARGE HOME Condition: Stable Da Gamez MD July 06, 2017 14:35
[2017-07-06 14:38] LABS: INTERNATIONAL NORMALIZED RATIO 1.1 RATIO; PROTHROMBIN TIME - PATIENT 10.7 SEC (9.8-11.6)
[2017-07-06] MEDS ORDERED: ACETAMINOPHEN/HYDROcodone 325 MG/5 MG TAB PO ONE (14:45)
[2017-07-06 14:47] LABS: ALT (GPT) 22 U/L (10-53); AST (GOT) 19 U/L (15-37); BICARBONATE 26.9 MEQ/L (21.0-32.0); CALCIUM 9.4 MG/DL (8.5-10.1); CHLORIDE 110 MEQ/L (98-107); GLOMERULAR FILTRATION RATE 71 ML/MIN (>89); GLUCOSE,RANDOM 93 MG/DL (74-106); MAGNESIUM 2.2 MG/DL (1.5-2.5); SODIUM (NA) 145 MEQ/L (136-145)
[2017-07-06 14:51] LABS: ALKALINE PHOSPHATASE 62 U/L (45-117); BLOOD UREA NITROGEN 22 MG/DL (7-18); TOTAL BILIRUBIN ADULT 1.1 MG/DL (0.2-1.0); TOTAL PROTEIN 7.2 GM/DL (6.4-8.2); TROPONIN I LESS THAN 0.02 NG/ML (0.02-0.05)
[2017-07-06 14:55] VITALS: BP 126/83; PULSE 74; RESP 16; O2SAT 98
--- NOTE | 2017-07-06 15:17 | RADRPT ---
EXAM DATE/TIME: 07/06/2017 13:52 [facility] COMPARISON: CHEST SINGLE AP, May 25, 2017, 21:22. INDICATIONS : Chest pain. MEDICAL HISTORY : Hypertension. Diabetes mellitus type II. SURGICAL HISTORY : Hysterectomy. Fusion, cervical. ENCOUNTER: Initial ACUITY: 2 days PAIN SCORE: 8/10 LOCATION: Bilateral chest FINDINGS: A single view of the chest demonstrates the lungs to be symmetrically aerated without evidence of mas s, infiltrate or effusion. The cardiomediastinal contours are unremarkable. Osseous structures are intact. CONCLUSION: 1. No acute cardiopulmonary findings. 2. Stable compared to prior dated 05/25/17. Deuce Banks MD on July 06, 2017 at 15:15 Board Certified Radiologist. This report was verified electronically.
[2017-07-06 18:23] VITALS: RESP 18
[2017-07-06 18:57] VITALS: BP 141/71
--- NOTE | 2017-07-07 08:53 | EKG ---
Date Performed: 07/06/2017 Time Performed: 13:39:51 PTAGE: 72 years EKG: Sinus rhythm NORMAL ECG PREVIOUS TRACING : 05/25/2017 20.24 Since the previous tracing, no significant change noted DOCTOR: Harrison Lopez Interpretating Date/Time 07/07/2017 08:49:19
== END 2017-07-06 18:58 | disposition home or self-care (01) ==
LOC: NEPE 13:14
DX: R07.89 Other chest pain (principal); E11.9 Type 2 diabetes mellitus without complications; I10 Essential (primary) hypertension; Z79.84 Long term (current) use of oral hypoglycemic drugs; Z79.899 Other long term (current) drug therapy
CPT/HCPCS: 71045; 80053; 83690; 83735; 84484; 85025; 85610; 85730; 93005; 99285

== ENCOUNTER 2017-07-17 00:27 | Inpatient (IN) | payer MEDICARE ==
[2017-07-17] VITALS (7 sets, daily range): BP systolic 135–158; BP diastolic 65–84; PULSE 79–96; RESP 16–18; TEMP 97.6–100.2; O2SAT 97–100
[~2017-07-17] VITALS: Ht 172.7 cm; Wt 75.0 kg
[2017-07-17] MEDS ORDERED: SODIUM CHLOR 0.9% 1000 ML INJ 1,000 ML IV SCH (00:36)
--- NOTE | 2017-07-17 00:40 | PD ---
HPI Chief Complaint: GI Complaint Time Seen by Provider: 00:36 Travel History International Travel<30 days: No Contact w/Intl Traveler<30days: No Traveled to known affect area: No History of Present Illness HPI 72-year-old female patient with recent history of multiple episodes of C. difficile diarrhea, last was in rehab a few weeks ago, had been placed on vancomycin and has finished that, states her diarrhea has subsided for several weeks but today started having watery diarrhea again, for episodes. According to home health care, she had low-grade fever. She denies any vomiting or any other issues. She states that she just feels more tired as well. She denies being on any recent antibiotics otherwise. Modifying Factors: None Associated Signs & Symptoms: Diarrhea Risk Factors: Recent history of C. difficile diarrhea 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 , HX OF RADIATION TREATMENT ) Cardiovascular Problems: Yes High Cholesterol: Yes Diabetes: Yes Diminished Hearing: No Endocrine: Yes Gastrointestinal Disorders: Yes (CDIFF) Glaucoma: No Genitourinary: No Hepatitis: No Hiatal Hernia: No Hypertension: Yes Musculoskeletal: Yes Neurologic: No Psychiatric: No Reproductive: No Respiratory: Yes (HX BRONCHITIS, HX PLEURISY) Immunizations Current: Yes Radiation Therapy: Yes Sleep Apnea: Yes Thyroid Disease: No Menopausal: Yes Dilation and Curettage (D&C): Yes Past Surgical History Abdominal Surgery: Yes (GALLBLADDER SURGERY ) Cardiac Surgery: No Cholecystectomy: Yes (11/13/1986) Ear Surgery: No Endocrine Surgery: No Eye Surgery: Yes (BILATERAL CATARACTS) Genitourinary Surgery: No Gynecologic Surgery: Yes Hysterectomy: Yes Neurologic Surgery: Yes (CERVICAL FUSION 2002) Oral Surgery: No Pacemaker: No Thoracic Surgery: Yes (RIGHT BREAST LUMPECTOMY) Other Surgery: Yes (2005 RIGHT SHOULDER ROTATOR CUFF SURGERY) Social History Alcohol Use: No Tobacco Use: No Substance Use: No Allergies-Medications (Allergen,Severity, Reaction): Coded Allergies: oxycodone (Verified Allergy, Severe, ITCHING, 07/17/17) adhesive (Verified Allergy, Mild, Blisters the skin, 07/17/17) codeine (Verified Allergy, Mild, NAUSEA, 07/17/17) Reported Meds & Prescriptions Reported Meds & Active Scripts Active Hydrocodone-Acetamin 5-325 mg (Hydrocodone/Acetaminophen) 5 Mg-325 Mg Tablet 1 Tab PO Q6H PRN Reported Vancomycin (Vancomycin HCl) 125 Mg Cap 125 Mg PO DAILY Vancomycin (Vancomycin HCl) 125 Mg Cap 125 Mg PO EVERY OTHER DAY Metformin (Metformin HCl) 500 Mg Tab 500 Mg PO BIDPC With breakfast and lunch Review of Systems Except as stated in HPI: all other systems reviewed are Neg Physical Exam Narrative GENERAL: Well-developed elderly female patient currently in moderate distress. Awake and oriented 3. SKIN: Focused skin assessment warm/dry. HEAD: Atraumatic. Normocephalic. EYES: Pupils equal and round. No scleral icterus. No injection or drainage. ENT: No nasal bleeding or discharge. Mucous membranes pink and moist. NECK: Trachea midline. No JVD. CARDIOVASCULAR: Regular rate and rhythm. No murmur appreciated. RESPIRATORY: No accessory muscle use. Clear to auscultation. Breath sounds equal bilaterally. GASTROINTESTINAL: Abdomen soft, non-tender, nondistended. Hepatic and splenic margins not palpable. MUSCULOSKELETAL: No obvious deformities. No clubbing. No cyanosis. No edema. NEUROLOGICAL: Awake and alert. No obvious cranial nerve deficits. Motor grossly within normal limits. Normal speech. PSYCHIATRIC: Appropriate mood and affect; insight and judgment normal. Data Data Last Documented VS Vital Signs Date Time Temp Pulse Resp B/P (MAP) Pulse Ox O2 Delivery O2 Flow Rate FiO2 07/17/17 00:42 16 07/17/17 00:36 100.2 92 151/79 (103) 97 Orders Orders Complete Blood Count With Diff (07/17/17 00:36) Comprehensive Metabolic Panel (07/17/17 00:36) Lipase (07/17/17 00:36) Urinalysis - C+S If Indicated (07/17/17 00:36) Iv Access Insert/Monitor (07/17/17 00:36) Ecg Monitoring (07/17/17 00:36) Oximetry (07/17/17 00:36) Sodium Chlor 0.9% 1000 Ml Inj (Ns 1000 M (07/17/17 00:36) Sodium Chloride 0.9% Flush (Ns Flush) (07/17/17 00:45) C Diff Toxin Pcr (07/17/17 00:36) Cath For Specimen (07/17/17 01:03) Potassium Chloride Eff (K-Lyte Cl Eff) (07/17/17 01:30) Urine Culture (07/17/17 01:00) Vancomycin Inj (Vancomycin Inj) (07/17/17 02:00) Vancomycin For Oral Use Only (Vancomycin (07/17/17 09:00) Admit Order (Ed Use Only) (07/17/17 01:53) Labs Laboratory Tests Test 07/17/17 00:50 07/17/17 01:00 White Blood Count 11.5 TH/MM3 Red Blood Count 4.78 MIL/MM3 Hemoglobin 14.1 GM/DL Hematocrit 40.8 % Mean Corpuscular Volume 85.4 FL Mean Corpuscular Hemoglobin 29.4 PG Mean Corpuscular Hemoglobin Concent 34.4 % Red Cell Distribution Width 13.9 % Platelet Count 253 TH/MM3 Mean Platelet Volume 7.4 FL Neutrophils (%) (Auto) 86.6 % Lymphocytes (%) (Auto) 7.2 % Monocytes (%) (Auto) 5.9 % Eosinophils (%) (Auto) 0.0 % Basophils (%) (Auto) 0.3 % Neutrophils # (Auto) 10.0 TH/MM3 Lymphocytes # (Auto) 0.8 TH/MM3 Monocytes # (Auto) 0.7 TH/MM3 Eosinophils # (Auto) 0.0 TH/MM3 Basophils # (Auto) 0.0 TH/MM3 CBC Comment DIFF FINAL Differential Comment Blood Urea Nitrogen 19 MG/DL Creatinine 0.90 MG/DL Random Glucose 149 MG/DL Total Protein 7.1 GM/DL Albumin 3.8 GM/DL Calcium Level 8.7 MG/DL Alkaline Phosphatase 52 U/L Aspartate Amino Transf (AST/SGOT) 24 U/L Alanine Aminotransferase (ALT/SGPT) 30 U/L Total Bilirubin 1.5 MG/DL Sodium Level 140 MEQ/L Potassium Level 3.0 MEQ/L Chloride Level 105 MEQ/L Carbon Dioxide Level 24.6 MEQ/L Anion Gap 10 MEQ/L Estimat Glomerular Filtration Rate 62 ML/MIN Lipase 79 U/L Urine Color YELLOW Urine Turbidity HAZY Urine pH 5.5 Urine Specific [place] 1.026 Urine Protein 100 mg/dL Urine Glucose (UA) NEG mg/dL Urine Ketones NEG mg/dL Urine Occult Blood TRACE Urine Nitrite NEG Urine Bilirubin NEG Urine Urobilinogen LESS THAN 2.0 MG/DL Urine Leukocyte Esterase MOD Urine RBC 1 /hpf Urine WBC 16 /hpf Urine WBC Clumps RARE Urine Squamous Epithelial Cells 1 /hpf Urine Bacteria FEW /hpf Urine Mucus FEW /lpf Microscopic Urinalysis Comment CATH-CULTURE IND MDM Medical Decision Making Medical Screen Exam Complete: Yes Emergency Medical Condition: Yes Medical Record Reviewed: Yes Interpretation(s) Laboratory Tests Test 07/17/17 00:50 07/17/17 01:00 White Blood Count 11.5 TH/MM3 (4.0-11.0) Neutrophils (%) (Auto) 86.6 % (16.0-70.0) Lymphocytes (%) (Auto) 7.2 % (9.0-44.0) Neutrophils # (Auto) 10.0 TH/MM3 (1.8-7.7) Lymphocytes # (Auto) 0.8 TH/MM3 (1.0-4.8) Blood Urea Nitrogen 19 MG/DL (7-18) Random Glucose 149 MG/DL (74-106) Total Bilirubin 1.5 MG/DL (0.2-1.0) Potassium Level 3.0 MEQ/L (3.5-5.1) Estimat Glomerular Filtration Rate 62 ML/MIN (>89) Urine Turbidity HAZY (CLEAR) Urine Protein 100 mg/dL (NEG-TRACE) Urine Occult Blood TRACE (NEG) Urine Leukocyte Esterase MOD (NEG) Urine WBC 16 /hpf (0-5) Urine WBC Clumps RARE (NONE) Urine Bacteria FEW /hpf (NONE) Urine Mucus FEW /lpf (OCC) Differential Diagnosis Gastroenteritis versus C. difficile diarrhea versus dehydration Narrative Course Lab work shows hypokalemia, and IV fluids as well as potassium by mouth was given in the ER. It also shows signs a UTI and at this point, considering the patient's complicated history with C. difficile and the fact that she does appear tired, my plan would be to admit her for further treatment and also for ID consult. Case was discussed with Dr. Klein who states that he would prefer that the patient be put on p.o. Vanco for possible C. difficile for now. He states the patient can be admitted to Dr. Jacome service. Diagnosis Primary Impression: Diarrhea Additional Impressions: UTI (urinary tract infection) C. difficile diarrhea Hypokalemia Admitting Information Admitting Physician Requests: Admit Rubi Banuelos MD July 17, 2017 00:40
[2017-07-17 01:17] LABS: WHITE BLOOD COUNT 11.5 TH/MM3 (4.0-11.0)
[2017-07-17 01:18] LABS: BASOPHIL % 0.3 % (0.0-2.0); HEMATOCRIT 40.8 % (35.0-46.0); HEMOGLOBIN 14.1 GM/DL (11.6-15.3); LYMPH % 7.2 % (9.0-44.0); LYMPHOCYTE # 0.8 TH/MM3 (1.0-4.8); MEAN CELL VOLUME 85.4 FL (80.0-100.0); MEAN CORPUSCULAR HEMOGLOBIN 29.4 PG (27.0-34.0); MEAN CORPUSCULAR HGB CONC 34.4 % (32.0-36.0); MEAN PLATELET VOLUME 7.4 FL (7.0-11.0); MONO % 5.9 % (0.0-8.0); MONOCYTE # 0.7 TH/MM3 (0-0.9); NEUT % 86.6 % (16.0-70.0); PLATELET COUNT 253 TH/MM3 (150-450); RED BLOOD COUNT 4.78 MIL/MM3 (4.00-5.30); RED CELL DISTRIBUTION WIDTH 13.9 % (11.6-17.2)
[2017-07-17 01:21] LABS: ALBUMIN 3.8 GM/DL (3.4-5.0); ALT (GPT) 30 U/L (10-53); AST (GOT) 24 U/L (15-37); BICARBONATE 24.6 MEQ/L (21.0-32.0); BLOOD UREA NITROGEN 19 MG/DL (7-18); CALCIUM 8.7 MG/DL (8.5-10.1); CHLORIDE 105 MEQ/L (98-107); GLOMERULAR FILTRATION RATE 62 ML/MIN (>89); GLUCOSE,RANDOM 149 MG/DL (74-106); SODIUM (NA) 140 MEQ/L (136-145)
[2017-07-17 01:23] LABS: ALKALINE PHOSPHATASE 52 U/L (45-117); TOTAL BILIRUBIN ADULT 1.5 MG/DL (0.2-1.0); TOTAL PROTEIN 7.1 GM/DL (6.4-8.2)
[2017-07-17] MEDS ORDERED: POTASSIUM CHLORIDE 25 MEQ EFFERVESCENT TAB PO ONE (01:30)
[2017-07-17 01:34] LABS: BACTERIA, URINE FEW /hpf; BILIRUBIN, URINE NEG (NEG); BLOOD, URINE TRACE (NEG); GLUCOSE,URINE NEG (NEG); KETONE, URINE NEG (NEG); MUCUS URINE FEW /lpf (OCC); NITRITE,URINE NEG (NEG); PH, URINE 5.5 (5.0-8.5); SQUAMOUS EPITHELIAL CELL URINE 1 /hpf (0-5); URINE COLOR YELLOW (YELLW/STRAW); URINE LEUKOCYTE ESTERASE MOD (NEG); WHITE BLOOD CELL CLUMPS RARE
[2017-07-17] MEDS ORDERED: VANCOMYCIN INJ 1,000 MG in SODIUM CHLOR 0.9% 250 ML INJ 250 ML IV ONE (02:00)
[2017-07-17] MEDS: NS + KCL 20 MEQ INJ 1,000 ML IV SCH ×2 (02:22→17:48)
[2017-07-17] MEDS ORDERED: cefTRIAXone INJ 1,000 MG in SODIUM CHLORIDE 0.9% INJ 100 ML IV SCH (03:00)
--- NOTE | 2017-07-17 08:48 | HHI.HP ---
HPI Service [facility] Hospitalists Primary Care Physician Zari Gonzalez MD Admission Diagnosis Suspected C. difficile diarrhea/UTI/hypokalemia Chief Complaint: diarrhea Travel History International Travel<30 Days: No Contact w/Intl Traveler <30 Da: No Traveled to Known Affected Are: No History of Present Illness Ms. Valadez is a 72 y/o female with HTN, diabetes, and hyperlipidemia. Patient has had recurrent C diff diarrhea and presents to the ER last night due to four episodes of watery diarrhea. Patient concerned for recurrent C diff. In review of prior records patient was hospitalized from 02/23/17 - 02/28/17 for C diff, electrolyte abnormalities, dehydration and pna. Patient was DC to [facility] and returned home for one night then. Patient then presented to the ER today via evac with abdominal pain, diarrhea and fecal incontinency. Patient was hospitalized from 04/11-04/20 for diarrhea which was secondary to C. difficile. She had associated electrolyte abnormalities. Patient was also hospitalized on April 26, 2017 for with acute kidney injury dehydration and C. difficile diarrhea. Patient reports she had C. difficile again while she was at rehab a few weeks ago unable to give specific date. Patient reports she finished her oral vancomycin as directed then yesterday had 4 episodes of watery diarrhea. Patient proceeded to the ER for further evaluation and treatment. Patient endorses low grade fevers at home. Patient denies chills, nausea, vomiting, shortness of breath or chest pain. Patient noted to have mild leukocytosis with WBC 11.5 and hypokalemia potassium 3.0. Review of Systems ROS Limitations: Poor Historian Constitutional: COMPLAINS OF: Fatigue, Fever Gastrointestinal: COMPLAINS OF: Diarrhea Past Family Social History Past Medical History recurrent C diff Diabetes mellitus Diabetic neuropathy HTN Hyperlipidemia Hx of breast cancer in 2009 s/p lumpectomy and XRT IBS Pulmonary HTN, PA peak pressure 50mmHg in 2004 CHELSI Vitamin D deficiency Vitamin B12 deficiency Past Surgical History Total knee replacement, left 2004 Arthroscopy both knees Cholecystectomy Cataract surgery RCR right shoulder Feet surgery in 1969' Hysterectomy D&C Reported Medications Hydrocodone-Acetamin 5-325 mg (Hydrocodone/Acetaminophen) 5 Mg-325 Mg Tablet 1 Tab PO Q6H PRN Metformin (Metformin HCl) 500 Mg Tab 500 Mg PO BIDPC With breakfast and lunch Allergies: Coded Allergies: oxycodone (Verified Allergy, Severe, ITCHING, 07/17/17) adhesive (Verified Allergy, Mild, Blisters the skin, 07/17/17) codeine (Verified Allergy, Mild, NAUSEA, 07/17/17) Family History One estranged brother living in [place], [place] Social History Denies any alcohol, tobacco or illicit drug use Pt lives alone Physical Exam Vital Signs Vital Signs Date Time Temp Pulse Resp B/P (MAP) Pulse Ox O2 Delivery O2 Flow Rate FiO2 07/17/17 07:46 97.6 83 16 139/65 (89) 100 07/17/17 03:47 99.3 95 16 153/66 (95) 98 07/17/17 02:47 07/17/17 02:23 79 16 135/84 (101) 100 Room Air 07/17/17 00:42 16 07/17/17 00:37 16 07/17/17 00:36 100.2 92 16 151/79 (103) 97 Physical Exam GENERAL: This is an elderly 72 year old female patient unkempt in appearance SKIN: buttock area reddened with 2 erythematous areas buttock area- healing pressure ulcer HEAD: Atraumatic. Normocephalic. No temporal or scalp tenderness. EYES: Extraocular motions intact. No scleral icterus. No injection or drainage. CARDIOVASCULAR: Regular rate and rhythm murmur present RESPIRATORY: diminished GASTROINTESTINAL: Abdomen soft, non-tender, nondistended. MUSCULOSKELETAL: Extremities without clubbing, cyanosis, or edema. No joint tenderness, effusion, or edema noted. No calf tenderness. Negative Homans sign bilaterally. NEUROLOGICAL: Awake and alert. No focal deficits appreciated. Motor and sensory grossly within normal limits. 4-5 out of 5 muscle strength in all muscle groups. Normal speech. Laboratory Laboratory Tests Test 07/17/17 00:50 07/17/17 01:00 White Blood Count 11.5 Red Blood Count 4.78 Hemoglobin 14.1 Hematocrit 40.8 Mean Corpuscular Volume 85.4 Mean Corpuscular Hemoglobin 29.4 Mean Corpuscular Hemoglobin Concent 34.4 Red Cell Distribution Width 13.9 Platelet Count 253 Mean Platelet Volume 7.4 Neutrophils (%) (Auto) 86.6 Lymphocytes (%) (Auto) 7.2 Monocytes (%) (Auto) 5.9 Eosinophils (%) (Auto) 0.0 Basophils (%) (Auto) 0.3 Neutrophils # (Auto) 10.0 Lymphocytes # (Auto) 0.8 Monocytes # (Auto) 0.7 Eosinophils # (Auto) 0.0 Basophils # (Auto) 0.0 CBC Comment DIFF FINAL Differential Comment Blood Urea Nitrogen 19 Creatinine 0.90 Random Glucose 149 Total Protein 7.1 Albumin 3.8 Calcium Level 8.7 Alkaline Phosphatase 52 Aspartate Amino Transf (AST/SGOT) 24 Alanine Aminotransferase (ALT/SGPT) 30 Total Bilirubin 1.5 Sodium Level 140 Potassium Level 3.0 Chloride Level 105 Carbon Dioxide Level 24.6 Anion Gap 10 Estimat Glomerular Filtration Rate 62 Lipase 79 Urine Color YELLOW Urine Turbidity HAZY Urine pH 5.5 Urine Specific [place] 1.026 Urine Protein 100 Urine Glucose (UA) NEG Urine Ketones NEG Urine Occult Blood TRACE Urine Nitrite NEG Urine Bilirubin NEG Urine Urobilinogen LESS THAN 2.0 Urine Leukocyte Esterase MOD Urine RBC 1 Urine WBC 16 Urine WBC Clumps RARE Urine Squamous Epithelial Cells 1 Urine Bacteria FEW Urine Mucus FEW Microscopic Urinalysis Comment CATH-CULTURE IND Date/Time Source Procedure Growth Status 07/17/17 01:00 Urine Catheterized Urine Urine Culture Pending Received Result Diagram: 07/17/174907/17/1749 Caprini VTE Risk Assessment Caprini VTE Risk Assessment: Mod/High Risk (score >= 2) Caprini Risk Assessment Model Point Value = 1 Point Value = 2 Point Value = 3 Point Value = 5 Age 41-60 Minor surgery BMI > 25 kg/m2 Swollen legs Varicose veins or History of unexplained or recurrent spontaneous Oral contraceptives or hormone replacement Sepsis (< 1 month) Serious lung disease, including pneumonia (< 1 month) Abnormal pulmonary function Acute myocardial infarction Congestive heart failure (< 1 month) History of inflammatory bowel disease Medical patient at bed rest Age 61-74 Arthroscopic surgery Major open surgery (> 45 min) Laparoscopic surgery (> 45 min) Malignancy Confined to bed (> 72 hours) Immobilizing plaster cast Central venous access Age >= 75 History of VTE Family history of VTE Factor V Leiden Prothrombin [id number] Lupus anticoagulant Anticardiolipin antibodies Elevated serum homocysteine Heparin-induced thrombocytopenia Other congenital or acquired thrombophilia Stroke (< 1 month) Elective arthroplasty Hip, pelvis, or leg fracture Acute spinal cord injury (< 1 month) Prophylaxis Regimen Total Risk Factor Score Risk Level Prophylaxis Regimen 0-1 Low Early ambulation 2 Moderate Order ONE of the following: *Sequential Compression Device (SCD) *Heparin 5000 units SQ BID 3-4 Higher Order ONE of the following medications: *Heparin 5000 units SQ TID *Enoxaparin/Lovenox 40 mg SQ daily (WT < 150 kg, CrCl > 30 mL/min) *Enoxaparin/Lovenox 30 mg SQ daily (WT < 150 kg, CrCl > 10-29 mL/min) *Enoxaparin/Lovenox 30 mg SQ BID (WT < 150 kg, CrCl > 30 mL/min) AND/OR *Sequential Compression Device (SCD) 5 or more Highest Order ONE of the following medications: *Heparin 5000 units SQ TID (Preferred with Epidurals) *Enoxaparin/Lovenox 40 mg SQ daily (WT < 150 kg, CrCl > 30 mL/min) *Enoxaparin/Lovenox 30 mg SQ daily (WT < 150 kg, CrCl > 10-29 mL/min) *Enoxaparin/Lovenox 30 mg SQ BID (WT < 150 kg, CrCl > 30 mL/min) AND *Sequential Compression Device (SCD) Assessment and Plan Problem List: (1) Diarrhea ICD Codes: R19.7 - Diarrhea, unspecified Plan: Diarrhea recurrent C Diff diarrhea - Ms. Valadez is a 72 y/o female with HTN, diabetes, and hyperlipidemia. Patient has had recurrent C diff diarrhea and presents to the ER last night due to four episodes of watery diarrhea. Patient concerned for recurrent C diff. - In review of prior records patient was hospitalized from 02/23/17 - 02/28/17 for C diff, electrolyte abnormalities, dehydration and pna. Patient was DC to [facility] rehab and returned home for one night then. Patient then presented to the ER today via evac with abdominal pain, diarrhea and fecal incontinency. - Patient was hospitalized from 04/11-04/20 for diarrhea which was secondary to C. difficile. She had associated electrolyte abnormalities. - Patient was also hospitalized on April 26, 2017 for with acute kidney injury dehydration and C. difficile diarrhea. Patient reports she had C. difficile again while she was at rehab a few weeks ago unable to give specific date. Patient reports she finished her oral vancomycin as directed then yesterday had 4 episodes of watery diarrhea. - C diff pos, 027 positive - continue oral Vancomycin - Consult ID for assistance with recurrent C diff - IV fluids for hydration - PT eval requested SCDs for DVT prophylaxis (2) Hypokalemia ICD Codes: E87.6 - Hypokalemia Status: Acute Plan: Potassium on admission 3.0 replaced in ER recheck pending will add on magnesium level replaced as needed (3) Possible urinary tract infection ICD Codes: R39.89 - Other symptoms and signs involving the genitourinary system Plan: WBC minimally elevated at 11.5 could be related to C diff diarrhea Patient denies dysuria or increased urinary frequency UA reviewed and reveals positive protein and trace occult blood, negative nitrates, moderate leukocyte esterase of rare white blood cell clumps few mucus and few bacteria as well as squamous epithelial cells. Urine culture pending Patient received Rocephin 1 g IV in the emergency department We will await culture results to dose further antibiotics given patient's history of recurrent C. difficile and current diarrhea. (4) Diabetes ICD Codes: E11.9 - Type 2 diabetes mellitus without complications Status: Resolved Plan: - continue home metformin - acu checks ACHS with SSI coverage - diabetic diet (5) Murmur, cardiac ICD Codes: R01.1 - Cardiac murmur, unspecified Status: Chronic Plan: Murmur, cardiac Echocardiogram (03/22/17) Normal left ventricular size. Wall thickness is normal. No regional wall motion abnormalities are present. The left ventricular systolic function is normal with an estimated ejection fraction in the range of 60-65%. Moderate thickening of the aortic valve leaflets. Mild aortic valve stenosis. Aortic valve area is 1.3 cm. Aortic valve meangradient is 22.5 mmHg. There is mild tricuspid valve regurgitation. The estimated pulmonary arterial pressure is 65.1 mmHg. The inferior vena cava was not well visualized. Assessment and Plan Patient examined. Assessment and plan formulated with Princess Mitchell PA-C. I agree with the above. Pt with recurrent C. Dif. Antibiotics changed to dificid per ID Princess Mitchell July 17, 2017 08:48 Joseph Jacome DO July 18, 2017 09:49
[2017-07-17] MEDS ORDERED: VANCOMYCIN 500 MG VIAL (FOR ORAL USE ONLY) PO SCH (09:00)
[2017-07-17] MEDS: VANCOMYCIN 500 MG VIAL (FOR ORAL USE ONLY) PO SCH ×2 (09:40→13:25)
[2017-07-17 10:16] LABS: BICARBONATE 23.2 MEQ/L (21.0-32.0); CALCIUM 8.6 MG/DL (8.5-10.1); CREATININE 0.79 MG/DL (0.50-1.00)
[2017-07-17] MEDS ORDERED: POTASSIUM CHLORIDE 20 MEQ CONTROLLED RELEASE TAB PO ONE (10:45)
[2017-07-17] MEDS: ACETAMINOPHEN/HYDROcodone 325 MG/5 MG TAB PO PRN ×2 (13:53→20:35)
[2017-07-17] MEDS: NYSTATIN 100,000 UNIT/GM CREAM 15 GM TOPICAL PRN (17:46)
[2017-07-17] MEDS: metFORMIN HCL 500 MG TAB PO SCH (18:55)
[2017-07-17] MEDS: LACTOBACILLUS ACIDOPHILUS TAB PO SCH (18:56)
--- NOTE | 2017-07-17 19:41 | MB ---
cc: Brian Perkins MD, Franklyn F MD DATE: 07/17/2017 REQUESTING PHYSICIAN: Dr. Jacome REASON FOR CONSULTATION: Recurrent C difficile. HISTORY OF PRESENT ILLNESS: This is a 72-year-old white female who presented to the Emergency Department with diarrhea and abdominal pain. The patient has had at least 2 prior episodes of C difficile. A stool C difficile testing was performed and it is positive again. She has been treated with a prolonged course of vancomycin. She received approximately a 6 week taper of vancomycin with her last episode of C difficile. She completed treatment around 06/08. She notes that she has had no diarrhea for about a couple of weeks at least. She notes cramping abdominal pain. She had a temperature of 100.2 degrees in the Emergency Department here so far. The white count is 11.5. Urinalysis was performed and it showed 16 white cells. She is going to be sitting up in a chair and is awake and alert. PAST MEDICAL HISTORY: Hypertension, diabetes mellitus, diabetic neuropathy, hyperlipidemia, inflammatory bowel disease, pulmonary hypertension, osteoarthritis, history of breast cancer in 2009. PAST SURGICAL HISTORY: Cholecystectomy, hysterectomy, D and C, cataract surgery, arthroscopy of both knees, left total knee replacement 2004. ALLERGIES: OXYCODONE AND CODEINE. MEDICATIONS: 1. Vancomycin p.o. 2. Ceftriaxone 3. Metformin. 4. [place] 5 p.r.n. SOCIAL HISTORY: No tobacco, no alcohol, no illicit drugs. FAMILY HISTORY: Noncontributory. REVIEW OF SYSTEMS: Negative on 10-point review except for abdominal cramping and diarrhea. PHYSICAL EXAMINATION: GENERAL: Well-developed female who is in no acute distress. She is awake, alert and oriented. VITAL SIGNS: Temperature 99.3, BP 158/73, respirations 18, heart rate 95. HEENT: Head is atraumatic. Extraocular movements grossly intact. Pupils reactive to light. No icterus. Oropharynx: Moist mucosa. No visible lesions. NECK: Supple without adenopathy. LUNGS: Clear breath sounds. HEART: Regular S1 and S2 without murmurs, rubs or gallops. ABDOMEN: Bowel sounds present. Soft, nondistended. Tenderness of the abdomen diffusely on palpation. No rebound tenderness. RECTAL: Not performed. EXTREMITIES: No clubbing, cyanosis or edema. SKIN: No rash. NEUROLOGIC: Awake, alert and oriented. No gross focal findings. PSYCHIATRIC: Calm and cooperative. LABORATORY DATA: WBC 11.5, platelets 253, 86% neutrophils, hemoglobin 14.1, creatinine 0.79, BUN 17, sodium 140. LFTs normal. IMAGING STUDIES: Chest x-ray shows no acute cardiopulmonary findings. IMPRESSION: Third recurrence of Clostridium difficile colitis. Prior treatment with vancomycin. Low-grade fever. RECOMMENDATIONS: 1. Discontinue the vancomycin. 2. Begin Dificid. 3. Monitor stool frequency. 4. Monitor response to the Dificid. If she has satisfactory response, she can be given the Dificid for 10 days and then proceed with another prolonged tapered treatment with vancomycin. This time it should be given for 6-12 weeks. Thank you for this consultation. I will monitor the patient's progress along with you. MD LUZMARIA Velasco/ , 05:25 PM , 07:40 PM
[2017-07-17] MEDS: FIDAXOMICIN 200 MG TAB PO SCH (21:16)
[2017-07-18] MEDS: NS + KCL 20 MEQ INJ 1,000 ML IV SCH ×2 (02:09→13:36)
[2017-07-18 04:07] VITALS: BP 151/72; PULSE 79; RESP 16; O2SAT 98
[2017-07-18] MEDS: ACETAMINOPHEN/HYDROcodone 325 MG/5 MG TAB PO PRN ×2 (04:35→16:05)
[2017-07-18 08:25] VITALS: BP 145/60; PULSE 68; RESP 20; TEMP 98.2; O2SAT 97
[2017-07-18 08:29] LABS: AUTOMATED NEUTROPHIL # 4.3 TH/MM3 (1.8-7.7); BASOPHIL % 0.3 % (0.0-2.0); EOSINOPHIL # 0.2 TH/MM3 (0-0.4); EOSINOPHIL % 2.6 % (0.0-4.0); HEMATOCRIT 37.6 % (35.0-46.0); HEMOGLOBIN 12.6 GM/DL (11.6-15.3); LYMPH % 13.4 % (9.0-44.0); LYMPHOCYTE # 0.8 TH/MM3 (1.0-4.8); MEAN CELL VOLUME 87.5 FL (80.0-100.0); MEAN CORPUSCULAR HEMOGLOBIN 29.3 PG (27.0-34.0); MEAN CORPUSCULAR HGB CONC 33.4 % (32.0-36.0); MEAN PLATELET VOLUME 7.5 FL (7.0-11.0); MONO % 8.2 % (0.0-8.0); MONOCYTE # 0.5 TH/MM3 (0-0.9); NEUT % 75.5 % (16.0-70.0); PLATELET COUNT 201 TH/MM3 (150-450); RED BLOOD COUNT 4.29 MIL/MM3 (4.00-5.30); RED CELL DISTRIBUTION WIDTH 13.9 % (11.6-17.2); WHITE BLOOD COUNT 5.7 TH/MM3 (4.0-11.0)
[2017-07-18 08:40] LABS: BICARBONATE 20.5 MEQ/L (21.0-32.0); CALCIUM 8.5 MG/DL (8.5-10.1); CREATININE 0.56 MG/DL (0.50-1.00); MAGNESIUM 1.7 MG/DL (1.5-2.5)
[2017-07-18] MEDS: FIDAXOMICIN 200 MG TAB PO SCH ×2 (09:11→20:22)
[2017-07-18] MEDS: LACTOBACILLUS ACIDOPHILUS TAB PO SCH ×3 (09:11→18:05)
[2017-07-18] MEDS: metFORMIN HCL 500 MG TAB PO SCH ×2 (09:11→18:05)
[2017-07-18] MEDS: NYSTATIN 100,000 UNIT/GM CREAM 15 GM TOPICAL PRN (09:14)
[2017-07-18 12:17] VITALS: BP 147/69; PULSE 76; RESP 18; TEMP 98.4; O2SAT 99
--- NOTE | 2017-07-18 15:25 | HHI.PR ---
Subjective Remarks Pt c/o several episodes of watery diarrhea today. Pt states is tolerating liquids without nausea. Pt c/o diffuse abdominal pain. Objective Vitals Vital Signs Date Time Temp Pulse Resp B/P (MAP) Pulse Ox O2 Delivery O2 Flow Rate FiO2 07/18/17 12:17 98.4 76 18 147/69 (95) 99 07/18/17 08:25 98.2 68 20 145/60 (88) 97 07/18/17 04:07 79 16 151/72 (98) 98 07/17/17 21:52 16 07/17/17 19:59 98.8 90 16 145/69 (94) 99 07/18/17 07/18/17 07/19/17 15:00 23:00 07:00 Intake Total 425 ml Output Total 1 ml Balance 424 ml Intake Oral 425 ml Output Stool Total 1 ml Result Diagram: 07/18/1774407/18/17744 Objective Remarks GENERAL: This is a well-nourished, well-developed patient, in no apparent distress. CARDIOVASCULAR: Regular rate and rhythm without murmurs, gallops, or rubs. RESPIRATORY: Clear to auscultation. Breath sounds equal bilaterally. No wheezes , rales, or rhonchi. GASTROINTESTINAL: Abdomen soft, non-tender, nondistended. Normal active bowel sounds MUSCULOSKELETAL: Extremities without clubbing, cyanosis, or edema. NEURO: Alert & Oriented x3, MARTIN A/P Problem List: (1) Diarrhea ICD Codes: R19.7 - Diarrhea, unspecified Plan: Diarrhea recurrent C Diff diarrhea - comgmt with ID - Ms. Valadez is a 72 y/o female with HTN, diabetes, and hyperlipidemia. Patient has had recurrent C diff diarrhea and presents to the ER last night due to four episodes of watery diarrhea. Patient concerned for recurrent C diff. - In review of prior records patient was hospitalized from 02/23/17 - 02/28/17 for C diff, electrolyte abnormalities, dehydration and pna. Patient was DC to [facility] re[facility] and returned home for one night then. Patient then presented to the ER today via evac with abdominal pain, diarrhea and fecal incontinency. - Patient was hospitalized from 04/11-04/20 for diarrhea which was secondary to C. difficile. She had associated electrolyte abnormalities. - Patient was also hospitalized on April 26, 2017 for with acute kidney injury dehydration and C. difficile diarrhea. Patient reports she had C. difficile again while she was at rehab a few weeks ago unable to give specific date. - Patient reports she finished her oral vancomycin as directed then had 4 episodes of watery diarrhea the day prior to admission - C diff pos, 027 positive - PO Dificid, then vancomycin taper - IV fluids for hydration thru AM 07/19 - PT - SCDs for DVT prophylaxis - pt c/o abdominal pain (07/18) - Pt is diffusely tender on palpation, worse at LUQ - obtain KUB to r/o megacolon (2) Hypokalemia ICD Codes: E87.6 - Hypokalemia Status: Resolved Plan: - Potassium on admission 3.0 - repeleted - K 3.7 (07/18) (3) Possible urinary tract infection ICD Codes: R39.89 - Other symptoms and signs involving the genitourinary system Plan: WBC minimally elevated at 11.5 could be related to C diff diarrhea Patient denies dysuria or increased urinary frequency UA (07/17) --> gram positive rods Patient received Rocephin 1 g IV in the emergency department - Pt given IV Rocephin in the ER - Urine Cx (07/17) --> gram positive rods - await culture results to dose further antibiotics given patient's history of recurrent C. difficile (4) Diabetes ICD Codes: E11.9 - Type 2 diabetes mellitus without complications Status: Chronic Plan: - continue home metformin - acu checks ACHS with SSI coverage - diabetic diet (5) Murmur, cardiac ICD Codes: R01.1 - Cardiac murmur, unspecified Status: Chronic Plan: Murmur, cardiac Echocardiogram (03/22/17) Normal left ventricular size. Wall thickness is normal. No regional wall motion abnormalities are present. The left ventricular systolic function is normal with an estimated ejection fraction in the range of 60-65%. Moderate thickening of the aortic valve leaflets. Mild aortic valve stenosis. Aortic valve area is 1.3 cm. Aortic valve meangradient is 22.5 mmHg. There is mild tricuspid valve regurgitation. The estimated pulmonary arterial pressure is 65.1 mmHg. The inferior vena cava was not well visualized. Problem Qualifiers (1) Diabetes: Joseph Jacome DO July 18, 2017 15:25
[2017-07-18 16:14] VITALS: BP 142/62; PULSE 88; RESP 18; TEMP 97.9; O2SAT 98
--- NOTE | 2017-07-18 16:33 | RADRPT ---
EXAM DATE/TIME: 07/18/2017 16:04 [place] COMPARISON: ABDOMEN KUB ONLY, April 15, 2017, 16:13. INDICATIONS : Abdominal pain. MEDICAL HISTORY : Hypertension. Diabetes mellitus type II. SURGICAL HISTORY : Hysterectomy. Fusion, cervical. ENCOUNTER: Subsequent ACUITY: 1 day PAIN SCORE: 8/10 LOCATION: Bilateral lower quadrant FINDINGS: Lung base is are clear. Bowel gas pattern unremarkable. There is no free air or obstruction. Degen erative changes are present in the lumbar spine. . CONCLUSION: Nonspecific bowel gas pattern. Moderate degenerative changes lumbar spine Chris Banks MD FACR on July 18, 2017 at 16:30 Board Certified Radiologist. This report was verified electronically.
[2017-07-18 19:27] VITALS: BP 168/78; PULSE 68; RESP 16; TEMP 98.1; O2SAT 98
[2017-07-18] MEDS: SODIUM CHLORIDE 0.9% FLUSH 10 ML FLUSH IV FLUSH PRN (20:23)
[2017-07-19 00:40] VITALS: BP 152/74; PULSE 63; RESP 17; TEMP 98.3; O2SAT 98
[2017-07-19] MEDS: ACETAMINOPHEN 500 MG CPLT PO PRN (01:02)
[2017-07-19] MEDS: NS + KCL 20 MEQ INJ 1,000 ML IV SCH ×2 (01:03→06:02)
[2017-07-19 05:22] VITALS: BP 156/76; PULSE 77; RESP 16; TEMP 98.2; O2SAT 94
[2017-07-19 07:44] VITALS: BP 164/71; PULSE 59; RESP 16; TEMP 98.9; O2SAT 100
[2017-07-19] MEDS ORDERED: LISINOPRIL 5 MG TAB PO SCH (09:00)
--- NOTE | 2017-07-19 09:23 | HHI.PR ---
Subjective Remarks Patient c/o mild headache 3 watery BMs through the night Objective Vitals Vital Signs Date Time Temp Pulse Resp B/P (MAP) Pulse Ox O2 Delivery O2 Flow Rate FiO2 07/19/17 07:44 98.9 59 16 164/71 (102) 100 07/19/17 05:22 98.2 77 16 156/76 (102) 94 07/19/17 02:00 16 07/19/17 00:40 98.3 63 17 152/74 (100) 98 07/18/17 19:27 98.1 68 16 168/78 (108) 98 07/18/17 16:14 97.9 88 18 142/62 (88) 98 07/18/17 12:17 98.4 76 18 147/69 (95) 99 Result Diagram: 07/18/17 0745 07/18/17 0745 Other Results Laboratory Tests Test 07/17/17 00:50 07/17/17 01:00 07/17/17 09:20 07/17/17 09:33 White Blood Count 11.5 TH/MM3 Red Blood Count 4.78 MIL/MM3 Hemoglobin 14.1 GM/DL Hematocrit 40.8 % Mean Corpuscular Volume 85.4 FL Mean Corpuscular Hemoglobin 29.4 PG Mean Corpuscular Hemoglobin Concent 34.4 % Red Cell Distribution Width 13.9 % Platelet Count 253 TH/MM3 Mean Platelet Volume 7.4 FL Neutrophils (%) (Auto) 86.6 % Lymphocytes (%) (Auto) 7.2 % Monocytes (%) (Auto) 5.9 % Eosinophils (%) (Auto) 0.0 % Basophils (%) (Auto) 0.3 % Neutrophils # (Auto) 10.0 TH/MM3 Lymphocytes # (Auto) 0.8 TH/MM3 Monocytes # (Auto) 0.7 TH/MM3 Eosinophils # (Auto) 0.0 TH/MM3 Basophils # (Auto) 0.0 TH/MM3 CBC Comment DIFF FINAL Differential Comment Blood Urea Nitrogen 19 MG/DL 17 MG/DL Creatinine 0.90 MG/DL 0.79 MG/DL Random Glucose 149 MG/DL 118 MG/DL Total Protein 7.1 GM/DL Albumin 3.8 GM/DL Calcium Level 8.7 MG/DL 8.6 MG/DL Alkaline Phosphatase 52 U/L Aspartate Amino Transf (AST/SGOT) 24 U/L Alanine Aminotransferase (ALT/SGPT) 30 U/L Total Bilirubin 1.5 MG/DL Sodium Level 140 MEQ/L 140 MEQ/L Potassium Level 3.0 MEQ/L 3.2 MEQ/L Chloride Level 105 MEQ/L 108 MEQ/L Carbon Dioxide Level 24.6 MEQ/L 23.2 MEQ/L Anion Gap 10 MEQ/L 9 MEQ/L Estimat Glomerular Filtration Rate 62 ML/MIN 72 ML/MIN Lipase 79 U/L Urine Color YELLOW Urine Turbidity HAZY Urine pH 5.5 Urine Specific [place] 1.026 Urine Protein 100 mg/dL Urine Glucose (UA) NEG mg/dL Urine Ketones NEG mg/dL Urine Occult Blood TRACE Urine Nitrite NEG Urine Bilirubin NEG Urine Urobilinogen LESS THAN 2.0 MG/DL Urine Leukocyte Esterase MOD Urine RBC 1 /hpf Urine WBC 16 /hpf Urine WBC Clumps RARE Urine Squamous Epithelial Cells 1 /hpf Urine Bacteria FEW /hpf Urine Mucus FEW /lpf Microscopic Urinalysis Comment CATH-CULTURE IND Stool C. difficile Toxin (PCR) POSITIVE Stl C. difficile Toxin Epiderm 027 PRESUMPTIVE POSITIVE Magnesium Level 1.6 MG/DL Test 07/18/17 07:45 White Blood Count 5.7 TH/MM3 Red Blood Count 4.29 MIL/MM3 Hemoglobin 12.6 GM/DL Hematocrit 37.6 % Mean Corpuscular Volume 87.5 FL Mean Corpuscular Hemoglobin 29.3 PG Mean Corpuscular Hemoglobin Concent 33.4 % Red Cell Distribution Width 13.9 % Platelet Count 201 TH/MM3 Mean Platelet Volume 7.5 FL Neutrophils (%) (Auto) 75.5 % Lymphocytes (%) (Auto) 13.4 % Monocytes (%) (Auto) 8.2 % Eosinophils (%) (Auto) 2.6 % Basophils (%) (Auto) 0.3 % Neutrophils # (Auto) 4.3 TH/MM3 Lymphocytes # (Auto) 0.8 TH/MM3 Monocytes # (Auto) 0.5 TH/MM3 Eosinophils # (Auto) 0.2 TH/MM3 Basophils # (Auto) 0.0 TH/MM3 CBC Comment DIFF FINAL Differential Comment Blood Urea Nitrogen 14 MG/DL Creatinine 0.56 MG/DL Random Glucose 105 MG/DL Calcium Level 8.5 MG/DL Magnesium Level 1.7 MG/DL Sodium Level 140 MEQ/L Potassium Level 3.7 MEQ/L Chloride Level 112 MEQ/L Carbon Dioxide Level 20.5 MEQ/L Anion Gap 8 MEQ/L Estimat Glomerular Filtration Rate 107 ML/MIN Imaging Last Impressions Abdomen X-Ray 07/18/17 0000 Signed Impressions: Service Date/Time: Tuesday, July 18, 2017 16:04 - CONCLUSION: Nonspecific bowel gas pattern. Moderate degenerative changes lumbar spine Chris Banks MD FACR Objective Remarks GENERAL: This is an elderly 72 year old female patient unkempt and weak in appearance HEAD: Atraumatic. Normocephalic. No temporal or scalp tenderness. EYES: Extraocular motions intact. No scleral icterus. No injection or drainage. CARDIOVASCULAR: Regular rate and rhythm murmur present RESPIRATORY: diminished GASTROINTESTINAL: Abdomen soft, non-tender, nondistended. MUSCULOSKELETAL: Extremities without clubbing, cyanosis, or edema. No joint tenderness, effusion, or edema noted. No calf tenderness. Negative Homans sign bilaterally. NEUROLOGICAL: Awake and alert. No focal deficits appreciated. Motor and sensory grossly within normal limits. 4-5 out of 5 muscle strength in all muscle groups. Normal speech. A/P Problem List: (1) Diarrhea ICD Codes: R19.7 - Diarrhea, unspecified Plan: Diarrhea recurrent C Diff diarrhea - comgmt with ID - Ms. Valadez is a 72 y/o female with HTN, diabetes, and hyperlipidemia. Patient has had recurrent C diff diarrhea and presents to the ER last night due to four episodes of watery diarrhea. Patient concerned for recurrent C diff. - In review of prior records patient was hospitalized from 02/23/17 - 02/28/17 for C diff, electrolyte abnormalities, dehydration and pna. Patient was DC to [facility] rehab and returned home for one night then. Patient then presented to the ER today via evac with abdominal pain, diarrhea and fecal incontinency. - Patient was hospitalized from 04/11-04/20 for diarrhea which was secondary to C. difficile. She had associated electrolyte abnormalities. - Patient was also hospitalized on April 26, 2017 for with acute kidney injury dehydration and C. difficile diarrhea. Patient reports she had C. difficile again while she was at rehab a few weeks ago unable to give specific date. - Patient reports she finished her oral vancomycin as directed then had 4 episodes of watery diarrhea the day prior to admission - C diff pos, 027 positive - PO Dificid, then vancomycin taper - IV fluids for hydration thru AM 07/19 - PT - SCDs for DVT prophylaxis - KUB 07/18 Nonspecific bowel gas pattern. Moderate degenerative changes lumbar spine (2) Hypokalemia ICD Codes: E87.6 - Hypokalemia Status: Resolved Plan: - Potassium on admission 3.0 - repeleted - K 3.7 (07/18) (3) Possible urinary tract infection ICD Codes: R39.89 - Other symptoms and signs involving the genitourinary system Plan: WBC minimally elevated at 11.5 -> 5.7 Patient denies dysuria or increased urinary frequency Patient received Rocephin 1 g IV in the emergency department - Urine Cx (07/17) --> gram positive rods. patient denies urinary symptoms. Will hold off on further abx at this time will defer treatment to ID. Given patient's recurrent C. difficile (4) Diabetes ICD Codes: E11.9 - Type 2 diabetes mellitus without complications Status: Chronic Plan: - continue home metformin - acu checks ACHS with SSI coverage - diabetic diet (5) Murmur, cardiac ICD Codes: R01.1 - Cardiac murmur, unspecified Status: Chronic Plan: Murmur, cardiac Echocardiogram (03/22/17) Normal left ventricular size. Wall thickness is normal. No regional wall motion abnormalities are present. The left ventricular systolic function is normal with an estimated ejection fraction in the range of 60-65%. Moderate thickening of the aortic valve leaflets. Mild aortic valve stenosis. Aortic valve area is 1.3 cm. Aortic valve meangradient is 22.5 mmHg. There is mild tricuspid valve regurgitation. The estimated pulmonary arterial pressure is 65.1 mmHg. The inferior vena cava was not well visualized. Assessment and Plan Patient examined. Assessment and plan formulated with Princess Mitchell PA-C. I agree with the above. recurrent c.diff colitis ID following. rifaxamin. lactobacillis. if peristent pt might need considered for stool transplant. Problem Qualifiers (1) Diabetes: Princess Mitchell July 19, 2017 09:23 Selwyn Appiah MD July 19, 2017 21:46
[2017-07-19] MEDS: LACTOBACILLUS ACIDOPHILUS TAB PO SCH ×3 (10:01→17:43)
[2017-07-19] MEDS: FIDAXOMICIN 200 MG TAB PO SCH ×2 (10:01→20:36)
[2017-07-19] MEDS: metFORMIN HCL 500 MG TAB PO SCH ×2 (10:02→17:43)
[2017-07-19] MEDS: SODIUM CHLORIDE 0.9% FLUSH 10 ML FLUSH IV FLUSH PRN (10:02)
[2017-07-19] MEDS: ACETAMINOPHEN/HYDROcodone 325 MG/5 MG TAB PO PRN (10:04)
[2017-07-19 17:35] VITALS: BP 176/81; PULSE 67; RESP 16; TEMP 98.7; O2SAT 98
[2017-07-19] MEDS: cloNIDine HCL 0.1 MG TAB PO PRN (17:43)
--- NOTE | 2017-07-19 19:22 | HHI.IDPN ---
Note Infectious Disease Note Patient notes that she had abdominal pain earlier today and also pain in the head at the temporal area of the left. No nausea or vomiting. She had couple episodes of mucousy stools today. Afebrile. 72-year-old white female who presented to the Emergency Department with diarrhea and abdominal pain. The patient has had at least 2 prior episodes of C difficile. PAST MEDICAL HISTORY: Hypertension, diabetes mellitus, diabetic neuropathy, hyperlipidemia, inflammatory bowel disease, pulmonary hypertension, osteoarthritis, history of breast cancer in 2009. PAST SURGICAL HISTORY: Cholecystectomy, hysterectomy, D and C, cataract surgery, arthroscopy of both knees, left total knee replacement 2004. ALLERGIES: OXYCODONE AND CODEINE. MEDICATIONS: Current Medications Medications (Trade) Dose Ordered Sig/Jorje Route PRN Reason Start Time Stop Time Status Last Admin Dose Admin Sodium Chloride (NS Flush) 2 ml UNSCH PRN IV FLUSH FLUSH AFTER USING IV ACCESS 07/17/17 00:45 07/19/17 10:02 Metformin HCl (Glucophage) 500 mg BIDPC PO 07/17/17 18:00 07/19/17 17:43 Acetaminophen (Tylenol) 500 mg Q6H PRN PO PAIN 1- 4, headache 07/17/17 11:30 07/19/17 01:02 Acetaminophen/ Hydrocodone Bitart ([place] 5-325 Mg) 1 tab Q6H PRN PO PAIN 5-10 07/17/17 11:30 07/19/17 10:04 Nystatin (Mycostatin Cream) 1 applic Q2H PRN TOPICAL PERINEAL EXCORIATION 07/17/17 16:00 07/18/17 09:14 Fidaxomicin (Dificid) 200 mg BID PO 07/17/17 21:00 07/27/17 20:59 07/19/17 10:01 Lactobacillus Acidophilus (Lactinex) 1 tab TID PO 07/17/17 18:00 07/19/17 17:43 Clonidine (Catapres) 0.1 mg Q6H PRN PO SBP>160, DBP>90 07/19/17 08:00 07/19/17 17:43 Lisinopril (Prinivil) 5 mg DAILY PO 07/19/17 09:00 07/19/17 10:11 Objective: Vital Signs Date Time Temp Pulse Resp B/P (MAP) Pulse Ox O2 Delivery O2 Flow Rate FiO2 07/19/17 17:35 98.7 67 16 176/81 (112) 98 07/19/17 07:44 98.9 59 16 164/71 (102) 100 07/19/17 05:22 98.2 77 16 156/76 (102) 94 07/19/17 02:00 16 07/19/17 00:40 98.3 63 17 152/74 (100) 98 07/18/17 19:27 98.1 68 16 168/78 (108) 98 Laboratory Tests Test 07/18/17 07:45 White Blood Count 5.7 TH/MM3 Red Blood Count 4.29 MIL/MM3 Hemoglobin 12.6 GM/DL Hematocrit 37.6 % Mean Corpuscular Volume 87.5 FL Mean Corpuscular Hemoglobin 29.3 PG Mean Corpuscular Hemoglobin Concent 33.4 % Red Cell Distribution Width 13.9 % Platelet Count 201 TH/MM3 Mean Platelet Volume 7.5 FL Neutrophils (%) (Auto) 75.5 % Lymphocytes (%) (Auto) 13.4 % Monocytes (%) (Auto) 8.2 % Eosinophils (%) (Auto) 2.6 % Basophils (%) (Auto) 0.3 % Neutrophils # (Auto) 4.3 TH/MM3 Lymphocytes # (Auto) 0.8 TH/MM3 Monocytes # (Auto) 0.5 TH/MM3 Eosinophils # (Auto) 0.2 TH/MM3 Basophils # (Auto) 0.0 TH/MM3 CBC Comment DIFF FINAL Differential Comment Laboratory Tests Test 07/18/17 07:45 Blood Urea Nitrogen 14 MG/DL Creatinine 0.56 MG/DL Random Glucose 105 MG/DL Calcium Level 8.5 MG/DL Magnesium Level 1.7 MG/DL Sodium Level 140 MEQ/L Potassium Level 3.7 MEQ/L Chloride Level 112 MEQ/L Carbon Dioxide Level 20.5 MEQ/L Anion Gap 8 MEQ/L Estimat Glomerular Filtration Rate 107 ML/MIN Microbiology Date/Time Source Procedure Growth Status 07/17/17 01:00 Urine Catheterized Urine Urine Culture - Final Klebsiella Oxytoca Complete PHYSICAL EXAMINATION: GENERAL: Patient in no acute distress. HEENT: Head is atraumatic. Extraocular movements grossly intact. Pupils reactive to light. No icterus. Oropharynx: Moist mucosa. No visible lesions. NECK: Supple without adenopathy. LUNGS: Clear breath sounds. HEART: Regular S1 and S2 without murmurs, rubs or gallops. ABDOMEN: Bowel sounds present. Soft, nondistended. Tenderness of the abdomen diffusely on palpation. No rebound tenderness. EXTREMITIES: No clubbing, cyanosis or edema. SKIN: No rash. NEUROLOGIC: Awake, alert and oriented. No gross focal findings. PSYCHIATRIC: Calm and cooperative. IMPRESSION: Third recurrence of Clostridium difficile colitis. Prior treatment with vancomycin. Low-grade fever. Asymptomatic UTI. RECOMMENDATIONS: 1. Continue Dificid. 2. Monitor stool frequency. If she has satisfactory response, she can be given the Dificid for 10 days and then proceed with another prolonged tapered treatment with vancomycin. This time it should be given for 6-12 weeks. Brian Perkins MD July 19, 2017 19:22
[2017-07-19 19:42] VITALS: BP 157/72; PULSE 66; RESP 16; TEMP 98.1; O2SAT 98
[2017-07-19 23:50] VITALS: BP 182/86; PULSE 64; RESP 16; TEMP 97.9; O2SAT 97
[2017-07-20] MEDS: cloNIDine HCL 0.1 MG TAB PO PRN ×2 (00:05→12:14)
[2017-07-20] MEDS: ACETAMINOPHEN/HYDROcodone 325 MG/5 MG TAB PO PRN ×2 (00:05→21:01)
[2017-07-20 05:32] VITALS: BP 165/86; PULSE 62; RESP 16; TEMP 98.1; O2SAT 100
[2017-07-20 07:35] VITALS: BP 168/83; PULSE 60; RESP 19; TEMP 97.9; O2SAT 98
--- NOTE | 2017-07-20 08:20 | HHI.PR ---
Subjective Remarks Report, "The stools are drying up." one BM through the night pudding consistence Objective Vitals Vital Signs Date Time Temp Pulse Resp B/P (MAP) Pulse Ox O2 Delivery O2 Flow Rate FiO2 07/20/17 07:35 97.9 60 19 168/83 (111) 98 07/20/17 05:32 98.1 62 16 165/86 (112) 100 07/19/17 23:50 97.9 64 16 182/86 (118) 97 07/19/17 19:42 98.1 66 16 157/72 (100) 98 07/19/17 17:35 98.7 67 16 176/81 (112) 98 Result Diagram: 07/18/17 0745 07/18/17 0745 Other Results Laboratory Tests Test 07/17/17 09:20 07/17/17 09:33 07/18/17 07:45 Stool C. difficile Toxin (PCR) POSITIVE Stl C. difficile Toxin Epiderm 027 PRESUMPTIVE POSITIVE Blood Urea Nitrogen 17 MG/DL 14 MG/DL Creatinine 0.79 MG/DL 0.56 MG/DL Random Glucose 118 MG/DL 105 MG/DL Calcium Level 8.6 MG/DL 8.5 MG/DL Sodium Level 140 MEQ/L 140 MEQ/L Potassium Level 3.2 MEQ/L 3.7 MEQ/L Chloride Level 108 MEQ/L 112 MEQ/L Carbon Dioxide Level 23.2 MEQ/L 20.5 MEQ/L Anion Gap 9 MEQ/L 8 MEQ/L Estimat Glomerular Filtration Rate 72 ML/MIN 107 ML/MIN Magnesium Level 1.6 MG/DL 1.7 MG/DL White Blood Count 5.7 TH/MM3 Red Blood Count 4.29 MIL/MM3 Hemoglobin 12.6 GM/DL Hematocrit 37.6 % Mean Corpuscular Volume 87.5 FL Mean Corpuscular Hemoglobin 29.3 PG Mean Corpuscular Hemoglobin Concent 33.4 % Red Cell Distribution Width 13.9 % Platelet Count 201 TH/MM3 Mean Platelet Volume 7.5 FL Neutrophils (%) (Auto) 75.5 % Lymphocytes (%) (Auto) 13.4 % Monocytes (%) (Auto) 8.2 % Eosinophils (%) (Auto) 2.6 % Basophils (%) (Auto) 0.3 % Neutrophils # (Auto) 4.3 TH/MM3 Lymphocytes # (Auto) 0.8 TH/MM3 Monocytes # (Auto) 0.5 TH/MM3 Eosinophils # (Auto) 0.2 TH/MM3 Basophils # (Auto) 0.0 TH/MM3 CBC Comment DIFF FINAL Differential Comment Imaging Last Impressions Abdomen X-Ray 07/18/17 0000 Signed Impressions: Service Date/Time: Tuesday, July 18, 2017 16:04 - CONCLUSION: Nonspecific bowel gas pattern. Moderate degenerative changes lumbar spine Chris Banks MD FACR Objective Remarks GENERAL: This is an elderly 72 year old female patient unkempt and weak in appearance HEAD: Atraumatic. Normocephalic. No temporal or scalp tenderness. EYES: Extraocular motions intact. No scleral icterus. No injection or drainage. CARDIOVASCULAR: Regular rate and rhythm murmur present RESPIRATORY: diminished GASTROINTESTINAL: Abdomen soft, non-tender, nondistended. MUSCULOSKELETAL: Extremities without clubbing, cyanosis, or edema. No joint tenderness, effusion, or edema noted. No calf tenderness. Negative Homans sign bilaterally. NEUROLOGICAL: Awake and alert. No focal deficits appreciated. Motor and sensory grossly within normal limits. 4-5 out of 5 muscle strength in all muscle groups. Normal speech. A/P Problem List: (1) Diarrhea ICD Codes: R19.7 - Diarrhea, unspecified Plan: Diarrhea recurrent C Diff diarrhea - comgmt with ID - Ms. Valadez is a 72 y/o female with HTN, diabetes, and hyperlipidemia. Patient has had recurrent C diff diarrhea and presents to the ER last night due to four episodes of watery diarrhea. Patient concerned for recurrent C diff. - In review of prior records patient was hospitalized from 02/23/17 - 02/28/17 for C diff, electrolyte abnormalities, dehydration and pna. Patient was DC to [facility] rehab and returned home for one night then. Patient then presented to the ER today via evac with abdominal pain, diarrhea and fecal incontinency. - Patient was hospitalized from 04/11-04/20 for diarrhea which was secondary to C. difficile. She had associated electrolyte abnormalities. - Patient was also hospitalized on April 26, 2017 for with acute kidney injury dehydration and C. difficile diarrhea. Patient reports she had C. difficile again while she was at rehab a few weeks ago unable to give specific date. - Patient reports she finished her oral vancomycin as directed then had 4 episodes of watery diarrhea the day prior to admission - C diff pos, 027 positive - PO Dificid, then vancomycin taper - IV fluids for hydration thru AM 07/19 - PT - SCDs for DVT prophylaxis - KUB 07/18 Nonspecific bowel gas pattern. Moderate degenerative changes lumbar spine - ID recommending continue Dificid and monitor stool frequency. If she has satisfactory response, she can be given the Dificid for 10 days and then proceed with another prolonged tapered treatment with vancomycin. This time it should be given for 6-12 weeks. - continue Lactobacillus. - BMP and mag in AM Hypokalemia- resolved - Potassium on admission 3.0 - repeleted - K 3.7 (07/18) Asymptomatic urinary tract infection WBC minimally elevated at 11.5 -> 5.7 Patient denies dysuria or increased urinary frequency Patient received Rocephin 1 g IV in the emergency department - Urine Cx (07/17) --> Klebsiella Oxytoca. patient denies urinary symptoms. Will hold off on further abx at this time will defer treatment to ID. Given patient's recurrent C. difficile Diabetes - continue home metformin - acu checks ACHS with SSI coverage - diabetic diet Hypertension - Lisinopril started 07/18, increased to 10 mg daily 07/20 - clonidine as needed for HTN Murmur, cardiac Echocardiogram (03/22/17) Normal left ventricular size. Wall thickness is normal. No regional wall motion abnormalities are present. The left ventricular systolic function is normal with an estimated ejection fraction in the range of 60-65%. Moderate thickening of the aortic valve leaflets. Mild aortic valve stenosis. Aortic valve area is 1.3 cm. Aortic valve meangradient is 22.5 mmHg. There is mild tricuspid valve regurgitation. The estimated pulmonary arterial pressure is 65.1 mmHg. The inferior vena cava was not well visualized. (2) Hypokalemia ICD Codes: E87.6 - Hypokalemia Status: Resolved (3) Possible urinary tract infection ICD Codes: R39.89 - Other symptoms and signs involving the genitourinary system (4) Diabetes ICD Codes: E11.9 - Type 2 diabetes mellitus without complications Status: Chronic (5) Murmur, cardiac ICD Codes: R01.1 - Cardiac murmur, unspecified Status: Chronic Assessment and Plan Patient examined. Assessment and plan formulated with Princess Mitchell PA-C. I agree with the above. recurrent c.diff colitis. improving pt very weak. she can't afford the rifaxamin and will check again with [facility] for coverage. no snf days. Problem Qualifiers (1) Diabetes: Princess Mitchell July 20, 2017 08:20 Selwyn Appiah MD July 20, 2017 17:37
[2017-07-20] MEDS ORDERED: GLUCAGON 1 MG/ML VIAL OTHER PRN (08:30)
[2017-07-20] MEDS ORDERED: DEXTROSE 50% IN WATER 50 ML VIAL(D50) IV PUSH PRN (08:30)
[2017-07-20] MEDS: metFORMIN HCL 500 MG TAB PO SCH ×2 (09:13→17:56)
[2017-07-20] MEDS: LISINOPRIL 5 MG TAB PO SCH (09:14)
[2017-07-20] MEDS: FIDAXOMICIN 200 MG TAB PO SCH ×2 (09:14→21:00)
[2017-07-20] MEDS: LACTOBACILLUS ACIDOPHILUS TAB PO SCH ×3 (09:14→17:56)
[2017-07-20] MEDS: ACETAMINOPHEN 500 MG CPLT PO PRN (09:17)
[2017-07-20 11:52] VITALS: BP 174/83; PULSE 65; RESP 18; TEMP 97.7; O2SAT 98
[2017-07-20] MEDS: INSULIN ASPART SUPPLEMENTAL SCALE SQ SCH ×3 (12:14→21:00)
[2017-07-20 15:52] VITALS: BP 148/70; PULSE 67; RESP 18; TEMP 98.4; O2SAT 98
[2017-07-20 19:38] VITALS: BP 155/72; PULSE 76; RESP 18; TEMP 98.4; O2SAT 98
[2017-07-21 00:31] VITALS: BP 161/82; PULSE 74; RESP 16; TEMP 98.6; O2SAT 99
[2017-07-21 04:01] VITALS: BP 155/67; PULSE 63; RESP 16; TEMP 97.8; O2SAT 99
[2017-07-21 07:39] LABS: BICARBONATE 28.8 MEQ/L (21.0-32.0); CALCIUM 9.3 MG/DL (8.5-10.1); CREATININE 0.76 MG/DL (0.50-1.00); MAGNESIUM 1.8 MG/DL (1.5-2.5)
[2017-07-21] MEDS: INSULIN ASPART SUPPLEMENTAL SCALE SQ SCH ×4 (08:00→20:49)
--- NOTE | 2017-07-21 08:16 | HHI.PR ---
Subjective Remarks No BM since yesterday Pt complains of continued lower abdominal sharp stabbing pain which she reports has been intermittent for the last 3-4 days. The pain is not worse with urination or with BMs She has been afebrile. Objective Vitals Vital Signs Date Time Temp Pulse Resp B/P (MAP) Pulse Ox O2 Delivery O2 Flow Rate FiO2 07/21/17 04:01 97.8 63 16 155/67 (96) 99 07/21/17 00:31 98.6 74 16 161/82 (108) 99 07/20/17 19:38 98.4 76 18 155/72 (99) 98 07/20/17 15:52 98.4 67 18 148/70 (96) 98 07/20/17 11:52 97.7 65 18 174/83 (113) 98 Result Diagram: 07/18/17 0745 07/21/17 0623 Other Results Laboratory Tests Test 07/21/17 06:23 Blood Urea Nitrogen 18 MG/DL Creatinine 0.76 MG/DL Random Glucose 97 MG/DL Calcium Level 9.3 MG/DL Magnesium Level 1.8 MG/DL Sodium Level 142 MEQ/L Potassium Level 3.9 MEQ/L Chloride Level 105 MEQ/L Carbon Dioxide Level 28.8 MEQ/L Anion Gap 8 MEQ/L Estimat Glomerular Filtration Rate 75 ML/MIN Imaging Last Impressions Abdomen X-Ray 07/18/17 0000 Signed Impressions: Service Date/Time: Tuesday, July 18, 2017 16:04 - CONCLUSION: Nonspecific bowel gas pattern. Moderate degenerative changes lumbar spine Chris Banks MD FACR Objective Remarks General: This is an elderly 72 year old female patient unkempt and weak in appearance Cardiac: Regular Chest: Poor inspiratory effort Abd: Abdomen soft, nondistended, Ext: Extremities without clubbing, cyanosis, or edema. No joint tenderness, effusion, or edema noted. No calf tenderness. Negative Homans sign bilaterally. NEUROLOGICAL: Awake and alert. No focal deficits appreciated. Motor and sensory grossly within normal limits. 4-5 out of 5 muscle strength in all muscle groups. Normal speech. A/P Problem List: (1) Diarrhea ICD Codes: R19.7 - Diarrhea, unspecified Plan: Diarrhea recurrent C Diff diarrhea - comgmt with ID - MsCarito Valadez is a 72 y/o female with HTN, diabetes, and hyperlipidemia. Patient has had recurrent C diff diarrhea and presents to the ER last night due to four episodes of watery diarrhea. Patient concerned for recurrent C diff. - In review of prior records patient was hospitalized from 02/23/17 - 02/28/17 for C diff, electrolyte abnormalities, dehydration and pna. Patient was hospitalized from 04/11-04/20 for diarrhea which was secondary to C. difficile. She had associated electrolyte abnormalities. Patient was also hospitalized on April 26, 2017 for with acute kidney injury dehydration and C. difficile diarrhea. Patient reports she had C. difficile again while she was at rehab a few weeks ago unable to give specific date. Patient then presented to the ER today via evac with abdominal pain, diarrhea and fecal incontinency. - Patient reports she finished her oral vancomycin as directed then had 4 episodes of watery diarrhea the day prior to admission - C diff pos, 027 positive - PO Dificid through 07/27, then vancomycin taper for 6-12 weeks per ID - Pt was given IV fluids for hydration thru AM 07/19 - PT recommending rehab - SCDs for DVT prophylaxis - KUB 07/18 Nonspecific bowel gas pattern. Moderate degenerative changes lumbar spine - continue Lactobacillus. - BMP and mag in AM - Discussed the case with [facility] Case management on 07/21 and will try to arrange for SNF coverage/placement at the end of this hospitalization. Pt is out of covered SNF days due to her repeated hospitalizations/rehab stays over the last few months with recurrent C. diff. Hypokalemia- resolved - Potassium on admission 3.0 - repleted - K 3.7 (07/18) Asymptomatic urinary tract infection - WBC minimally elevated at 11.5 -> 5.7 - Patient denies dysuria or increased urinary frequency - Patient received Rocephin 1 g IV in the emergency department - Urine Cx (07/17) --> Klebsiella Oxytoca. patient denies urinary symptoms. Will hold off on further abx at this time will defer treatment to ID. Given patient's recurrent C. difficile Diabetes - continue home metformin - accu checks ACHS with SSI coverage - diabetic diet Hypertension - Lisinopril started 07/18, increased to 10 mg daily 07/20 - clonidine as needed for HTN Murmur, cardiac - Echocardiogram (03/22/17): - Estimated ejection fraction in the range of 60-65%. - Moderate thickening of the aortic valve leaflets. Mild aortic valve stenosis. Aortic valve area is 1.3 cm. Aortic valve mean gradient is 22.5 mmHg. - Mild tricuspid valve regurgitation. - The estimated pulmonary arterial pressure is 65.1 mmHg. (2) Hypokalemia ICD Codes: E87.6 - Hypokalemia Status: Resolved (3) Possible urinary tract infection ICD Codes: R39.89 - Other symptoms and signs involving the genitourinary system (4) Diabetes ICD Codes: E11.9 - Type 2 diabetes mellitus without complications Status: Chronic (5) Murmur, cardiac ICD Codes: R01.1 - Cardiac murmur, unspecified Status: Chronic Assessment and Plan Patient examined. Assessment and plan formulated with Princess Mitchell PA-C. I agree with the above. recurrent c.diff colitis. improving pt very weak. she can't afford the rifaxamin and will check again with [facility] for coverage. no snf days. Problem Qualifiers (1) Diabetes: Danuta Nguyen July 21, 2017 08:16
[2017-07-21 08:55] VITALS: BP 169/86; PULSE 58; RESP 18; TEMP 99; O2SAT 99
[2017-07-21] MEDS: NYSTATIN 100,000 UNIT/GM CREAM 15 GM TOPICAL PRN (09:03)
[2017-07-21] MEDS: LACTOBACILLUS ACIDOPHILUS TAB PO SCH ×3 (09:09→17:27)
[2017-07-21] MEDS: LISINOPRIL 5 MG TAB PO SCH (09:11)
[2017-07-21] MEDS: metFORMIN HCL 500 MG TAB PO SCH ×2 (09:11→17:26)
[2017-07-21] MEDS: FIDAXOMICIN 200 MG TAB PO SCH ×2 (09:11→20:48)
[2017-07-21] MEDS: ACETAMINOPHEN/HYDROcodone 325 MG/5 MG TAB PO PRN ×2 (09:12→17:27)
[2017-07-21 13:00] VITALS: BP 159/80; PULSE 73; RESP 18; TEMP 98; O2SAT 100
[2017-07-21 16:25] VITALS: BP 153/80; PULSE 72; RESP 18; O2SAT 99
[2017-07-21 20:00] VITALS: BP 152/74; PULSE 76; RESP 18; TEMP 97.7; O2SAT 97
[2017-07-22 00:10] VITALS: BP 135/65; PULSE 71; RESP 18; TEMP 97.5; O2SAT 97
[2017-07-22 04:22] VITALS: BP 161/78; PULSE 74; RESP 16; TEMP 97.2; O2SAT 94
[2017-07-22] MEDS: ACETAMINOPHEN/HYDROcodone 325 MG/5 MG TAB PO PRN ×2 (04:57→16:21)
[2017-07-22] MEDS: cloNIDine HCL 0.1 MG TAB PO PRN (04:59)
[2017-07-22 08:00] VITALS: BP 153/73; PULSE 60; RESP 18; TEMP 97.3; O2SAT 99
[2017-07-22] MEDS: INSULIN ASPART SUPPLEMENTAL SCALE SQ SCH ×2 (08:00→12:00)
--- NOTE | 2017-07-22 08:28 | HHI.PR ---
Subjective Remarks Pt had one pastey stool yesterday Abdominal discomfort is improving She is tolerating her diet Pt not ambulating much in her room Objective Vitals Vital Signs Date Time Temp Pulse Resp B/P (MAP) Pulse Ox O2 Delivery O2 Flow Rate FiO2 07/22/17 04:22 97.2 74 16 161/78 (105) 94 07/22/17 00:10 97.5 71 18 135/65 (88) 97 07/21/17 20:00 97.7 76 18 152/74 (100) 97 07/21/17 16:25 72 18 153/80 (104) 99 07/21/17 13:00 98.0 73 18 159/80 (106) 100 07/21/17 08:55 99.0 58 18 169/86 (113) 99 Result Diagram: 07/18/17 0745 07/21/17 0623 Other Results Laboratory Tests Test 07/21/17 06:23 Blood Urea Nitrogen 18 MG/DL Creatinine 0.76 MG/DL Random Glucose 97 MG/DL Calcium Level 9.3 MG/DL Magnesium Level 1.8 MG/DL Sodium Level 142 MEQ/L Potassium Level 3.9 MEQ/L Chloride Level 105 MEQ/L Carbon Dioxide Level 28.8 MEQ/L Anion Gap 8 MEQ/L Estimat Glomerular Filtration Rate 75 ML/MIN Imaging Last Impressions Abdomen X-Ray 07/18/17 0000 Signed Impressions: Service Date/Time: Tuesday, July 18, 2017 16:04 - CONCLUSION: Nonspecific bowel gas pattern. Moderate degenerative changes lumbar spine Chris Banks MD FACR Objective Remarks General: This is an elderly 72 year old female patient unkempt and weak in appearance Cardiac: Regular Chest: Poor inspiratory effort Abd: Abdomen soft, nondistended, mild lower abdominal tenderness Ext: Extremities without clubbing, cyanosis, or edema. A/P Problem List: (1) Diarrhea ICD Codes: R19.7 - Diarrhea, unspecified Plan: Diarrhea recurrent C Diff diarrhea - comgmt with ID - MsCarito Valadez is a 72 y/o female with HTN, diabetes, and hyperlipidemia. Patient has had recurrent C diff diarrhea and presents to the ER last night due to four episodes of watery diarrhea. Patient concerned for recurrent C diff. - In review of prior records patient was hospitalized from 02/23/17 - 02/28/17 for C diff, electrolyte abnormalities, dehydration and pna. Patient was hospitalized from 04/11-04/20 for diarrhea which was secondary to C. difficile. She had associated electrolyte abnormalities. Patient was also hospitalized on April 26, 2017 for with acute kidney injury dehydration and C. difficile diarrhea. Patient reports she had C. difficile again while she was at rehab a few weeks ago unable to give specific date. Patient then presented to the ER today via evac with abdominal pain, diarrhea and fecal incontinency. - Patient reports she finished her oral vancomycin as directed then had 4 episodes of watery diarrhea the day prior to admission - C diff pos, 027 positive - PO Dificid through 07/27, then vancomycin taper for 6-12 weeks per ID - Pt was given IV fluids for hydration thru AM 07/19 - PT recommending rehab - SCDs for DVT prophylaxis - KUB 07/18 Nonspecific bowel gas pattern. Moderate degenerative changes lumbar spine - continue Lactobacillus. - BMP and mag in AM - Discussed the case with [facility] Case management on 07/21 and pt has met her OOP expense and now has 28 paid SNF days. - Discussed with [facility] and they will try to make arrangements for SNF placement. - Anticipate d/c to SNF once arrangements are made Hypokalemia- resolved - Potassium on admission 3.0 - repleted - K 3.7 (07/18) Asymptomatic urinary tract infection - WBC minimally elevated at 11.5 -> 5.7 - Patient denies dysuria or increased urinary frequency - Patient received Rocephin 1 g IV in the emergency department - Urine Cx (07/17) --> Klebsiella Oxytoca. patient denies urinary symptoms. Will hold off on further abx at this time will defer treatment to ID. Given patient's recurrent C. difficile Diabetes - continue home metformin - accu checks ACHS with SSI coverage - diabetic diet Hypertension - Lisinopril started 07/18, increased to 10 mg daily 07/20 - clonidine as needed for HTN Murmur, cardiac - Echocardiogram (03/22/17): - Estimated ejection fraction in the range of 60-65%. - Moderate thickening of the aortic valve leaflets. Mild aortic valve stenosis. Aortic valve area is 1.3 cm. Aortic valve mean gradient is 22.5 mmHg. - Mild tricuspid valve regurgitation. - The estimated pulmonary arterial pressure is 65.1 mmHg. (2) Hypokalemia ICD Codes: E87.6 - Hypokalemia Status: Resolved (3) Possible urinary tract infection ICD Codes: R39.89 - Other symptoms and signs involving the genitourinary system (4) Diabetes ICD Codes: E11.9 - Type 2 diabetes mellitus without complications Status: Chronic (5) Murmur, cardiac ICD Codes: R01.1 - Cardiac murmur, unspecified Status: Chronic Assessment and Plan Patient examined. Assessment and plan formulated with Princess Mitchell PA-C. I agree with the above. recurrent c.diff colitis. improving pt very weak. she can't afford the rifaxamin and will check again with [facility] for coverage. no snf days. Problem Qualifiers (1) Diabetes: Danuta Nguyen July 22, 2017 08:27
[2017-07-22] MEDS: FIDAXOMICIN 200 MG TAB PO SCH (10:33)
[2017-07-22] MEDS: LISINOPRIL 5 MG TAB PO SCH (10:34)
[2017-07-22] MEDS: LACTOBACILLUS ACIDOPHILUS TAB PO SCH ×2 (10:34→15:32)
[2017-07-22] MEDS: metFORMIN HCL 500 MG TAB PO SCH (10:34)
[2017-07-22 12:00] VITALS: BP 147/68; PULSE 60; RESP 16; TEMP 97.9; O2SAT 100
[2017-07-22] MEDS ORDERED: VANC125C3 PO (12:40)
[2017-07-22] MEDS ORDERED: LACT PO (12:40)
[2017-07-22] MEDS ORDERED: DIFI200T PO (12:40)
[2017-07-22] MEDS ORDERED: LISI-519 PO (12:40)
[2017-07-22] MEDS ORDERED: NYST15T TOPICAL (12:40)
--- NOTE | 2017-07-22 12:45 | HHI.DS ---
Discharge Summary Admission Date July 21, 2017 at 14:58 Discharge Date: July 22, 2017 Admitting Diagnosis Suspected C. difficile diarrhea/UTI/hypokalemia (1) C. difficile diarrhea Diagnosis: Principal ICD Codes: A04.72 - Enterocolitis due to Clostridium difficile, not specified as recurrent Status: Acute (2) Diarrhea Diagnosis: Secondary ICD Codes: R19.7 - Diarrhea, unspecified (3) Hypokalemia Diagnosis: Secondary ICD Codes: E87.6 - Hypokalemia Status: Resolved (4) Possible urinary tract infection Diagnosis: Secondary ICD Codes: R39.89 - Other symptoms and signs involving the genitourinary system (5) Diabetes Diagnosis: Secondary ICD Codes: E11.9 - Type 2 diabetes mellitus without complications Status: Chronic (6) Murmur, cardiac Diagnosis: Secondary ICD Codes: R01.1 - Cardiac murmur, unspecified Status: Chronic Brief History Ms. Valadez is a 72 y/o female with HTN, diabetes, and hyperlipidemia. Patient has had recurrent C diff diarrhea and presents to the ER last night due to four episodes of watery diarrhea. Patient concerned for recurrent C diff. In review of prior records patient was hospitalized from 02/23/17 - 02/28/17 for C diff, electrolyte abnormalities, dehydration and pna. Patient was DC to [facility] rehab and returned home for one night then. Patient then presented to the ER today via evac with abdominal pain, diarrhea and fecal incontinency. Patient was hospitalized from 04/11-04/20 for diarrhea which was secondary to C. difficile. She had associated electrolyte abnormalities. Patient was also hospitalized on April 26, 2017 for with acute kidney injury dehydration and C. difficile diarrhea. Patient reports she had C. difficile again while she was at rehab a few weeks ago unable to give specific date. Patient reports she finished her oral vancomycin as directed then yesterday had 4 episodes of watery diarrhea. Patient proceeded to the ER for further evaluation and treatment. Patient endorses low grade fevers at home. Patient denies chills, nausea, vomiting, shortness of breath or chest pain. Patient noted to have mild leukocytosis with WBC 11.5 and hypokalemia potassium 3.0. CBC/BMP: 07/18/17 0745 07/21/17 0623 Significant Findings Laboratory Tests Test 07/21/17 06:23 Estimat Glomerular Filtration Rate 75 ML/MIN (>89) Imaging Last Impressions Abdomen X-Ray 07/18/17 0000 Signed Impressions: Service Date/Time: Tuesday, July 18, 2017 16:04 - CONCLUSION: Nonspecific bowel gas pattern. Moderate degenerative changes lumbar spine Chris Banks MD FACR PE at Discharge General: This is an elderly 72 year old female patient unkempt and weak in appearance Cardiac: Regular Chest: Poor inspiratory effort Abd: Abdomen soft, nondistended, mild lower abdominal tenderness Ext: Extremities without clubbing, cyanosis, or edema. Hospital Course Diarrhea recurrent C Diff diarrhea - Ms. Valadez is a 72 y/o female with HTN, diabetes, and hyperlipidemia. Patient has had recurrent C diff diarrhea and presents to the ER last night due to four episodes of watery diarrhea. Patient concerned for recurrent C diff. In review of prior records patient was hospitalized from 02/23/17 - 02/28/17 for C diff, electrolyte abnormalities, dehydration and pna. Patient was hospitalized from 04/11-04/20 for diarrhea which was secondary to C. difficile. She had associated electrolyte abnormalities. Patient was also hospitalized on April 26, 2017 for with acute kidney injury dehydration and C. difficile diarrhea. Patient reports she had C. difficile again while she was at rehab a few weeks ago unable to give specific date. Patient then presented to the ER today via evac with abdominal pain, diarrhea and fecal incontinency. Patient reports she finished her oral vancomycin as directed then had 4 episodes of watery diarrhea the day prior to admission. Stool studies at admission were C diff pos, 027 positive. ID was consulted. Pt was started on PO Dificid 200mg po BID through 07/27, then vancomycin taper for 6-12 weeks per ID. Pt was given IV fluids for hydration thru AM 07/19. KUB on 07/18 with nonspecific bowel gas pattern and moderate degenerative changes lumbar spine. Pt had symptomatic improvement in her diarrhea prior to discharge and was eating and drinking without any issues. Discussed the case with ID prior to discharge and pt recommended that she complete Dificid 200mg po BID through 07/27. Pt to continue Lactobacillus. Pt will complete a Vancomycin taper to be started on 07/28/17: Take 125mg Q6H x 14 days (07/28-08/11); then take 125mg BID x 7 days (08/12-08/19); then take 125mg daily x 7 days (08/20-08/27); then take 125mg every other day x 4 weeks (08/28-09/25) Pt is planned for discharge to SNF for continued rehab and medical management. She is to followup with her PCP, Dr. Gonzalez, 1 week after discharge from SNF Hypokalemia- resolved - Potassium on admission 3.0. Improved with replacement. Repeat labs on 07/21 with K 3.9. Asymptomatic urinary tract infection - WBC minimally elevated at 11.5 which improved to 5.7. Patient denies dysuria or increased urinary frequency. Patient received Rocephin 1 g IV in the emergency department. Urine Cx (07/17) --> Klebsiella Oxytoca. Will hold off on further abx at this time given patient's recurrent C. difficile and the pt being asymptomatic. Diabetes - Continue home metformin. Diabetic diet Hypertension - Lisinopril started 07/18, increased to 10 mg daily 07/20 and BP is improved. Murmur, cardiac - 2D Echocardiogram (03/22/17): - Estimated ejection fraction in the range of 60-65%. - Moderate thickening of the aortic valve leaflets. Mild aortic valve stenosis. Aortic valve area is 1.3 cm. Aortic valve mean gradient is 22.5 mmHg. - Mild tricuspid valve regurgitation. - The estimated pulmonary arterial pressure is 65.1 mmHg. Pt Condition on Discharge: Stable Discharge Disposition: Discharge to SNF Discharge Instructions DIET: Follow Instructions for: Diabetic Diet Activities you can perform: Regular-No Restrictions Follow up Referrals: PCP Follow-up - [address] Howell New Medications: Fidaxomicin (Dificid) 200 Mg Tab 200 MG PO BID for c. diff, #11 TAB To be completed on 07/27 and then start vancomycin taper on 07/28 Lactobacillus Acidophilus (Acidophilus/l-Sporogenes) 35 Million Cell-25 Million Cell Tab 1 TAB PO TID for c diff, #93 TAB Lisinopril (Lisinopril) 5 Mg Tab 10 MG PO DAILY for htn, #30 TAB Nystatin Topical (Nystatin Topical) 100,000 unit/gm Cream 1 APPLIC TOPICAL Q2H PRN for PERINEAL EXCORIATION, #1 TUBE Changed Medications: Vancomycin (Vancomycin) 125 Mg Cap 125 MG PO DAILY for Infection for 56 Days, #56 CAP 0 Refills (Medication details modified) Start on 07/28/17 Take 125mg Q6H x 14 days (07/28-08/11); then take 125mg BID x 7 days (08/12-08/19); then take 125mg daily x 7 days (08/20-08/27); then take 125mg every other day x 4 weeks (08/28-09/25) Continued Medications: Hydrocodone/Acetaminophen (Hydrocodone-Acetamin 5-325 mg) 5 Mg-325 Mg Tablet 1 TAB PO Q6H PRN for pain, #20 TAB 0 Refills (This prescription has been renewed ) Metformin (Metformin) 500 Mg Tab 500 MG PO BIDPC for Blood Sugar Management, #60 TAB 0 Refills With breakfast and lunch Discontinued Medications: Vancomycin (Vancomycin) 125 Mg Cap 125 MG PO EVERY OTHER DAY for Infection, CAP 0 Refills Danuta Nguyen July 22, 2017 12:45 Selwyn Appiah MD July 22, 2017 14:12
[2017-07-22] MEDS ORDERED: HYDR-3516 PO (12:46)
--- NOTE | 2017-07-22 13:07 | HHI.IDPN ---
Note Infectious Disease Note Patient notes that she has some pain in the lower abdomen. She notes a headache at the right frontal area comes and goes. No nausea or vomiting. Noted to have had one pasty stool yesterday. Notes urinary frequency. Afebrile. 72-year-old white female who presented to the Emergency Department with diarrhea and abdominal pain. The patient has had at least 2 prior episodes of C difficile. PAST MEDICAL HISTORY: Hypertension, diabetes mellitus, diabetic neuropathy, hyperlipidemia, inflammatory bowel disease, pulmonary hypertension, osteoarthritis, history of breast cancer in 2009. PAST SURGICAL HISTORY: Cholecystectomy, hysterectomy, D and C, cataract surgery, arthroscopy of both knees, left total knee replacement 2004. ALLERGIES: OXYCODONE AND CODEINE. MEDICATIONS: Current Medications Medications (Trade) Dose Ordered Sig/Jorje Route PRN Reason Start Time Stop Time Status Last Admin Dose Admin Sodium Chloride (NS Flush) 2 ml UNSCH PRN IV FLUSH FLUSH AFTER USING IV ACCESS 07/17/17 00:45 07/19/17 10:02 Metformin HCl (Glucophage) 500 mg BIDPC PO 07/17/17 18:00 07/22/17 10:34 Acetaminophen (Tylenol) 500 mg Q6H PRN PO PAIN 1- 4, headache 07/17/17 11:30 07/20/17 09:17 Acetaminophen/ Hydrocodone Bitart (Morrison 5-325 Mg) 1 tab Q6H PRN PO PAIN 5-10 07/17/17 11:30 07/22/17 04:57 Nystatin (Mycostatin Cream) 1 applic Q2H PRN TOPICAL PERINEAL EXCORIATION 07/17/17 16:00 07/21/17 09:03 Fidaxomicin (Dificid) 200 mg BID PO 07/17/17 21:00 07/27/17 20:59 07/22/17 10:33 Lactobacillus Acidophilus (Lactinex) 1 tab TID PO 07/17/17 18:00 07/22/17 10:34 Clonidine (Catapres) 0.1 mg Q6H PRN PO SBP>160, DBP>90 07/19/17 08:00 07/22/17 04:59 Lisinopril (Prinivil) 10 mg DAILY PO 07/20/17 09:00 07/22/17 10:34 Dextrose (D50w (Vial) Inj) 50 ml UNSCH PRN IV PUSH HYPOGLYCEMIA-SEE COMMENTS 07/20/17 08:30 Glucagon (Glucagon Inj) 1 mg UNSCH PRN OTHER HYPOGLYCEMIA-SEE COMMENTS 07/20/17 08:30 Insulin Aspart (NovoLOG SUPPLEMENTAL SCALE) 1 ACHS SLIDING SCALE SQ 07/20/17 12:00 Objective: Vital Signs Date Time Temp Pulse Resp B/P (MAP) Pulse Ox O2 Delivery O2 Flow Rate FiO2 07/22/17 04:22 97.2 74 16 161/78 (105) 94 07/22/17 00:10 97.5 71 18 135/65 (88) 97 07/21/17 20:00 97.7 76 18 152/74 (100) 97 07/21/17 16:25 72 18 153/80 (104) 99 Laboratory Tests Test 07/21/17 06:23 Blood Urea Nitrogen 18 MG/DL Creatinine 0.76 MG/DL Random Glucose 97 MG/DL Calcium Level 9.3 MG/DL Magnesium Level 1.8 MG/DL Sodium Level 142 MEQ/L Potassium Level 3.9 MEQ/L Chloride Level 105 MEQ/L Carbon Dioxide Level 28.8 MEQ/L Anion Gap 8 MEQ/L Estimat Glomerular Filtration Rate 75 ML/MIN PHYSICAL EXAMINATION: GENERAL: No acute distress. HEENT: No icterus. Oropharynx: Moist mucosa. No visible lesions. NECK: Supple without adenopathy. LUNGS: Clear breath sounds. HEART: Regular S1 and S2 without murmurs, rubs or gallops. ABDOMEN: Bowel sounds present. Soft, nondistended. Mild tenderness of the lower abdomen. No rebound tenderness. EXTREMITIES: No clubbing, cyanosis or edema. SKIN: No rash. NEUROLOGIC: Nonfocal PSYCHIATRIC: Calm and cooperative. IMPRESSION: Third recurrence of Clostridium difficile colitis. Prior treatment with vancomycin. Responding to Dificid. Asymptomatic bacteriuria. RECOMMENDATIONS: Continue Dificid to complete the 10 days and after that transition to oral vancomycin for taper lasting [address] Robbins. Brian Perkins MD July 22, 2017 13:07
== END 2017-07-22 16:57 | DRG 372 ==
LOC: NEPE 00:27 → NEDA 01:57 → NEPFCDU 02:53 → OBSVTOIN 07-21 14:58 → N07B 07-21 19:04
PROVIDERS: ADMIT Hospitalist; ATTEND Hospitalist
DX: A04.71 Enterocolitis due to Clostridium difficile, recurrent (principal); N39.0 Urinary tract infection, site not specified; E11.40 Type 2 diabetes mellitus with diabetic neuropathy, unspecified; I27.20 Pulmonary hypertension, unspecified; I10 Essential (primary) hypertension; E87.6 Hypokalemia; E78.5 Hyperlipidemia, unspecified; K58.9 Irritable bowel syndrome, unspecified; G47.33 Obstructive sleep apnea (adult) (pediatric); Z96.652 Presence of left artificial knee joint; B96.89 Other specified bacterial agents as the cause of diseases classified elsewhere; I35.0 Nonrheumatic aortic (valve) stenosis; I07.1 Rheumatic tricuspid insufficiency; M19.90 Unspecified osteoarthritis, unspecified site; R53.1 Weakness; Z85.3 Personal history of malignant neoplasm of breast; Z92.3 Personal history of irradiation; Z79.84 Long term (current) use of oral hypoglycemic drugs
CPT/HCPCS: 74018; 80048; 80053; 81001; 82948; 83690; 83735; 85025; 87077; 87086; 87186; 87493; G8987-GP; G8988-GP; J0696; J3480; J7030

== ENCOUNTER 2017-08-07 22:53 | Emergency (ER) | payer MEDICARE ==
[~2017-08-07 22:53] MED LIST changes: +DIFI200T PO; +LACT PO; -LACTCHW3 CHEW; -LIDO1PAD52 TOPICAL; -LISI-515 PO; +LISI-519 PO; +NYST15T TOPICAL
[2017-08-07 23:36] VITALS: BP 120/64; PULSE 89; RESP 18; TEMP 98.5; O2SAT 98
--- NOTE | 2017-08-08 03:45 | PD ---
HPI Chief Complaint: Respiratory Symptoms Time Seen by Provider: 03:44 Travel History International Travel<30 days: No Contact w/Intl Traveler<30days: No Traveled to known affect area: No History of Present Illness HPI 72-year-old female presents to the emergency department by EMS transport for possible sore throat. Patient states for the past few days she has had throat pain and it feels raw. Patient's also had some cough. Patient denies any chest pain or shortness of breath. No abdominal pain or vomiting. Patient states she has been told she should not be on antibiotic because she has been treated for C. difficile colitis 4 times. Last treatment was in June. Patient has been on oral vancomycin. Patient is currently on no antibiotics at all. Patient's had no fever chills. Patient is used no [id number] remedies such as warm salt water gargles lozenges Chloraseptic Bethel warm tea and honey for throat pain. Patient states she decided to come to the emergency room to see if she had a throat infection. Patient does not report any sinus drainage or irritation. Patient does not report any other concerns or complaints. Patient states she just does not feel well. Patient did not contact her primary care provider. PFSH Past Medical History Narrative Medical Diabetes dyslipidemia precancer breast radiation C. 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 , HX OF RADIATION TREATMENT ) Cardiovascular Problems: Yes High Cholesterol: Yes Diabetes: Yes Patient Takes Glucophage: Yes Diminished Hearing: No Endocrine: Yes Gastrointestinal Disorders: Yes (CDIFF) Glaucoma: No Genitourinary: No Hepatitis: No Hiatal Hernia: No Hypertension: Yes Immune Disorder: No Medical other: Yes Musculoskeletal: Yes Neurologic: No Psychiatric: No Reproductive: No Respiratory: Yes (HX BRONCHITIS, HX PLEURISY) Immunizations Current: Yes Radiation Therapy: Yes Sleep Apnea: Yes Thyroid Disease: No Menopausal: Yes Dilation and Curettage (D&C): Yes Past Surgical History Abdominal Surgery: Yes (GALLBLADDER SURGERY ) Cardiac Surgery: No Cholecystectomy: Yes (11/13/1986) Ear Surgery: No Endocrine Surgery: No Eye Surgery: Yes (BILATERAL CATARACTS) Genitourinary Surgery: No Gynecologic Surgery: Yes Hysterectomy: Yes Neurologic Surgery: Yes (CERVICAL FUSION 2002) Oral Surgery: No Pacemaker: No Thoracic Surgery: Yes (RIGHT BREAST LUMPECTOMY) Other Surgery: Yes (2005 RIGHT SHOULDER ROTATOR CUFF SURGERY) Social History Alcohol Use: No Tobacco Use: No Substance Use: No Allergies-Medications (Allergen,Severity, Reaction): Coded Allergies: oxycodone (Verified Allergy, Severe, ITCHING, 07/17/17) adhesive (Verified Allergy, Mild, Blisters the skin, 07/17/17) codeine (Verified Allergy, Mild, NAUSEA, 07/17/17) Reported Meds & Prescriptions Reported Meds & Active Scripts Active Hydrocodone-Acetamin 5-325 mg (Hydrocodone/Acetaminophen) 5 Mg-325 Mg Tablet 1 Tab PO Q6H PRN Nystatin Topical (Nystatin) 100,000 unit/gm Cream 1 Applic TOPICAL Q2H PRN Acidophilus/l-Sporogenes (Lactobacillus Acidophilus) 35 Million Cell-25 Million Cell Tab 1 Tab PO TID Lisinopril 5 Mg Tab 10 Mg PO DAILY Dificid (Fidaxomicin) 200 Mg Tab 200 Mg PO BID To be completed on 07/27 and then start vancomycin taper on 07/28 Vancomycin (Vancomycin HCl) 125 Mg Cap 125 Mg PO DAILY 56 Days Start on 07/28/17 Take 125mg Q6H x 14 days (07/28-08/11); then take 125mg BID x 7 days (08/12-08/19); then take 125mg daily x 7 days (08/20-08/27); then take 125mg every other day x 4 weeks (08/28-09/25) Reported Metformin (Metformin HCl) 500 Mg Tab 500 Mg PO BIDPC With breakfast and lunch Review of Systems Except as stated in HPI: all other systems reviewed are Neg General / Constitutional: No: Fever, Chills HENT: Positive: Sore Throat, No: Congestion Cardiovascular: No: Chest Pain or Discomfort Respiratory: Positive: Cough, No: Shortness of Breath, Wheezing Gastrointestinal: No: Vomiting, Diarrhea, Abdominal Pain Genitourinary: No: Dysuria Musculoskeletal: No: Myalgias, Arthralgias Skin: No Rash Neurologic: No: Weakness Psychiatric: No: Anxiety Hematologic/Lymphatic: No: Lymph Node Enlargement Physical Exam Narrative GENERAL: Well-developed well-nourished elderly female mildly disheveled in no acute distress no respiratory distress; no stridor or hoarseness. SKIN: Warm and dry.; superficial left buttock pressure sore 2.5 cm x 2 cm HEAD: Normocephalic. EYES: No scleral icterus. No injection or drainage. ENT: Mucous membranes moist posterior pharynx mild erythema no exudative change no edema NECK: Supple, trachea midline. No JVD or lymphadenopathy. CARDIOVASCULAR: Regular rate and rhythm without murmurs, gallops, or rubs. RESPIRATORY: Breath sounds equal bilaterally. No accessory muscle use. GASTROINTESTINAL: Abdomen soft, non-tender, nondistended. MUSCULOSKELETAL: No cyanosis, or edema. BACK: Nontender without obvious deformity. No CVA tenderness. Data Data Last Documented VS Vital Signs Date Time Temp Pulse Resp B/P (MAP) Pulse Ox O2 Delivery O2 Flow Rate FiO2 08/07/17 23:36 98.5 89 18 120/64 (82) 98 Orders Orders Group A Rapid Strep Screen (08/08/17 03:51) Chest, Single Ap (08/08/17 ) Strep Culture (Group A) (08/08/17 04:00) MDM Medical Decision Making Medical Screen Exam Complete: Yes Emergency Medical Condition: Yes Medical Record Reviewed: Yes Interpretation(s) Vital Signs Date Time Temp Pulse Resp B/P (MAP) Pulse Ox O2 Delivery O2 Flow Rate FiO2 08/07/17 23:36 98.5 89 18 120/64 (82) 98 Rapid strep test is negative Last Impressions Chest X-Ray 08/08/17 0000 Signed Impressions: CONCLUSION: No acute cardiopulmonary process. Differential Diagnosis Viral syndrome rhinosinusitis sinusitis pharyngitis bronchitis pneumonia pleurisy Narrative Course Patient presents with normal range vital signs in no apparent distress no respiratory distress specimen collected for rapid strep antigen and chest x-ray ordered Patient is able toward to the bathroom and back Patient informed of chest x-ray findings no acute process and rapid strep antigen is negative; patient is encouraged to use [id number] home remedies for symptomatic relief and to follow-up with her primary care provider. Patient is identified to have a pressure sore to her left buttock cheek and is encouraged to follow-up with her primary regarding this as she may benefit from some wound care manage Diagnosis Primary Impression: Sore throat Additional Impression: Pressure ulcer Qualified Codes: L89.321 - Pressure ulcer of left buttock, stage 1 Referrals: Primary Care Physician 1 day Patient Instructions: General Instructions Additional Instructions: Continue current medications as presently prescribed Follow-up with your primary care provider Return the emergency department concerns or change in condition May use [id number] Chloraseptic Bethel loss of endurance warm salt water gargles warm tea for symptom relief may use acetaminophen/Tylenol every 4-6 hours as needed for minor pain or for fever 100.4F or greater Disposition: 01 DISCHARGE HOME Condition: Stable Palmira Carrasquillo MD Aug 08, 2017 03:45
--- NOTE | 2017-08-08 04:53 | RADRPT ---
EXAM DATE: 08/08/2017 4:28 AM EDT AGE/SEX: 72 years / Female INDICATIONS: Cough. CLINICAL DATA: This is the patient's initial encounter. Patient reports that signs and symptoms have been present for 3 days and indicates a pain score of 2/10. MEDICAL/SURGICAL HISTORY: . Hypertension. Diabetes mellitus type 2. Cardiovascular disease . H ysterectomy. Fusion, cervical. Cholecystectomy COMPAR[place]: [facility] [place], [place]. . FINDINGS: A single AP view of the chest demonstrates the lungs to be symmetrically aerated without evidence of mass, infiltrate or effusion. The cardiomediastinal contours are unremarkable. Osseous structures a re intact. CONCLUSION: No acute cardiopulmonary process. Electronically signed by: Gm Leon MD 08/08/2017 4:52 AM EDT
== END 2017-08-08 06:46 | disposition home or self-care (01) ==
LOC: NEPC 22:53
DX: J02.9 Acute pharyngitis, unspecified (principal); L89.321 Pressure ulcer of left buttock, stage 1; E11.9 Type 2 diabetes mellitus without complications; I10 Essential (primary) hypertension; Z79.84 Long term (current) use of oral hypoglycemic drugs
CPT/HCPCS: 71045; 87081; 87880; 99284

== ENCOUNTER 2017-10-07 13:29 | Observation (INO) ==
--- NOTE | 2017-10-07 14:21 | XR ---
EXAM DATE: 10/07/2017 2:18 PM EDT AGE/SEX: 72 years / Female INDICATIONS: Chest pain. CLINICAL DATA: This is the patient's initial encounter. Patient reports that signs and symptoms have been present for 1 day and indicates a pain score of 10/10. MEDICAL/SURGICAL HISTORY: . heart murmur None. COMPARISON: [facility] – [place], CHEST SINGLE AP, 08/08/2017. . FINDINGS: No new focal pleural or parenchymal opacities. The cardiomediastinal contours are unremarkable. Osse ous structures are intact. CONCLUSION: 1. No acute abnormality or significant interval change. Electronically signed by: Elmer Roth MD 10/07/2017 2:20 PM EDT
--- NOTE | 2017-10-07 14:26 | ED ---
HPI General Chief Complaint: Chest Pain Stated Complaint: Chest pain Time Seen by Provider: 10/07/17 13:50 History of Present Illness HPI narrative: The patient is a 72-year-old female with history of hyperlipidemia, DM, hypertension, presenting to the emergency department for evaluation of chest pain. The patient states that it began 1-2 hours prior to her arrival and it was associated with some nausea. She described it as a substernal sharp pain that did not radiate and was in 10/10 at its worst but has continued to improve and is currently at 2/10. She states that she has had chest pain like this before and everything was negative when she was evaluated in the she states no aggravating or alleviating factors specifically and denies any shortness of breath with the chest pain. In route the patient was given 4 baby aspirin via EMS. Complete Quality Measures for STEMI Alert Patients Related Data Home Medications Medication Instructions Recorded Confirmed cholecalciferol (vitamin D3) 1,000 unit PO DAILY 10/07/17 10/07/17 [Vitamin D3] hydrocodone-acetaminophen [Lortab 7.5 ml PO Q4H PRN 10/07/17 10/07/17 Elixir] lisinopril 40 mg PO DAILY 10/07/17 10/07/17 losartan 5 mg PO DAILY 10/07/17 10/07/17 metformin 500 mg PO BID 10/07/17 10/07/17 Allergies Allergy/AdvReac Type Severity Reaction Status Date / Time oxycodone Allergy Severe ITCHING Verified 07/17/17 00:35 adhesive Allergy Mild Blisters Verified 07/17/17 00:35 the skin codeine Allergy Mild NAUSEA Verified 07/17/17 00:35 Review of Systems Constitutional Denies fever(s) and Denies night sweats Eyes Denies blurry vision and Denies tunnel vision ENT Denies dizziness and Denies sore throat Cardiovascular Reports chest pain and Denies diaphoresis Respiratory Denies cough, Denies dyspnea and Denies wheezing Gastrointestinal Reports change in bowel habits and Reports nausea Genitourinary Denies hematuria and Denies dysuria Musculoskeletal Reports back pain and Denies muscle weakness Integumentary/Breasts Denies rash and Reports skin ulcer (Chronic ulcer on base of right foot) Neurologic Denies dizziness and Denies focal weakness Psychiatric Denies confusion and Denies irritability Allergic/Immunologic Denies urticaria and Denies wheezing [facility] Medical History Medical History Cervical fusion syndrome (Acute) Cholecystitis with cholelithiasis (Acute) Diabetes (Acute) History of Clostridium difficile infection (Acute) Social History Social History Substance History: No History of Abuse Second Hand Smoke Exposure: No Smoking Status: Never smoker How Often Do You Have a Drink Containing Alcohol: Never Recent Travel in [facility] within the Last 8 Weeks: No Recent Out of Country Travel within the Last 8 Weeks: No Exam Narrative Exam Narrative: GENERAL: Well-developed well-nourished female appearing in no acute respiratory distress. SKIN: Focused skin assessment warm/dry. Mild erythema at the distal end of the second digit on the right foot. HEAD: Atraumatic. Normocephalic. EYES: Pupils equal and round. No scleral icterus. No injection or drainage. ENT: No nasal bleeding or discharge. Mucous membranes pink and moist. NECK: Trachea midline. No JVD. CARDIOVASCULAR: Regular rate and rhythm. 2/6 harsh systolic murmur heard at the second right intercostal space. Chest pain is reproducible by palpation on the anterior aspect of the sternum. RESPIRATORY: No accessory muscle use. Clear to auscultation. Breath sounds equal bilaterally. GASTROINTESTINAL: Abdomen soft, non-tender, nondistended. Hepatic and splenic margins not palpable. MUSCULOSKELETAL: No obvious deformities. No clubbing. No cyanosis. No edema. Severe lordosis of the upper spine. NEUROLOGICAL: Awake and alert. No obvious cranial nerve deficits. Motor grossly within normal limits. Normal speech. Course Initial Documented Vital Signs Temperature 98.4 F 10/07/17 13:53 Pulse Rate 80 10/07/17 13:53 Respiratory Rate 18 10/07/17 13:53 Blood Pressure 132/64 10/07/17 13:53 Pulse Oximetry 100 10/07/17 13:53 Last Documented Vital Signs Temperature 97.8 F 10/07/17 20:00 Pulse Rate 67 10/08/17 10:00 Respiratory Rate 16 10/07/17 20:00 Blood Pressure 110/60 10/08/17 08:00 Pulse Oximetry 96 10/08/17 08:00 Medical Decision Making MDM Narrative Medical decision making narrative: That a 72-year-old female with a history of dyslipidemia, hypertension, diabetes presents emergency department for evaluation of chest pain that has been ongoing for about an hour. The chest pain lasted about 1 hour and his relieved itself while she has been here in the emergency department. The patient had no associated shortness of breath and has continued to improve on the emergency department. Her physical exam was benign and her chest pain was reproducible making this likely related to musculoskeletal issue. Her troponin and CK-MB returned as normal, her chest x- ray is normal, her initial EKG was consistent with previous ones, and her chest pain has resolved itself.However, secondary to her risk factors she is a high- risk patient and will be observed overnight chest pain center. Differential Diagnosis Differential Diagnosis: ACS versus stable angina versus pneumonia versus CHF versus costochondritis Lab Data Result diagrams: 10/07/17 14:22 10/07/17 14:22 Lab Results 10/07/17 10/07/17 10/07/17 Range/Units 14:22 14:22 14:22 WBC 6.7 (4.0-11.0) th/mm3 RBC 4.29 (4.00-5.30) mil/mm3 Hgb 12.6 (11.6-15.3) gm/dL Hct 38.4 (35.0-46.0) % MCV 89.5 (80.0-100.0) fL MCH 29.3 (27.0-34.0) pg MCHC 32.7 (32.0-36.0) % RDW 15.1 (11.6-17.2) % Plt Count 305 (150-450) th/mm3 MPV 7.4 (7.0-11.0) fL Neut % (Auto) 58.7 (16.0-70.0) % Lymph % (Auto) 32.9 (9.0-44.0) % Saunders % (Auto) 6.1 (0.0-8.0) % Eos % (Auto) 1.8 (0.0-4.0) % Baso % (Auto) 0.5 (0.0-2.0) % Neut # (Auto) 3.9 (1.8-7.7) th/mm3 Lymph # (Auto) 2.2 (1.0-4.8) th/mm3 Saunders # (Auto) 0.4 (0.0-0.9) th/mm3 Eos # (Auto) 0.1 (0.0-0.4) th/mm3 Baso # (Auto) 0.0 (0.0-0.2) th/mm3 WBC Differential . Differential Comment Auto diff final Sodium 141 (136-145) meq/L Potassium 4.5 (3.5-5.1) meq/L Chloride 107 (98-107) meq/L Carbon Dioxide 27.7 (21.0-32.0) meq/L Anion Gap 6 (5-15) meq/L BUN 37 H (7-18) mg/dL Creatinine 0.82 (0.50-1.00) mg/dL Estimated GFR 69 L (>89) mL/min POC Glucose (68-110) mg/dl Random Glucose 100 (74-106) mg/dL Calcium 9.5 (8.5-10.1) mg/dL Magnesium (1.5-2.5) mg/dL Total Creatine Kinase (26-192) U/L Troponin I Less than 0.02 L (0.02-0.05) ng/mL B-Natriuretic Peptide 6 (0-100) pg/mL 10/07/17 10/07/17 10/07/17 Range/Units 14:22 18:41 19:03 WBC (4.0-11.0) th/mm3 RBC (4.00-5.30) mil/mm3 Hgb (11.6-15.3) gm/dL Hct (35.0-46.0) % MCV (80.0-100.0) fL MCH (27.0-34.0) pg MCHC (32.0-36.0) % RDW (11.6-17.2) % Plt Count (150-450) th/mm3 MPV (7.0-11.0) fL Neut % (Auto) (16.0-70.0) % Lymph % (Auto) (9.0-44.0) % Saunders % (Auto) (0.0-8.0) % Eos % (Auto) (0.0-4.0) % Baso % (Auto) (0.0-2.0) % Neut # (Auto) (1.8-7.7) th/mm3 Lymph # (Auto) (1.0-4.8) th/mm3 Saunders # (Auto) (0.0-0.9) th/mm3 Eos # (Auto) (0.0-0.4) th/mm3 Baso # (Auto) (0.0-0.2) th/mm3 WBC Differential Differential Comment Sodium (136-145) meq/L Potassium (3.5-5.1) meq/L Chloride (98-107) meq/L Carbon Dioxide (21.0-32.0) meq/L Anion Gap (5-15) meq/L BUN (7-18) mg/dL Creatinine (0.50-1.00) mg/dL Estimated GFR (>89) mL/min POC Glucose (68-110) mg/dl Random Glucose (74-106) mg/dL Calcium (8.5-10.1) mg/dL Magnesium 2.1 (1.5-2.5) mg/dL Total Creatine Kinase 76 (26-192) U/L Troponin I Less than 0.02 L Less than 0.02 L (0.02-0.05) ng/mL B-Natriuretic Peptide (0-100) pg/mL 10/07/17 10/07/17 Range/Units 22:00 23:34 WBC (4.0-11.0) th/mm3 RBC (4.00-5.30) mil/mm3 Hgb (11.6-15.3) gm/dL Hct (35.0-46.0) % MCV (80.0-100.0) fL MCH (27.0-34.0) pg MCHC (32.0-36.0) % RDW (11.6-17.2) % Plt Count (150-450) th/mm3 MPV (7.0-11.0) fL Neut % (Auto) (16.0-70.0) % Lymph % (Auto) (9.0-44.0) % Saunders % (Auto) (0.0-8.0) % Eos % (Auto) (0.0-4.0) % Baso % (Auto) (0.0-2.0) % Neut # (Auto) (1.8-7.7) th/mm3 Lymph # (Auto) (1.0-4.8) th/mm3 Saunders # (Auto) (0.0-0.9) th/mm3 Eos # (Auto) (0.0-0.4) th/mm3 Baso # (Auto) (0.0-0.2) th/mm3 WBC Differential Differential Comment Sodium (136-145) meq/L Potassium (3.5-5.1) meq/L Chloride (98-107) meq/L Carbon Dioxide (21.0-32.0) meq/L Anion Gap (5-15) meq/L BUN (7-18) mg/dL Creatinine (0.50-1.00) mg/dL Estimated GFR (>89) mL/min POC Glucose 120 H (68-110) mg/dl Random Glucose (74-106) mg/dL Calcium (8.5-10.1) mg/dL Magnesium (1.5-2.5) mg/dL Total Creatine Kinase (26-192) U/L Troponin I Less than 0.02 L (0.02-0.05) ng/mL B-Natriuretic Peptide (0-100) pg/mL Imaging Data Radiologist's impression: Chest X-Ray 10/07/17 13:50 CONCLUSION: 1. No acute abnormality or significant interval change. Discharge Plan Discharge Disposition Patient Disposition: 30 Still Patient Discharge Details Diagnosis: Atypical chest pain, Diabetes mellitus, HTN (hypertension), Chronic pain Physicians Team ED Provider: Shane Ochoa Primary Care Provider: UNKNOWN, Attending Provider: Selwyn Aviles Discharge Interventions Interventions: ED Discharge Assessment Last Done: 10/07/17 19:55 Vital Signs Last Done: 10/08/17 08:00 Status ED Status: Left Department Discharge Information Discharge Date/Time: 10/07/17 19:45
[2017-10-07 14:53] LABS: Baso % (Auto) 0.5 % (0.0-2.0); Eos # (Auto) 0.1 th/mm3 (0.0-0.4); Eos % (Auto) 1.8 % (0.0-4.0); Hematocrit 38.4 % (35.0-46.0); Hemoglobin 12.6 gm/dL (11.6-15.3); Lymph # (Auto) 2.2 th/mm3 (1.0-4.8); Lymph % (Auto) 32.9 % (9.0-44.0); Mean Corpuscular HGB Conc 32.7 % (32.0-36.0); Mean Corpuscular Hemoglobin 29.3 pg (27.0-34.0); Mean Corpuscular Volume 89.5 fL (80.0-100.0); Mean Platelet Volume 7.4 fL (7.0-11.0); Mono # (Auto) 0.4 th/mm3 (0.0-0.9); Mono % (Auto) 6.1 % (0.0-8.0); Neut # (Auto) 3.9 th/mm3 (1.8-7.7); Neut % (Auto) 58.7 % (16.0-70.0); Platelet Count 305 th/mm3 (150-450); Red Blood Count 4.29 mil/mm3 (4.00-5.30); Red Cell Distribution Width 15.1 % (11.6-17.2); White Blood Count 6.7 th/mm3 (4.0-11.0)
[2017-10-07 15:26] LABS: Anion Gap 6 meq/L (5-15); Blood Urea Nitrogen 37 mg/dL (7-18); Calcium 9.5 mg/dL (8.5-10.1); Carbon Dioxide 27.7 meq/L (21.0-32.0); Chloride 107 meq/L (98-107); Glomerular Filtration Rate 69 mL/min (>89); Glucose,Random 100 mg/dL (74-106); Magnesium 2.1 mg/dL (1.5-2.5); Potassium 4.5 meq/L (3.5-5.1); Sodium 141 meq/L (136-145)
[2017-10-07 22:16] VITALS: RESP 16
[2017-10-08] MEDS: Acetaminophen 500 MG Tablet PO PRN ×2 (03:46→20:29)
--- NOTE | 2017-10-08 12:21 | P.HPCA ---
History of Present Illness Primary Care Physician: UNKNOWN Chief Complaint: Chest pain PMFSH - History History Provided By: Patient - Medical History Medical History: Medical History (Last Updated 10/07/17 @ 13:59 by Gm Srivastava) Cervical fusion syndrome Cholecystitis with cholelithiasis Diabetes History of Clostridium difficile infection - Tobacco History Second Hand Smoke Exposure: No Tobacco Use In Past 30 Days: No Smoking Status: Never smoker - Alcohol History How Often Do You Have a Drink Containing Alcohol: Never - Substance Use History Substance History: No History of Abuse - Travel History Recent Travel in the [place] Within the Last 8 Weeks: No Recent Travel Out of the Country Within the Last 8 Weeks: No - Immunization History Tetanus Immunization: Unsure Hx Influenza Vaccine This Season: Yes Medications and Allergies Active Medications: Active Medications Acetaminophen (Tylenol) 500 mg PO Q4H PRN PRN Reason: HEADACHE Last Admin: 10/08/17 03:46 Dose: 500 mg Nitroglycerin (Nitrostat Sl) 0.4 mg SL Q5M PRN PRN Reason: CHEST PAIN Ondansetron HCl (Zofran Inj) 4 mg IV.PUSH Q6H PRN PRN Reason: NAUSEA Sodium Chloride (Ns Flush) 2 ml IV.FLUSH UNSCH PRN PRN Reason: FLUSH AFTER USING IV ACCESS Sodium Chloride (Ns Flush) 2 ml IV.FLUSH BID AMBROCIO Last Admin: 10/08/17 08:58 Dose: 2 ml Allergies Allergy/AdvReac Type Severity Reaction Status Date / Time oxycodone Allergy Severe ITCHING Verified 07/17/17 00:35 adhesive Allergy Mild Blisters Verified 07/17/17 00:35 the skin codeine Allergy Mild NAUSEA Verified 07/17/17 00:35 Home Medications Medication Instructions Recorded Confirmed Type cholecalciferol (vitamin D3) 1,000 unit PO DAILY 10/07/17 10/07/17 History [Vitamin D3] hydrocodone-acetaminophen [Lortab 7.5 ml PO Q4H PRN 10/07/17 10/07/17 History Elixir] lisinopril 40 mg PO DAILY 10/07/17 10/07/17 History losartan 5 mg PO DAILY 10/07/17 10/07/17 History metformin 500 mg PO BID 10/07/17 10/07/17 History Exam Vital signs: Vital Signs 10/07/17 13:53 10/07/17 14:00 10/07/17 16:17 Temperature 98.4 F Pulse Rate 80 78 72 Respiratory Rate 18 18 18 Blood Pressure 132/64 132/64 106/52 L Pulse Oximetry 100 100 100 10/07/17 20:00 10/08/17 00:03 10/08/17 08:00 Temperature 97.8 F Pulse Rate 67 56 L 68 Respiratory Rate 16 Blood Pressure 104/59 L 110/60 Pulse Oximetry 95 96 10/08/17 10:00 Temperature Pulse Rate 67 Respiratory Rate Blood Pressure Pulse Oximetry Intake & Output 10/07/17 10/08/17 10/08/17 18:59 06:59 18:59 Weight 61.689 kg 61.689 kg Other: Date of Last Bowel Movement 10/07/17 Weight On Admission 61.689 kg Results 10/07/17 14:22 10/07/17 14:22 Cardiac Enzymes 10/07/17 10/07/17 10/07/17 Range/Units 14:22 14:22 18:41 Troponin I Less than 0.02 L Less than 0.02 L (0.02-0.05) ng/mL B-Natriuretic Peptide 6 (0-100) pg/mL 10/07/17 10/07/17 Range/Units 19:03 22:00 Troponin I Less than 0.02 L Less than 0.02 L (0.02-0.05) ng/mL B-Natriuretic Peptide (0-100) pg/mL Coagulation 10/07/17 Range/Units 14:22 B-Natriuretic Peptide 6 (0-100) pg/mL CBC 10/07/17 Range/Units 14:22 WBC 6.7 (4.0-11.0) th/mm3 RBC 4.29 (4.00-5.30) mil/mm3 Hgb 12.6 (11.6-15.3) gm/dL Hct 38.4 (35.0-46.0) % Plt Count 305 (150-450) th/mm3 Neut # (Auto) 3.9 (1.8-7.7) th/mm3 Lymph # (Auto) 2.2 (1.0-4.8) th/mm3 Rich # (Auto) 0.4 (0.0-0.9) th/mm3 Eos # (Auto) 0.1 (0.0-0.4) th/mm3 Baso # (Auto) 0.0 (0.0-0.2) th/mm3 Comprehensive Metabolic Panel 10/07/17 Range/Units 14:22 Sodium 141 (136-145) meq/L Potassium 4.5 (3.5-5.1) meq/L Chloride 107 (98-107) meq/L Carbon Dioxide 27.7 (21.0-32.0) meq/L BUN 37 H (7-18) mg/dL Creatinine 0.82 (0.50-1.00) mg/dL Calcium 9.5 (8.5-10.1) mg/dL Intake and Output 10/07/17 10/08/17 10/08/17 22:59 06:59 14:59 Other: Date of Last Bowel Movement 10/07/17 Weight 61.689 kg Weight On Admission 61.689 kg Caprini VTE Risk Assessment Caprini Risk Assessment Model: Point Value = 1 Point Value = 2 Point Value = 3 Point Value = 5 Age 41-60 Minor surgery BMI > 25 kg/m2 Swollen legs Varicose veins or History of unexplained or recurrent spontaneous Oral contraceptives or hormone replacement Sepsis (< 1 month) Serious lung disease, including pneumonia (< 1 month) Abnormal pulmonary function Acute myocardial infarction Congestive heart failure (< 1 month) History of inflammatory bowel disease Medical patient at bed rest Age 61-74 Arthroscopic surgery Major open surgery (> 45 min) Laparoscopic surgery (> 45 min) Malignancy Confined to bed (> 72 hours) Immobilizing plaster cast Central venous access Age >= 75 History of VTE Family history of VTE Factor V Leiden Prothrombin [id number] Lupus anticoagulant Anticardiolipin antibodies Elevated serum homocysteine Heparin-induced thrombocytopenia Other congenital or acquired thrombophilia Stroke (< 1 month) Elective arthroplasty Hip, pelvis, or leg fracture Acute spinal cord injury (< 1 month) Prophylaxis Regimen: Total Risk Factor Score Risk Level Prophylaxis Regimen 0-1 Low Early ambulation 2 Moderate Order ONE of the following: *Sequential Compression Device (SCD) *Heparin 5000 units SQ BID 3-4 Higher Order ONE of the following medications: *Heparin 5000 units SQ TID *Enoxaparin/Lovenox 40 mg SQ daily (WT < 150 kg, CrCl > 30 mL/min) *Enoxaparin/Lovenox 30 mg SQ daily (WT < 150 kg, CrCl > 10-29 mL/min) *Enoxaparin/Lovenox 30 mg SQ BID (WT < 150 kg, CrCl > 30 mL/min) AND/OR *Sequential Compression Device (SCD) 5 or more Highest Order ONE of the following medications: *Heparin 5000 units SQ TID (Preferred with Epidurals) *Enoxaparin/Lovenox 40 mg SQ daily (WT < 150 kg, CrCl > 30 mL/min) *Enoxaparin/Lovenox 30 mg SQ daily (WT < 150 kg, CrCl > 10-29 mL/min) *Enoxaparin/Lovenox 30 mg SQ BID (WT < 150 kg, CrCl > 30 mL/min) AND *Sequential Compression Device (SCD) H&P: Quality - VTE Deep Vein Thrombosis/Pulmonary Embolism Present on Admission: No
--- NOTE | 2017-10-08 15:07 | ECG ---
Date Performed: 10/07/2017 Time Performed: 18:59:56 PTAGE: 72 years EKG: Sinus rhythm NORMAL ECG PREVIOUS TRACING : 10/07/2017 13.47 DOCTOR: Selwyn Aviles Interpretating Date/Time 10/08/2017 15:05:47
--- NOTE | 2017-10-08 15:07 | ECG ---
Date Performed: 10/07/2017 Time Performed: 22:21:40 PTAGE: 72 years EKG: Sinus rhythm NORMAL ECG PREVIOUS TRACING : 10/07/2017 18.59 Since previous tracing, no significant change noted DOCTOR: Selwyn Aviles Interpretating Date/Time 10/08/2017 15:05:11
--- NOTE | 2017-10-08 15:14 | ECG ---
Date Performed: 10/07/2017 Time Performed: 13:47:59 PTAGE: 72 years EKG: Sinus rhythm SEPTAL MYOCARDIAL INFARCTION ABNORMAL ECG WARNING: DATA QUALITY MAY AFFECT INTERPRETATION Since PREVIOUS TRACING , no significant change noted DOCTOR: Selwyn Aviles Interpretating Date/Time 10/08/2017 15:13:45
--- NOTE | 2017-10-08 15:17 | MH ---
cc: Selwyn Aviles MD DATE OF ADMISSION: 10/07/2017 HISTORY OF PRESENT ILLNESS: Mrs. Valadez is a 72-year-old female who came to the emergency room complaining of chest pain. She described it as a deep, sharp pressure substernally. It did not really radiate. It caused slight nausea. There was minimal shortness of breath. This is different than pain she has had in the past such as right rib pain. This pain has never been evaluated in the past. Evac was called and en route, she was given 4 baby aspirin. The pain gradually subsided and is gone now. This occurred yesterday afternoon. She has multiple risk factors for heart disease including diabetes, history of hyperlipidemia, but was taken off of cholesterol medicine for unknown reason, and hypertension that has been somewhat difficult to treat. She has been on lisinopril 40 mg daily and amlodipine 5 mg daily for this. She does have some episodes of lightheadedness or dizziness and there is question about whether she has orthostatic symptoms. She also has history of heart murmur, which has been worked up in the past and she has mild aortic stenosis by echo 6 months ago here at the hospital. She does not smoke or drink. She has had multiple operations. She apparently lives alone with help with home health care, but has been in a rehab facility. She does have a fairly recent history of C. difficile infection as well and was in the hospital and is still on oral antibiotics, i.e., vancomycin every other day, unknown dose. PAST HISTORY: Includes multiple surgical procedures including cervical fusion, cholecystitis with surgery for that, left knee replacement, multiple problems with her shoulders. ALLERGIES: SHE SAYS SHE IS ALLERGIC TO OXYCODONE, ALTHOUGH IT IS LISTED THAT SHE DOES TAKE HYDROCODONE/ACETAMINOPHEN, I.E., LORTAB ELIXIR FOR PAIN. SHE ALSO HAS A MILD ALLERGY TO ADHESIVE TAPE AND A MILD ALLERGY TO CODEINE. She has had problems with her right foot with infection and is seeing a marker assembler. Dr. Frias is her primary doctor at [facility]. She does not have a strong family history of ASHD. REVIEW OF SYSTEMS: Reveals no history of stroke. She has no problems swallowing. She has had some anxiety and psychiatric problems in the past. She has history of heart murmur. There is none. No history of heart attack or definite angina. She denies chronic lung disease. She does have a lot of curvature of her spine. She has had a history recently of C. difficile infection. She has also had cholecystitis with gallbladder removal. She has no history of problems. She is limiting her walking and uses a walker. She has had chronic arthritis with multiple joints. PHYSICAL EXAMINATION: GENERAL: The patient appears to be chronically ill. She is alert and oriented. HEENT: Eyes are clear. Throat clear. NECK: Slight limitation of motion. There is a transmitted murmur into both carotids. The neck veins are not distended. LUNGS: Slightly diminished breath sounds, but no wheezes. HEART: Prominent systolic murmur at the base, which radiates into the neck on both sides and to the apex. There is a grade 3 intensity. Second heart sound is fairly intact, although may be mildly diminished. ABDOMEN: Reveals no masses or tenderness, but she is tender on the right lateral rib area to palpation. Her femoral and peripheral pulses are intact. SKIN: Very dry. EXTREMITIES: She has a bandage over her right foot in the forefoot area. This is being managed by a marker assembler and nurses that are changing her dressing at home. Chest x-ray shows no acute process. Her electrocardiograms show no acute changes and are actually normal. Her risk of clots is probably mild to moderate. Blood pressures have been in the normal range. ASSESSMENT AND PLAN: This patient is chronically ill with multiple problems. She presents with acute chest pain lasting hours and diminished gradually and is now gone. She has a risk of ASHD. She has at least mild aortic stenosis by echo in February 2017 and may have had another echo at [facility], although she is uncertain. Has not seen a medicaid business analyst there. She is presently on metformin 500 mg b.i.d. for apparently recent onset of elevated blood sugar and diabetes. Plan is to do a Lexiscan nuclear scan this afternoon to determine if she has significant ischemic heart disease. Depending on the results, she will either be discharged with followup versus admitted to the hospital. Her multiple medical problems otherwise have been generally well addressed by her primary care doctor, although she has been quite a medical challenge. Selwyn Aviles MD [facility]/lh/ll , 01:05 PM , 01:18 PM
[2017-10-08] MEDS ORDERED: Dextrose 50% in Water 50 ML Vial IV.PUSH PRN (15:35)
[2017-10-08] MEDS: Lisinopril 20 MG Tablet PO SCH (16:31)
[2017-10-08] MEDS: Insulin NovoLIN Regular Correctional Sugar Inj SQ SCH (17:23)
[2017-10-08 19:02] LABS: Alanine Aminotransferase 31 U/L (10-53); Albumin 3.8 g/dL (3.4-5.0); Alkaline Phosphatase 59 U/L (45-117); Anion Gap 9 meq/L (5-15); Aspartate Aminotransferase 20 U/L (15-37); Blood Urea Nitrogen 23 mg/dL (7-18); Calcium 9.5 mg/dL (8.5-10.1); Carbon Dioxide 28.6 meq/L (21.0-32.0); Chloride 103 meq/L (98-107); Glomerular Filtration Rate 75 mL/min (>89); Glucose,Random 90 mg/dL (74-106); Potassium 3.9 meq/L (3.5-5.1); Sodium 141 meq/L (136-145); Total Protein 7.1 g/dL (6.4-8.2)
[2017-10-09] MEDS: Insulin NovoLIN Regular Correctional Sugar Inj SQ SCH ×3 (00:25→13:40)
[2017-10-09] MEDS: Acetaminophen 500 MG Tablet PO PRN (04:42)
[2017-10-09] MEDS ORDERED: Regadenoson Inj 0.4 MG/5 ML Syringe IV.PUSH ONE (09:52)
--- NOTE | 2017-10-09 11:42 | NM ---
EXAM DATE: 10/09/2017 11:30 AM EDT AGE/SEX: 72 years / Female INDICATIONS:. . Angina. CLINICAL DATA: This is the patient's initial encounter. Patient reports that signs and symptoms have been present for 1 day and indicates a pain score of 2/10. MEDICAL/SURGICAL HISTORY: Hypertension. Diabetes. Cholelithiasis. History of Clostridium dif ficile. None. COMPARISON: No prior exams available for comparison. DOSE: 8.6 mCi Tc 99m Myoview at rest 27.5 mCi [id number] at stress 0.4 mg Lexiscan STRESS SYMPTOMS: Chest pain and tightness. Nausea. EJECTION FRACTION: 69 % TECHNIQUE: The patient underwent pharmacologic stress with infusion of prescribed dose. Continuous ECG tracing was monitored during stress. Gated SPECT imaging was performed after stress and conventi onal SPECT imaging was performed at rest. The examination was performed on a SPECT/CT scanner, both attenuation and non-corrected datasets were reviewed. FINDINGS: Distribution: The maximum perfused segment at stress is in the anterior wall. Perfusion Study: There is a small focal fixed defect identified at the lateral wall near the apex wit h the remainder of the exam demonstrating normal perfusion during rest and stress. Gated Study: There is a focal hypokinetic segment within the region of fixed defect involving the an terolateral wall at the apex. The ejection fraction is calculated at 69%. RISK CATEGORY: Low risk CONCLUSION: 1. Focal fixed defect involving the anterolateral wall near the apex. The remainder of the exam is n ormal. Electronically signed by: Henrietta Bishop MD 10/09/2017 11:41 AM EDT
--- NOTE | 2017-10-09 11:55 | TR ---
Date Performed: 10/09/2017 Time Performed: 10:04:41 DOCTOR: Selwyn Aviles DRUG LIST: CLINICAL HISTORY: REASON FOR TEST: Angina REASON FOR ENDING: OBSERVATION: CONCLUSION: COMMENTS: Lexiscan stress test was performed under standard four minute protocol. Radionuclide was injected one minute prior to ending the test. No electrocardiographic abormalities were present t o suggest ischemia. Nuclear imaging and interpretation are pending.
[2017-10-09] MEDS: Lisinopril 20 MG Tablet PO SCH (12:11)
[2017-10-12 17:54] VITALS: PULSE 108
[2017-10-12 17:58] VITALS: BP 114/74; O2SAT 100
[2017-10-12 18:38] VITALS: TEMP 98.4
== END 2017-10-09 14:46 | disposition home or self-care (01) ==
LOC: NEPC 13:29 → NEPGCP 13:29 → NEDA 13:29 → NEPGCP 19:57

== ENCOUNTER 2017-11-06 13:22 | Inpatient (IN) ==
[2017-11-06] MEDS ORDERED: Sod Chloride 0.9% Inj 400 ML IV.SIG SCH (13:30)
[2017-11-06] MEDS ORDERED: Sod Chloride 0.9% Inj 1,000 ML IV.SIG SCH ×2 (13:30)
--- NOTE | 2017-11-06 14:01 | XR ---
EXAM DATE: 11/06/2017 1:59 PM EDT AGE/SEX: 72 years / Female INDICATIONS: Fever. CLINICAL DATA: This is the patient's initial encounter. Patient reports that signs and symptoms have been present for 1 day and indicates a pain score of 0/10. MEDICAL/SURGICAL HISTORY: . Hypertension. Diabetes. Cholelithiasis. History of Clostridium diff icile None. COMPARISON: [facility], CHEST 1V SINGLE AP, 11/05/2017. . FINDINGS: ACDF hardware overlies the cervical spine. The lungs are clear. There are degenerative changes of the spine noted. Heart size normal. CONCLUSION: Negative examination. Electronically signed by: Larry Landin MD 11/06/2017 2:00 PM EDT
[2017-11-06 14:50] LABS: Baso % (Auto) 0.2 % (0.0-2.0); Eos % (Auto) 0.1 % (0.0-4.0); Hematocrit 33.5 % (35.0-46.0); Hemoglobin 11.8 gm/dL (11.6-15.3); Lymph # (Auto) 0.5 th/mm3 (1.0-4.8); Mean Corpuscular HGB Conc 35.2 % (32.0-36.0); Mean Corpuscular Hemoglobin 31.5 pg (27.0-34.0); Mean Corpuscular Volume 89.6 fL (80.0-100.0); Mean Platelet Volume 7.8 fL (7.0-11.0); Mono # (Auto) 0.5 th/mm3 (0.0-0.9); Mono % (Auto) 5.1 % (0.0-8.0); Neut # (Auto) 8.9 th/mm3 (1.8-7.7); Neut % (Auto) 89.6 % (16.0-70.0); Platelet Count 233 th/mm3 (150-450); Red Blood Count 3.74 mil/mm3 (4.00-5.30); Red Cell Distribution Width 13.7 % (11.6-17.2); White Blood Count 9.9 th/mm3 (4.0-11.0)
[2017-11-06 15:14] LABS: Alanine Aminotransferase 38 U/L (10-53); Albumin 3.2 g/dL (3.4-5.0); Alkaline Phosphatase 58 U/L (45-117); Anion Gap 15 meq/L (5-15); Aspartate Aminotransferase 40 U/L (15-37); Blood Urea Nitrogen 31 mg/dL (7-18); Calcium 8.8 mg/dL (8.5-10.1); Carbon Dioxide 21.4 meq/L (21.0-32.0); Chloride 106 meq/L (98-107); Glomerular Filtration Rate 47 mL/min (>89); Glucose,Random 129 mg/dL (74-106); Potassium 3.4 meq/L (3.5-5.1); Sodium 142 meq/L (136-145); Total Protein 6.8 g/dL (6.4-8.2)
--- NOTE | 2017-11-06 15:57 | ED ---
HPI General Chief Complaint: Abdominal Pain Stated Complaint: Abd Pain Time Seen by Provider: 11/06/17 13:28 Source: patient, EMS and old records reviewed Mode of arrival: EMS Limitations: no limitations History of Present Illness HPI narrative: 72-year-old female that presents to the ED for evaluation of abdominal pain, diarrhea. Patient states that she has had diarrhea since the 18. Per patient she has had 3 bouts of C. difficile in the past and she has been on vancomycin and Flagyl. Per patient she stopped the vancomycin on the 15. She states the diarrhea has been constant. Per patient she cannot even tell when she goes. Per patient she is been losing a lot of weight as well as fluids. She was here seen yesterday as she had a fall secondary to going to the bathroom and injured her ribs. She has a rib fracture. She came here today because the diarrhea has not getting better and she is been feeling more weak and tired. She was told by her doctor that she might require stool transplant if the medications do not work for her. She states the diarrhea is foul-smelling and liquidy. No blood. She denies any nausea or vomiting. No recent falls other than yesterday. Related Data Home Medications Medication Instructions Recorded Confirmed cholecalciferol (vitamin D3) 1,000 unit PO DAILY 10/07/17 11/06/17 [Vitamin D3] hydrocodone-acetaminophen [Lortab 7.5 ml PO Q4H PRN 10/07/17 11/06/17 Elixir] lisinopril 40 mg PO DAILY 10/07/17 11/06/17 metformin 500 mg PO BID 10/07/17 11/06/17 amlodipine 5 mg PO DAILY 10/08/17 11/06/17 vancomycin 125 mg PO QID 11/06/17 11/06/17 Allergies Allergy/AdvReac Type Severity Reaction Status Date / Time oxycodone Allergy Severe ITCHING Verified 07/17/17 00:35 adhesive Allergy Mild Blisters Verified 07/17/17 00:35 the skin codeine Allergy Mild NAUSEA Verified 07/17/17 00:35 Review of Systems ROS: all other systems reviewed are negative [facility] Medical History Medical History Carpal tunnel syndrome (Acute) Cataract (Acute) Cervical fusion syndrome (Acute) Cholecystitis with cholelithiasis (Acute) Diabetes (Acute) History of Clostridium difficile infection (Acute) Surgical History Surgical History History of cholecystectomy (Acute) Social History Social History Substance History: Unable to Obtain Second Hand Smoke Exposure: No Smoking Status: Unknown if ever smoked How Often Do You Have a Drink Containing Alcohol: Unable to Obtain Immunization History Tetanus Immunization: Unsure Exam Narrative Exam Narrative: GENERAL: well appearing SKIN: Focused skin assessment warm/dry. HEAD: Atraumatic. Normocephalic. EYES: Pupils equal and round. No scleral icterus. No injection or drainage. ENT: No nasal bleeding or discharge. Mucous membranes pink and moist. Tongue is midline. No uvula deviation. NECK: Trachea midline. No JVD. CARDIOVASCULAR: Regular rate and rhythm. No murmur appreciated. RESPIRATORY: No accessory muscle use. Clear to auscultation. Breath sounds equal bilaterally. GASTROINTESTINAL: Abdomen soft, tender to touch in the lower abdomen, nondistended. Hepatic and splenic margins not palpable. MUSCULOSKELETAL: No obvious deformities. No clubbing. No cyanosis. No edema. Full range of motion of the upper and lower extremities bilaterally. 2+ pulses bilaterally. NEUROLOGICAL: Awake and alert. No obvious cranial nerve deficits. Motor grossly within normal limits. Normal speech. PSYCHIATRIC: Appropriate mood and affect; insight and judgment normal. Course Initial Documented Vital Signs Temperature 99.5 F 11/06/17 13:36 Pulse Rate 97 H 11/06/17 13:36 Respiratory Rate 18 11/06/17 13:36 Blood Pressure 96/52 L 11/06/17 13:36 Pulse Oximetry 98 11/06/17 13:36 Last Documented Vital Signs Temperature 99.5 F 11/06/17 13:36 Pulse Rate 87 11/06/17 13:40 Respiratory Rate 20 11/06/17 13:40 Blood Pressure 97/54 L 11/06/17 13:40 Pulse Oximetry 98 11/06/17 13:40 Critical Care Time Critical Care Time: Yes Total Critical Care Time: 30 Attestation: Time to perform other separately billable procedures was not included in the critical care time. My time did not include minutes spent treating any other patients simultaneously or on activities that did not directly contribute to the patient's treatment. The services I provided to this patient were to treat and/or prevent clinically significant deterioration due to sepsis I provided critical care services requiring my management, as noted below: Chart data review, documentation time, medication orders and management, vital sign assessments/reviewing monitor data, ordering and reviewing lab tests, ordering and interpreting/reviewing x-rays and diagnostic studies, care of the patient and discussion of the patient with the admitting physicians Medical Decision Making JUAN Attestation JUAN supervised visit: Yes Attestation: I, Dr. Gutierrez, have reviewed the advance practice practitioner's documentation and am in agreement, met with the patient face to face, made the diagnosis, and the medical decision making was done by me. *My assessment and Findings: This patient is awake and alert. She does meet sepsis criteria in that she is tachycardic and hypotensive. She has reportedly had a fever at home. Her source would be GI. See Yareli Mcdermott note for a more detailed H&P, final diagnosis and disposition MDM Narrative Medical decision making narrative: 72-year-old female that presents to the ED for evaluation of diarrhea and weakness as well as hypotension. Patient was properly examined and was found to have signs and symptoms consistent appears to be sepsis likely from diarrhea. She does have a significant history of colitis from C. difficile. She states that she was recently put on vancomycin and the diarrhea came back on the 18. She is been continued to have diarrhea and she was actually seen here yesterday for a fall she sustained. The time her vitals and physical exam are reassuring so she was sent home. Today she states that she has been having more diarrhea and she has been feeling very weak. She has any nausea or vomiting. She is concerned that she has C. difficile again. She lives alone. Labs and imaging were done here. Patient was given IV fluids. Labs and imaging did not show any sign of acute disease alert and what appears to be colitis. C. difficile stool was taken per nurse. Patient still hypotensive even after fluids given. At this time patient will be admitted to the hospital secondary to hypotension and weakness and likely C. difficile. Case discussed with Dr. Jacome who agrees to admission. My attending Dr. stacy has been made aware of the case and she herself evaluate the patient and agrees with this plan. Please refer to her note. Medical Screen Exam Complete: Yes Emergency Medical Condition: Yes Differential Diagnosis Differential Diagnosis: C. difficile versus diarrhea versus abdominal pain versus dehydration versus sepsis Medical Records Medical records reviewed: Yes I reviewed the patient's medical records. Lab Data Lab results reviewed: Yes I reviewed the patient's lab results. Result diagrams: 11/06/17 13:47 11/06/17 13:47 Lab Results 11/06/17 11/06/17 11/06/17 Range/Units 13:47 13:47 15:05 WBC 9.9 (4.0-11.0) th/mm3 RBC 3.74 L (4.00-5.30) mil/mm3 Hgb 11.8 (11.6-15.3) gm/dL Hct 33.5 L (35.0-46.0) % MCV 89.6 (80.0-100.0) fL MCH 31.5 (27.0-34.0) pg MCHC 35.2 (32.0-36.0) % RDW 13.7 (11.6-17.2) % Plt Count 233 (150-450) th/mm3 MPV 7.8 (7.0-11.0) fL Neut % (Auto) 89.6 H (16.0-70.0) % Lymph % (Auto) 5.0 L (9.0-44.0) % [place] % (Auto) 5.1 (0.0-8.0) % Eos % (Auto) 0.1 (0.0-4.0) % Baso % (Auto) 0.2 (0.0-2.0) % Neut # (Auto) 8.9 H (1.8-7.7) th/mm3 Lymph # (Auto) 0.5 L (1.0-4.8) th/mm3 [place] # (Auto) 0.5 (0.0-0.9) th/mm3 Eos # (Auto) 0.0 (0.0-0.4) th/mm3 Baso # (Auto) 0.0 (0.0-0.2) th/mm3 WBC Differential . Differential Comment Auto diff final Sodium 142 (136-145) meq/L Potassium 3.4 L (3.5-5.1) meq/L Chloride 106 (98-107) meq/L Carbon Dioxide 21.4 (21.0-32.0) meq/L Anion Gap 15 (5-15) meq/L BUN 31 H (7-18) mg/dL Creatinine 1.13 H (0.50-1.00) mg/dL Estimated GFR 47 L (>89) mL/min Random Glucose 129 H (74-106) mg/dL Lactic Acid 1.5 (0.4-2.0) mmol/L Calcium 8.8 (8.5-10.1) mg/dL Total Bilirubin 1.3 H (0.2-1.0) mg/dL AST 40 H (15-37) U/L ALT 38 (10-53) U/L Alkaline Phosphatase 58 (45-117) U/L Total Protein 6.8 (6.4-8.2) g/dL Albumin 3.2 L (3.4-5.0) g/dL Imaging Data Attestation: I personally reviewed and interpreted this imaging study as follows : Radiologist's impression: Abdomen X-Ray 11/06/17 00:00 CONCLUSION: Unremarkable study. Chest X-Ray 11/06/17 13:30 CONCLUSION: Negative examination. Abdomen/Pelvis CT 11/06/17 13:36 CONCLUSION: Possible diffuse thickening of colonic wall and the colon is collapsed and not completely evaluated, however diffuse colitis should be entertained. Radiopaque densities seen within the calcification versus ingested material. ECG Data Attestation: I personally reviewed and interpreted this ECG as follows: Interpretation: EKG shows sinus rhythm with no sign of acute ischemia or arrhythmia read by me and attending. Ventricular rate of 87, VA interval 176 ms. Discharge Plan Discharge Disposition Patient Disposition: 30 Still Patient Discharge Details Diagnosis: Acute hypotension, Colitis, Diarrhea Physicians Team ED Provider: Gilda Gutierrez ED Midlevel Provider: Anuj Vallecillo Primary Care Provider: UNKNOWN, Attending Provider: Joseph Jacome Status ED Status: Admitted Patient
[2017-11-06] MEDS ORDERED: Dextrose 50% in Water 50 ML Vial IV.PUSH PRN (16:53)
--- NOTE | 2017-11-06 17:10 | P.HPIM ---
History of Present Illness Service: [facility] HOSPITALIST Primary Care Physician: UNKNOWN Chief Complaint: Abdominal pain History of Present Illness: Patient is a 72-year-old female with history of hypertension, diabetes, and hyperlipidemia. Patient has particular history of recurrent clostridium difficile diarrhea. Patient presented to the ER yesterday (11/05/17) with complaint of having had a fall at home without striking her head or loss of consciousness. Patient complained of left rib and left hip pain. Chest x-ray revealed left rib fracture. Patient also complained of recurrent diarrhea, however she was unable to produce a stool sample after 3 hours in the ER and was discharged to home. Patient again presented to the ER today (11/06/17) with complaint of abdominal pain and diarrhea. Patient most recently completed a course of oral vancomycin on October 20 (2 weeks ago). Patient complains that the diarrhea is constant, liquid, and foul-smelling. Patient also complains of mild diffuse abdominal pain. Patient complains of nausea and poor oral intake. In the ER patient was found to be hypotensive with systolic blood pressure in the 90s which is lower than patient's baseline. Patient denies fever or chills. Stool sample has been sent to the laboratory for Clostridium difficile analysis , but is not yet back at the time of this dictation. Patient was hospitalized from 02/23/17 - 02/28/17 for C diff, electrolyte abnormalities, dehydration and pna. Pt was treated with flagyl 500g x 14d. Patient was hospitalized from 04/11-04/20 for diarrhea which was secondary to C. difficile. She had associated electrolyte abnormalities. Pt was treated with Vancomycin 125mg QID x 14d Patient hospitalized 04/26 - 05/10/17 for with acute kidney injury dehydration and C. difficile diarrhea. Pt was treated with Vancomycin 250mg QID x 14, then tapered over 35 days Pt was hospitalized with C. Dif 07/17 to 07/22/17 - Stool studies at admission were C diff pos, 027 positive. - ID was consulted. - Pt was started on PO Dificid 200mg po BID through 07/27 and vacomycin 250mg q6h x 14 days with 6 week taper Past Medical History recurrent C diff Diabetes mellitus Diabetic neuropathy HTN Hyperlipidemia Hx of breast cancer in 2009 s/p lumpectomy and XRT IBS Pulmonary HTN, PA peak pressure 50mmHg in 2004 CHELSI Vitamin D deficiency Vitamin B12 deficiency Past Surgical History Total knee replacement, left 2004 Arthroscopy both knees Cholecystectomy Cataract surgery RCR right shoulder Feet surgery in 1970' Hysterectomy D&C Family History One estranged brother living in [place], [place] Social History Denies any alcohol, tobacco or illicit drug use Pt lives alone All: oxycodone, adhesive, codeine - Diagnosis (1) Recurrent Clostridium difficile diarrhea (2) Diabetes mellitus (3) HTN (hypertension) Review of Systems Constitutional: Denies anorexia, Denies body ache(s), Denies chills, Denies fever(s), Denies night sweats, Denies poor appetite, Denies weight gain, Denies weight loss Eyes: Denies blind spots, Denies blurry vision, Denies change in vision, Denies double vision, Denies discharge, Denies loss of peripheral vision, Denies loss of vision, Denies other visual disturbances, Denies pain Ears, Nose, Mouth, and Throat: Denies bleeding gums, Denies difficulty swallowing, Denies dizziness, Denies headache(s), Denies hearing loss, Denies pain with swallowing, Denies poor balance, Denies ringing in the ears, Denies sore throat, Denies throat swelling, Denies tongue swelling Cardiovascular: Denies chest pain, Denies excessive sweating, Denies fainting, Denies fast heart rate, Denies generalized swelling, Denies irregular heart rhythm, Denies leg swelling, Denies lightheadedness, Denies slow heart rate Respiratory: Denies cough, Denies shortness of breath, Denies snoring, Denies wheezing Gastrointestinal: Reports abdominal pain, Reports change in stools, Reports incontinent of stools, Reports loose stools, Reports nausea, Denies belching, Denies black, tarry stools, Denies bright, red blood in stools, Denies change in bowel habits, Denies coffee ground vomit, Denies constipation, Denies cramping, Denies difficulty swallowing, Denies heartburn, Denies loose stools, Denies pain with swallowing, Denies vomiting, Denies vomiting blood Genitourinary: Denies abnormal vaginal bleeding, Denies blood in urine, Denies difficulty starting urination, Denies difficulty urinating, Denies frequent nighttime urination, Denies painful urination, Denies pelvic pain, Denies side pain, Denies urinary incontinence, Denies urinary hesitancy, Denies urinary urgency Musculoskeletal: Denies abnormal walking, Denies back pain, Denies body aches, Denies decreased muscle mass, Denies joint pain, Denies joint swelling, Denies muscle weakness, Denies neck pain, Denies numbness, Denies stiffness, Denies tingling Skin/Breast: Denies bleeding lesions, Denies change in skin color, Denies changing lesions, Denies itching, Denies lesions, Denies new lesions, Denies non -healing lesions, Denies redness, Denies sensitivity to light, Denies rash, Denies skin pain, Denies skin swelling, Denies skin ulcer, Denies sores, Denies unusual bruising, Denies wounds, Denies yellowing of the skin Neurologic: Denies abnormal hearing, Denies abnormal movements, Denies abnormal speech, Denies abnormal walking, Denies behavioral changes, Denies burning sensations, Denies confusion, Denies dizziness, Denies fainting, Denies frequent falls, Denies headache(s), Denies lack of coordination, Denies localized weakness, Denies loss of vision, Denies memory loss, Denies numbness, Denies other visual disturbances, Denies radiating pain, Denies restless legs, Denies convulsions, Denies seizure-like activity, Denies sensory deficit, Denies tingling/numbness/burning sensations, Denies tremor(s), Denies unsteadiness, Denies weakness Psychiatric: Denies abnormal sleep pattern, Denies anxiety, Denies behavioral changes, Denies change in appetite, Denies confusion, Denies depression, Denies difficulty concentrating, Denies hearing things others do not hear, Denies irritability, Denies lack of enjoyment, Denies memory loss, Denies mood swings, Denies panic attacks, Denies paranoia, Denies seeing things others do not see, Denies thoughts of hurting/killing others, Denies thoughts of hurting/killing yourself Endocrine: Denies cold intolerance, Denies excessive sweating, Denies fatigue, Denies flushing, Denies heat intolerance, Denies increased hunger, Denies increased thirst, Denies increased urination, Denies rapid, pounding, or irregular heartbeat Hematologic/Lymphatic: Denies easy bleeding, Denies easy bruising, Denies enlarged lymph nodes Allergic/Immunologic: Denies hives, Denies lip swelling, Denies throat swelling , Denies wheezing PMFSH - History History Provided By: Patient - Medical History Medical History: Medical History (Last Reviewed 11/06/17 @ 15:56 by ROMIE Mcdermott) Carpal tunnel syndrome Cataract Cervical fusion syndrome Cholecystitis with cholelithiasis Diabetes History of Clostridium difficile infection - Surgical History Surgical History: Surgical History (Last Reviewed 11/06/17 @ 15:56 by ROMIE Mcdermott) History of cholecystectomy - Tobacco History Second Hand Smoke Exposure: No Smoking Status: Unknown if ever smoked - Alcohol History How Often Do You Have a Drink Containing Alcohol: Unable to Obtain - Substance Use History Substance History: Unable to Obtain - Immunization History Tetanus Immunization: Unsure Medications and Allergies Active Medications: Active Medications Acetaminophen (Tylenol) 650 mg PO Q4H PRN PRN Reason: Temp > 100.4 or pain 1 to 10 Dextrose (D50w Vial) 50 ml IV.PUSH UNSCH PRN PRN Reason: PER HYPOGLYCEMIA PROTOCOL Glucagon (Glucagon Inj) 1 mg OTHER PRN PRN PRN Reason: for Hypoglycemia Protocol Potassium Chloride/Sodium Chloride (Potassium Chlor 20 Meq/Nacl 0.45% Inj) 1, 000 mls @ 84 mls/hr IV.CONT .[id number] AMBROCIO Insulin Aspart (Novolog Insulin Correctional Sugar Inj) 0 unit SQ ACHS AMBROCIO; Protocol Ondansetron HCl (Zofran Inj) 4 mg IV.PUSH Q6H PRN PRN Reason: NAUSEA OR VOMITING Vancomycin HCl (Vancomycin Po) 250 mg PO QID AMBROCIO Allergies Allergy/AdvReac Type Severity Reaction Status Date / Time oxycodone Allergy Severe ITCHING Verified 07/17/17 00:35 adhesive Allergy Mild Blisters Verified 07/17/17 00:35 the skin codeine Allergy Mild NAUSEA Verified 07/17/17 00:35 Home Medications Medication Instructions Recorded Confirmed Type cholecalciferol (vitamin D3) 1,000 unit PO DAILY 10/07/17 11/06/17 History [Vitamin D3] hydrocodone-acetaminophen [Lortab 7.5 ml PO Q4H PRN 10/07/17 11/06/17 History Elixir] lisinopril 40 mg PO DAILY 10/07/17 11/06/17 History metformin 500 mg PO BID 10/07/17 11/06/17 History amlodipine 5 mg PO DAILY 10/08/17 11/06/17 History vancomycin 125 mg PO QID 11/06/17 11/06/17 History Exam Vital signs: Vital Signs 11/06/17 13:36 11/06/17 13:40 Temperature 99.5 F Pulse Rate 97 H 87 Respiratory Rate 18 20 Blood Pressure 96/52 L 97/54 L Pulse Oximetry 98 98 Results - Labs CBC & Chem 7: 11/07/17 06:45 11/07/17 06:45 Labs: Liver Function 11/06/17 Range/Units 13:47 Total Bilirubin 1.3 H (0.2-1.0) mg/dL AST 40 H (15-37) U/L ALT 38 (10-53) U/L Alkaline Phosphatase 58 (45-117) U/L Albumin 3.2 L (3.4-5.0) g/dL - Imaging Impressions Chest X-Ray 11/06/17 13:30 CONCLUSION: Negative examination. Caprini VTE Risk Assessment Caprini VTE Risk Assessment: Moderate/High Risk (score >= 2) Caprini Risk Assessment Model: Point Value = 1 Point Value = 2 Point Value = 3 Point Value = 5 Age 41-60 Minor surgery BMI > 25 kg/m2 Swollen legs Varicose veins or History of unexplained or recurrent spontaneous Oral contraceptives or hormone replacement Sepsis (< 1 month) Serious lung disease, including pneumonia (< 1 month) Abnormal pulmonary function Acute myocardial infarction Congestive heart failure (< 1 month) History of inflammatory bowel disease Medical patient at bed rest Age 61-74 Arthroscopic surgery Major open surgery (> 45 min) Laparoscopic surgery (> 45 min) Malignancy Confined to bed (> 72 hours) Immobilizing plaster cast Central venous access Age >= 75 History of VTE Family history of VTE Factor V Leiden Prothrombin [id number] Lupus anticoagulant Anticardiolipin antibodies Elevated serum homocysteine Heparin-induced thrombocytopenia Other congenital or acquired thrombophilia Stroke (< 1 month) Elective arthroplasty Hip, pelvis, or leg fracture Acute spinal cord injury (< 1 month) Prophylaxis Regimen: Total Risk Factor Score Risk Level Prophylaxis Regimen 0-1 Low Early ambulation 2 Moderate Order ONE of the following: *Sequential Compression Device (SCD) *Heparin 5000 units SQ BID 3-4 Higher Order ONE of the following medications: *Heparin 5000 units SQ TID *Enoxaparin/Lovenox 40 mg SQ daily (WT < 150 kg, CrCl > 30 mL/min) *Enoxaparin/Lovenox 30 mg SQ daily (WT < 150 kg, CrCl > 10-29 mL/min) *Enoxaparin/Lovenox 30 mg SQ BID (WT < 150 kg, CrCl > 30 mL/min) AND/OR *Sequential Compression Device (SCD) 5 or more Highest Order ONE of the following medications: *Heparin 5000 units SQ TID (Preferred with Epidurals) *Enoxaparin/Lovenox 40 mg SQ daily (WT < 150 kg, CrCl > 30 mL/min) *Enoxaparin/Lovenox 30 mg SQ daily (WT < 150 kg, CrCl > 10-29 mL/min) *Enoxaparin/Lovenox 30 mg SQ BID (WT < 150 kg, CrCl > 30 mL/min) AND *Sequential Compression Device (SCD) Assessment and Plan - Assessment (1) Recurrent Clostridium difficile diarrhea Code(s): A04.71 - Enterocolitis due to Clostridium difficile, recurrent Status : Acute Plan: Patient is a 72-year-old female with history of hypertension, diabetes, and hyperlipidemia. Patient has particular history of recurrent clostridium difficile diarrhea. Patient presented to the ER yesterday (11/05/17) with complaint of having had a fall at home without striking her head or loss of consciousness. Patient complained of left rib and left hip pain. Chest x-ray revealed left rib fracture. Patient also complained of recurrent diarrhea, however she was unable to produce a stool sample after 3 hours in the ER and was discharged to home. Patient again presented to the ER today (11/06/17) with complaint of abdominal pain and diarrhea. Patient most recently completed a course of oral vancomycin on October 20 (2 weeks ago). Patient complains that the diarrhea is constant, liquid, and foul-smelling. Patient also complains of mild diffuse abdominal pain. Patient complains of nausea and poor oral intake. In the ER patient was found to be hypotensive with systolic blood pressure in the 90s which is lower than patient's baseline. Patient denies fever or chills. Stool sample has been sent to the laboratory for Clostridium difficile analysis , but is not yet back at the time of this dictation. Pt was hospitalized with C. Dif 07/17 to 07/22/17 - Stool studies at admission were C diff pos, 027 positive. - ID was consulted. - Pt was started on PO Dificid 200mg po BID through 07/27, then vancomycin taper for 6-12 weeks per ID. - Pt was given IV fluids for hydration thru AM 07/19. - Pt had symptomatic improvement in her diarrhea prior to discharge and was eating and drinking without any issues. - Discussed the case with ID prior to discharge and pt recommended that she complete Dificid 200mg po BID through 07/27. - Pt to continue Lactobacillus. Pt will complete a Vancomycin taper to be started on 07/28/17: Take 125mg Q6H x 14 days (07/28-08/11); then take 125mg BID x 7 days (08/12-08/19); then take 125mg daily x 7 days (08/20-08/27); then take 125mg every other day x 4 weeks (08/28-09/25) - Will reviewe outpt records for further course of treatment over the summer patient was hospitalized from 02/23/17 - 02/28/17 for C diff, electrolyte abnormalities, dehydration and pna. Patient was hospitalized from 04/11-04/20 for C. difficile diarrhea. She had associated electrolyte abnormalities. Patient was hospitalized April 26, 2017 for with acute kidney injury dehydration and C. difficile diarrhea. - Stool studies pending including: C. difficile, stool Gram stain, ova and parasite, fecal leukocyte, stool guaiac - Depending on results of Clostridium difficile testing will likely involve infectious disease and gastroenterology - Hydration with intravenous fluids - Repeat CBC & BMP in AM - CT A/P --> Pending - SCDs for DVT prophylaxis - Supportive care - Physical Therapy evaluation - Pt may require SNF at the conclusion of this hospitalization Hypotension - IV fluid - monitor blood pressure - hold oral antihypertension medication HTN, essential - chronic - hold oral medications d/t hypotension associated with diarrhea DM2 -Hold oral hypoglycemics - SSI (2) Diabetes mellitus Code(s): E11.9 - Type 2 diabetes mellitus without complications Status: Acute (3) HTN (hypertension) Code(s): I10 - Essential (primary) hypertension Status: Acute (2) Diabetes mellitus Qualifiers: Diabetes mellitus type: type 2 Diabetes mellitus senior care insulin use: unspecified senior care insulin use status Diabetes mellitus complication status : without complication Qualified Code(s): E11.9 - Type 2 diabetes mellitus without complications (3) HTN (hypertension) Qualifiers: Hypertension type: essential hypertension Qualified Code(s): I10 - Essential (primary) hypertension
--- NOTE | 2017-11-06 17:25 | XR ---
EXAM DATE: 11/06/2017 5:17 PM EDT AGE/SEX: 72 years / Female INDICATIONS: Abdominal pain. Diarrhea. CLINICAL DATA: This is the patient's initial encounter. Patient reports that signs and symptoms have been present for 3 days and indicates a pain score of 5/10. MEDICAL/SURGICAL HISTORY: . Hypertension. Diabetes. Cholelithiasis. History of Clostridium diff icile. Cholecystectomy. COMPARISON: [facility] – [place], ABDOMEN KUB ONLY, 07/18/2017. . FINDINGS: The bowel gas is nonspecific. There are no signs of obstruction or free air for technique. No defin ite calcified stones are identified for technique. There is evidence for prior cholecystectomy. CONCLUSION: Unremarkable study. Electronically signed by: Sivan Salgado MD 11/06/2017 5:24 PM EDT
--- NOTE | 2017-11-06 17:55 | CT ---
EXAM DATE: 11/06/2017 5:49 PM EDT AGE/SEX: 72 years / Female INDICATIONS: Abdominal pain. Diarrhea. CLINICAL DATA: This is the patient's initial encounter. Patient reports that signs and symptoms have been present for 1 month and indicates a pain score of 8/10. MEDICAL/SURGICAL HISTORY: Diabetes. Hypertension. Cholecystectomy. ORAL CONTRAST: No oral contrast ingested. RADIATION DOSE: 7.58 CTDI (mGy) COMPARISON: [facility] – [place], CT ABDOMEN & PELVIS W CONTRAST, 04/11/2017. . TECHNIQUE: Multiple contiguous axial images were obtained through the abdomen and pelvis following b olus infusion of 70 ml Omnipaque 350 (iohexol) nonionic water-soluble contrast as a single exam dos e. No oral contrast ingested. Using automated exposure control and adjustment of the mA and/or kV ac cording to patient size, radiation dose was kept as low as reasonably achievable to obtain optimal di agnostic quality images. DICOM format image data is available electronically for review and comparis on. FINDINGS: Abdomen CT: The liver, spleen, pancreas, adrenals are unremarkable. There is a subcentimeter cyst left lower ceasar e kidney. There is a tiny 3 mm nonobstructing stone in the right kidney. There is no evidence for any appreciable pathological adenopathy, free fluid, or bowel obstruction. The colon appears collapsed with possible diffuse thickening of the colonic wall particularly involving transverse colon. Pelvic CT: There is no evidence for mass, abscess formation, or any significant adenopathy within the pelvis. T here is an area of radiopaque density within the possibly calcifications or ingested material. The ex act etiology is not certain. CONCLUSION: Possible diffuse thickening of colonic wall and the colon is collapsed and not completely evaluated, however diffuse colitis should be entertained. Radiopaque densities seen within the calci fication versus ingested material. Electronically signed by: Sivan Salgado MD 11/06/2017 5:54 PM EDT
[2017-11-06] MEDS: Insulin NovoLOG Aspart Correctional Sugar Inj SQ SCH ×2 (18:35→21:24)
[2017-11-06] MEDS: KCL 20 mEq/NACL 0.45% Inj 1,000 ML IV.CONT SCH (20:10)
[2017-11-07] MEDS: Acetaminophen 325 MG Tablet PO PRN ×3 (02:05→13:02)
[2017-11-07] MEDS: KCL 20 mEq/NACL 0.45% Inj 1,000 ML IV.CONT SCH ×2 (04:55→16:41)
[2017-11-07 07:24] LABS: Baso % (Auto) 0.3 % (0.0-2.0); Eos # (Auto) 0.3 th/mm3 (0.0-0.4); Eos % (Auto) 3.6 % (0.0-4.0); Hematocrit 31.6 % (35.0-46.0); Hemoglobin 10.9 gm/dL (11.6-15.3); Lymph # (Auto) 0.9 th/mm3 (1.0-4.8); Lymph % (Auto) 10.1 % (9.0-44.0); Mean Corpuscular HGB Conc 34.5 % (32.0-36.0); Mean Corpuscular Hemoglobin 30.8 pg (27.0-34.0); Mean Corpuscular Volume 89.4 fL (80.0-100.0); Mean Platelet Volume 7.7 fL (7.0-11.0); Mono # (Auto) 0.6 th/mm3 (0.0-0.9); Mono % (Auto) 6.8 % (0.0-8.0); Neut % (Auto) 79.2 % (16.0-70.0); Platelet Count 203 th/mm3 (150-450); Red Blood Count 3.53 mil/mm3 (4.00-5.30); Red Cell Distribution Width 13.7 % (11.6-17.2); White Blood Count 8.8 th/mm3 (4.0-11.0)
[2017-11-07 07:59] LABS: Calcium 7.7 mg/dL (8.5-10.1); Carbon Dioxide 22.9 meq/L (21.0-32.0)
[2017-11-07] MEDS: Insulin NovoLOG Aspart Correctional Sugar Inj SQ SCH ×4 (08:12→20:35)
[2017-11-07 08:23] LABS: Potassium 2.8 meq/L (3.5-5.1)
--- NOTE | 2017-11-07 13:51 | P.PNIM ---
Subjective Interval history: Nursing reports one liquid stood overnight but NO diarrhea so far today. Pt c/o diffuse abdominal pain. Physical Exam Vital signs: 11/07/17 12:00 Temperature 98.1 F Pulse Rate 73 Respiratory Rate 18 Blood Pressure 99/52 L Pulse Oximetry 96 Narrative: GENERAL: This is a well-nourished, well-developed patient, in no apparent distress. CARDIOVASCULAR: Regular rate and rhythm without murmurs, gallops, or rubs. RESPIRATORY: Clear to auscultation. Breath sounds equal bilaterally. No wheezes , rales, or rhonchi. GASTROINTESTINAL: mild diffuse abdominal pain on palpation, no g/r/r, +BS x 4 MUSCULOSKELETAL: Extremities without clubbing, cyanosis, or edema. NEURO: Alert & Oriented x4 to person, place, time, situation. Moves all ext x4 Results - Labs CBC & Chem 7: 11/07/17 06:45 11/07/17 06:45 11/06/17 11/06/17 11/07/17 18:16 21:23 02:03 WBC RBC Hgb Hct MCV MCH MCHC RDW Plt Count MPV Neut % (Auto) Lymph % (Auto) Nye % (Auto) Eos % (Auto) Baso % (Auto) Neut # (Auto) Lymph # (Auto) Nye # (Auto) Eos # (Auto) Baso # (Auto) WBC Differential Differential Comment Sodium Potassium Chloride Carbon Dioxide Anion Gap BUN Creatinine Estimated GFR POC Glucose 149 H 107 Random Glucose Lactic Acid Calcium Total Bilirubin AST ALT Alkaline Phosphatase Total Protein Albumin St C. diff Tox Epid 027 Positive H C. difficile Tox (PCR) Positive H Microbiology 11/06/17 18:16 Stool Clostridium difficile Toxin Assay - Final C.diff Toxin A &/or B Positive 11/06/17 16:56 Blood - Peripheral Aerobic Blood Culture - Preliminary No growth in 1 day 11/06/17 16:56 Blood - Peripheral Anaerobic Blood Culture - Preliminary No growth in 1 day 11/06/17 15:05 Blood - Peripheral Aerobic Blood Culture - Preliminary No growth in 1 day 11/06/17 15:05 Blood - Peripheral Anaerobic Blood Culture - Preliminary No growth in 1 day 11/06/17 18:16 Stool Enteric Pathogens (PCR) - Final No enteric pathogens detected by PCR (No Salmonella sp., Shigella sp., Campylobacter sp., Yersinia enterocolitica, Vibrio sp., Norovirus, or EHEC (Shiga Toxin 1 or Shiga Toxin 2) detected. 11/06/17 18:16 Stool Stool for WBCs - Final No WBC's seen 11/06/17 18:16 Stool Stool Occult Blood ([facility]) - Final Hemoccult negative - Imaging Abdomen X-Ray 11/06/17 00:00 CONCLUSION: Unremarkable study. Chest X-Ray 11/06/17 13:30 CONCLUSION: Negative examination. Abdomen/Pelvis CT 11/06/17 13:36 CONCLUSION: Possible diffuse thickening of colonic wall and the colon is collapsed and not completely evaluated, however diffuse colitis should be entertained. Radiopaque densities seen within the calcification versus ingested material. Assessment and Plan - Assessment (1) Recurrent Clostridium difficile diarrhea Code(s): A04.71 - Enterocolitis due to Clostridium difficile, recurrent Status : Acute Plan: Patient is a 72-year-old female with history of hypertension, diabetes, and hyperlipidemia. Patient has particular history of recurrent clostridium difficile diarrhea. Patient presented to the ER yesterday (11/05/17) with complaint of having had a fall at home without striking her head or loss of consciousness. Patient complained of left rib and left hip pain. Chest x-ray revealed left rib fracture. Patient also complained of recurrent diarrhea, however she was unable to produce a stool sample after 3 hours in the ER and was discharged to home. Patient again presented to the ER today (11/06/17) with complaint of abdominal pain and diarrhea. Patient most recently completed a course of oral vancomycin on October 20 (2 weeks ago). Patient complains that the diarrhea is constant, liquid, and foul-smelling. Patient also complains of mild diffuse abdominal pain. Patient complains of nausea and poor oral intake. In the ER patient was found to be hypotensive with systolic blood pressure in the 90s which is lower than patient's baseline. Patient denied fever or chills. Pt was hospitalized with C. Dif 07/17 to 07/22/17 - Stool studies at admission were C diff pos, 027 positive. - ID was consulted. - Pt was started on PO Dificid 200mg po BID through 07/27, then vancomycin taper for 6-12 weeks per ID. - Pt was given IV fluids for hydration thru AM 07/19. - Pt had symptomatic improvement in her diarrhea prior to discharge and was eating and drinking without any issues. - Discussed the case with ID prior to discharge and pt recommended that she complete Dificid 200mg po BID through 07/27. - Pt to continue Lactobacillus. Pt will complete a Vancomycin taper to be started on 07/28/17: Take 125mg Q6H x 14 days (07/28-08/11); then take 125mg BID x 7 days (08/12-08/19); then take 125mg daily x 7 days (08/20-08/27); then take 125mg every other day x 4 weeks (08/28-09/25) patient was hospitalized from 02/23/17 - 02/28/17 for C diff, electrolyte abnormalities, dehydration and pna. Patient was hospitalized from 04/11-04/20 for C. difficile diarrhea. She had associated electrolyte abnormalities. Patient was hospitalized April 26, 2017 for with acute kidney injury dehydration and C. difficile diarrhea. - CT A/P (11/06/17) - Possible diffuse thickening of colonic wall and the colon is collapsed and not completely evaluated, however diffuse colitis should be entertained. Radiopaque densities seen within the calcification versus ingested material. - C. Dif PCR positive (11/06/17) - C. Dif 027 positive (11/06/17) - Blood Culture (11/06/17) --> NGTD - stool studies: - no fecal leukocytes - hemocult negative - O&P negative, except for pending --> - cryptosporidium & Giardia --> pending - Consult Infectious Disease - Consult Gastroenterology for consideration of possible fecal transplant - continue PO flagyl (11/06 - present) - start Lactinex - continue IVFs - continue PT - SCDs for DVT prophylaxis - Supportive care - Pt may require SNF at the conclusion of this hospitalization Hypotension - IV fluid - monitor blood pressure - hold oral antihypertension medication HTN, essential - chronic - hold oral medications d/t hypotension associated with diarrhea DM2 -Hold oral hypoglycemics - SSI (2) Diabetes mellitus Code(s): E11.9 - Type 2 diabetes mellitus without complications Status: Acute (3) HTN (hypertension) Code(s): I10 - Essential (primary) hypertension Status: Acute (2) Diabetes mellitus Qualifiers: Diabetes mellitus type: type 2 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
[2017-11-07] MEDS ORDERED: SODIUM CHLOR 0.9% IV.SIG ONE (15:00)
[2017-11-07] MEDS ORDERED: CALCIUM CHLORIDE IV.SIG ONE (15:00)
--- NOTE | 2017-11-07 15:39 | ECG ---
Date Performed: 11/06/2017 Time Performed: 15:04:07 PTAGE: 72 years EKG: Sinus rhythm NONSPECIFIC T-WAVE ABNORMALITY BORDERLINE ECG Compared to PREVIOUS TRACING , slight ST-T changes are new. PREVIOUS TRACIN10/07/2017 22.21 DOCTOR: Selwyn Aviles Interpretating Date/Time 11/07/2017 15:38:43
[2017-11-07] MEDS: Mag Sulf 1 gm/100 ml Premix 100 ML IV.SIG SCH ×2 (17:44→18:59)
--- NOTE | 2017-11-07 20:15 | MB ---
cc: Brian Perkins MD DATE: 11/07/2017 REQUESTING PHYSICIAN: Princess Mitchell MD REASON FOR CONSULTATION: Recurrent C. difficile. HISTORY OF PRESENT ILLNESS: This is a 72-year-old white female who has had multiple episodes of Clostridium difficile colitis in the past. She has been treated with prolonged vancomycin taper for C. difficile. The last episode of C. difficile was in 07/2017. She received treatment for the C. difficile, and she states that she finished the antibiotic treatment on 10/20/2017. On 10/23/2017, she noted that she was not feeling well and at some point sustained a fall. She began to have diarrhea after she finished the vancomycin taper and it worsened and she started having abdominal pain. She reports that she was feeling poorly at the beginning of October and had chest pain and she underwent stress test workup. She tells me that she had a scans of her abdomen, but I do not see any results available or reports of scans in the electronic medical record. She continued to have diarrhea and worsening abdominal pain. She was brought to the emergency department for evaluation on 11/05/2017, after she fell. The patient is a poor historian and therefore she expressed a desire to go home from the emergency department on 11/05/2017. She reports that she was feeling better. X-ray of the hip was performed and it showed no evidence of bony injury. Chest x-ray revealed findings concerning for nondisplaced subtle posterolateral 6 and 7 left rib fractures. The patient, however, was complaining of abdominal pain, and she reported that she could not tell whether she had to have a bowel movement and that the diarrhea would just suddenly occur. It was decided to evaluate this further, and she was noted to be hypotensive with blood pressure of 96/52. The patient had a C. difficile toxin taken, and also CT scan of the abdomen and pelvis was performed. The CT scan of the abdomen showed possibility of diffuse thickening of colonic wall and it was felt that diffuse colitis should be entertained. Stool came back positive with C. difficile toxin Epi 427 positive. She tells me that the pain in abdomen is in the lower abdomen and is currently 10/10 scale. She is continuing to have diarrhea and just had a loose bowel movement before I entered the room to evaluate her. White blood cell count is normal at 8.8. PAST MEDICAL HISTORY: Recurrent Clostridium difficile, diabetes mellitus, hypertension, hyperlipidemia, inflammatory bowel disease, pulmonary hypertension, history of breast cancer in 2010, treated with lumpectomy, carpal tunnel syndrome. PAST SURGICAL HISTORY: Cholecystectomy, total knee replacement, arthroscopy, cataract surgery, RCR of the right shoulder, hysterectomy, D and C. ALLERGIES: OXYCODONE, CODEINE. MEDICATIONS: 1. Vancomycin p.o. 2. Lactinex. 3. Tylenol. 4. Magnesium sulfate. 5. Potassium. 6. Vancomycin p.o. SOCIAL HISTORY: No tobacco, no alcohol, no illicit drugs. FAMILY HISTORY: Noncontributory. REVIEW OF SYSTEMS: Significant for diarrhea and abdominal pain. All other systems have been reviewed and are negative. PHYSICAL EXAMINATION: GENERAL: This is a frail, thin female in no acute distress. She is awake and alert and oriented. VITAL SIGNS: Includes temperature 98.1, BP 99/52, respirations 18, heart rate 73. HEENT: Head is atraumatic. Extraocular movement grossly intact. Pupils reactive to light. No icterus. NECK: Supple without adenopathy. LUNGS: Clear breath sounds. HEART: Regular rate and rhythm without murmurs. ABDOMEN: Distended, soft, tenderness diffusely on palpation. RECTAL: Not performed. EXTREMITIES: No clubbing, cyanosis or edema. SKIN: No rash. NEUROLOGIC: No gross focal finding. PSYCHIATRIC: The patient appears depressed. LABORATORY DATA: WBC 8.8, platelet count 203, 79% neutrophils, 10% lymphocytes, hemoglobin 10.9. Creatinine 0.88, BUN 26, sodium 145, potassium earlier today was 2.8. Blood culture no growth in 1 day. IMPRESSION: 1. Recurrent Clostridium difficile colitis. 2. Dehydration and hypokalemia secondary to diarrhea. RECOMMENDATIONS: 1. Resume oral Dificid. 2. Continue vancomycin. Since this is one of multiple recurrent episodes of Clostridium difficile in this patient, despite prolonged vancomycin taper, I think we should consider doing fecal transplant. The patient expresses her acceptance for fecal transplantation to be done. GI will be consulted for her to be evaluated for that. There is also another alternative possibly, to give her a dose of Zinplava, which is a monoclonal antibody for C. difficile and has shown success in reducing recurrence of C. difficile. Thank you for this consultation. I will follow the patient along with you and will make further recommendations upon followup if necessary. MD LUZMARIA Velasco/ben/kyung , 04:24 PM , 04:42 PM
[2017-11-07] MEDS: Lactobacillus Acidophilus/L. Spores Tablet PO SCH (20:34)
[2017-11-08] MEDS ORDERED: HYDROmorphone PF Inj 2 MG/ML Vial IV.PUSH ONE (02:00)
[2017-11-08] MEDS: KCL 20 mEq/NACL 0.45% Inj 1,000 ML IV.CONT SCH ×2 (04:45→15:41)
[2017-11-08 07:35] LABS: Baso % (Auto) 0.4 % (0.0-2.0); Eos # (Auto) 0.5 th/mm3 (0.0-0.4); Eos % (Auto) 5.4 % (0.0-4.0); Hematocrit 32.3 % (35.0-46.0); Lymph # (Auto) 1.4 th/mm3 (1.0-4.8); Mean Corpuscular HGB Conc 34.2 % (32.0-36.0); Mean Corpuscular Hemoglobin 30.5 pg (27.0-34.0); Mean Corpuscular Volume 89.2 fL (80.0-100.0); Mean Platelet Volume 7.5 fL (7.0-11.0); Mono # (Auto) 0.6 th/mm3 (0.0-0.9); Mono % (Auto) 6.5 % (0.0-8.0); Neut # (Auto) 7.3 th/mm3 (1.8-7.7); Neut % (Auto) 73.7 % (16.0-70.0); Platelet Count 235 th/mm3 (150-450); Red Blood Count 3.62 mil/mm3 (4.00-5.30); White Blood Count 9.9 th/mm3 (4.0-11.0)
[2017-11-08 07:44] LABS: Calcium 7.9 mg/dL (8.5-10.1); Carbon Dioxide 23.4 meq/L (21.0-32.0); Potassium 3.5 meq/L (3.5-5.1)
--- NOTE | 2017-11-08 08:59 | P.PNIM ---
Subjective Interval history: follow up recurrent C diff Patient resting in bed able to awake to verbal stimuli approximally 6 liquid BMs through the night pain improved with IV Ofirmev Physical Exam Vital signs: Vital Signs 11/07/17 12:00 11/07/17 13:30 11/07/17 15:15 Temperature 98.1 F Pulse Rate 73 Respiratory Rate 18 18 20 Blood Pressure 99/52 L Pulse Oximetry 96 11/07/17 16:00 11/07/17 19:55 11/07/17 20:00 Temperature 99.1 F 98.6 F Pulse Rate 81 82 81 Respiratory Rate 17 17 Blood Pressure 113/58 L 114/56 L Pulse Oximetry 94 L 96 11/07/17 20:55 11/08/17 00:00 11/08/17 00:21 Temperature 98.7 F Pulse Rate 80 80 Respiratory Rate 18 17 Blood Pressure 113/58 L Pulse Oximetry 11/08/17 02:42 11/08/17 03:20 11/08/17 04:00 Temperature 97.8 F Pulse Rate 69 Respiratory Rate 17 17 17 Blood Pressure 111/63 Pulse Oximetry 97 11/08/17 04:13 Temperature Pulse Rate 65 Respiratory Rate Blood Pressure Pulse Oximetry Intake & Output 11/07/17 11/08/17 11/08/17 18:59 06:59 18:59 Intake Total 1803.42 / 1803.42 640 / 640 Balance 1803.42 / 1803.42 640 / 640 Weight 61.23 kg Intake: IV 1303.42 / 1303.42 400 / 400 Potassium Chlor 20 mEq/NACL 0. 1000 / 1000 100 / 100 45% Inj 1,000 ML @ 84 mls/hr IV .CONT .[id number] [facility] Rx#:[id number] Ofirmev Inj 1,000 mg In 100 ml 100 / 100 200 / 200 @ 400 mls/hr IV.SIG Q6H [facility] Rx# :[id number] Calcium Chloride Inj 0.341 GM 103.42 / 103.42 In NS Inj 100 ML @ 103.42 mls/ hr IV.SIG ONCE ONE Rx#:[id number] Magnesium Sulfate 1 gm/D5W 100 100 / 100 100 / 100 ml Premix 100 ML @ 100 mls/hr IV.SIG Q1H [facility] Rx#:[id number] Oral 500 / 500 240 / 240 Other: # Voids 4 2 Date of Last Bowel Movement 11/07/17 # Bowel Movements 6 Narrative: GENERAL: This is a well-nourished, well-developed patient, in no apparent distress. CARDIOVASCULAR: Regular rate and rhythm RESPIRATORY: Clear to auscultation. Breath sounds equal bilaterally. GASTROINTESTINAL: mild diffuse abdominal tenderness to palpation, +BS x 4 MUSCULOSKELETAL: Extremities without clubbing, cyanosis, or edema. NEURO: Alert & Oriented x4 to person, place, time, situation. Moves all ext x4 Results - Labs CBC & Chem 7: 11/08/17 05:49 11/08/17 05:49 Laboratory Results - last 24 hr 11/07/17 11/07/17 11/07/17 05:20 12:53 16:35 WBC RBC Hgb Hct MCV MCH MCHC RDW Plt Count MPV Neut % (Auto) Lymph % (Auto) Yates % (Auto) Eos % (Auto) Baso % (Auto) Neut # (Auto) Lymph # (Auto) Yates # (Auto) Eos # (Auto) Baso # (Auto) WBC Differential Differential Comment Sodium Potassium Chloride Carbon Dioxide Anion Gap BUN Creatinine Estimated GFR POC Glucose 101 127 H Random Glucose Calcium Magnesium 1.4 L 11/08/17 11/08/17 11/08/17 05:49 05:49 08:00 WBC 9.9 RBC 3.62 L Hgb 11.0 L Hct 32.3 L MCV 89.2 MCH 30.5 MCHC 34.2 RDW 14.0 Plt Count 235 MPV 7.5 Neut % (Auto) 73.7 H Lymph % (Auto) 14.0 Yates % (Auto) 6.5 Eos % (Auto) 5.4 H Baso % (Auto) 0.4 Neut # (Auto) 7.3 Lymph # (Auto) 1.4 Yates # (Auto) 0.6 Eos # (Auto) 0.5 H Baso # (Auto) 0.0 WBC Differential . Differential Comment Auto diff final Sodium 142 Potassium 3.5 Chloride 109 H Carbon Dioxide 23.4 Anion Gap 10 BUN 16 Creatinine 0.74 Estimated GFR 77 L POC Glucose 97 Random Glucose 85 Calcium 7.9 L Magnesium 2.0 D Microbiology 11/06/17 18:16 Stool Clostridium difficile GDH Antigen - Final C. difficile Antigen Positive 11/06/17 18:16 Stool Clostridium difficile Toxin Assay - Final C.diff Toxin A &/or B Positive 11/06/17 16:56 Blood - Peripheral Aerobic Blood Culture - Preliminary No growth in 1 day 11/06/17 16:56 Blood - Peripheral Anaerobic Blood Culture - Preliminary No growth in 1 day 11/06/17 15:05 Blood - Peripheral Aerobic Blood Culture - Preliminary No growth in 1 day 11/06/17 15:05 Blood - Peripheral Anaerobic Blood Culture - Preliminary No growth in 1 day 11/06/17 18:16 Stool Enteric Pathogens (PCR) - Final No enteric pathogens detected by PCR (No Salmonella sp., Shigella sp., Campylobacter sp., Yersinia enterocolitica, Vibrio sp., Norovirus, or EHEC (Shiga Toxin 1 or Shiga Toxin 2) detected. 11/06/17 18:16 Stool Stool for WBCs - Final No WBC's seen 11/06/17 18:16 Stool Stool Occult Blood ([facility]) - Final Hemoccult negative Assessment and Plan - Assessment (1) Recurrent Clostridium difficile diarrhea Code(s): A04.71 - Enterocolitis due to Clostridium difficile, recurrent Status : Acute Plan: Patient is a 72-year-old female with history of hypertension, diabetes, and hyperlipidemia. Patient has particular history of recurrent clostridium difficile diarrhea. Patient presented to the ER yesterday (11/05/17) with complaint of having had a fall at home without striking her head or loss of consciousness. Patient complained of left rib and left hip pain. Chest x-ray revealed left rib fracture. Patient also complained of recurrent diarrhea, however she was unable to produce a stool sample after 3 hours in the ER and was discharged to home. Patient again presented to the ER today (11/06/17) with complaint of abdominal pain and diarrhea. Patient most recently completed a course of oral vancomycin on October 20 (2 weeks ago). Patient complains that the diarrhea is constant, liquid, and foul-smelling. Patient also complains of mild diffuse abdominal pain. Patient complains of nausea and poor oral intake. In the ER patient was found to be hypotensive with systolic blood pressure in the 90s which is lower than patient's baseline. Patient denied fever or chills. Pt was hospitalized with C. Dif 07/17 to 07/22/17 - Stool studies at admission were C diff pos, 027 positive. - ID was consulted. - Pt was started on PO Dificid 200mg po BID through 07/27, then vancomycin taper for 6-12 weeks per ID. - Pt was given IV fluids for hydration thru AM 07/19. - Pt had symptomatic improvement in her diarrhea prior to discharge and was eating and drinking without any issues. - Discussed the case with ID prior to discharge and pt recommended that she complete Dificid 200mg po BID through 07/27. - Pt to continue Lactobacillus. Pt will complete a Vancomycin taper to be started on 07/28/17: Take 125mg Q6H x 14 days (07/28-08/11); then take 125mg BID x 7 days (08/12-08/19); then take 125mg daily x 7 days (08/20-08/27); then take 125mg every other day x 4 weeks (08/28-09/25) patient was hospitalized from 02/23/17 - 02/28/17 for C diff, electrolyte abnormalities, dehydration and pna. Patient was hospitalized from 04/11-04/20 for C. difficile diarrhea. She had associated electrolyte abnormalities. Patient was hospitalized April 26, 2017 for with acute kidney injury dehydration and C. difficile diarrhea. - CT A/P (11/06/17) - Possible diffuse thickening of colonic wall and the colon is collapsed and not completely evaluated, however diffuse colitis should be entertained. Radiopaque densities seen within the calcification versus ingested material. - C. Dif PCR positive (11/06/17) - C. Dif 027 positive (11/06/17) - Blood Culture (11/06/17) --> NGTD - stool studies: - no fecal leukocytes - hemocult negative - O&P negative, except for pending --> - cryptosporidium & Giardia --> pending - Consult Infectious Disease, appreciate input, added Dificid. suggested another alternative possibly, to give her a dose of Zinplava and Also agrees with fecal transplant - Consult Gastroenterology for consideration of possible fecal transplant - Patient on Vancomycin 250 mg PO QID (11/06 to present) - ID started Dificid 200 mg PO BID (11/07 to present) - continue Lactinex - continue IVFs - continue PT - SCDs for DVT prophylaxis - Supportive care - Pt may require SNF at the conclusion of this hospitalization Hypotension - IV fluids - monitor blood pressure - hold oral antihypertension medication HTN, essential - chronic - hold oral medications d/t hypotension associated with diarrhea DM2 -Hold oral hypoglycemics - SSI Hypokalemia K 2.8 (11/07), replaced -> 3.5 (11/08) (11/07) mag 1.4, replaced 2.0 recheck BMP in AM The exam, history, and the medical decision-making described in the above note were completed with the assistance of the mid-level provider. I reviewed and agree with the findings presented. I attest that I had a [id number] encounter with the patient on the same day, and personally performed and documented my assessment and findings in the medical record. Pt with recurrent cdiff. ID following. stool transplant vs monoclonal antibody infusion x 1 discussed with ID and GI. I am unaware of a possible donor and so will continue vanco/dificid for now. 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
[2017-11-08] MEDS: Insulin NovoLOG Aspart Correctional Sugar Inj SQ SCH ×4 (10:13→21:13)
[2017-11-08] MEDS: Lactobacillus Acidophilus/L. Spores Tablet PO SCH ×2 (10:14→21:08)
--- NOTE | 2017-11-08 11:43 | P.CONGI ---
History of Present Illness Consult date: 11/08/17 Consult reason: C. difficile colitis unresolved, diarrhea Chief complaint: hypotension, dehydration, history of c. diff, History of Present Illness: This is a 72-year-old overweight female who came in the hospital on 11/06/2017 with generalized weakness and fatigue as well as C. difficile colitis. According to the patient and records she has had recurrent C. difficile colitis and treatments which include oral vancomycin on October [address] scan also showed diffuse colitis. Patient has lower abdominal pain and cramping, which is generalized and almost a consistent dull ache with diarrhea stools at least 4-5 times a day. Patient states that the diarrhea has made her very weak and and she fell at home fracturing some ribs. Patient notes decreased appetite but no obvious nausea or vomiting and no dyspepsia. Patient did note some chest pain often known but has had a recent negative nuclear stress test. Patient denies any obvious hematemesis or rectal bleeding and states that stools are incontinent and watery brown. Patient denies any previous history of EGD and states colonoscopy 5-8 years ago with a history of polyps. Patient denies any family history of colon cancer but is a fairly poor historian to her history. Current hemoglobin is 11, and WBC count 9.9. Gastroenterology has been consulted to assist with patient's unresolved C. difficile colitis. ID is now consulted and following patient's and feels patient may benefit from fecal transplant. Patient's pain scale is a dull ache and cramping, lower abdomen 6 out of 10, but chief complaint is her weakness and fatigue and decreased appetite probably affected by her C. difficile colitis. <Mary Akers - Last Filed: 11/08/17 14:45> Review of Systems All other systems reviewed negative except as stated in HPI <Mary Akers - Last Filed: 11/08/17 14:45> PMFSH - History History Provided By: Patient - Medical History Medical History: Medical History (Last Reviewed 11/06/17 @ 15:56 by ROMIE Mcdermott) Carpal tunnel syndrome Cataract Cervical fusion syndrome Cholecystitis with cholelithiasis Diabetes History of Clostridium difficile infection - Surgical History Surgical History: Surgical History (Last Reviewed 11/06/17 @ 15:56 by ROMIE Mcdermott) History of cholecystectomy - Tobacco History Second Hand Smoke Exposure: No Tobacco Use In Past 30 Days: No Smoking Status: Unknown if ever smoked - Alcohol History How Often Do You Have a Drink Containing Alcohol: Unable to Obtain - Substance Use History Substance History: Unable to Obtain - Travel History Recent Travel in the [place] Within the Last 8 Weeks: No Recent Travel Out of the Country Within the Last 8 Weeks: No - Immunization History Tetanus Immunization: Unsure <Mary Akers - Last Filed: 11/08/17 14:45> - Medical History Medical History: Medical History (Last Reviewed 11/06/17 @ 15:56 by ROMIE Mcdermott) Carpal tunnel syndrome Cataract Cervical fusion syndrome Cholecystitis with cholelithiasis Diabetes History of Clostridium difficile infection - Surgical History Surgical History: Surgical History (Last Reviewed 11/06/17 @ 15:56 by ROMIE Mcdermott) History of cholecystectomy <Estefania Buckley - Last Filed: 11/08/17 22:53> Medications and Allergies Active Medications: Active Medications Acetaminophen (Tylenol) 650 mg PO Q4H PRN PRN Reason: Temp > 100.4 or pain 1 to 4 Last Admin: 11/07/17 13:02 Dose: 650 mg Dextrose (D50w Vial) 50 ml IV.PUSH UNSCH PRN PRN Reason: PER HYPOGLYCEMIA PROTOCOL Fidaxomicin (Dificid) 200 mg PO BID [facility] Last Admin: 11/08/17 10:14 Dose: 200 mg Glucagon (Glucagon Inj) 1 mg OTHER PRN PRN PRN Reason: for Hypoglycemia Protocol Potassium Chloride/Sodium Chloride (Potassium Chlor 20 Meq/Nacl 0.45% Inj) 1, 000 mls @ 84 mls/hr IV.CONT .[id number] [facility] Last Admin: 11/08/17 04:45 Dose: 84 mls/hr Insulin Aspart (Novolog Insulin Correctional Sugar Inj) 0 unit SQ ACHS [facility]; Protocol Last Admin: 11/08/17 10:13 Dose: Not Given Lactobacillus Acidophilus (Lactinex) 1 tab PO BID [facility] Last Admin: 11/08/17 10:14 Dose: 1 tab Ondansetron HCl (Zofran Inj) 4 mg IV.PUSH Q6H PRN PRN Reason: NAUSEA OR VOMITING Vancomycin HCl (Vancomycin Po) 250 mg PO QID [facility] Last Admin: 11/08/17 10:16 Dose: 250 mg <Mary Akers - Last Filed: 11/08/17 14:45> Active Medications: Active Medications Acetaminophen (Tylenol) 650 mg PO Q4H PRN PRN Reason: Temp > 100.4 or pain 1 to 4 Last Admin: 11/08/17 17:36 Dose: 650 mg Hydrocodone Bitart/Acetaminophen ([place] 5/325) 1 tab PO Q4H PRN PRN Reason: pain 3-10 Last Admin: 11/08/17 21:09 Dose: 1 tab Dextrose (D50w Vial) 50 ml IV.PUSH UNSCH PRN PRN Reason: PER HYPOGLYCEMIA PROTOCOL Fidaxomicin (Dificid) 200 mg PO BID [facility] Last Admin: 11/08/17 21:08 Dose: 200 mg Glucagon (Glucagon Inj) 1 mg OTHER PRN PRN PRN Reason: for Hypoglycemia Protocol Potassium Chloride/Sodium Chloride (Potassium Chlor 20 Meq/Nacl 0.45% Inj) 1, 000 mls @ 84 mls/hr IV.CONT .[id number] [facility] Last Admin: 11/08/17 15:41 Dose: 84 mls/hr Insulin Aspart (Novolog Insulin Correctional Sugar Inj) 0 unit SQ ACHS [facility]; Protocol Last Admin: 11/08/17 17:07 Dose: Not Given Lactobacillus Acidophilus (Lactinex) 1 tab PO BID [facility] Last Admin: 11/08/17 21:08 Dose: 1 tab Ondansetron HCl (Zofran Inj) 4 mg IV.PUSH Q6H PRN PRN Reason: NAUSEA OR VOMITING Vancomycin HCl (Vancomycin Po) 250 mg PO QID [facility] Last Admin: 11/08/17 21:08 Dose: 250 mg <Estefania Buckley - Last Filed: 11/08/17 22:53> Allergies Allergy/AdvReac Type Severity Reaction Status Date / Time oxycodone Allergy Severe ITCHING Verified 07/17/17 00:35 adhesive Allergy Mild Blisters Verified 07/17/17 00:35 the skin codeine Allergy Mild NAUSEA Verified 07/17/17 00:35 Home Medications Medication Instructions Recorded Confirmed Type cholecalciferol (vitamin D3) 1,000 unit PO DAILY 10/07/17 11/06/17 History [Vitamin D3] hydrocodone-acetaminophen [Lortab 7.5 ml PO Q4H PRN 10/07/17 11/06/17 History Elixir] lisinopril 40 mg PO DAILY 10/07/17 11/06/17 History metformin 500 mg PO BID 10/07/17 11/06/17 History amlodipine 5 mg PO DAILY 10/08/17 11/06/17 History vancomycin 125 mg PO QID 11/06/17 11/06/17 History Exam Vital signs: Vital Signs 11/07/17 12:00 11/07/17 13:30 11/07/17 15:15 Temperature 98.1 F Pulse Rate 73 Respiratory Rate 18 18 20 Blood Pressure 99/52 L Pulse Oximetry 96 11/07/17 16:00 11/07/17 19:55 11/07/17 20:00 Temperature 99.1 F 98.6 F Pulse Rate 81 82 81 Respiratory Rate 17 17 Blood Pressure 113/58 L 114/56 L Pulse Oximetry 94 L 96 11/07/17 20:55 11/08/17 00:00 11/08/17 00:21 Temperature 98.7 F Pulse Rate 80 80 Respiratory Rate 18 17 Blood Pressure 113/58 L Pulse Oximetry 11/08/17 02:42 11/08/17 03:20 11/08/17 04:00 Temperature 97.8 F Pulse Rate 69 Respiratory Rate 17 17 17 Blood Pressure 111/63 Pulse Oximetry 97 11/08/17 04:13 Temperature Pulse Rate 65 Respiratory Rate Blood Pressure Pulse Oximetry Intake & Output 11/07/17 11/08/17 11/08/17 18:59 06:59 18:59 Intake Total 1803.42 / 1803.42 640 / 640 100 / 100 Balance 1803.42 / 1803.42 640 / 640 100 / 100 Weight 61.23 kg Intake: IV 1303.42 / 1303.42 400 / 400 100 / 100 Potassium Chlor 20 mEq/NACL 0. 1000 / 1000 100 / 100 45% Inj 1,000 ML @ 84 mls/hr IV .CONT .[id number] [facility] Rx#:[id number] Ofirmev Inj 1,000 mg In 100 ml 100 / 100 200 / 200 100 / 100 @ 400 mls/hr IV.SIG Q6H [facility] Rx# :[id number] Calcium Chloride Inj 0.341 GM 103.42 / 103.42 In NS Inj 100 ML @ 103.42 mls/ hr IV.SIG ONCE ONE Rx#:[id number] Magnesium Sulfate 1 gm/D5W 100 100 / 100 100 / 100 ml Premix 100 ML @ 100 mls/hr IV.SIG Q1H [facility] Rx#:[id number] Oral 500 / 500 240 / 240 Other: # Voids 4 2 Date of Last Bowel Movement 11/07/17 11/08/17 # Bowel Movements 6 - Constitutional mild distress (Appears very weak , ) - Routine HEENT Exam ENT: Present: mucous membranes dry (overweight) - Routine Respiratory Exam Present: accessory muscle use (No obvious shortness of breath at wrist) - Routine Cardiovascular Exam Present: S1, S2 - Routine Abdominal Exam Present: soft (No chest pain round, mild distention lower abdominal dull ache and cramping) - Routine Skin Exam Present: pallor - Routine Neurological Exam Present: alert (Answers only simple questions about her symptoms) <Mary Akers - Last Filed: 11/08/17 14:45> Vital signs: Vital Signs 11/08/17 00:00 11/08/17 00:21 11/08/17 02:42 Temperature 98.7 F Pulse Rate 80 80 Respiratory Rate 17 17 Blood Pressure 113/58 L Pulse Oximetry 11/08/17 03:20 11/08/17 04:00 11/08/17 04:13 Temperature 97.8 F Pulse Rate 69 65 Respiratory Rate 17 17 Blood Pressure 111/63 Pulse Oximetry 97 11/08/17 08:00 11/08/17 12:00 11/08/17 16:00 Temperature 97.9 F 97.8 F 98.2 F Pulse Rate 70 77 79 Respiratory Rate 18 20 20 Blood Pressure 123/60 118/69 145/65 H Pulse Oximetry 98 97 99 11/08/17 20:00 Temperature 98.1 F Pulse Rate 76 Respiratory Rate 18 Blood Pressure 137/72 Pulse Oximetry 97 Intake & Output 11/08/17 11/08/17 11/09/17 06:59 18:59 06:59 Intake Total 640 / 640 1820 / 1820 Balance 640 / 640 1820 / 1820 Weight 61.23 kg Intake: IV 400 / 400 1100 / 1100 Potassium Chlor 20 mEq/NACL 0. 100 / 100 1000 / 1000 45% Inj 1,000 ML @ 84 mls/hr IV .CONT .[id number] [facility] Rx#:[id number] Ofirmev Inj 1,000 mg In 100 ml 200 / 200 100 / 100 @ 400 mls/hr IV.SIG Q6H [facility] Rx# :[id number] Magnesium Sulfate 1 gm/D5W 100 100 / 100 ml Premix 100 ML @ 100 mls/hr IV.SIG Q1H [facility] Rx#:[id number] Oral 240 / 240 720 / 720 Other: # Voids 2 3 Date of Last Bowel Movement 11/08/17 # Bowel Movements 6 <Estefania Buckley A - Last Filed: 11/08/17 22:53> Results - Labs CBC & Chem 7: 11/08/17 05:49 11/08/17 05:49 Labs: Laboratory Results - last 24 hr 11/07/17 11/07/17 11/07/17 05:20 12:53 16:35 WBC RBC Hgb Hct MCV MCH MCHC RDW Plt Count MPV Neut % (Auto) Lymph % (Auto) [place] % (Auto) Eos % (Auto) Baso % (Auto) Neut # (Auto) Lymph # (Auto) [place] # (Auto) Eos # (Auto) Baso # (Auto) WBC Differential Differential Comment Sodium Potassium Chloride Carbon Dioxide Anion Gap BUN Creatinine Estimated GFR POC Glucose 101 127 H Random Glucose Calcium Magnesium 1.4 L 11/07/17 11/08/17 11/08/17 20:44 05:49 05:49 WBC 9.9 RBC 3.62 L Hgb 11.0 L Hct 32.3 L MCV 89.2 MCH 30.5 MCHC 34.2 RDW 14.0 Plt Count 235 MPV 7.5 Neut % (Auto) 73.7 H Lymph % (Auto) 14.0 [place] % (Auto) 6.5 Eos % (Auto) 5.4 H Baso % (Auto) 0.4 Neut # (Auto) 7.3 Lymph # (Auto) 1.4 [place] # (Auto) 0.6 Eos # (Auto) 0.5 H Baso # (Auto) 0.0 WBC Differential . Differential Comment Auto diff final Sodium 142 Potassium 3.5 Chloride 109 H Carbon Dioxide 23.4 Anion Gap 10 BUN 16 Creatinine 0.74 Estimated GFR 77 L POC Glucose 153 H Random Glucose 85 Calcium 7.9 L Magnesium 2.0 D 11/08/17 08:00 WBC RBC Hgb Hct MCV MCH MCHC RDW Plt Count MPV Neut % (Auto) Lymph % (Auto) [place] % (Auto) Eos % (Auto) Baso % (Auto) Neut # (Auto) Lymph # (Auto) [place] # (Auto) Eos # (Auto) Baso # (Auto) WBC Differential Differential Comment Sodium Potassium Chloride Carbon Dioxide Anion Gap BUN Creatinine Estimated GFR POC Glucose 97 Random Glucose Calcium Magnesium <Mary Akers - Last Filed: 11/08/17 14:45> - Labs CBC & Chem 7: 11/08/17 05:49 11/08/17 05:49 Labs: Laboratory Results - last 24 hr 11/07/17 11/08/17 11/08/17 20:44 05:49 05:49 WBC 9.9 RBC 3.62 L Hgb 11.0 L Hct 32.3 L MCV 89.2 MCH 30.5 MCHC 34.2 RDW 14.0 Plt Count 235 MPV 7.5 Neut % (Auto) 73.7 H Lymph % (Auto) 14.0 [place] % (Auto) 6.5 Eos % (Auto) 5.4 H Baso % (Auto) 0.4 Neut # (Auto) 7.3 Lymph # (Auto) 1.4 [place] # (Auto) 0.6 Eos # (Auto) 0.5 H Baso # (Auto) 0.0 WBC Differential . Differential Comment Auto diff final Sodium 142 Potassium 3.5 Chloride 109 H Carbon Dioxide 23.4 Anion Gap 10 BUN 16 Creatinine 0.74 Estimated GFR 77 L POC Glucose 153 H Random Glucose 85 Calcium 7.9 L Magnesium 2.0 D 11/08/17 11/08/17 11/08/17 08:00 11:41 15:25 WBC RBC Hgb Hct MCV MCH MCHC RDW Plt Count MPV Neut % (Auto) Lymph % (Auto) [place] % (Auto) Eos % (Auto) Baso % (Auto) Neut # (Auto) Lymph # (Auto) [place] # (Auto) Eos # (Auto) Baso # (Auto) WBC Differential Differential Comment Sodium Potassium Chloride Carbon Dioxide Anion Gap BUN Creatinine Estimated GFR POC Glucose 97 111 H 150 H Random Glucose Calcium Magnesium <Estefania Buckley - Last Filed: 11/08/17 22:53> Assessment and Plan (1) Recurrent Clostridium difficile diarrhea Status: Acute Code(s): A04.71 - Enterocolitis due to Clostridium difficile, recurrent (2) Colitis Status: Acute Code(s): K52.9 - Noninfective gastroenteritis and colitis, unspecified (3) Diarrhea Status: Acute Code(s): R19.7 - Diarrhea, unspecified - Plan 72-year-old female with unresolved recurrent weakness decreased appetite and lower abdominal cramping and pain. C. difficile colitis seen per CT scan and previous course of oral vancomycin on October 20 2 weeks ago. Once treatment was completed patient's symptoms reoccurred with loose watery incontinent diarrhea at least 4-5 times a day. Patient's been followed per ID to assist in her care and recommendations are to consider fecal transplant. Loose watery diarrhea stools secondary to C. difficile colitis Current labs show hemoglobin 11, normal white count Generalized weakness and fatigue, secondary to C. difficile colitis Consider colonoscopy with fecal transplant once arrangements are made. Probable sometime this week, will need several days of prep Plan Diet regular, consider full liquids if patient is not tolerating solid food Hold any blood thinners Continue Dificid, vancomycin p.o. and probiotics Zofran Further recommendations to follow Patient was seen per myself and Dr. Buckley, note was written on his behalf <Mary Akers - Last Filed: 11/08/17 14:45> (1) Recurrent Clostridium difficile diarrhea Status: Acute Code(s): A04.71 - Enterocolitis due to Clostridium difficile, recurrent (2) Colitis Status: Acute Code(s): K52.9 - Noninfective gastroenteritis and colitis, unspecified (3) Diarrhea Status: Acute Code(s): R19.7 - Diarrhea, unspecified - Attending Attestation Agree with above assessment and plan, will coordinate management with ID and assess the need of fecal transplant if all fail. Continue supportive care for now. Will follow up with you. Thank you for the consult. <Estefania Buckley - Last Filed: 11/08/17 22:53> <Mary Akers - Last Filed: 11/08/17 14:45> (3) Diarrhea Qualifiers: Diarrhea type: presumed infectious Qualified Code(s): R19.7 - Diarrhea, unspecified <Estefania Buckley - Last Filed: 11/08/17 22:53> (3) Diarrhea Qualifiers: Diarrhea type: presumed infectious Qualified Code(s): R19.7 - Diarrhea, unspecified
[2017-11-08] MEDS ORDERED: Magnesium Citrate Liq 300 ML Bottle PO ONE ×2 (16:00→18:00)
[2017-11-08] MEDS: Acetaminophen 325 MG Tablet PO PRN (17:36)
[2017-11-09] MEDS: KCL 20 mEq/NACL 0.45% Inj 1,000 ML IV.CONT SCH (03:36)
[2017-11-09 06:12] LABS: Calcium 8.1 mg/dL (8.5-10.1); Carbon Dioxide 22.6 meq/L (21.0-32.0); Potassium 3.4 meq/L (3.5-5.1)
[2017-11-09] MEDS: Insulin NovoLOG Aspart Correctional Sugar Inj SQ SCH ×4 (09:05→20:54)
[2017-11-09] MEDS: Lactobacillus Acidophilus/L. Spores Tablet PO SCH ×2 (09:05→20:43)
--- NOTE | 2017-11-09 09:25 | P.PNIM ---
Subjective Interval history: Follow up: recurrent C diff Patient continued to have liquid stool through the night Night nurse placed Digni shield, stool collection Patient reports rib pain, better after [place] Physical Exam Vital signs: Vital Signs 11/08/17 12:00 11/08/17 16:00 11/08/17 20:00 Temperature 97.8 F 98.2 F 98.1 F Pulse Rate 77 79 76 Respiratory Rate 20 20 18 Blood Pressure 118/69 145/65 H 137/72 Pulse Oximetry 97 99 97 11/08/17 21:40 11/09/17 00:00 11/09/17 02:11 Temperature 98.1 F Pulse Rate 72 Respiratory Rate 18 18 17 Blood Pressure 187/77 H Pulse Oximetry 97 11/09/17 04:00 11/09/17 08:00 Temperature 97.9 F 97.8 F Pulse Rate 71 72 Respiratory Rate 18 16 Blood Pressure 158/78 H 129/67 Pulse Oximetry 97 97 Intake & Output 11/08/17 11/09/17 11/09/17 18:59 06:59 18:59 Intake Total 1820 / 1820 1480 / 1480 Balance 1820 / 1820 1480 / 1480 Weight 61.23 kg Intake: IV 1100 / 1100 1000 / 1000 Potassium Chlor 20 mEq/NACL 0. 1000 / 1000 1000 / 1000 45% Inj 1,000 ML @ 84 mls/hr IV .CONT .[id number] [facility] Rx#:[id number] Ofirmev Inj 1,000 mg In 100 ml 100 / 100 @ 400 mls/hr IV.SIG Q6H [facility] Rx# :[id number] Oral 720 / 720 480 / 480 Other: # Voids 3 # Incontinent Voids 3 Date of Last Bowel Movement 11/08/17 11/08/17 # Bowel Movements 6 # Incontinent Bowel Movements 3 Narrative: GENERAL: This is a well-nourished, unkempt, in no apparent distress. CARDIOVASCULAR: Regular rate and rhythm RESPIRATORY: Clear to auscultation. Breath sounds equal bilaterally. GASTROINTESTINAL: mild diffuse abdominal tenderness to palpation, +BS x 4 MUSCULOSKELETAL: Extremities without clubbing, cyanosis, or edema. NEURO: Alert & Oriented. Moves all ext x4 Results - Labs CBC & Chem 7: 11/08/17 05:49 11/09/17 04:44 Laboratory Results - last 24 hr 09/04/2511/08/17 11/08/17 20:44 11:41 15:25 Sodium Potassium Chloride Carbon Dioxide Anion Gap BUN Creatinine Estimated GFR POC Glucose 153 H 111 H 150 H Random Glucose Calcium 11/08/17 11/09/17 11/09/17 21:13 04:44 09:05 Sodium 143 Potassium 3.4 L Chloride 110 H Carbon Dioxide 22.6 Anion Gap 10 BUN 13 Creatinine 0.72 Estimated GFR 80 L POC Glucose 97 84 Random Glucose 89 Calcium 8.1 L Microbiology 11/06/17 16:56 Blood - Peripheral Aerobic Blood Culture - Preliminary No growth in 2 days 11/06/17 16:56 Blood - Peripheral Anaerobic Blood Culture - Preliminary No growth in 2 days 11/06/17 15:05 Blood - Peripheral Aerobic Blood Culture - Preliminary No growth in 2 days 11/06/17 15:05 Blood - Peripheral Anaerobic Blood Culture - Preliminary No growth in 2 days Assessment and Plan - Assessment (1) Recurrent Clostridium difficile diarrhea Code(s): A04.71 - Enterocolitis due to Clostridium difficile, recurrent Status : Acute Plan: Patient is a 72-year-old female with history of hypertension, diabetes, and hyperlipidemia. Patient has particular history of recurrent clostridium difficile diarrhea. Patient presented to the ER yesterday (11/05/17) with complaint of having had a fall at home without striking her head or loss of consciousness. Patient complained of left rib and left hip pain. Chest x-ray revealed left rib fracture. Patient also complained of recurrent diarrhea, however she was unable to produce a stool sample after 3 hours in the ER and was discharged to home. Patient again presented to the ER today (11/06/17) with complaint of abdominal pain and diarrhea. Patient most recently completed a course of oral vancomycin on October 20 (2 weeks ago). Patient complains that the diarrhea is constant, liquid, and foul-smelling. Patient also complains of mild diffuse abdominal pain. Patient complains of nausea and poor oral intake. In the ER patient was found to be hypotensive with systolic blood pressure in the 90s which is lower than patient's baseline. Patient denied fever or chills. Pt was hospitalized with C. Dif 07/17 to 07/22/17 - Stool studies at admission were C diff pos, 027 positive. - ID was consulted. - Pt was started on PO Dificid 200mg po BID through 07/27, then vancomycin taper for 6-12 weeks per ID. - Pt was given IV fluids for hydration thru AM 07/19. - Pt had symptomatic improvement in her diarrhea prior to discharge and was eating and drinking without any issues. - Discussed the case with ID prior to discharge and pt recommended that she complete Dificid 200mg po BID through 07/27. - Pt to continue Lactobacillus. Pt will complete a Vancomycin taper to be started on 07/28/17: Take 125mg Q6H x 14 days (07/28-08/11); then take 125mg BID x 7 days (08/12-08/19); then take 125mg daily x 7 days (08/20-08/27); then take 125mg every other day x 4 weeks (08/28-09/25) patient was hospitalized from 02/23/17 - 02/28/17 for C diff, electrolyte abnormalities, dehydration and pna. Patient was hospitalized from 04/11-04/20 for C. difficile diarrhea. She had associated electrolyte abnormalities. Patient was hospitalized April 26, 2017 for with acute kidney injury dehydration and C. difficile diarrhea. - CT A/P (11/06/17) - Possible diffuse thickening of colonic wall and the colon is collapsed and not completely evaluated, however diffuse colitis should be entertained. Radiopaque densities seen within the calcification versus ingested material. - C. Dif PCR positive (11/06/17) - C. Dif 027 positive (11/06/17) - Blood Culture (11/06/17) --> NGTD - stool studies: - no fecal leukocytes - hemocult negative - O&P negative, except for pending --> - cryptosporidium & Giardia --> pending - Consult Infectious Disease, appreciate input, added Dificid. suggested another alternative possibly, to give her a dose of Zinplava and Also agrees with fecal transplant - Consult Gastroenterology for consideration of possible fecal transplant, evaluation in process but patient lives alone, has a brother who lives in [place] with Parkinsons disease and is estranged from her other brother. ? Donor - Patient on Vancomycin 250 mg PO QID (11/06 to present) - ID started Dificid 200 mg PO BID (11/07 to present) - continue Lactinex - add Questran - continue IVFs - continue PT, request PT seven days per week. Nursing to assist OOB to chair BID and encourage activity/ambulation - SCDs for DVT prophylaxis - Supportive care - Pt may require SNF at the conclusion of this hospitalization Hypotension - IV fluids - monitor blood pressure - hold oral antihypertension medication HTN, essential - chronic - hold oral medications d/t hypotension associated with diarrhea DM2 -Hold oral hypoglycemics - SSI Hypokalemia K 2.8 (11/07), replaced -> 3.5 (11/08) -> 3.4 (11/09) (11/07) mag 1.4, replaced 2.0 recheck BMP in AM (2) Diabetes mellitus Code(s): E11.9 - Type 2 diabetes mellitus without complications Status: Acute (3) HTN (hypertension) Code(s): I10 - Essential (primary) hypertension Status: Acute (2) Diabetes mellitus Qualifiers: Diabetes mellitus type: type 2 Diabetes mellitus correction insulin use: unspecified correction insulin use status Diabetes mellitus complication status : without complication Qualified Code(s): E11.9 - Type 2 diabetes mellitus without complications (3) HTN (hypertension) Qualifiers: Hypertension type: essential hypertension Qualified Code(s): I10 - Essential (primary) hypertension
--- NOTE | 2017-11-09 14:03 | P.PNGI ---
Subjective Interval history: Patient is resting on her right side appears to be feeling somewhat better but states still having cramping abdominal pain Thin flores colored liquid stool through rectal tube Diminished appetite but taking p.o. fluids better today no obvious nausea or vomiting but does appear weakened <Mary Akers - Last Filed: 11/09/17 13:58> Physical Exam Vital signs: Vital Signs 11/08/17 16:00 11/08/17 20:00 11/08/17 21:40 Temperature 98.2 F 98.1 F Pulse Rate 79 76 Respiratory Rate 20 18 18 Blood Pressure 145/65 H 137/72 Pulse Oximetry 99 97 11/09/17 00:00 11/09/17 02:11 11/09/17 04:00 Temperature 98.1 F 97.9 F Pulse Rate 72 71 Respiratory Rate 18 17 18 Blood Pressure 187/77 H 158/78 H Pulse Oximetry 97 97 11/09/17 08:00 11/09/17 12:00 Temperature 97.8 F 98.0 F Pulse Rate 72 73 Respiratory Rate 16 18 Blood Pressure 129/67 128/77 Pulse Oximetry 97 97 Intake & Output 11/08/17 11/09/17 11/09/17 18:59 06:59 18:59 Intake Total 1820 / 1820 1480 / 1480 Balance 1820 / 1820 1480 / 1480 Weight 61.23 kg Intake: IV 1100 / 1100 1000 / 1000 Potassium Chlor 20 mEq/NACL 0. 1000 / 1000 1000 / 1000 45% Inj 1,000 ML @ 84 mls/hr IV .CONT .[id number] [facility] Rx#:[id number] Ofirmev Inj 1,000 mg In 100 ml 100 / 100 @ 400 mls/hr IV.SIG Q6H [facility] Rx# :[id number] Oral 720 / 720 480 / 480 Other: # Voids 3 # Incontinent Voids 3 Date of Last Bowel Movement 11/08/17 11/08/17 11/08/17 # Bowel Movements 6 # Incontinent Bowel Movements 3 - Constitutional mild distress, obese, chronically ill appearing, disheveled - Routine HEENT Exam Head: Present: normocephalic ENT: Present: mucous membranes dry - Routine Cardiovascular Exam Present: S1, S2 - Routine Abdominal Exam Present: distended (Mild distention, round, soft, soft bowel sounds, no obvious guarding today, rectal drainage system draining thin flores colored stool) - Routine Skin Exam Present: pallor <Mary Akers M - Last Filed: 11/09/17 13:58> Vital signs: Vital Signs 11/08/17 20:00 11/08/17 21:40 11/09/17 00:00 Temperature 98.1 F 98.1 F Pulse Rate 76 72 Respiratory Rate 18 18 18 Blood Pressure 137/72 187/77 H Pulse Oximetry 97 97 11/09/17 02:11 11/09/17 04:00 11/09/17 08:00 Temperature 97.9 F 97.8 F Pulse Rate 71 72 Respiratory Rate 17 18 16 Blood Pressure 158/78 H 129/67 Pulse Oximetry 97 97 11/09/17 09:00 11/09/17 12:00 Temperature 98.0 F Pulse Rate 74 76 Respiratory Rate 18 Blood Pressure 128/77 Pulse Oximetry 97 Intake & Output 11/08/17 11/09/17 11/09/17 18:59 06:59 18:59 Intake Total 1820 / 1820 1480 / 1480 900 / 900 Balance 1820 / 1820 1480 / 1480 900 / 900 Weight 61.23 kg Intake: IV 1100 / 1100 1000 / 1000 900 / 900 Potassium Chlor 20 mEq/NACL 0. 1000 / 1000 1000 / 1000 900 / 900 45% Inj 1,000 ML @ 84 mls/hr IV .CONT .[id number] [facility] Rx#:[id number] Ofirmev Inj 1,000 mg In 100 ml 100 / 100 @ 400 mls/hr IV.SIG Q6H [facility] Rx# :[id number] Oral 720 / 720 480 / 480 Other: # Voids 3 # Incontinent Voids 3 Date of Last Bowel Movement 11/08/17 11/08/17 11/08/17 # Bowel Movements 6 # Incontinent Bowel Movements 3 <Estefania Buckley - Last Filed: 11/09/17 17:14> Results - Labs CBC & Chem 7: 11/08/17 05:49 11/09/17 04:44 Laboratory Results - last 24 hr 11/08/17 11/08/17 11/09/17 15:25 21:13 04:44 Sodium 143 Potassium 3.4 L Chloride 110 H Carbon Dioxide 22.6 Anion Gap 10 BUN 13 Creatinine 0.72 Estimated GFR 80 L POC Glucose 150 H 97 Random Glucose 89 Calcium 8.1 L 11/09/17 11/09/17 09:05 12:12 Sodium Potassium Chloride Carbon Dioxide Anion Gap BUN Creatinine Estimated GFR POC Glucose 84 100 Random Glucose Calcium Microbiology 11/06/17 16:56 Blood - Peripheral Aerobic Blood Culture - Preliminary No growth in 3 days 11/06/17 16:56 Blood - Peripheral Anaerobic Blood Culture - Preliminary No growth in 3 days 11/06/17 15:05 Blood - Peripheral Aerobic Blood Culture - Preliminary No growth in 3 days 11/06/17 15:05 Blood - Peripheral Anaerobic Blood Culture - Preliminary No growth in 3 days <Mary Akers - Last Filed: 11/09/17 13:58> - Labs CBC & Chem 7: 11/08/17 05:49 11/09/17 04:44 Laboratory Results - last 24 hr 11/08/17 11/09/17 11/09/17 21:13 04:44 09:05 Sodium 143 Potassium 3.4 L Chloride 110 H Carbon Dioxide 22.6 Anion Gap 10 BUN 13 Creatinine 0.72 Estimated GFR 80 L POC Glucose 97 84 Random Glucose 89 Calcium 8.1 L 11/09/17 12:12 Sodium Potassium Chloride Carbon Dioxide Anion Gap BUN Creatinine Estimated GFR POC Glucose 100 Random Glucose Calcium Microbiology 11/06/17 18:16 Stool Cryptosporidium Antigen - Final Negative - No Cryptosporicium antigen detected In selected cases of patients with a history of immunosuppression or foreign travel, a full ova and parasites examination may be desired. Contact the microbiology lab if full workup is indicated and subit another specimen for testing. 11/06/17 18:16 Stool Giardia Antigen ([facility]) - Final Negative - No Giardia Antigen detected In selected cases of patients with a history of immunosuppression or foreign travel, a full ova and parasites examination may be desired. Contact the microbiology lab if full workup is indicated and subit another specimen for testing. 11/06/17 16:56 Blood - Peripheral Aerobic Blood Culture - Preliminary No growth in 3 days 11/06/17 16:56 Blood - Peripheral Anaerobic Blood Culture - Preliminary No growth in 3 days 11/06/17 15:05 Blood - Peripheral Aerobic Blood Culture - Preliminary No growth in 3 days 11/06/17 15:05 Blood - Peripheral Anaerobic Blood Culture - Preliminary No growth in 3 days <Estefania Buckley - Last Filed: 11/09/17 17:14> Assessment and Plan (1) Recurrent Clostridium difficile diarrhea Status: Acute Code(s): A04.71 - Enterocolitis due to Clostridium difficile, recurrent (2) Colitis Status: Acute Code(s): K52.9 - Noninfective gastroenteritis and colitis, unspecified (3) Diarrhea Status: Acute Code(s): R19.7 - Diarrhea, unspecified - Plan 72-year-old female with unresolved recurrent weakness decreased appetite and lower abdominal cramping and pain. C. difficile colitis seen per CT scan and previous course of oral vancomycin on October 20 2 weeks ago. Once treatment was completed patient's symptoms reoccurred with loose watery incontinent diarrhea at least 4-5 times a day. Patient's been followed per ID to assist in her care and recommendations are to consider fecal transplant. Loose watery diarrhea stools secondary to C. difficile colitis Current labs show hemoglobin 11, normal white count Generalized weakness and fatigue, secondary to C. difficile colitis Consider colonoscopy with fecal transplant once arrangements are made. Probable sometime this week, will need several days of prep 11/09/2017, patient is showing some gradual improvement after hydration and pain management. Still having thin almost constant liquid stools via rectal system. Still having some abdominal cramping. Continues on multiple meds for C. difficile colitis, still considering fecal transplant if applicable. Patient appears to be depressed over feeling so bad and not being able to get while supportive care given Plan Diet as tolerated Intake and output monitor watery stools Hydration Consider fecal transplant Hold any blood thinners Dificid, vancomycin p.o. probiotics Zofran Further recommendations to follow Patient was seen per myself and Dr. Buckley, note was written on his behalf <Mary Akesr - Last Filed: 11/09/17 13:58> (1) Recurrent Clostridium difficile diarrhea Status: Acute Code(s): A04.71 - Enterocolitis due to Clostridium difficile, recurrent (2) Colitis Status: Acute Code(s): K52.9 - Noninfective gastroenteritis and colitis, unspecified (3) Diarrhea Status: Acute Code(s): R19.7 - Diarrhea, unspecified - Attending Attestation Agree with above assessment and plan, continue supportive care. Will follow up with you. <Estefania Buckley - Last Filed: 11/09/17 17:14> <Mary Akers - Last Filed: 11/09/17 13:58> (3) Diarrhea Qualifiers: Diarrhea type: presumed infectious Qualified Code(s): R19.7 - Diarrhea, unspecified <Estefaina Buckley A - Last Filed: 11/09/17 17:14> (3) Diarrhea Qualifiers: Diarrhea type: presumed infectious Qualified Code(s): R19.7 - Diarrhea, unspecified
--- NOTE | 2017-11-09 14:30 | P.PNID ---
Subjective Remarks: Patient reports pain in her abdomen. Has dignisheild in place. Cintinued loose stools. No fever. This is a 72-year-old white female who has had multiple episodes of Clostridium difficile colitis in the past. She has been treated with prolonged vancomycin taper for C. difficile. The last episode of C. difficile was in 07/2017. She received treatment for the C. difficile, and she states that she finished the antibiotic treatment on 10/20/2017. On 10/23/2017, she noted that she was not feeling well and at some point sustained a fall. She began to have diarrhea after she finished the vancomycin taper and it worsened and she started having abdominal pain. She reports that she was feeling poorly at the beginning of October and had chest pain and she underwent stress test workup. She tells me that she had a scans of her abdomen, but I do not see any results available or reports of scans in the electronic medical record. She continued to have diarrhea and worsening abdominal pain. She was brought to the emergency department for evaluation on 11/05/2017, after she fell. The patient is a poor historian and therefore she expressed a desire to go home from the emergency department on 11/05/2017. She reports that she was feeling better. X-ray of the hip was performed and it showed no evidence of bony injury. Chest x-ray revealed findings concerning for nondisplaced subtle posterolateral 6 and 7 left rib fractures. The patient, however, was complaining of abdominal pain, and she reported that she could not tell whether she had to have a bowel movement and that the diarrhea would just suddenly occur. It was decided to evaluate this further, and she was noted to be hypotensive with blood pressure of 96/52. Past Medical History: PAST MEDICAL HISTORY: Recurrent Clostridium difficile, diabetes mellitus, hypertension, hyperlipidemia, inflammatory bowel disease, pulmonary hypertension, history of breast cancer in 2010, treated with lumpectomy, carpal tunnel syndrome. PAST SURGICAL HISTORY: Cholecystectomy, total knee replacement, arthroscopy, cataract surgery, RCR of the right shoulder, hysterectomy, D and C. Allergies/Adverse Reactions: Allergies oxycodone Allergy (Severe, Verified 07/17/17 00:35) ITCHING adhesive Allergy (Mild, Verified 07/17/17 00:35) Blisters the skin codeine Allergy (Mild, Verified 07/17/17 00:35) NAUSEA Objective Vital Signs 11/08/17 16:00 11/08/17 20:00 11/08/17 21:40 Temperature 98.2 F 98.1 F Pulse Rate 79 76 Respiratory Rate 20 18 18 Blood Pressure 145/65 H 137/72 Pulse Oximetry 99 97 11/09/17 00:00 11/09/17 02:11 11/09/17 04:00 Temperature 98.1 F 97.9 F Pulse Rate 72 71 Respiratory Rate 18 17 18 Blood Pressure 187/77 H 158/78 H Pulse Oximetry 97 97 11/09/17 08:00 11/09/17 12:00 Temperature 97.8 F 98.0 F Pulse Rate 72 73 Respiratory Rate 16 18 Blood Pressure 129/67 128/77 Pulse Oximetry 97 97 Intake & Output 11/08/17 11/09/17 11/09/17 18:59 06:59 18:59 Intake Total 1820 / 1820 1480 / 1480 Balance 1820 / 1820 1480 / 1480 Weight 61.23 kg Intake: IV 1100 / 1100 1000 / 1000 Potassium Chlor 20 mEq/NACL 0. 1000 / 1000 1000 / 1000 45% Inj 1,000 ML @ 84 mls/hr IV .CONT .[id number] [facility] Rx#:[id number] Ofirmev Inj 1,000 mg In 100 ml 100 / 100 @ 400 mls/hr IV.SIG Q6H [facility] Rx# :[id number] Oral 720 / 720 480 / 480 Other: # Voids 3 # Incontinent Voids 3 Date of Last Bowel Movement 11/08/17 11/08/17 11/08/17 # Bowel Movements 6 # Incontinent Bowel Movements 3 11/06/17 16:56 Blood - Peripheral Aerobic Blood Culture - Preliminary No growth in 3 days 11/06/17 16:56 Blood - Peripheral Anaerobic Blood Culture - Preliminary No growth in 3 days 11/06/17 15:05 Blood - Peripheral Aerobic Blood Culture - Preliminary No growth in 3 days 11/06/17 15:05 Blood - Peripheral Anaerobic Blood Culture - Preliminary No growth in 3 days 11/06/17 18:16 Stool Clostridium difficile GDH Antigen - Final C. difficile Antigen Positive 11/06/17 18:16 Stool Clostridium difficile Toxin Assay - Final C.diff Toxin A &/or B Positive 11/06/17 18:16 Stool Enteric Pathogens (PCR) - Final No enteric pathogens detected by PCR (No Salmonella sp., Shigella sp., Campylobacter sp., Yersinia enterocolitica, Vibrio sp., Norovirus, or EHEC (Shiga Toxin 1 or Shiga Toxin 2) detected. 11/06/17 18:16 Stool Stool for WBCs - Final No WBC's seen 11/06/17 18:16 Stool Stool Occult Blood ([facility]) - Final Hemoccult negative 11/06/17 18:16 Stool Cryptosporidium Antigen - Pending 11/06/17 18:16 Stool Giardia Antigen ([facility]) - Pending Lab - Hematology Results 11/08/17 05:49 WBC 9.9 RBC 3.62 L Hgb 11.0 L Hct 32.3 L MCV 89.2 MCH 30.5 MCHC 34.2 RDW 14.0 Plt Count 235 MPV 7.5 Neut % (Auto) 73.7 H Lymph % (Auto) 14.0 [place] % (Auto) 6.5 Eos % (Auto) 5.4 H Baso % (Auto) 0.4 Neut # (Auto) 7.3 Lymph # (Auto) 1.4 [place] # (Auto) 0.6 Eos # (Auto) 0.5 H Baso # (Auto) 0.0 WBC Differential . Differential Comment Auto diff final Lab - Chemistry Results 11/07/17 11/07/17 11/08/17 16:35 20:44 05:49 Sodium 142 Potassium 3.5 Chloride 109 H Carbon Dioxide 23.4 Anion Gap 10 BUN 16 Creatinine 0.74 Estimated GFR 77 L POC Glucose 127 H 153 H Random Glucose 85 Calcium 7.9 L Magnesium 2.0 D 11/08/17 11/08/17 11/08/17 08:00 11:41 15:25 Sodium Potassium Chloride Carbon Dioxide Anion Gap BUN Creatinine Estimated GFR POC Glucose 97 111 H 150 H Random Glucose Calcium Magnesium 11/08/17 11/09/17 11/09/17 21:13 04:44 09:05 Sodium 143 Potassium 3.4 L Chloride 110 H Carbon Dioxide 22.6 Anion Gap 10 BUN 13 Creatinine 0.72 Estimated GFR 80 L POC Glucose 97 84 Random Glucose 89 Calcium 8.1 L Magnesium 11/09/17 12:12 Sodium Potassium Chloride Carbon Dioxide Anion Gap BUN Creatinine Estimated GFR POC Glucose 100 Random Glucose Calcium Magnesium Imaging: ITS Impressions Abdomen X-Ray 11/06/17 00:00 CONCLUSION: Unremarkable study. Chest X-Ray 11/06/17 13:30 CONCLUSION: Negative examination. Abdomen/Pelvis CT 11/06/17 13:36 CONCLUSION: Possible diffuse thickening of colonic wall and the colon is collapsed and not completely evaluated, however diffuse colitis should be entertained. Radiopaque densities seen within the calcification versus ingested material. Physical Exam: PHYSICAL EXAMINATION: GENERAL: No acute distress. She is awake and alert and oriented. HEENT: Head is atraumatic. Extraocular movement grossly intact. Pupils reactive to light. No icterus. NECK: Supple without adenopathy. LUNGS: Clear breath sounds. HEART: Regular rate and rhythm without murmurs. ABDOMEN: Distended, soft, tenderness diffusely on palpation. EXTREMITIES: No clubbing, cyanosis or edema. SKIN: No rash. NEUROLOGIC: No gross focal finding. PSYCHIATRIC: Calm. Assessment and Plan - Plan IMPRESSION: 1. Recurrent Clostridium difficile colitis. Ongoing diarrhea. 2. Dehydration and hypokalemia secondary to diarrhea. RECOMMENDATIONS: 1. Continue oral Dificid. 2. Continue vancomycin. 3. Fecal transplant per GI.
[2017-11-10 08:16] LABS: Baso % (Auto) 0.6 % (0.0-2.0); Eos # (Auto) 0.5 th/mm3 (0.0-0.4); Eos % (Auto) 5.9 % (0.0-4.0); Hematocrit 33.7 % (35.0-46.0); Hemoglobin 11.5 gm/dL (11.6-15.3); Lymph # (Auto) 1.7 th/mm3 (1.0-4.8); Lymph % (Auto) 21.7 % (9.0-44.0); Mean Corpuscular HGB Conc 34.1 % (32.0-36.0); Mean Corpuscular Hemoglobin 30.5 pg (27.0-34.0); Mean Corpuscular Volume 89.3 fL (80.0-100.0); Mean Platelet Volume 7.6 fL (7.0-11.0); Mono # (Auto) 0.6 th/mm3 (0.0-0.9); Mono % (Auto) 7.9 % (0.0-8.0); Neut # (Auto) 4.9 th/mm3 (1.8-7.7); Neut % (Auto) 63.9 % (16.0-70.0); Platelet Count 239 th/mm3 (150-450); Red Blood Count 3.77 mil/mm3 (4.00-5.30); Red Cell Distribution Width 14.2 % (11.6-17.2); White Blood Count 7.7 th/mm3 (4.0-11.0)
[2017-11-10 08:44] LABS: Calcium 8.4 mg/dL (8.5-10.1); Carbon Dioxide 26.3 meq/L (21.0-32.0); Potassium 3.8 meq/L (3.5-5.1)
--- NOTE | 2017-11-10 08:52 | P.PNIM ---
Subjective Interval history: Pt with Dignishield in place with small amount of liquid stool in the bag She reports continued lower abdominal pain, relatively unchagned She is tolerating oral intake Denies any nausea/vomiting Physical Exam Vital signs: Vital Signs 11/09/17 09:00 11/09/17 12:00 11/09/17 16:00 Temperature 98.0 F 97.6 F Pulse Rate 74 76 76 Respiratory Rate 18 18 Blood Pressure 128/77 133/62 Pulse Oximetry 97 98 11/09/17 20:00 11/10/17 00:00 11/10/17 01:38 Temperature 97.9 F 98.3 F Pulse Rate 73 74 Respiratory Rate 17 18 18 Blood Pressure 131/61 141/70 H Pulse Oximetry 98 97 11/10/17 04:00 Temperature 98 F Pulse Rate 76 Respiratory Rate 17 Blood Pressure 130/76 Pulse Oximetry 98 Intake & Output 11/09/17 11/10/17 11/10/17 18:59 06:59 18:59 Intake Total 1620 / 1620 480 / 480 Output Total 850 / 850 1200 / 1200 Balance 770 / 770 -720 / -720 Weight 61.23 kg Intake: IV 900 / 900 Potassium Chlor 20 mEq/NACL 0. 900 / 900 45% Inj 1,000 ML @ 84 mls/hr IV .CONT .[id number] [facility] Rx#:[id number] Oral 720 / 720 480 / 480 Output: Urine 750 / 750 1200 / 1200 Stool 100 / 100 Other: Date of Last Bowel Movement 11/08/17 11/09/17 Narrative: GENERAL: NAD, AAOx3 CARDIO: Regular RESP: CTA bilaterally. ABD: +BS, soft, mild lower abdominal tenderness to palpation EXT: No edema. Results - Labs CBC & Chem 7: 11/10/17 06:25 11/10/17 06:25 Laboratory Results - last 24 hr 11/08/17 11/09/17 11/09/17 21:13 09:05 12:12 WBC RBC Hgb Hct MCV MCH MCHC RDW Plt Count MPV Neut % (Auto) Lymph % (Auto) [place] % (Auto) Eos % (Auto) Baso % (Auto) Neut # (Auto) Lymph # (Auto) [place] # (Auto) Eos # (Auto) Baso # (Auto) WBC Differential Differential Comment POC Glucose 97 84 100 11/09/17 11/10/17 11/10/17 20:49 06:25 08:30 WBC 7.7 RBC 3.77 L Hgb 11.5 L Hct 33.7 L MCV 89.3 MCH 30.5 MCHC 34.1 RDW 14.2 Plt Count 239 MPV 7.6 Neut % (Auto) 63.9 Lymph % (Auto) 21.7 [place] % (Auto) 7.9 Eos % (Auto) 5.9 H Baso % (Auto) 0.6 Neut # (Auto) 4.9 Lymph # (Auto) 1.7 [place] # (Auto) 0.6 Eos # (Auto) 0.5 H Baso # (Auto) 0.0 WBC Differential . Differential Comment Auto diff final POC Glucose 119 H 85 Microbiology 11/06/17 18:16 Stool Cryptosporidium Antigen - Final Negative - No Cryptosporicium antigen detected In selected cases of patients with a history of immunosuppression or foreign travel, a full ova and parasites examination may be desired. Contact the microbiology lab if full workup is indicated and subit another specimen for testing. 11/06/17 18:16 Stool Giardia Antigen ([facility]) - Final Negative - No Giardia Antigen detected In selected cases of patients with a history of immunosuppression or foreign travel, a full ova and parasites examination may be desired. Contact the microbiology lab if full workup is indicated and subit another specimen for testing. 11/06/17 16:56 Blood - Peripheral Aerobic Blood Culture - Preliminary No growth in 3 days 11/06/17 16:56 Blood - Peripheral Anaerobic Blood Culture - Preliminary No growth in 3 days 11/06/17 15:05 Blood - Peripheral Aerobic Blood Culture - Preliminary No growth in 3 days 11/06/17 15:05 Blood - Peripheral Anaerobic Blood Culture - Preliminary No growth in 3 days - Imaging Abdomen X-Ray 11/06/17 00:00 CONCLUSION: Unremarkable study. Chest X-Ray 11/06/17 13:30 CONCLUSION: Negative examination. Abdomen/Pelvis CT 11/06/17 13:36 CONCLUSION: Possible diffuse thickening of colonic wall and the colon is collapsed and not completely evaluated, however diffuse colitis should be entertained. Radiopaque densities seen within the calcification versus ingested material. Assessment and Plan - Assessment (1) Recurrent Clostridium difficile diarrhea Code(s): A04.71 - Enterocolitis due to Clostridium difficile, recurrent Status : Acute Plan: Patient is a 72-year-old female with history of hypertension, diabetes, and hyperlipidemia. Patient has particular history of recurrent clostridium difficile diarrhea. Patient presented to the ER yesterday (11/05/17) with complaint of having had a fall at home without striking her head or loss of consciousness. Patient complained of left rib and left hip pain. Chest x-ray revealed left rib fracture. Patient also complained of recurrent diarrhea, however she was unable to produce a stool sample after 3 hours in the ER and was discharged to home. Patient again presented to the ER today (11/06/17) with complaint of abdominal pain and diarrhea. Patient most recently completed a course of oral vancomycin on October 20 (2 weeks ago). Patient complains that the diarrhea is constant, liquid, and foul-smelling. Patient also complains of mild diffuse abdominal pain. Patient complains of nausea and poor oral intake. In the ER patient was found to be hypotensive with systolic blood pressure in the 90s which is lower than patient's baseline. Patient denied fever or chills. Recurrent C. diff colitis - patient was hospitalized from 02/23/17 - 02/28/17 for C diff, electrolyte abnormalities, dehydration and pna. - Patient was hospitalized from 04/11-04/20 for C. difficile diarrhea. She had associated electrolyte abnormalities. - Patient was hospitalized April 26, 2017 for with acute kidney injury dehydration and C. difficile diarrhea. - Pt was hospitalized with C. Dif 07/17 to 07/22/17 - During pts last admission she was recommended to be on PO Dificid 200mg po BID through 07/27, then vancomycin taper for 6-12 weeks per ID: Take 125mg Q6H x 14 days (07/28-08/11); then take 125mg BID x 7 days (08/12-08/19) ; then take 125mg daily x 7 days (08/20-08/27); then take 125mg every other day x 4 weeks (08/28-09/25) - CT A/P (11/06/17) - Possible diffuse thickening of colonic wall and the colon is collapsed and not completely evaluated, however diffuse colitis should be entertained. Radiopaque densities seen within the calcification versus ingested material. - C. Dif PCR positive (11/06/17) - C. Dif 027 positive (11/06/17) - Blood Culture (11/06/17) --> NGTD - stool studies: - no fecal leukocytes - hemocult negative - O&P negative, except for pending --> - cryptosporidium & Giardia --> pending - ID consulted, appreciate input, added Dificid. suggested another alternative possibly, to give her a dose of Zinplava and Also agrees with fecal transplant - Consult Gastroenterology for consideration of possible fecal transplant, evaluation in process but patient lives alone, has a brother who lives in [place] with Parkinsons disease and is estranged from her other brother. ? Donor - Patient on Vancomycin 250 mg PO QID (11/06 to present) - ID started Dificid 200 mg PO BID (11/07 to present) - continue Lactinex - Questran - continue IVFs - continue PT, request PT seven days per week. Nursing to assist OOB to chair BID and encourage activity/ambulation - SCDs for DVT prophylaxis - Supportive care - Pt may require SNF at the conclusion of this hospitalization Hypotension - IV fluids - monitor blood pressure - hold oral antihypertension medication HTN, essential - chronic - hold oral medications d/t hypotension associated with diarrhea DM2 -Hold oral hypoglycemics - SSI Hypokalemia - K 2.8 (11/07), replaced -> 3.5 (11/08) -> 3.4 (11/09) - (11/07) mag 1.4, replaced 2.0 - Awaiting recheck of BMP this AM The exam, history, and the medical decision-making described in the above note were completed with the assistance of the mid-level provider. I reviewed and agree with the findings presented. I attest that I had a [id number] encounter with the patient on the same day, and personally performed and documented my assessment and findings in the medical record. (2) Diabetes mellitus Code(s): E11.9 - Type 2 diabetes mellitus without complications Status: Acute (3) HTN (hypertension) Code(s): I10 - Essential (primary) hypertension Status: Acute (2) Diabetes mellitus Qualifiers: Diabetes mellitus type: type 2 Diabetes mellitus [facility] insulin use: unspecified [facility] insulin use status Diabetes mellitus complication status : without complication Qualified Code(s): E11.9 - Type 2 diabetes mellitus without complications (3) HTN (hypertension) Qualifiers: Hypertension type: essential hypertension Qualified Code(s): I10 - Essential (primary) hypertension
[2017-11-10] MEDS: Insulin NovoLOG Aspart Correctional Sugar Inj SQ SCH ×4 (11:02→22:22)
[2017-11-10] MEDS: Lactobacillus Acidophilus/L. Spores Tablet PO SCH ×2 (11:03→22:18)
--- NOTE | 2017-11-10 18:24 | P.PNGI ---
Subjective Interval history: Patient is able to stand at the side of the bed with assistance and seems to be getting some stronger since her hospital admission Still having some abdominal pain and thin liquid stools but decreased amount today <Mary Akers - Last Filed: 11/10/17 18:19> Physical Exam Vital signs: Vital Signs 11/09/17 20:00 11/10/17 00:00 11/10/17 01:38 Temperature 97.9 F 98.3 F Pulse Rate 73 74 Respiratory Rate 17 18 18 Blood Pressure 131/61 141/70 H Pulse Oximetry 98 97 11/10/17 04:00 11/10/17 08:00 11/10/17 12:00 Temperature 98 F 97.4 F L 98.3 F Pulse Rate 76 73 78 Respiratory Rate 17 18 18 Blood Pressure 130/76 144/71 H 144/64 H Pulse Oximetry 98 100 98 11/10/17 16:00 Temperature 98.9 F Pulse Rate 82 Respiratory Rate 18 Blood Pressure 143/65 H Pulse Oximetry 98 Intake & Output 11/09/17 11/10/17 11/10/17 18:59 06:59 18:59 Intake Total 1620 / 1620 480 / 480 800 / 800 Output Total 850 / 850 1200 / 1200 1000 / 1000 Balance 770 / 770 -720 / -720 -200 / -200 Weight 61.23 kg Intake: IV 900 / 900 Potassium Chlor 20 mEq/NACL 0. 900 / 900 45% Inj 1,000 ML @ 84 mls/hr IV .CONT .[id number] [facility] Rx#:[id number] Oral 720 / 720 480 / 480 800 / 800 Output: Urine 750 / 750 1200 / 1200 1000 / 1000 Stool 100 / 100 Other: Date of Last Bowel Movement 11/08/17 11/09/17 - Constitutional mild distress, obese - Routine HEENT Exam ENT: Present: mucous membranes dry - Routine Abdominal Exam Present: normoactive bowel sounds (Round, draining rectal tube, liquid brown stools) - Routine Skin Exam Present: pallor <Mary Akers - Last Filed: 11/10/17 18:19> Vital signs: Vital Signs 11/10/17 08:00 11/10/17 12:00 11/10/17 16:00 Temperature 97.4 F L 98.3 F 98.9 F Pulse Rate 73 78 82 Respiratory Rate 18 18 18 Blood Pressure 144/71 H 144/64 H 143/65 H Pulse Oximetry 100 98 98 11/10/17 20:00 11/11/17 00:00 11/11/17 04:00 Temperature 98.8 F 98.1 F 98.4 F Pulse Rate 80 81 81 Respiratory Rate 18 17 16 Blood Pressure 127/62 129/62 120/57 L Pulse Oximetry 97 96 97 Intake & Output 11/10/17 11/11/17 11/11/17 18:59 06:59 18:59 Intake Total 800 / 800 1200 / 1200 Output Total 1000 / 1000 1000 / 1000 Balance -200 / -200 200 / 200 Weight 61.5 kg Intake: Oral 800 / 800 1200 / 1200 Output: Urine 1000 / 1000 1000 / 1000 Other: Date of Last Bowel Movement 11/11/17 <Estefania Buckley A - Last Filed: 11/11/17 07:28> Results - Labs CBC & Chem 7: 11/10/17 06:25 11/10/17 06:25 Laboratory Results - last 24 hr 11/09/17 11/10/17 11/10/17 20:49 06:25 06:25 WBC 7.7 RBC 3.77 L Hgb 11.5 L Hct 33.7 L MCV 89.3 MCH 30.5 MCHC 34.1 RDW 14.2 Plt Count 239 MPV 7.6 Neut % (Auto) 63.9 Lymph % (Auto) 21.7 [place] % (Auto) 7.9 Eos % (Auto) 5.9 H Baso % (Auto) 0.6 Neut # (Auto) 4.9 Lymph # (Auto) 1.7 [place] # (Auto) 0.6 Eos # (Auto) 0.5 H Baso # (Auto) 0.0 WBC Differential . Differential Comment Auto diff final Sodium 142 Potassium 3.8 Chloride 107 Carbon Dioxide 26.3 Anion Gap 9 BUN 12 Creatinine 0.75 Estimated GFR 76 L POC Glucose 119 H Random Glucose 92 Calcium 8.4 L 11/10/17 11/10/17 11/10/17 08:30 12:32 17:58 WBC RBC Hgb Hct MCV MCH MCHC RDW Plt Count MPV Neut % (Auto) Lymph % (Auto) [place] % (Auto) Eos % (Auto) Baso % (Auto) Neut # (Auto) Lymph # (Auto) [place] # (Auto) Eos # (Auto) Baso # (Auto) WBC Differential Differential Comment Sodium Potassium Chloride Carbon Dioxide Anion Gap BUN Creatinine Estimated GFR POC Glucose 85 103 105 Random Glucose Calcium Microbiology 11/06/17 16:56 Blood - Peripheral Aerobic Blood Culture - Preliminary No growth in 4 days 11/06/17 16:56 Blood - Peripheral Anaerobic Blood Culture - Preliminary No growth in 4 days 11/06/17 15:05 Blood - Peripheral Aerobic Blood Culture - Preliminary No growth in 4 days 11/06/17 15:05 Blood - Peripheral Anaerobic Blood Culture - Preliminary No growth in 4 days 11/06/17 18:16 Stool Cryptosporidium Antigen - Final Negative - No Cryptosporicium antigen detected In selected cases of patients with a history of immunosuppression or foreign travel, a full ova and parasites examination may be desired. Contact the microbiology lab if full workup is indicated and subit another specimen for testing. 11/06/17 18:16 Stool Giardia Antigen ([place]) - Final Negative - No Giardia Antigen detected In selected cases of patients with a history of immunosuppression or foreign travel, a full ova and parasites examination may be desired. Contact the microbiology lab if full workup is indicated and subit another specimen for testing. <Mary Akers - Last Filed: 11/10/17 18:19> - Labs CBC & Chem 7: 11/10/17 06:25 11/10/17 06:25 Laboratory Results - last 24 hr 11/09/17 11/10/17 11/10/17 17:07 06:25 06:25 WBC 7.7 RBC 3.77 L Hgb 11.5 L Hct 33.7 L MCV 89.3 MCH 30.5 MCHC 34.1 RDW 14.2 Plt Count 239 MPV 7.6 Neut % (Auto) 63.9 Lymph % (Auto) 21.7 [place] % (Auto) 7.9 Eos % (Auto) 5.9 H Baso % (Auto) 0.6 Neut # (Auto) 4.9 Lymph # (Auto) 1.7 [place] # (Auto) 0.6 Eos # (Auto) 0.5 H Baso # (Auto) 0.0 WBC Differential . Differential Comment Auto diff final Sodium 142 Potassium 3.8 Chloride 107 Carbon Dioxide 26.3 Anion Gap 9 BUN 12 Creatinine 0.75 Estimated GFR 76 L POC Glucose 110 Random Glucose 92 Calcium 8.4 L 11/10/17 11/10/17 11/10/17 08:30 12:32 17:58 WBC RBC Hgb Hct MCV MCH MCHC RDW Plt Count MPV Neut % (Auto) Lymph % (Auto) [place] % (Auto) Eos % (Auto) Baso % (Auto) Neut # (Auto) Lymph # (Auto) [place] # (Auto) Eos # (Auto) Baso # (Auto) WBC Differential Differential Comment Sodium Potassium Chloride Carbon Dioxide Anion Gap BUN Creatinine Estimated GFR POC Glucose 85 103 105 Random Glucose Calcium 11/10/17 22:22 WBC RBC Hgb Hct MCV MCH MCHC RDW Plt Count MPV Neut % (Auto) Lymph % (Auto) [place] % (Auto) Eos % (Auto) Baso % (Auto) Neut # (Auto) Lymph # (Auto) [place] # (Auto) Eos # (Auto) Baso # (Auto) WBC Differential Differential Comment Sodium Potassium Chloride Carbon Dioxide Anion Gap BUN Creatinine Estimated GFR POC Glucose 143 H Random Glucose Calcium Microbiology 11/06/17 16:56 Blood - Peripheral Aerobic Blood Culture - Preliminary No growth in 4 days 11/06/17 16:56 Blood - Peripheral Anaerobic Blood Culture - Preliminary No growth in 4 days 11/06/17 15:05 Blood - Peripheral Aerobic Blood Culture - Preliminary No growth in 4 days 11/06/17 15:05 Blood - Peripheral Anaerobic Blood Culture - Preliminary No growth in 4 days <Estefania Buckley - Last Filed: 11/11/17 07:28> Assessment and Plan (1) Recurrent Clostridium difficile diarrhea Status: Acute Code(s): A04.71 - Enterocolitis due to Clostridium difficile, recurrent (2) Colitis Status: Acute Code(s): K52.9 - Noninfective gastroenteritis and colitis, unspecified (3) Diarrhea Status: Acute Code(s): R19.7 - Diarrhea, unspecified - Plan 72-year-old female with unresolved recurrent weakness decreased appetite and lower abdominal cramping and pain. C. difficile colitis seen per CT scan and previous course of oral vancomycin on October 20 2 weeks ago. Once treatment was completed patient's symptoms reoccurred with loose watery incontinent diarrhea at least 4-5 times a day. Patient's been followed per ID to assist in her care and recommendations are to consider fecal transplant. Loose watery diarrhea stools secondary to C. difficile colitis Current labs show hemoglobin 11, normal white count Generalized weakness and fatigue, secondary to C. difficile colitis Consider colonoscopy with fecal transplant once arrangements are made. Probable sometime this week, will need several days of prep 11/09/2017, patient is showing some gradual improvement after hydration and pain management. Still having thin almost constant liquid stools via rectal system. Still having some abdominal cramping. Continues on multiple meds for C. difficile colitis, still considering fecal transplant if applicable. Patient appears to be depressed over feeling so bad and not being able to get while supportive care given 11/10/2017 current hemoglobin 9.5 no obvious bleeding. Patient still has rectal Harkins with liquid brown stools but seems to be a decreased amount today. Fecal transplant has been discussed as an option for this patient, may want to consider stool bank for a donor and work on this on an outpatient basis. Continue Dificid for now. Add Asacol and evaluate its effectiveness Plan Diet as tolerated Add Asacol Hydration Consider fecal transplant, stool bank and work on outpatient Hold any blood thinners Dificid, vancomycin p.o. probiotics Zofran Further recommendations to follow Patient was seen per myself and Dr. Buckley, note was written on his behalf <Mary Akers - Last Filed: 11/10/17 18:19> (1) Recurrent Clostridium difficile diarrhea Status: Acute Code(s): A04.71 - Enterocolitis due to Clostridium difficile, recurrent (2) Colitis Status: Acute Code(s): K52.9 - Noninfective gastroenteritis and colitis, unspecified (3) Diarrhea Status: Acute Code(s): R19.7 - Diarrhea, unspecified - Attending Attestation Still symptomatic. continue supportive care. Will follow up with you. <Estefania Buckley - Last Filed: 11/11/17 07:28> <Mary Akers M - Last Filed: 11/10/17 18:19> (3) Diarrhea Qualifiers: Diarrhea type: presumed infectious Qualified Code(s): R19.7 - Diarrhea, unspecified <Estefania Buckley A - Last Filed: 11/11/17 07:28> (3) Diarrhea Qualifiers: Diarrhea type: presumed infectious Qualified Code(s): R19.7 - Diarrhea, unspecified
[2017-11-10] MEDS: Mesalamine 800 MG Tablet DR PO SCH (22:19)
[2017-11-11 07:55] LABS: Calcium 8.7 mg/dL (8.5-10.1); Carbon Dioxide 27.7 meq/L (21.0-32.0); Magnesium 1.2 mg/dL (1.5-2.5)
[2017-11-11] MEDS: Insulin NovoLOG Aspart Correctional Sugar Inj SQ SCH ×4 (09:13→22:34)
[2017-11-11] MEDS: Lactobacillus Acidophilus/L. Spores Tablet PO SCH ×2 (09:24→22:31)
[2017-11-11] MEDS: Mesalamine 800 MG Tablet DR PO SCH ×3 (09:24→18:05)
--- NOTE | 2017-11-11 11:09 | P.PNIM ---
Subjective Interval history: alot of diarrhea. abdomen distention/pains Physical Exam Vital signs: Vital Signs 11/10/17 12:00 11/10/17 16:00 11/10/17 20:00 Temperature 98.3 F 98.9 F 98.8 F Pulse Rate 78 82 80 Respiratory Rate 18 18 18 Blood Pressure 144/64 H 143/65 H 127/62 Pulse Oximetry 98 98 97 11/11/17 00:00 11/11/17 04:00 11/11/17 08:00 Temperature 98.1 F 98.4 F 98.4 F Pulse Rate 81 81 74 Respiratory Rate 17 16 17 Blood Pressure 129/62 120/57 L 132/62 Pulse Oximetry 96 97 98 Intake & Output 11/10/17 11/11/17 11/11/17 18:59 06:59 18:59 Intake Total 800 / 800 1200 / 1200 Output Total 1000 / 1000 1000 / 1000 Balance -200 / -200 200 / 200 Weight 61.5 kg Intake: Oral 800 / 800 1200 / 1200 Output: Urine 1000 / 1000 1000 / 1000 Other: Date of Last Bowel Movement 11/11/17 11/11/17 heart reg lung cta abd mild distention. bs ext no edema rectal bag. bijan colored liquid stool Results - Labs CBC & Chem 7: 11/10/17 06:25 11/11/17 05:24 Laboratory Results - last 24 hr 11/09/17 11/10/17 11/10/17 17:07 12:32 17:58 Sodium Potassium Chloride Carbon Dioxide Anion Gap BUN Creatinine Estimated GFR POC Glucose 110 103 105 Random Glucose Calcium Magnesium 11/10/17 11/11/17 11/11/17 22:22 05:24 08:20 Sodium 141 Potassium 4.0 Chloride 103 Carbon Dioxide 27.7 Anion Gap 10 BUN 14 Creatinine 0.71 Estimated GFR 81 L POC Glucose 143 H 85 Random Glucose 100 Calcium 8.7 Magnesium 1.2 L Microbiology 11/06/17 16:56 Blood - Peripheral Aerobic Blood Culture - Final No growth in 5 days 11/06/17 16:56 Blood - Peripheral Anaerobic Blood Culture - Final No growth in 5 days 11/06/17 15:05 Blood - Peripheral Aerobic Blood Culture - Final No growth in 5 days 11/06/17 15:05 Blood - Peripheral Anaerobic Blood Culture - Final No growth in 5 days Assessment and Plan - Assessment (1) Recurrent Clostridium difficile diarrhea Code(s): A04.71 - Enterocolitis due to Clostridium difficile, recurrent Status : Acute Plan: Patient is a 72-year-old female with history of hypertension, diabetes, and hyperlipidemia. Patient has particular history of recurrent clostridium difficile diarrhea. Patient presented to the ER yesterday (11/05/17) with complaint of having had a fall at home without striking her head or loss of consciousness. Patient complained of left rib and left hip pain. Chest x-ray revealed left rib fracture. Patient also complained of recurrent diarrhea, however she was unable to produce a stool sample after 3 hours in the ER and was discharged to home. Patient again presented to the ER today (11/06/17) with complaint of abdominal pain and diarrhea. Patient most recently completed a course of oral vancomycin on October 20 (2 weeks ago). Patient complains that the diarrhea is constant, liquid, and foul-smelling. Patient also complains of mild diffuse abdominal pain. Patient complains of nausea and poor oral intake. In the ER patient was found to be hypotensive with systolic blood pressure in the 90s which is lower than patient's baseline. Patient denied fever or chills. Recurrent C. diff colitis - patient was hospitalized from 02/23/17 - 02/28/17 for C diff, electrolyte abnormalities, dehydration and pna. - Patient was hospitalized from 04/11-04/20 for C. difficile diarrhea. She had associated electrolyte abnormalities. - Patient was hospitalized April 26, 2017 for with acute kidney injury dehydration and C. difficile diarrhea. - Pt was hospitalized with C. Dif 07/17 to 07/22/17 - During pts last admission she was recommended to be on PO Dificid 200mg po BID through 07/27, then vancomycin taper for 6-12 weeks per ID: Take 125mg Q6H x 14 days (07/28-08/11); then take 125mg BID x 7 days (08/12-08/19) ; then take 125mg daily x 7 days (08/20-08/27); then take 125mg every other day x 4 weeks (08/28-09/25) - CT A/P (11/06/17) - Possible diffuse thickening of colonic wall and the colon is collapsed and not completely evaluated, however diffuse colitis should be entertained. Radiopaque densities seen within the calcification versus ingested material. - C. Dif PCR positive (11/06/17) - C. Dif 027 positive (11/06/17) - Blood Culture (11/06/17) --> NGTD - stool studies: - no fecal leukocytes - hemocult negative - O&P negative, except for pending --> - cryptosporidium & Giardia --> pending - ID consulted, appreciate input, added Dificid. suggested another alternative possibly, to give her a dose of Zinplava and Also agrees with fecal transplant - Consult Gastroenterology for consideration of possible fecal transplant, evaluation in process but patient lives alone, has a brother who lives in [place] with Parkinsons disease and is estranged from her other brother. ? Donor - Patient on Vancomycin 250 mg PO QID (11/06 to present) - ID started Dificid 200 mg PO BID (11/07 to present) - continue Lactinex - Questran added - kub today - continue PT, request PT seven days per week. Nursing to assist OOB to chair BID and encourage activity/ambulation - SCDs for DVT prophylaxis - Supportive care - Pt may require SNF at the conclusion of this hospitalization Hypotension - monitor blood pressure - hold oral antihypertension medication HTN, essential - chronic - hold oral medications d/t hypotension associated with diarrhea DM2 -Hold oral hypoglycemics - SSI Hypokalemia -replaced -hypomag today. 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
[2017-11-11] MEDS: Mag Sulf 1 gm/100 ml Premix 100 ML IV.SIG SCH ×2 (12:31→15:42)
--- NOTE | 2017-11-11 12:58 | XR ---
EXAM DATE: 11/11/2017 11:50 AM EDT AGE/SEX: 72 years / Female INDICATIONS: Diarrhea, abdomen pain. CLINICAL DATA: This is the patient's initial encounter. Patient reports that signs and symptoms have been present for 4 - 6 days and indicates a pain score of 10/10. MEDICAL/SURGICAL HISTORY: Hypertension. hx of c-diff Cholecystectomy. COMPARISON: C, ABDOMEN 1V KUB, 11/06/2017. . FINDINGS: The abdominal bowel gas pattern is normal. No abnormal masses, calcifications, or organomegaly is s een. The osseous structures are unremarkable. There are surgical clips in the right upper quadrant c ompatible with prior cholecystectomy. CONCLUSION: No evidence of obstruction. Electronically signed by: David Funk MD 11/11/2017 12:56 PM EDT
--- NOTE | 2017-11-11 14:09 | P.PNGI ---
Subjective Interval history: Pt is resting in bed, stools are forming, she has dignishelid in place. She is having abd pain today, x-ray done with no evidence of obstruction She tells me her brother willing to be the donor for stools if needed <RaymundoDerrickmargarita - Last Filed: 11/11/17 14:02> Physical Exam Vital signs: Vital Signs 11/10/17 16:00 11/10/17 20:00 11/11/17 00:00 Temperature 98.9 F 98.8 F 98.1 F Pulse Rate 82 80 81 Respiratory Rate 18 18 17 Blood Pressure 143/65 H 127/62 129/62 Pulse Oximetry 98 97 96 11/11/17 04:00 11/11/17 08:00 11/11/17 12:00 Temperature 98.4 F 98.4 F 98.1 F Pulse Rate 81 74 86 Respiratory Rate 16 17 17 Blood Pressure 120/57 L 132/62 123/68 Pulse Oximetry 97 98 97 Intake & Output 11/10/17 11/11/17 11/11/17 18:59 06:59 18:59 Intake Total 800 / 800 1200 / 1200 100 / 100 Output Total 1000 / 1000 1000 / 1000 Balance -200 / -200 200 / 200 100 / 100 Weight 61.5 kg Intake: IV 100 / 100 Ofirmev Inj 1,000 mg In 100 ml 100 / 100 @ 400 mls/hr IV.SIG ONCE ONE Rx #:[id number] Oral 800 / 800 1200 / 1200 Output: Urine 1000 / 1000 1000 / 1000 Other: Date of Last Bowel Movement 11/11/17 11/11/17 - Constitutional no acute distress - Routine HEENT Exam Head: Present: normocephalic ENT: Present: mucous membranes moist - Routine Neck Exam Present: supple - Routine Respiratory Exam Present: CTA bilaterally - Routine Cardiovascular Exam Present: RRR - Routine Abdominal Exam Present: soft, normoactive bowel sounds, tenderness. Absent: distended - Routine Skin Exam Present: intact, dry. Absent: jaundice - Routine Neurological Exam Present: alert, oriented X3 <MaximinorichardCk - Last Filed: 11/11/17 14:02> Vital signs: Vital Signs 11/10/17 16:00 11/10/17 20:00 11/11/17 00:00 Temperature 98.9 F 98.8 F 98.1 F Pulse Rate 82 80 81 Respiratory Rate 18 18 17 Blood Pressure 143/65 H 127/62 129/62 Pulse Oximetry 98 97 96 11/11/17 04:00 11/11/17 08:00 11/11/17 12:00 Temperature 98.4 F 98.4 F 98.1 F Pulse Rate 81 74 86 Respiratory Rate 16 17 17 Blood Pressure 120/57 L 132/62 123/68 Pulse Oximetry 97 98 97 Intake & Output 11/10/17 11/11/17 11/11/17 18:59 06:59 18:59 Intake Total 800 / 800 1200 / 1200 100 / 100 Output Total 1000 / 1000 1000 / 1000 Balance -200 / -200 200 / 200 100 / 100 Weight 61.5 kg Intake: IV 100 / 100 Ofirmev Inj 1,000 mg In 100 ml 100 / 100 @ 400 mls/hr IV.SIG ONCE ONE Rx #:[id number] Oral 800 / 800 1200 / 1200 Output: Urine 1000 / 1000 1000 / 1000 Other: Date of Last Bowel Movement 11/11/17 11/11/17 <Estefania Buckley A - Last Filed: 11/11/17 15:19> Results - Labs CBC & Chem 7: 11/10/17 06:25 11/11/17 05:24 Laboratory Results - last 24 hr 11/09/17 11/10/17 11/10/17 17:07 17:58 22:22 Sodium Potassium Chloride Carbon Dioxide Anion Gap BUN Creatinine Estimated GFR POC Glucose 110 105 143 H Random Glucose Calcium Magnesium 11/11/17 11/11/17 11/11/17 05:24 08:20 12:06 Sodium 141 Potassium 4.0 Chloride 103 Carbon Dioxide 27.7 Anion Gap 10 BUN 14 Creatinine 0.71 Estimated GFR 81 L POC Glucose 85 101 Random Glucose 100 Calcium 8.7 Magnesium 1.2 L Microbiology 11/06/17 16:56 Blood - Peripheral Aerobic Blood Culture - Final No growth in 5 days 11/06/17 16:56 Blood - Peripheral Anaerobic Blood Culture - Final No growth in 5 days 11/06/17 15:05 Blood - Peripheral Aerobic Blood Culture - Final No growth in 5 days 11/06/17 15:05 Blood - Peripheral Anaerobic Blood Culture - Final No growth in 5 days - Imaging Impressions Abdomen X-Ray 11/11/17 11:05 CONCLUSION: No evidence of obstruction. <Ck oFnseca - Last Filed: 11/11/17 14:02> - Labs CBC & Chem 7: 11/10/17 06:25 11/11/17 05:24 Laboratory Results - last 24 hr 11/09/17 11/10/17 11/10/17 17:07 17:58 22:22 Sodium Potassium Chloride Carbon Dioxide Anion Gap BUN Creatinine Estimated GFR POC Glucose 110 105 143 H Random Glucose Calcium Magnesium 11/11/17 11/11/17 11/11/17 05:24 08:20 12:06 Sodium 141 Potassium 4.0 Chloride 103 Carbon Dioxide 27.7 Anion Gap 10 BUN 14 Creatinine 0.71 Estimated GFR 81 L POC Glucose 85 101 Random Glucose 100 Calcium 8.7 Magnesium 1.2 L Microbiology 11/06/17 16:56 Blood - Peripheral Aerobic Blood Culture - Final No growth in 5 days 11/06/17 16:56 Blood - Peripheral Anaerobic Blood Culture - Final No growth in 5 days 11/06/17 15:05 Blood - Peripheral Aerobic Blood Culture - Final No growth in 5 days 11/06/17 15:05 Blood - Peripheral Anaerobic Blood Culture - Final No growth in 5 days - Imaging Impressions Abdomen X-Ray 11/11/17 11:05 CONCLUSION: No evidence of obstruction. <Estefania Buckley - Last Filed: 11/11/17 15:19> Assessment and Plan (1) Recurrent Clostridium difficile diarrhea Status: Acute Code(s): A04.71 - Enterocolitis due to Clostridium difficile, recurrent (2) Colitis Status: Acute Code(s): K52.9 - Noninfective gastroenteritis and colitis, unspecified (3) Diarrhea Status: Acute Code(s): R19.7 - Diarrhea, unspecified - Plan 72-year-old female with unresolved recurrent weakness decreased appetite and lower abdominal cramping and pain. C. difficile colitis seen per CT scan and previous course of oral vancomycin on October 20 2 weeks ago. Once treatment was completed patient's symptoms reoccurred with loose watery incontinent diarrhea at least 4-5 times a day. Patient's been followed per ID to assist in her care and recommendations are to consider fecal transplant. Loose watery diarrhea stools secondary to C. difficile colitis Current labs show hemoglobin 11, normal white count Generalized weakness and fatigue, secondary to C. difficile colitis Consider colonoscopy with fecal transplant once arrangements are made. Probable sometime this week, will need several days of prep 11/09/2017, patient is showing some gradual improvement after hydration and pain management. Still having thin almost constant liquid stools via rectal system. Still having some abdominal cramping. Continues on multiple meds for C. difficile colitis, still considering fecal transplant if applicable. Patient appears to be depressed over feeling so bad and not being able to get while supportive care given 11/10/2017 current hemoglobin 9.5 no obvious bleeding. Patient still has rectal Harkins with liquid brown stools but seems to be a decreased amount today. Fecal transplant has been discussed as an option for this patient, may want to consider stool bank for a donor and work on this on an outpatient basis. Continue Dificid for now. Add Asacol and evaluate its effectiveness 11/11/17 Recurrent C. difficile colitis, 4th episode this yr- Stools are forming, having some abd pain, Abd X-ray today negative for obstruction She tells me her brother willing to be the donor for stools if needed Plan Diet as tolerated Consider fecal transplant, She tells me her brother willing to be the donor for stools if needed Will discuss with Dr. Buckley Cont. Dificid, Cont. vancomycin p.o. Cont. probiotics ID on the case Rc Further recommendations to follow Patient was seen per myself and Dr. Buckley, note was written on his behalf <Ck Fonseca - Last Filed: 11/11/17 14:02> (1) Recurrent Clostridium difficile diarrhea Status: Acute Code(s): A04.71 - Enterocolitis due to Clostridium difficile, recurrent (2) Colitis Status: Acute Code(s): K52.9 - Noninfective gastroenteritis and colitis, unspecified (3) Diarrhea Status: Acute Code(s): R19.7 - Diarrhea, unspecified - Attending Attestation Agree with above assessment and plan. Will follow up with you for further recommendations . <Estefania Buckley - Last Filed: 11/11/17 15:19> <Ck Fonseca - Last Filed: 11/11/17 14:02> (3) Diarrhea Qualifiers: Diarrhea type: presumed infectious Qualified Code(s): R19.7 - Diarrhea, unspecified <Estefania Buckley - Last Filed: 11/11/17 15:19> (3) Diarrhea Qualifiers: Diarrhea type: presumed infectious Qualified Code(s): R19.7 - Diarrhea, unspecified
[2017-11-12] MEDS: Lactobacillus Acidophilus/L. Spores Tablet PO SCH ×2 (08:22→20:59)
[2017-11-12] MEDS: Insulin NovoLOG Aspart Correctional Sugar Inj SQ SCH ×4 (08:36→21:03)
--- NOTE | 2017-11-12 09:55 | P.PNIM ---
Subjective Interval history: Pt had some formed stool obstructing the Dignishield bag early this morning and liquid stool leaked out around it Pt still complains of abdominal pain but states that its not has bad today She reports nausea but has been tolerating oral intake without difficulty Afebrile Physical Exam Vital signs: Vital Signs 11/11/17 12:00 11/11/17 16:00 11/11/17 20:00 Temperature 98.1 F 97.8 F 99.1 F Pulse Rate 86 78 81 Respiratory Rate 17 17 16 Blood Pressure 123/68 132/67 135/63 Pulse Oximetry 97 97 99 11/12/17 00:00 11/12/17 02:47 11/12/17 04:00 Temperature 98.1 F 98.1 F Pulse Rate 71 71 Respiratory Rate 16 19 16 Blood Pressure 117/60 129/62 Pulse Oximetry 99 98 Intake & Output 11/11/17 11/12/17 11/12/17 18:59 06:59 18:59 Intake Total 300 / 300 Output Total 1000 / 1000 Balance -700 / -700 Intake: IV 300 / 300 Ofirmev Inj 1,000 mg In 100 ml 100 / 100 @ 400 mls/hr IV.SIG ONCE ONE Rx #:[id number] Magnesium Sulfate 1 gm/D5W 100 200 / 200 ml Premix 100 ML @ 100 mls/hr IV.SIG Q1H AMBROCIO Rx#:[id number] Output: Urine 1000 / 1000 Other: Date of Last Bowel Movement 11/11/17 11/11/17 Narrative: GENERAL: NAD, AAOx3 CARDIO: Regular RESP: CTA bilaterally. ABD: +BS, soft, mild lower abdominal tenderness to palpation EXT: No edema. Results - Labs CBC & Chem 7: 11/10/17 06:25 11/11/17 05:24 Laboratory Results - last 24 hr 11/11/17 11/11/17 11/12/17 12:06 22:31 08:35 POC Glucose 101 123 H 93 Microbiology 11/06/17 16:56 Blood - Peripheral Aerobic Blood Culture - Final No growth in 5 days 11/06/17 16:56 Blood - Peripheral Anaerobic Blood Culture - Final No growth in 5 days 11/06/17 15:05 Blood - Peripheral Aerobic Blood Culture - Final No growth in 5 days 11/06/17 15:05 Blood - Peripheral Anaerobic Blood Culture - Final No growth in 5 days - Imaging Impressions Abdomen X-Ray 11/11/17 11:05 CONCLUSION: No evidence of obstruction. Assessment and Plan - Assessment (1) Recurrent Clostridium difficile diarrhea Code(s): A04.71 - Enterocolitis due to Clostridium difficile, recurrent Status : Acute Plan: Patient is a 72-year-old female with history of hypertension, diabetes, and hyperlipidemia. Patient has particular history of recurrent clostridium difficile diarrhea. Patient presented to the ER yesterday (11/05/17) with complaint of having had a fall at home without striking her head or loss of consciousness. Patient complained of left rib and left hip pain. Chest x-ray revealed left rib fracture. Patient also complained of recurrent diarrhea, however she was unable to produce a stool sample after 3 hours in the ER and was discharged to home. Patient again presented to the ER today (11/06/17) with complaint of abdominal pain and diarrhea. Patient most recently completed a course of oral vancomycin on October 20 (2 weeks ago). Patient complains that the diarrhea is constant, liquid, and foul-smelling. Patient also complains of mild diffuse abdominal pain. Patient complains of nausea and poor oral intake. In the ER patient was found to be hypotensive with systolic blood pressure in the 90s which is lower than patient's baseline. Patient denied fever or chills. Recurrent C. diff colitis - patient was hospitalized from 02/23/17 - 02/28/17 for C diff, electrolyte abnormalities, dehydration and pna. - Patient was hospitalized from 04/11-04/20 for C. difficile diarrhea. She had associated electrolyte abnormalities. - Patient was hospitalized April 26, 2017 for with acute kidney injury dehydration and C. difficile diarrhea. - Pt was hospitalized with C. Dif 07/17 to 07/22/17 - During pts last admission she was recommended to be on PO Dificid 200mg po BID through 07/27, then vancomycin taper for 6-12 weeks per ID: Take 125mg Q6H x 14 days (07/28-08/11); then take 125mg BID x 7 days (08/12-08/19); then take 125mg daily x 7 days (08/20-08/27); then take 125mg every other day x 4 weeks (08/28-09/25 ) - pt reports that she was taking Vancomycin up until 10/20/17 and then a few days after that she started having diarrhea again. - CT A/P (11/06/17) --> Possible diffuse thickening of colonic wall and the colon is collapsed and not completely evaluated, however diffuse colitis should be entertained. Radiopaque densities seen within the calcification versus ingested material. - C. Dif PCR positive (11/06/17) - C. Dif 027 positive (11/06/17) - Blood Culture (11/06/17) --> NGTD - stool studies: - no fecal leukocytes - Hemoccult negative - O&P negative, negative - cryptosporidium & Giardia --> negative - ID consulted, appreciate input, added Dificid. suggested another alternative possibly, to give her a dose of Zinplava and Also agrees with fecal transplant - Consult Gastroenterology for consideration of possible fecal transplant, evaluation in process but patient lives alone, has a brother who lives in [place] with Parkinsons disease and is estranged from her other brother. She reports that her brother is willing to be a stool donor but its unclear at this time that a fecal transplant is planned - Patient on Vancomycin 250 mg PO QID (11/06 to present) - ID started Dificid 200 mg PO BID (11/07 to present) - continue Lactinex - Questran added on 11/11 - KUB (11/11/17) --No evidence of obstruction. - continue PT, request PT seven days per week. Nursing to assist OOB to chair BID and encourage activity/ambulation - SCDs for DVT prophylaxis - Supportive care - Pt may require SNF at the conclusion of this hospitalization Hypotension - monitor blood pressure - hold oral antihypertension medication HTN, essential - chronic - hold oral medications d/t hypotension associated with diarrhea DM2 -Hold oral hypoglycemics - SSI Hypokalemia -replaced The exam, history, and the medical decision-making described in the above note were completed with the assistance of the mid-level provider. I reviewed and agree with the findings presented. I attest that I had a [id number] encounter with the patient on the same day, and personally performed and documented my assessment and findings in the medical record. 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
[2017-11-12] MEDS: Mesalamine 800 MG Tablet DR PO SCH ×3 (10:47→17:35)
--- NOTE | 2017-11-12 15:47 | P.PNID ---
Subjective Remarks: Patient reports mild pain in the abdomen. Having loose stool has some form mixed with loose stools. Leaking around the rectal tube. Afebrile. This is a 72-year-old white female who has had multiple episodes of Clostridium difficile colitis in the past. She has been treated with prolonged vancomycin taper for C. difficile. The last episode of C. difficile was in 07/2017. She received treatment for the C. difficile, and she states that she finished the antibiotic treatment on 10/20/2017. On 10/23/2017, she noted that she was not feeling well and at some point sustained a fall. She began to have diarrhea after she finished the vancomycin taper and it worsened and she started having abdominal pain. She reports that she was feeling poorly at the beginning of October and had chest pain and she underwent stress test workup. She tells me that she had a scans of her abdomen, but I do not see any results available or reports of scans in the electronic medical record. She continued to have diarrhea and worsening abdominal pain. She was brought to the emergency department for evaluation on 11/05/2017, after she fell. The patient is a poor historian and therefore she expressed a desire to go home from the emergency department on 11/05/2017. She reports that she was feeling better. X-ray of the hip was performed and it showed no evidence of bony injury. Chest x-ray revealed findings concerning for nondisplaced subtle posterolateral 6 and 7 left rib fractures. The patient, however, was complaining of abdominal pain, and she reported that she could not tell whether she had to have a bowel movement and that the diarrhea would just suddenly occur. It was decided to evaluate this further, and she was noted to be hypotensive with blood pressure of 96/52. Past Medical History: PAST MEDICAL HISTORY: Recurrent Clostridium difficile, diabetes mellitus, hypertension, hyperlipidemia, inflammatory bowel disease, pulmonary hypertension, history of breast cancer in 2010, treated with lumpectomy, carpal tunnel syndrome. PAST SURGICAL HISTORY: Cholecystectomy, total knee replacement, arthroscopy, cataract surgery, RCR of the right shoulder, hysterectomy, D and C. Allergies/Adverse Reactions: Allergies oxycodone Allergy (Severe, Verified 07/17/17 00:35) ITCHING adhesive Allergy (Mild, Verified 07/17/17 00:35) Blisters the skin codeine Allergy (Mild, Verified 07/17/17 00:35) NAUSEA Objective Vital Signs 11/11/17 16:00 11/11/17 20:00 11/12/17 00:00 Temperature 97.8 F 99.1 F 98.1 F Pulse Rate 78 81 71 Respiratory Rate 17 16 16 Blood Pressure 132/67 135/63 117/60 Pulse Oximetry 97 99 99 11/12/17 02:47 11/12/17 04:00 11/12/17 08:00 Temperature 98.1 F 98.1 F Pulse Rate 71 68 Respiratory Rate 19 16 18 Blood Pressure 129/62 119/63 Pulse Oximetry 98 98 11/12/17 12:00 Temperature 98.2 F Pulse Rate 79 Respiratory Rate 18 Blood Pressure 140/70 Pulse Oximetry 99 Intake & Output 11/11/17 11/12/17 11/12/17 18:59 06:59 18:59 Intake Total 300 / 300 Output Total 1000 / 1000 Balance -700 / -700 Intake: IV 300 / 300 Ofirmev Inj 1,000 mg In 100 ml 100 / 100 @ 400 mls/hr IV.SIG ONCE ONE Rx #:[id number] Magnesium Sulfate 1 gm/D5W 100 200 / 200 ml Premix 100 ML @ 100 mls/hr IV.SIG Q1H AMBROCIO Rx#:[id number] Output: Urine 1000 / 1000 Other: Date of Last Bowel Movement 11/11/17 11/11/17 11/06/17 16:56 Blood - Peripheral Aerobic Blood Culture - Final No growth in 5 days 11/06/17 16:56 Blood - Peripheral Anaerobic Blood Culture - Final No growth in 5 days 11/06/17 15:05 Blood - Peripheral Aerobic Blood Culture - Final No growth in 5 days 11/06/17 15:05 Blood - Peripheral Anaerobic Blood Culture - Final No growth in 5 days 11/06/17 18:16 Stool Cryptosporidium Antigen - Final Negative - No Cryptosporicium antigen detected In selected cases of patients with a history of immunosuppression or foreign travel, a full ova and parasites examination may be desired. Contact the microbiology lab if full workup is indicated and subit another specimen for testing. 11/06/17 18:16 Stool Giardia Antigen ([facility]) - Final Negative - No Giardia Antigen detected In selected cases of patients with a history of immunosuppression or foreign travel, a full ova and parasites examination may be desired. Contact the microbiology lab if full workup is indicated and subit another specimen for testing. Lab - Chemistry Results 11/09/17 11/10/17 11/10/17 17:07 17:58 22:22 Sodium Potassium Chloride Carbon Dioxide Anion Gap BUN Creatinine Estimated GFR POC Glucose 110 105 143 H Random Glucose Calcium Magnesium 11/11/17 11/11/17 11/11/17 05:24 08:20 12:06 Sodium 141 Potassium 4.0 Chloride 103 Carbon Dioxide 27.7 Anion Gap 10 BUN 14 Creatinine 0.71 Estimated GFR 81 L POC Glucose 85 101 Random Glucose 100 Calcium 8.7 Magnesium 1.2 L 11/11/17 11/12/17 11/12/17 22:31 08:35 12:06 Sodium Potassium Chloride Carbon Dioxide Anion Gap BUN Creatinine Estimated GFR POC Glucose 123 H 93 99 Random Glucose Calcium Magnesium Imaging: ITS Impressions Chest X-Ray 11/06/17 13:30 CONCLUSION: Negative examination. Abdomen/Pelvis CT 11/06/17 13:36 CONCLUSION: Possible diffuse thickening of colonic wall and the colon is collapsed and not completely evaluated, however diffuse colitis should be entertained. Radiopaque densities seen within the calcification versus ingested material. Abdomen X-Ray 11/11/17 11:05 CONCLUSION: No evidence of obstruction. Physical Exam: PHYSICAL EXAMINATION: GENERAL: No acute distress. Awake and alert and oriented. HEENT: Head is atraumatic. Extraocular movement grossly intact. Pupils reactive to light. No icterus. NECK: Supple without adenopathy. LUNGS: Clear breath sounds. HEART: Regular rate and rhythm without murmurs. ABDOMEN: Distended, soft, mild tenderness. EXTREMITIES: No clubbing, cyanosis or edema. SKIN: No rash. NEUROLOGIC: No gross focal finding. PSYCHIATRIC: Calm and cooperative. Assessment and Plan - Plan IMPRESSION: 1. Recurrent Clostridium difficile colitis. Ongoing diarrhea. 2. Dehydration and hypokalemia secondary to diarrhea. RECOMMENDATIONS: 1. Continue oral Dificid. 2. Continue vancomycin. 3. Monitor stools output. Discussed with . We should plan on long to oral antibiotic taper for the C. difficile.
[2017-11-13 07:40] LABS: Carbon Dioxide 31.2 meq/L (21.0-32.0); Magnesium 1.9 mg/dL (1.5-2.5)
[2017-11-13] MEDS: Insulin NovoLOG Aspart Correctional Sugar Inj SQ SCH ×4 (08:00→20:21)
[2017-11-13] MEDS: Lactobacillus Acidophilus/L. Spores Tablet PO SCH ×2 (09:48→21:01)
[2017-11-13] MEDS: Mesalamine 800 MG Tablet DR PO SCH ×3 (09:49→17:38)
[2017-11-13 09:56] LABS: Baso # (Auto) 0.1 th/mm3 (0.0-0.2); Baso % (Auto) 0.6 % (0.0-2.0); Eos # (Auto) 0.4 th/mm3 (0.0-0.4); Eos % (Auto) 4.5 % (0.0-4.0); Hematocrit 38.4 % (35.0-46.0); Hemoglobin 12.9 gm/dL (11.6-15.3); Lymph # (Auto) 2.7 th/mm3 (1.0-4.8); Lymph % (Auto) 32.4 % (9.0-44.0); Mean Corpuscular HGB Conc 33.6 % (32.0-36.0); Mean Corpuscular Hemoglobin 30.2 pg (27.0-34.0); Mean Corpuscular Volume 89.7 fL (80.0-100.0); Mono # (Auto) 0.5 th/mm3 (0.0-0.9); Mono % (Auto) 6.5 % (0.0-8.0); Neut # (Auto) 4.7 th/mm3 (1.8-7.7); Platelet Count 324 th/mm3 (150-450); Red Blood Count 4.28 mil/mm3 (4.00-5.30); Red Cell Distribution Width 14.1 % (11.6-17.2); White Blood Count 8.4 th/mm3 (4.0-11.0)
--- NOTE | 2017-11-13 09:59 | P.PNIM ---
Subjective Interval history: Pt stool formed up yesterday and Dignishield was removed. She states that she has not had any more liquid stool since the Dignisheild was removed. Pt reports that her abd pain is improving as well. She is tolerating oral intake Afebrile Physical Exam Vital signs: Vital Signs 11/12/17 12:00 11/12/17 20:38 11/13/17 00:18 Temperature 98.2 F 98.3 F 98.0 F Pulse Rate 79 78 68 Respiratory Rate 18 17 17 Blood Pressure 140/70 126/63 156/68 H Pulse Oximetry 99 94 L 93 L 11/13/17 04:47 11/13/17 08:00 Temperature 97.4 F L 98.0 F Pulse Rate 71 68 Respiratory Rate 16 18 Blood Pressure 166/72 H 142/71 H Pulse Oximetry 95 95 Intake & Output 11/12/17 11/13/17 11/13/17 18:59 06:59 18:59 Intake Total 480 / 480 Output Total 1000 / 1000 Balance -520 / -520 Weight 61 kg Intake: Oral 480 / 480 Output: Urine 1000 / 1000 Other: Date of Last Bowel Movement 11/11/17 11/12/17 Narrative: GENERAL: NAD, AAOx3 CARDIO: Regular RESP: CTA bilaterally. ABD: +BS, soft, mild lower abdominal tenderness to palpation EXT: No edema. Results - Labs CBC & Chem 7: 11/13/17 09:34 11/13/17 05:00 Laboratory Results - last 24 hr 11/12/17 11/12/17 11/12/17 12:06 16:53 20:57 Sodium Potassium Chloride Carbon Dioxide Anion Gap BUN Creatinine Estimated GFR POC Glucose 99 138 H 145 H Random Glucose Calcium Magnesium 11/13/17 11/13/17 05:00 08:26 Sodium 141 Potassium 5.0 D Chloride 101 Carbon Dioxide 31.2 Anion Gap 9 BUN 16 Creatinine 0.67 Estimated GFR 87 L POC Glucose 104 Random Glucose 88 Calcium 9.0 Magnesium 1.9 D - Imaging Abdomen X-Ray 11/06/17 00:00 CONCLUSION: Unremarkable study. Chest X-Ray 11/06/17 13:30 CONCLUSION: Negative examination. Abdomen/Pelvis CT 11/06/17 13:36 CONCLUSION: Possible diffuse thickening of colonic wall and the colon is collapsed and not completely evaluated, however diffuse colitis should be entertained. Radiopaque densities seen within the calcification versus ingested material. Abdomen X-Ray 11/11/17 11:05 CONCLUSION: No evidence of obstruction. Assessment and Plan - Assessment (1) Recurrent Clostridium difficile diarrhea Code(s): A04.71 - Enterocolitis due to Clostridium difficile, recurrent Status : Acute Plan: Patient is a 72-year-old female with history of hypertension, diabetes, and hyperlipidemia. Patient has particular history of recurrent clostridium difficile diarrhea. Patient presented to the ER yesterday (11/05/17) with complaint of having had a fall at home without striking her head or loss of consciousness. Patient complained of left rib and left hip pain. Chest x-ray revealed left rib fracture. Patient also complained of recurrent diarrhea, however she was unable to produce a stool sample after 3 hours in the ER and was discharged to home. Patient again presented to the ER today (11/06/17) with complaint of abdominal pain and diarrhea. Patient most recently completed a course of oral vancomycin on October 20 (2 weeks ago). Patient complains that the diarrhea is constant, liquid, and foul-smelling. Patient also complains of mild diffuse abdominal pain. Patient complains of nausea and poor oral intake. In the ER patient was found to be hypotensive with systolic blood pressure in the 90s which is lower than patient's baseline. Patient denied fever or chills. Recurrent C. diff colitis - patient was hospitalized from 02/23/17 - 02/28/17 for C diff, electrolyte abnormalities, dehydration and pna. - Patient was hospitalized from 04/11-04/20 for C. difficile diarrhea. She had associated electrolyte abnormalities. - Patient was hospitalized April 26, 2017 for with acute kidney injury dehydration and C. difficile diarrhea. - Pt was hospitalized with C. Dif 07/17 to 07/22/17 - During pts last admission she was recommended to be on PO Dificid 200mg po BID through 07/27, then vancomycin taper for 6-12 weeks per ID: Take 125mg Q6H x 14 days (07/28-08/11); then take 125mg BID x 7 days (08/12-08/19); then take 125mg daily x 7 days (08/20-08/27); then take 125mg every other day x 4 weeks (08/28-09/25 ) - pt reports that she was taking Vancomycin up until 10/20/17 and then a few days after that she started having diarrhea again. - CT A/P (11/06/17) --> Possible diffuse thickening of colonic wall and the colon is collapsed and not completely evaluated, however diffuse colitis should be entertained. Radiopaque densities seen within the calcification versus ingested material. - C. Dif PCR positive (11/06/17) - C. Dif 027 positive (11/06/17) - Blood Culture (11/06/17) --> NGTD - stool studies: - no fecal leukocytes - Hemoccult negative - O&P negative, negative - cryptosporidium & Giardia --> negative - ID consulted, appreciate input - Gastroenterology was consulted for consideration of possible fecal transplant. At this point the pt is clinically improving on the Vancomycin and the Dificid. Her stools are forming up. We may need to consider a prolonged taper of the Vancomycin after Dificid and we will discuss with GI possible outpt evaluation for stool transplant should that still be necessary as that may be a more viable option due to the complex social dynamics of the case. - Patient on Vancomycin 250 mg PO QID (11/06 to present) - ID started Dificid 200 mg PO BID (11/07 to present) - continue Lactinex - Questran added on 11/11 - KUB (11/11/17) --No evidence of obstruction. - continue PT, request PT seven days per week. Nursing to assist OOB to chair BID and encourage activity/ambulation - SCDs for DVT prophylaxis - Supportive care - Pt may require SNF at the conclusion of this hospitalization Hypotension - monitor blood pressure - hold oral antihypertension medication HTN, essential - chronic - hold oral medications d/t hypotension associated with diarrhea DM2 -Hold oral hypoglycemics - SSI Hypokalemia -replaced The exam, history, and the medical decision-making described in the above note were completed with the assistance of the mid-level provider. I reviewed and agree with the findings presented. I attest that I had a [id number] encounter with the patient on the same day, and personally performed and documented my assessment and findings in the medical record. recurrent cdiff colitis. vanco/dificid. stools forming. dignishield removed. pt wants to go home Wednesday morning. cont PT and oob efforts. will try to coordinate an evaluation for stool transplant. plan hhc/pt. Pt unable to go to snf due to financial conflicts with the local snf's. 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
--- NOTE | 2017-11-14 09:12 | P.PNIM ---
Subjective Interval history: Pt reports that she had a small BM yesterday, none so far today Abd pain is improving She was OOB yesterday and ambulated 3' Physical Exam Vital signs: Vital Signs 11/13/17 12:00 11/13/17 16:00 11/13/17 19:45 Temperature 98.1 F 97.1 F L Pulse Rate 78 80 81 Respiratory Rate 18 18 Blood Pressure 145/61 H 167/76 H Pulse Oximetry 95 99 11/13/17 20:00 11/14/17 00:00 11/14/17 00:10 Temperature 98.2 F 98.2 F Pulse Rate 82 77 62 Respiratory Rate 20 18 Blood Pressure 154/73 H 144/73 H Pulse Oximetry 98 95 11/14/17 04:00 11/14/17 04:04 Temperature 97.8 F Pulse Rate 69 63 Respiratory Rate 20 Blood Pressure 143/78 H Pulse Oximetry 97 Intake & Output 11/13/17 11/14/17 11/14/17 18:59 06:59 18:59 Intake Total 1200 / 1200 Output Total 1100 / 1100 Balance 100 / 100 Weight 62 kg Intake: Oral 1200 / 1200 Output: Urine 1100 / 1100 Other: Date of Last Bowel Movement 11/12/17 Narrative: GENERAL: NAD, AAOx3 CARDIO: Regular RESP: CTA bilaterally. ABD: +BS, soft, mild lower abdominal tenderness to palpation EXT: No edema. Results - Labs CBC & Chem 7: 11/13/17 09:34 11/13/17 05:00 Laboratory Results - last 24 hr 11/13/17 11/13/17 11/13/17 09:34 11:41 17:26 WBC 8.4 RBC 4.28 Hgb 12.9 Hct 38.4 MCV 89.7 MCH 30.2 MCHC 33.6 RDW 14.1 Plt Count 324 D MPV 7.0 Neut % (Auto) 56.0 Lymph % (Auto) 32.4 [place] % (Auto) 6.5 Eos % (Auto) 4.5 H Baso % (Auto) 0.6 Neut # (Auto) 4.7 Lymph # (Auto) 2.7 [place] # (Auto) 0.5 Eos # (Auto) 0.4 Baso # (Auto) 0.1 WBC Differential . Differential Comment Auto diff final Hematology Comments POC Glucose 110 96 11/13/17 11/14/17 21:15 07:41 WBC RBC Hgb Hct MCV MCH MCHC RDW Plt Count MPV Neut % (Auto) Lymph % (Auto) [place] % (Auto) Eos % (Auto) Baso % (Auto) Neut # (Auto) Lymph # (Auto) [place] # (Auto) Eos # (Auto) Baso # (Auto) WBC Differential Differential Comment Hematology Comments POC Glucose 154 H 104 - Imaging Abdomen X-Ray 11/06/17 00:00 CONCLUSION: Unremarkable study. Chest X-Ray 11/06/17 13:30 CONCLUSION: Negative examination. Abdomen/Pelvis CT 11/06/17 13:36 CONCLUSION: Possible diffuse thickening of colonic wall and the colon is collapsed and not completely evaluated, however diffuse colitis should be entertained. Radiopaque densities seen within the calcification versus ingested material. Abdomen X-Ray 11/11/17 11:05 CONCLUSION: No evidence of obstruction. Assessment and Plan - Assessment (1) Recurrent Clostridium difficile diarrhea Code(s): A04.71 - Enterocolitis due to Clostridium difficile, recurrent Status : Acute Plan: Patient is a 72-year-old female with history of hypertension, diabetes, and hyperlipidemia. Patient has particular history of recurrent clostridium difficile diarrhea. Patient presented to the ER yesterday (11/05/17) with complaint of having had a fall at home without striking her head or loss of consciousness. Patient complained of left rib and left hip pain. Chest x-ray revealed left rib fracture. Patient also complained of recurrent diarrhea, however she was unable to produce a stool sample after 3 hours in the ER and was discharged to home. Patient again presented to the ER today (11/06/17) with complaint of abdominal pain and diarrhea. Patient most recently completed a course of oral vancomycin on October 20 (2 weeks ago). Patient complains that the diarrhea is constant, liquid, and foul-smelling. Patient also complains of mild diffuse abdominal pain. Patient complains of nausea and poor oral intake. In the ER patient was found to be hypotensive with systolic blood pressure in the 90s which is lower than patient's baseline. Patient denied fever or chills. Recurrent C. diff colitis - patient was hospitalized from 02/23/17 - 02/28/17 for C diff, electrolyte abnormalities, dehydration and pna. - Patient was hospitalized from 04/11-04/20 for C. difficile diarrhea. She had associated electrolyte abnormalities. - Patient was hospitalized April 26, 2017 for with acute kidney injury dehydration and C. difficile diarrhea. - Pt was hospitalized with C. Dif 07/17 to 07/22/17 - During pts last admission she was recommended to be on PO Dificid 200mg po BID through 07/27, then vancomycin taper for 6-12 weeks per ID: Take 125mg Q6H x 14 days (07/28-08/11); then take 125mg BID x 7 days (08/12-08/19); then take 125mg daily x 7 days (08/20-08/27); then take 125mg every other day x 4 weeks (08/28-09/25 ) - pt reports that she was taking Vancomycin up until 10/20/17 and then a few days after that she started having diarrhea again. - CT A/P (11/06/17) --> Possible diffuse thickening of colonic wall and the colon is collapsed and not completely evaluated, however diffuse colitis should be entertained. Radiopaque densities seen within the calcification versus ingested material. - C. Dif PCR positive (11/06/17) - C. Dif 027 positive (11/06/17) - Blood Culture (11/06/17) --> NGTD - stool studies: - no fecal leukocytes - Hemoccult negative - O&P negative, negative - cryptosporidium & Giardia --> negative - ID consulted, appreciate input - Gastroenterology was consulted for consideration of possible fecal transplant. At this point the pt is clinically improving on the Vancomycin and the Dificid. Her stools are forming up. We will continue a prolonged taper of the Vancomycin after Dificid and we will discuss with GI possible outpt evaluation for stool transplant should that still be necessary as that may be a more viable option due to the complex social dynamics of the case. - Patient on Vancomycin 250 mg PO QID (11/06 to present) - ID started Dificid 200 mg PO BID (11/07 to present) - GI started Asacol 1600mg TID on 11/10/17 and given through 11/13/17 - continue Lactinex - Questran added on 11/11 - KUB (11/11/17) --No evidence of obstruction. - continue PT, request PT seven days per week. Nursing to assist OOB to chair BID and encourage activity/ambulation - SCDs for DVT prophylaxis - Supportive care - We will continue a prolonged Vancomycin taper at discharge: Take 125mg QID x 14 days (11/15/17-11/28/17); then take 125mg BID x 7 days (11/29/17-12/05/17); then take 125mg daily x 7 days (12/06/17-12/12/17); then take 125mg every other day x 8 weeks (12/13/17-02/06/18) - Pt will likely require once more day of Dificid at discharge to complete the 10 days recommended. - Pt may require SNF at the conclusion of this hospitalization but pt has financial obligations at [facility] and had several issues at [facility] and at [place] and does not want to go back to the SNF. She wants to go home with [facility]. - Anticipate d/c to home with [facility] tomorrow Hypotension - monitor blood pressure - Her home meds were held at admission due to hypotension likely related to her diarrhea. - Her BP has been improving. 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
[2017-11-14] MEDS: Lactobacillus Acidophilus/L. Spores Tablet PO SCH ×2 (09:23→20:41)
[2017-11-14] MEDS: Mesalamine 800 MG Tablet DR PO SCH (09:24)
[2017-11-14] MEDS: Insulin NovoLOG Aspart Correctional Sugar Inj SQ SCH ×4 (09:25→22:28)
[2017-11-14] MEDS: amLODIPine 5 MG Tablet PO SCH (09:41)
[2017-11-14] MEDS ORDERED: Ketorolac Inj 30 MG/ML (IVP) Vial IV.PUSH ONE (12:00)
--- NOTE | 2017-11-14 12:16 | XR ---
EXAM DATE: 11/14/2017 12:11 PM EDT AGE/SEX: 72 years / Female INDICATIONS: Abdominal pain and distention. CLINICAL DATA: This is the patient's subsequent encounter. Patient reports that signs and symptoms h ave been present for 1 week and indicates a pain score of 6/10. MEDICAL/SURGICAL HISTORY: Hypertension. Cholecystectomy. COMPARISON: [facility], ABDOMEN 1V KUB, 11/11/2017. . FINDINGS: Moderate stool burden. There is no evidence of bowel obstruction. Osseous structures demonstrate deg enerative changes. The lung bases are clear. CONCLUSION: Moderate stool burden. Otherwise unremarkable exam. Electronically signed by: Henrietta Bishop MD 11/14/2017 12:14 PM EDT
--- NOTE | 2017-11-14 13:54 | P.DCO ---
- Diagnosis (1) Diabetes mellitus (2) HTN (hypertension) (3) Chronic pain - Physical Therapy Order: Evaluate and treat - Home Health Nursing Order: Medical education, Signs/symptoms of disease process, Nursing assessment with vital signs Instructions: Pt needs to be seen by [facility] daily please. - Certification I have seen patient Merna Valadez on 11/14/17. 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
[2017-11-15] MEDS: Insulin NovoLOG Aspart Correctional Sugar Inj SQ SCH ×4 (07:55→21:34)
[2017-11-15] MEDS: Lactobacillus Acidophilus/L. Spores Tablet PO SCH ×2 (09:45→21:33)
[2017-11-15] MEDS: amLODIPine 5 MG Tablet PO SCH (09:45)
--- NOTE | 2017-11-15 10:15 | P.PNIM ---
Subjective Interval history: Pt reports that her abd pain she experienced yesterday afternoon is improving. She had a KUB yesterday that noted a moderate amount of stool burden Pt was given a laxative and had a soft BM last night. She is tolerating oral intake No BM since that time. Physical Exam Vital signs: Vital Signs 11/14/17 11:35 11/14/17 12:00 11/14/17 16:00 Temperature 97.6 F 97.8 F Pulse Rate 87 85 Respiratory Rate 18 18 18 Blood Pressure 139/65 150/79 H Pulse Oximetry 99 95 11/14/17 19:57 11/14/17 20:00 11/15/17 00:00 Temperature 98.1 F 98 F Pulse Rate 80 84 64 Respiratory Rate 20 20 Blood Pressure 143/70 H 137/67 Pulse Oximetry 94 L 95 11/15/17 00:03 11/15/17 04:00 11/15/17 08:00 Temperature 98.1 F 97.2 F L Pulse Rate 59 L 80 72 Respiratory Rate 20 19 Blood Pressure 164/80 H 159/85 H Pulse Oximetry 97 100 11/15/17 08:20 Temperature Pulse Rate Respiratory Rate 18 Blood Pressure Pulse Oximetry Intake & Output 11/14/17 11/15/17 11/15/17 18:59 06:59 18:59 Intake Total 1200 / 1200 240 / 240 Output Total 1000 / 1000 Balance 200 / 200 240 / 240 Intake: Oral 1200 / 1200 240 / 240 Output: Urine 1000 / 1000 Other: # Voids 3 Date of Last Bowel Movement 11/14/17 # Bowel Movements 1 Narrative: GENERAL: NAD, AAOx3 CARDIO: Regular RESP: CTA bilaterally. ABD: +BS, soft, mild lower abdominal tenderness to palpation EXT: No edema. Results - Labs CBC & Chem 7: 11/13/17 09:34 11/13/17 05:00 Laboratory Results - last 24 hr 11/14/17 11/14/17 11/14/17 12:20 16:16 22:27 POC Glucose 105 108 118 H 11/15/17 07:51 POC Glucose 108 - Imaging Impressions Chest X-Ray 11/06/17 13:30 CONCLUSION: Negative examination. Abdomen/Pelvis CT 11/06/17 13:36 CONCLUSION: Possible diffuse thickening of colonic wall and the colon is collapsed and not completely evaluated, however diffuse colitis should be entertained. Radiopaque densities seen within the calcification versus ingested material. Abdomen X-Ray 11/14/17 00:00 CONCLUSION: Moderate stool burden. Otherwise unremarkable exam. Assessment and Plan - Assessment (1) Recurrent Clostridium difficile diarrhea Code(s): A04.71 - Enterocolitis due to Clostridium difficile, recurrent Status : Acute Plan: Patient is a 72-year-old female with history of hypertension, diabetes, and hyperlipidemia. Patient has particular history of recurrent clostridium difficile diarrhea. Patient presented to the ER yesterday (11/05/17) with complaint of having had a fall at home without striking her head or loss of consciousness. Patient complained of left rib and left hip pain. Chest x-ray revealed left rib fracture. Patient also complained of recurrent diarrhea, however she was unable to produce a stool sample after 3 hours in the ER and was discharged to home. Patient again presented to the ER today (11/06/17) with complaint of abdominal pain and diarrhea. Patient most recently completed a course of oral vancomycin on October 20 (2 weeks ago). Patient complains that the diarrhea is constant, liquid, and foul-smelling. Patient also complains of mild diffuse abdominal pain. Patient complains of nausea and poor oral intake. In the ER patient was found to be hypotensive with systolic blood pressure in the 90s which is lower than patient's baseline. Patient denied fever or chills. Recurrent C. diff colitis - patient was hospitalized from 02/23/17 - 02/28/17 for C diff, electrolyte abnormalities, dehydration and pna. - Patient was hospitalized from 04/11-04/20 for C. difficile diarrhea. She had associated electrolyte abnormalities. - Patient was hospitalized April 26, 2017 for with acute kidney injury dehydration and C. difficile diarrhea. - Pt was hospitalized with C. Dif 07/17 to 07/22/17 - During pts last admission she was recommended to be on PO Dificid 200mg po BID through 07/27, then vancomycin taper for 6-12 weeks per ID: Take 125mg Q6H x 14 days (07/28-08/11); then take 125mg BID x 7 days (08/12-08/19); then take 125mg daily x 7 days (08/20-08/27); then take 125mg every other day x 4 weeks (08/28-09/25 ) - pt reports that she was taking Vancomycin up until 10/20/17 and then a few days after that she started having diarrhea again. - CT A/P (11/06/17) --> Possible diffuse thickening of colonic wall and the colon is collapsed and not completely evaluated, however diffuse colitis should be entertained. Radiopaque densities seen within the calcification versus ingested material. - C. Dif PCR positive (11/06/17) - C. Dif 027 positive (11/06/17) - Blood Culture (11/06/17) --> NGTD - stool studies: - no fecal leukocytes - Hemoccult negative - O&P negative, negative - cryptosporidium & Giardia --> negative - ID consulted, appreciate input - Gastroenterology was consulted for consideration of possible fecal transplant. At this point the pt is clinically improving on the Vancomycin and the Dificid. Her stools are forming up. We will continue a prolonged taper of the Vancomycin after Dificid and we will discuss with GI possible outpt evaluation for stool transplant should that still be necessary as that may be a more viable option due to the complex social dynamics of the case. - Patient on Vancomycin 250 mg PO QID (11/06 to present) - ID started Dificid 200 mg PO BID (11/07 to present) - GI started Asacol 1600mg TID on 11/10/17 and given through 11/13/17 - continue Lactinex - Questran added on 11/11 - KUB (11/11/17) --No evidence of obstruction. - continue PT, request PT seven days per week. Nursing to assist OOB to chair BID and encourage activity/ambulation - SCDs for DVT prophylaxis - Supportive care - We will continue a prolonged Vancomycin taper at discharge: Take 125mg QID x 14 days (11/15/17-11/28/17); then take 125mg BID x 7 days (11/29/17-12/05/17); then take 125mg daily x 7 days (12/06/17-12/12/17); then take 125mg every other day x 8 weeks (12/13/17-02/06/18). This prescription was called into the pharmacy at [facility] on 11/15/17 - Pt will likely require treatment with Dificid through 11/16 to complete the 10 days recommended. Spoke with [facility] CM and due to outpt cost of the Dificid and that she will only require one more day ot was recommended she stay to complete treatment with the Dificid and then be discharged home on 11/16/17 to continue her Vancomycin treatment. - Pt has financial obligations at [facility] and had several issues at [facility] and at [place] and does not want to go back to the SNF. She wants to go home with [facility]. - Anticipate d/c to home with [facility] tomorrow Hypotension - monitor blood pressure - Her home meds were held at admission due to hypotension likely related to her diarrhea. - Her BP has been improving. - Norvasc 5mg po daily resumed on 11/14/17. Will resume her home dose of Lisinopril today as BP still elevated overnight and this morning. HTN, essential - chronic - Norvasc resumed on 11/14 - Resume Lisinopril today DM2 - Hold oral hypoglycemics - SSI Hypokalemia -replaced (2) Diabetes mellitus Code(s): E11.9 - Type 2 diabetes mellitus without complications Status: Acute (3) HTN (hypertension) Code(s): I10 - Essential (primary) hypertension Status: Acute (4) Chronic pain Code(s): G89.29 - Other chronic pain Status: Acute - Attending Attestation Patient examined. Assessment and plan formulated with Danuta Nguyen PA-C. I agree with the above. 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
--- NOTE | 2017-11-15 12:47 | P.PNID ---
Subjective Remarks: Above-noted. Patient complained of abdominal pain and had abdominal x-ray that showed moderate stools in the colon. One bowel movement yesterday. No stools today. Not having abdominal pain currently. Sitting in bedside chair eating lunch. Afebrile. This is a 72-year-old white female who has had multiple episodes of Clostridium difficile colitis in the past. She has been treated with prolonged vancomycin taper for C. difficile. The last episode of C. difficile was in 07/2017. She received treatment for the C. difficile, and she states that she finished the antibiotic treatment on 10/20/2017. On 10/23/2017, she noted that she was not feeling well and at some point sustained a fall. She began to have diarrhea after she finished the vancomycin taper and it worsened and she started having abdominal pain. She reports that she was feeling poorly at the beginning of October and had chest pain and she underwent stress test workup. She tells me that she had a scans of her abdomen, but I do not see any results available or reports of scans in the electronic medical record. She continued to have diarrhea and worsening abdominal pain. She was brought to the emergency department for evaluation on 11/05/2017, after she fell. The patient is a poor historian and therefore she expressed a desire to go home from the emergency department on 11/05/2017. She reports that she was feeling better. X-ray of the hip was performed and it showed no evidence of bony injury. Chest x-ray revealed findings concerning for nondisplaced subtle posterolateral 6 and 7 left rib fractures. The patient, however, was complaining of abdominal pain, and she reported that she could not tell whether she had to have a bowel movement and that the diarrhea would just suddenly occur. It was decided to evaluate this further, and she was noted to be hypotensive with blood pressure of 96/52. Past Medical History: PAST MEDICAL HISTORY: Recurrent Clostridium difficile, diabetes mellitus, hypertension, hyperlipidemia, inflammatory bowel disease, pulmonary hypertension, history of breast cancer in 2010, treated with lumpectomy, carpal tunnel syndrome. PAST SURGICAL HISTORY: Cholecystectomy, total knee replacement, arthroscopy, cataract surgery, RCR of the right shoulder, hysterectomy, D and C. Allergies/Adverse Reactions: Allergies oxycodone Allergy (Severe, Verified 07/17/17 00:35) ITCHING adhesive Allergy (Mild, Verified 07/17/17 00:35) Blisters the skin codeine Allergy (Mild, Verified 07/17/17 00:35) NAUSEA Objective Vital Signs 11/14/17 16:00 11/14/17 19:57 11/14/17 20:00 Temperature 97.8 F 98.1 F Pulse Rate 85 80 84 Respiratory Rate 18 20 Blood Pressure 150/79 H 143/70 H Pulse Oximetry 95 94 L 11/15/17 00:00 11/15/17 00:03 11/15/17 04:00 Temperature 98 F 98.1 F Pulse Rate 64 59 L 80 Respiratory Rate 20 20 Blood Pressure 137/67 164/80 H Pulse Oximetry 95 97 11/15/17 08:00 11/15/17 08:20 Temperature 97.2 F L Pulse Rate 72 Respiratory Rate 19 18 Blood Pressure 159/85 H Pulse Oximetry 100 Intake & Output 11/14/17 11/15/17 11/15/17 18:59 06:59 18:59 Intake Total 1200 / 1200 240 / 240 Output Total 1000 / 1000 Balance 200 / 200 240 / 240 Intake: Oral 1200 / 1200 240 / 240 Output: Urine 1000 / 1000 Other: # Voids 3 Date of Last Bowel Movement 11/14/17 # Bowel Movements 1 Lab - Chemistry Results 11/13/17 11/13/17 11/14/17 17:26 21:15 07:41 POC Glucose 96 154 H 104 11/14/17 11/14/17 11/14/17 12:20 16:16 22:27 POC Glucose 105 108 118 H 11/15/17 11/15/17 07:51 12:01 POC Glucose 108 132 H Imaging: ITS Impressions Chest X-Ray 11/06/17 13:30 CONCLUSION: Negative examination. Abdomen/Pelvis CT 11/06/17 13:36 CONCLUSION: Possible diffuse thickening of colonic wall and the colon is collapsed and not completely evaluated, however diffuse colitis should be entertained. Radiopaque densities seen within the calcification versus ingested material. Abdomen X-Ray 11/14/17 00:00 CONCLUSION: Moderate stool burden. Otherwise unremarkable exam. Physical Exam: PHYSICAL EXAMINATION: GENERAL: No acute distress. Awake and alert and oriented. HEENT: Head is atraumatic. Extraocular movement grossly intact. Pupils reactive to light. No icterus. NECK: Supple without adenopathy. LUNGS: Clear breath sounds. HEART: Regular rate and rhythm without murmurs. ABDOMEN: Distended, soft, nontender. EXTREMITIES: No clubbing, cyanosis or edema. SKIN: No rash. NEUROLOGIC: No gross focal finding. PSYCHIATRIC: Calm and cooperative. Assessment and Plan - Plan IMPRESSION: 1. Recurrent Clostridium difficile colitis. Ongoing diarrhea. 2. Dehydration and hypokalemia secondary to diarrhea. RECOMMENDATIONS: 1. Complete oral Dificid oral Dificid. 2. 12 week vancomycin p.o. taper as outlined by medical team. I will sign off now.
[2017-11-15] MEDS: Lisinopril 20 MG Tablet PO SCH (13:13)
--- NOTE | 2017-11-15 16:46 | P.PNGI ---
Subjective Interval history: Patient is more awake and more alert and resting in the bed current abdominal symptoms are much more controlled no obvious nausea or vomiting No diarrhea stools today, states occasional abdominal discomfort over the past 24-48 hours but much more controlled now <Mary Akers - Last Filed: 11/15/17 16:42> Physical Exam Vital signs: Vital Signs 11/14/17 19:57 11/14/17 20:00 11/15/17 00:00 Temperature 98.1 F 98 F Pulse Rate 80 84 64 Respiratory Rate 20 20 Blood Pressure 143/70 H 137/67 Pulse Oximetry 94 L 95 11/15/17 00:03 11/15/17 04:00 11/15/17 08:00 Temperature 98.1 F 97.2 F L Pulse Rate 59 L 80 72 Respiratory Rate 20 19 Blood Pressure 164/80 H 159/85 H Pulse Oximetry 97 100 11/15/17 08:20 11/15/17 12:00 Temperature 98.3 F Pulse Rate 72 Respiratory Rate 18 18 Blood Pressure 144/71 H Pulse Oximetry 100 Intake & Output 11/14/17 11/15/17 11/15/17 18:59 06:59 18:59 Intake Total 1200 / 1200 240 / 240 Output Total 1000 / 1000 Balance 200 / 200 240 / 240 Intake: Oral 1200 / 1200 240 / 240 Output: Urine 1000 / 1000 Other: # Voids 3 Date of Last Bowel Movement 11/14/17 # Bowel Movements 1 - Constitutional no acute distress, obese, cooperative - Routine HEENT Exam Head: Present: normocephalic ENT: Present: mucous membranes moist - Routine Neck Exam Present: supple - Routine Respiratory Exam Present: accessory muscle use (Even, unlabored at rest) - Routine Cardiovascular Exam Present: S1, S2 - Routine Abdominal Exam Present: soft (Round, obese, active bowel sounds no tenderness to light palpation) <Mary Akers - Last Filed: 11/15/17 16:42> Vital signs: Vital Signs 11/15/17 00:00 11/15/17 00:03 11/15/17 04:00 Temperature 98 F 98.1 F Pulse Rate 64 59 L 80 Respiratory Rate 20 20 Blood Pressure 137/67 164/80 H Pulse Oximetry 95 97 11/15/17 08:00 11/15/17 08:20 11/15/17 12:00 Temperature 97.2 F L 98.3 F Pulse Rate 72 72 Respiratory Rate 19 18 18 Blood Pressure 159/85 H 144/71 H Pulse Oximetry 100 100 11/15/17 16:00 Temperature 98.3 F Pulse Rate 73 Respiratory Rate 18 Blood Pressure 113/59 L Pulse Oximetry 96 Intake & Output 11/15/17 11/15/17 11/16/17 06:59 18:59 06:59 Intake Total 240 / 240 960 / 960 Balance 240 / 240 960 / 960 Intake: Oral 240 / 240 960 / 960 Other: # Voids 3 3 Date of Last Bowel Movement 11/14/17 # Bowel Movements 1 1 <Estefania Buckley - Last Filed: 11/15/17 21:39> Results - Labs CBC & Chem 7: 11/13/17 09:34 11/13/17 05:00 Laboratory Results - last 24 hr 11/14/17 11/15/17 11/15/17 22:27 07:51 12:01 POC Glucose 118 H 108 132 H <Mary Akers - Last Filed: 11/15/17 16:42> - Labs CBC & Chem 7: 11/13/17 09:34 11/13/17 05:00 Laboratory Results - last 24 hr 11/14/17 11/15/17 11/15/17 22:27 07:51 12:01 POC Glucose 118 H 108 132 H 11/15/17 11/15/17 17:36 20:12 POC Glucose 115 H 219 H <Estefania Buckley - Last Filed: 11/15/17 21:39> Assessment and Plan (1) Recurrent Clostridium difficile diarrhea Status: Acute Code(s): A04.71 - Enterocolitis due to Clostridium difficile, recurrent (2) Colitis Status: Acute Code(s): K52.9 - Noninfective gastroenteritis and colitis, unspecified (3) Diarrhea Status: Acute Code(s): R19.7 - Diarrhea, unspecified - Plan 72-year-old female with unresolved recurrent weakness decreased appetite and lower abdominal cramping and pain. C. difficile colitis seen per CT scan and previous course of oral vancomycin on October 20 2 weeks ago. Once treatment was completed patient's symptoms reoccurred with loose watery incontinent diarrhea at least 4-5 times a day. Patient's been followed per ID to assist in her care and recommendations are to consider fecal transplant. Loose watery diarrhea stools secondary to C. difficile colitis Current labs show hemoglobin 11, normal white count Generalized weakness and fatigue, secondary to C. difficile colitis Consider colonoscopy with fecal transplant once arrangements are made. Probable sometime this week, will need several days of prep 11/09/2017, patient is showing some gradual improvement after hydration and pain management. Still having thin almost constant liquid stools via rectal system. Still having some abdominal cramping. Continues on multiple meds for C. difficile colitis, still considering fecal transplant if applicable. Patient appears to be depressed over feeling so bad and not being able to get while supportive care given 11/10/2017 current hemoglobin 9.5 no obvious bleeding. Patient still has rectal Harkins with liquid brown stools but seems to be a decreased amount today. Fecal transplant has been discussed as an option for this patient, may want to consider stool bank for a donor and work on this on an outpatient basis. Continue Dificid for now. Add Asacol and evaluate its effectiveness 11/11/17 Recurrent C. difficile colitis, 4th episode this yr- Stools are forming, having some abd pain, Abd X-ray today negative for obstruction She tells me her brother willing to be the donor for stools if needed 11/15/2017 patient has responded fairly well to Dificid as well as p.o. vancomycin. Symptoms are much more controlled. 9 9 KUB did show moderate amount of stool discussed with patient the need for possible stool softeners or MiraLAX every other day. Will need to follow-up with GI on an outpatient basis and consider outpatient therapy, for the future dependent on patient's symptoms and control of her C. difficile colitis. In the future once colitis is controlled consider outpatient colonoscopy. GI will sign off at this time but please make appointment for patient to follow-up in 2-4 weeks with advanced GI office and continue her sling treatment regimen. Patient was seen per myself and Dr. Buckley, note was written on his behalf <Mary Akers - Last Filed: 11/15/17 16:42> (1) Recurrent Clostridium difficile diarrhea Status: Acute Code(s): A04.71 - Enterocolitis due to Clostridium difficile, recurrent (2) Colitis Status: Acute Code(s): K52.9 - Noninfective gastroenteritis and colitis, unspecified (3) Diarrhea Status: Acute Code(s): R19.7 - Diarrhea, unspecified - Attending Attestation As above, please notify us if needed again. <Estefania Buckley - Last Filed: 11/15/17 21:39> <Mary Akers M - Last Filed: 11/15/17 16:42> (3) Diarrhea Qualifiers: Diarrhea type: presumed infectious Qualified Code(s): R19.7 - Diarrhea, unspecified <Estefania Buckley A - Last Filed: 11/15/17 21:39> (3) Diarrhea Qualifiers: Diarrhea type: presumed infectious Qualified Code(s): R19.7 - Diarrhea, unspecified
[2017-11-16] MEDS: Insulin NovoLOG Aspart Correctional Sugar Inj SQ SCH ×3 (07:17→16:56)
[2017-11-16] MEDS: Lactobacillus Acidophilus/L. Spores Tablet PO SCH (09:23)
[2017-11-16] MEDS: amLODIPine 5 MG Tablet PO SCH (09:24)
[2017-11-16] MEDS: Lisinopril 20 MG Tablet PO SCH (09:24)
[2017-11-16 13:49] VITALS: RESP 18; O2SAT 93
--- NOTE | 2017-11-16 15:09 | P.DS ---
Date of admission: 11/06/17 16:49 Primary care physician: UNKNOWN Attending physician on discharge: Joseph Jacome Brief History from admission: Patient is a 72-year-old female with history of hypertension, diabetes, and hyperlipidemia. Patient has particular history of recurrent clostridium difficile diarrhea. Patient presented to the ER yesterday (11/05/17) with complaint of having had a fall at home without striking her head or loss of consciousness. Patient complained of left rib and left hip pain. Chest x-ray revealed left rib fracture. Patient also complained of recurrent diarrhea, however she was unable to produce a stool sample after 3 hours in the ER and was discharged to home. Patient again presented to the ER today (11/06/17) with complaint of abdominal pain and diarrhea. Patient most recently completed a course of oral vancomycin on October 20 (2 weeks ago). Patient complains that the diarrhea is constant, liquid, and foul-smelling. Patient also complains of mild diffuse abdominal pain. Patient complains of nausea and poor oral intake. In the ER patient was found to be hypotensive with systolic blood pressure in the 90s which is lower than patient's baseline. Patient denies fever or chills. Stool sample has been sent to the laboratory for Clostridium difficile analysis , but is not yet back at the time of this dictation. Patient was hospitalized from 02/23/17 - 02/28/17 for C diff, electrolyte abnormalities, dehydration and pna. Pt was treated with flagyl 500g x 14d. Patient was hospitalized from 04/11-04/20 for diarrhea which was secondary to C. difficile. She had associated electrolyte abnormalities. Pt was treated with Vancomycin 125mg QID x 14d Patient hospitalized 04/26 - 05/10/17 for with acute kidney injury dehydration and C. difficile diarrhea. Pt was treated with Vancomycin 250mg QID x 14, then tapered over 35 days Pt was hospitalized with C. Dif 07/17 to 07/22/17 - Stool studies at admission were C diff pos, 027 positive. - ID was consulted. - Pt was started on PO Dificid 200mg po BID through 07/27 and vacomycin 250mg q6h x 14 days with 6 week taper Past Medical History recurrent C diff Diabetes mellitus Diabetic neuropathy HTN Hyperlipidemia Hx of breast cancer in 2009 s/p lumpectomy and XRT IBS Pulmonary HTN, PA peak pressure 50mmHg in 2004 CHELSI Vitamin D deficiency Vitamin B12 deficiency Past Surgical History Total knee replacement, left 2004 Arthroscopy both knees Cholecystectomy Cataract surgery RCR right shoulder Feet surgery in 1969's Hysterectomy D&C Family History One estranged brother living in [place], [place] Social History Denies any alcohol, tobacco or illicit drug use Pt lives alone All: oxycodone, adhesive, codeine DS: Diagnosis - Discharge Diagnosis (1) Recurrent Clostridium difficile diarrhea Status: Acute (2) Diabetes mellitus Status: Acute (3) HTN (hypertension) Status: Acute (4) Chronic pain Status: Acute DS: Medications - Discharge Medications Prescriptions: acidophilus-sporogenes [Acidophilus Ex Str (L. sporog)] 1 tab PO BID 90 Days # 180 tab amlodipine 5 mg PO DAILY 30 Days #30 tab hydrocodone-acetaminophen 1 tab PO Q4H PRN #18 tab PRN Reason: Pain lisinopril 20 mg PO DAILY 30 Days #30 tab vancomycin See Label Instructions .ROUTE .COMPLEX 85 Days cap DS: Summary Hospital Course: (1) Recurrent Clostridium difficile diarrhea Code(s): A04.71 - Enterocolitis due to Clostridium difficile, recurrent Status : Acute Plan: Patient is a 72-year-old female with history of hypertension, diabetes, and hyperlipidemia. Patient has particular history of recurrent clostridium difficile diarrhea. Patient presented to the ER yesterday (11/05/17) with complaint of having had a fall at home without striking her head or loss of consciousness. Patient complained of left rib and left hip pain. Chest x-ray revealed left rib fracture. Patient also complained of recurrent diarrhea, however she was unable to produce a stool sample after 3 hours in the ER and was discharged to home. Patient again presented to the ER today (11/06/17) with complaint of abdominal pain and diarrhea. Patient most recently completed a course of oral vancomycin on October 20 (2 weeks ago). Patient complains that the diarrhea is constant, liquid, and foul-smelling. Patient also complains of mild diffuse abdominal pain. Patient complains of nausea and poor oral intake. In the ER patient was found to be hypotensive with systolic blood pressure in the 90s which is lower than patient's baseline. Patient denied fever or chills. Recurrent C. diff colitis - patient was hospitalized from 02/23/17 - 02/28/17 for C diff, electrolyte abnormalities, dehydration and pna. - Patient was hospitalized from 04/11-04/20 for C. difficile diarrhea. She had associated electrolyte abnormalities. - Patient was hospitalized April 26, 2017 for with acute kidney injury dehydration and C. difficile diarrhea. - Pt was hospitalized with C. Dif 07/17 to 07/22/17 - During pts last admission she was recommended to be on PO Dificid 200mg po BID through 07/27, then vancomycin taper for 6-12 weeks per ID: Take 125mg Q6H x 14 days (07/28-08/11); then take 125mg BID x 7 days (08/12-08/19); then take 125mg daily x 7 days (08/20-08/27); then take 125mg every other day x 4 weeks (08/28-09/25 ) - pt reports that she was taking Vancomycin up until 10/20/17 and then a few days after that she started having diarrhea again. - CT A/P (11/06/17) --> Possible diffuse thickening of colonic wall and the colon is collapsed and not completely evaluated, however diffuse colitis should be entertained. Radiopaque densities seen within the calcification versus ingested material. - C. Dif PCR positive (11/06/17) - C. Dif 027 positive (11/06/17) - Blood Culture (11/06/17) --> NGTD - stool studies: - no fecal leukocytes - Hemoccult negative - O&P negative, negative - cryptosporidium & Giardia --> negative - ID consulted, appreciate input - Gastroenterology was consulted for consideration of possible fecal transplant. At this point the pt is clinically improving on the Vancomycin and the Dificid. Her stools are forming up. We will continue a prolonged taper of the Vancomycin after Dificid and we will discuss with GI possible outpt evaluation for stool transplant should that still be necessary as that may be a more viable option due to the complex social dynamics of the case. - Patient on Vancomycin 250 mg PO QID (11/06 to present) - ID started Dificid 200 mg PO BID (11/07 to 11/16/17) - GI started Asacol 1600mg TID on 11/10/17 and given through 11/13/17 - continue Lactinex - Questran added on 11/11 - KUB (11/11/17) --No evidence of obstruction. - continue PT, request PT seven days per week. Nursing to assist OOB to chair BID and encourage activity/ambulation - SCDs for DVT prophylaxis - Supportive care - We will continue a prolonged Vancomycin taper at discharge: Take 125mg QID x 14 days (11/15/17-11/28/17); then take 125mg BID x 7 days (11/29/17-12/05/17); then take 125mg daily x 7 days (12/06/17-12/12/17); then take 125mg every other day x 8 weeks (12/13/17-02/06/18). This prescription was called into the pharmacy at [facility] on 11/15/17 - Pt will required treatment with Dificid through 11/16 to complete the 10 days recommended. - Pt has financial obligations at [facility] and had several issues at [facility] and at [facility] and does not want to go back to the SNF. She wants to go home with [facility]. - Discharge to home with [facility] and home PT - see discharge orders - f/u with GI, Dr. Strickland, in 2 weeks - f/u with Dr. Roseanne Garza, in 2 weeks Hypotension - monitor blood pressure - Her home meds were held at admission due to hypotension likely related to her diarrhea. - Her BP has been improving. - Norvasc 5mg po daily resumed on 11/14/17. - resumed lisinopril at 20mg daily with parameters . HTN, essential - chronic - see above DM2 - Hold oral hypoglycemics - SSI - resume outpt regimen upon discharge Hypokalemia -replaced (2) Diabetes mellitus Code(s): E11.9 - Type 2 diabetes mellitus without complications Status: Acute (3) HTN (hypertension) Code(s): I10 - Essential (primary) hypertension Status: Acute (4) Chronic pain Code(s): G89.29 - Other chronic pain Status: Acute - Time Spent with Patient Total time spent providing and/or coordinating discharge services: Greater than 30 minutes - Quality: VTE Deep Vein Thrombosis/Pulmonary Embolism Present on Admission: No Exam Vital signs: Vital Signs 11/15/17 16:00 11/15/17 20:00 11/16/17 00:00 Temperature 98.3 F 98.2 F 97.6 F Pulse Rate 73 84 68 Respiratory Rate 18 18 18 Blood Pressure 113/59 L 103/56 L 99/55 L Pulse Oximetry 96 96 97 11/16/17 04:00 11/16/17 08:00 11/16/17 12:00 Temperature 97.5 F L 97.8 F 97.6 F Pulse Rate 65 87 78 Respiratory Rate 18 Blood Pressure 103/59 L 111/51 L 120/61 Pulse Oximetry 97 97 93 L Intake & Output 11/15/17 11/16/17 11/16/17 18:59 06:59 18:59 Intake Total 960 / 960 Balance 960 / 960 Weight 62 kg Intake: Oral 960 / 960 Other: # Voids 3 3 Date of Last Bowel Movement 11/15/17 # Bowel Movements 1 1 Narrative: GENERAL: This is a well-nourished, well-developed patient, in no apparent distress. CARDIOVASCULAR: Regular rate and rhythm without murmurs, gallops, or rubs. RESPIRATORY: Clear to auscultation. Breath sounds equal bilaterally. No wheezes , rales, or rhonchi. GASTROINTESTINAL: Abdomen soft, non-tender, nondistended. Normal active bowel sounds MUSCULOSKELETAL: Extremities without clubbing, cyanosis, or edema. NEURO: Alert & Oriented x4 to person, place, time, situation. Moves all ext x4 Results Procedures completed during hospitalization: n/a Labs on day of discharge: Labs from last 24 hours 11/16/17 11/16/17 11/15/17 11:48 07:14 20:12 POC Glucose 108 84 219 H 11/15/17 17:36 POC Glucose 115 H - Impressions ITS Impressions Chest X-Ray 11/06/17 13:30 CONCLUSION: Negative examination. Abdomen/Pelvis CT 11/06/17 13:36 CONCLUSION: Possible diffuse thickening of colonic wall and the colon is collapsed and not completely evaluated, however diffuse colitis should be entertained. Radiopaque densities seen within the calcification versus ingested material. Abdomen X-Ray 11/14/17 00:00 CONCLUSION: Moderate stool burden. Otherwise unremarkable exam. Discharge Plan - Discharge Disposition Patient Disposition: W/Home Health Service - Discharge Condition Condition: Stable - Discharge Order Discharge Orders: Discharge Order (Routine); Ordered 11/16/17 Ordered By: Danuta Nguyen - Discharge Details Anticipated Discharge Date: 11/16/17 Discharge Comment: Followupt with Dr. Strickland in 2 weeks, call for an appt - Physicians Team Primary Care Provider: UNKNOWN, Attending Provider: Joseph Jacome Other Providers: Estefania Buckley MD ; Brian Perkins MD ; [facility] ; [facility]
[2017-11-16 18:24] VITALS: BP 111/56; PULSE 81; TEMP 98.7
== END 2017-11-16 19:50 | disposition home health service (06) ==
LOC: NEPE 13:22 → NEDA 16:49 → N07 19:06
PROVIDERS: ADMIT Hospitalist; ATTEND Hospitalist